=== PATIENT | male | born 1955 | race Two or more races ===

== ENCOUNTER 2023-01-22 12:53 | Outpatient (REF) | payer MEDICARE, MEDICAID, SELFPAY ==
[2023-01-22 14:24] LABS: MANUAL DIFF FLAG NO
[2023-01-22 14:37] LABS: Basophils Percent Auto 0.8 % (0-2); Eosinophils Absolute Auto 0.2 X10*3/uL (0.0-0.4); Eosinophils Percent Auto 4.8 % (0-4); Hematocrit 45.5 % (42.0-52.0); Imm Gran Abs Auto 0.02 X10*3/uL (0.00-0.03); Imm Gran Pct Auto 0.4 % (0.0-0.4); Lymphocytes Absolute Auto 1.6 X10*3/uL (1.2-4.9); Lymphocytes Percent Auto 33.1 % (20-40); Mean Corpuscular Hemoglobin 31.4 pg (27.0-33.0); Mean Corpuscular Volume 95.4 fL (80.0-98.0); Monocytes Absolute Auto 0.4 X10*3/uL (0.1-1.2); Monocytes Percent Auto 7.3 % (2-11); Neutrophils Absolute Auto 2.6 x10*3/uL (2.0-8.3); Neutrophils Percent Auto 53.6 % (45-73); Platelet Count 265 X10*3/uL (160-400); Red Blood Count 4.77 X10*6/uL (4.60-5.80); Red Cell Distribution Width 12.6 % (11.0-16.0); White Blood Count 4.8 X10*3/uL (4.8-10.8)
[2023-01-22 15:16] LABS: Alanine Aminotransferase 21 U/L (0-40); Albumin Level 4.5 g/dL (3.5-5.0); Alkaline Phosphatase 85 U/L (39-117); Anion Gap 12 (12-20); Aspartate Amino Transferase 16 U/L (5-37); Bilirubin Total 0.3 mg/dL (0.0-1.0); Blood Urea Nitrogen 22 mg/dL (9-16); Calcium 9.8 mg/dL (8.4-10.2); Carbon Dioxide 27 mmol/L (22-29); Chloride 108 mmol/L (96-108); Cholesterol 275 mg/dL (<200); Estimated Glomerular Filt Rate > 60; Glucose Fasting 110 mg/dL (60-99); HDL Cholesterol 36 mg/dL (>40); Potassium 5.1 mmol/L (3.3-5.1); Sodium 142 mmol/L (135-145); Total Protein 7.8 g/dL (6.5-8.0); Triglycerides 404 mg/dL (<150)
[2023-01-22 15:19] LABS: TSH reflex Free T4 3.15 uIU/mL (0.32-4.0)
[2023-01-22 15:27] LABS: Creatinine Urine 222.24 mg/dL
[2023-01-23 03:42] LABS: HIV AB/AG Nonreactive (Nonreactive); HIV Num 1 0.07 S/CO (0.00-0.99); ~HepC Num1 0.11 S/CO (0.00-0.79); ~Hepatitis C Antibody Nonreactive (Nonreactive)
== END 2023-01-22 12:54 | disposition home or self-care (01) ==
LOC: HO.CHCLDS 12:53
PROVIDERS: Visit Provider Family Medicine
DX: Z11.4 Encounter for screening for human immunodeficiency virus [HIV] (principal); I10 Essential (primary) hypertension; E78.5 Hyperlipidemia, unspecified; E03.9 Hypothyroidism, unspecified
CPT/HCPCS: 36415; 80053; 80061; 82043; 82570; 84443; 85025; 86803; 87389

== ENCOUNTER 2023-06-22 10:03 | Outpatient (REF) | payer MEDICARE, MEDICAID, SELFPAY ==
[2023-06-22 15:26] LABS: Cholesterol 254 mg/dL (<200); HDL Cholesterol 35 mg/dL (>40); LDL Cholesterol Calculated 165 mg/dL (<100); Triglycerides 273 mg/dL (<150)
== END 2023-06-22 10:04 | disposition home or self-care (01) ==
LOC: HO.CHCLDS 10:03
PROVIDERS: Visit Provider Family Medicine
DX: Z12.5 Encounter for screening for malignant neoplasm of prostate (principal); E78.5 Hyperlipidemia, unspecified
CPT/HCPCS: 36415; 80061; 84153

== ENCOUNTER → 2023-07-01 13:43 | Outpatient (BNVA) | payer OTHER, SELFPAY | PROVIDERS: Visit Provider Nurse Practitioner ==

== ENCOUNTER 2023-10-05 10:26 | Outpatient (REF) | payer OTHER, SELFPAY ==
[2023-10-05 16:48] LABS: Cholesterol 135 mg/dL (<200); HDL Cholesterol 44 mg/dL (>40); LDL Cholesterol Calculated 38 mg/dL (<100); Triglycerides 269 mg/dL (<150)
== END 2023-10-05 10:27 | disposition home or self-care (01) ==
LOC: HO.CHCLDS 10:26
PROVIDERS: Visit Provider Family Medicine
DX: E78.5 Hyperlipidemia, unspecified (principal)
CPT/HCPCS: 36415; 80061

== ENCOUNTER 2023-10-21 11:29 | Outpatient (REF) | payer OTHER, SELFPAY ==
--- NOTE | ~2023-10-21 | XR_ITS ---
EXAMINATION: XR CERVICAL SPINE CLINICAL INFORMATION: Chronic back pain COMPARISON: None available. TECHNIQUE: 5 views of the cervical spine were obtained. FINDINGS: No acute visible fracture or dislocation. Slight exaggeration of the cervical lordosis. Grade 1 retrolisthesis of C5 on C6. Mild left multilevel neuroforaminal narrowing. Multilevel degenerative changes with disc space narrowing, endplate sclerosis, osteophyte formation, and facet arthropathy. Visualized dens is intact. Lateral masses are symmetric. Vertebral body has a spaces are maintained. Prevertebral soft tissues are unremarkable. Posterior elements are intact. Paraspinal soft tissues are unremarkable. Visualized portions of the upper chest are unremarkable. XR/XR cervical spine 4V IMPRESSION: 1. No acute visible fracture or dislocation. 2. Slight exaggeration of the cervical lordosis. 3. Grade 1 retrolisthesis of C5 on C6. 4. Mild left multilevel neuroforaminal narrowing. 5. Multilevel degenerative changes.
== END 2023-10-21 11:30 | disposition home or self-care (01) ==
LOC: HO.HHCX 11:29
PROVIDERS: Visit Provider Family Medicine
DX: M54.2 Cervicalgia (principal); G89.28 Other chronic postprocedural pain; Z98.890 Other specified postprocedural states
CPT/HCPCS: 72050

== ENCOUNTER 2024-01-10 09:41 | Outpatient (REF) | payer OTHER, SELFPAY ==
[2024-01-10 16:25] LABS: Cholesterol 119 mg/dL (<200); HDL Cholesterol 41 mg/dL (>40); LDL Cholesterol Calculated 37 mg/dL (<100); Triglycerides 208 mg/dL (<150)
== END 2024-01-10 09:42 | disposition home or self-care (01) ==
LOC: HO.CHCLDS 09:41
PROVIDERS: Visit Provider Family Medicine
DX: E78.5 Hyperlipidemia, unspecified (principal)
CPT/HCPCS: 36415; 80061

== ENCOUNTER 2024-01-29 18:27 | Outpatient (REF) | payer OTHER, SELFPAY | END 2024-01-29 18:28 | disposition home or self-care (01) | LOC: HO.MRI 18:27 | PROVIDERS: PCP Family Medicine; Visit Provider Family Medicine | DX: M54.2 Cervicalgia (principal); G89.29 Other chronic pain; Z98.890 Other specified postprocedural states | CPT/HCPCS: 72141 ==

== ENCOUNTER → 2024-03-31 14:20 | Outpatient (BNVA) | payer OTHER, SELFPAY | PROVIDERS: PCP Family Medicine; Referring Provider Family Medicine; Visit Provider Nurse Practitioner Family | DX: M50.30 Other cervical disc degeneration, unspecified cervical region (principal); M47.812 Spondylosis without myelopathy or radiculopathy, cervical region; M62.838 Other muscle spasm; M48.02 Spinal stenosis, cervical region; G44.86 Cervicogenic headache | CPT/HCPCS: 99202 ==

== ENCOUNTER 2024-04-20 07:39 | Outpatient (REF) | payer OTHER, SELFPAY ==
--- NOTE | ~2024-04-20 | FL_ITS ---
EXAMINATION: FL GUIDANCE ONLY HISTORY: M47.812 - Spondylosis without myelopathy or radiculopathy, cervical region COMPARISON: None available. TECHNIQUE: Fluoroscopy time: 0.1 minutes. Cumulative Dose: 0.601 mGy. DAP: 0.34726 mGym2 Images: 2. FINDINGS: Fluoroscopic spot films of the cervical spine demonstrate multiple needles in the left neck at the C3, C4, and C5 levels. FL/FL guidance in treatment room IMPRESSION: Fluoroscopy during procedure. Please see procedure report for additional information. Electronically signed by: Acosta Norman MD 04/20/2024 12:42 PM MARY
--- OUTSIDE RECORDS SUMMARY | 2024-04-20 07:41 | XMS_ITS | Encounter Summary ---
Author Organization [employer] Address [address] [facility] 7t [place] [address] Care Team Providers Care Basketball Player Name Role Phone Sonya Donis MD Primary Care Provider Reason for Referral * Imaging (Routine) - Authorized Specialty Diagnoses / Procedures Referred By Kendra dale Referred To Contact Radiology Diagnoses Neck mass Procedures CT Soft Tissue Neck w/ Contrast Georges Dean MD [address] [place] [address] Phone: tel: fax: [address] Phone: tel: fax: Referral ID Status Reason Start Date Expiration Date V isits Requested Visits Authorized [id number] Authorized 04/05/2024 04/05/2025 1 1 Encounter Details Date Type Department Care Team ([facility] st Contact Info) Description 04/05/2024 Telephone [facility] [address] [place], [place] [phone] Georges Dean MD [address] [place], [place] [phone] Social History Tobacco Use Types Packs/Day Years Used Date Smoking Tobacco: Some Days Cigarettes Depression Answer Date Recorded Patient Health Questionnaire-9 Score 0 10/11/2023 Patient Health Questionnaire-9 Score 0 10/11/2023 Last PHQ-9: Questionnaire Data Not on file 0 10/11/2023 Housing Stability Answer Date Recorded What is your housing situation today? I have maru boyle 01/08/[address] you li ve. Do you have problems with any of the following? None of the above 01/08/2023 Food Insecurity Answer Date Recorded Within the past 12 months, y ou worried that your food would run out before you got money to buy more: Never True 01/08/2023 Within the past 12 months,th e food you bought just didn't last and you didn't have enough money to get more: Never True 05/2022 Transportation Answer Date Recorded In the past 12 months, has l ack of transportation kept you from medical appts, meetings, work or from getting things needed for daily living? No 01/08/2023 Utilities Answer Date Recorded In the past 12 months, has t he electric, gas, oil or water company threatened to shut off services in your home? No 01/08/2023 Depression Answer Date Recorded Patient Health Questionnaire-2 Score 0 10/11/2023 Internet Access Answer Date Recorded Internet Access Q1 Yes 11/05/2023 Internet Access Q2 Not on file 11/05/2023 Sex and Gender Information Value Date Recorded Sex Assigned at Male 03/11/2022 2:50 PM EST Legal Sex Male 2:46 PM EST Gender Identity Male 03/11/2022 2:50 PM EST Sexual Orientation Straight 03/11/2022 2: 50 PM EST documented as of this encounter Miscellaneous Notes * Telephone Encounter - Georges Dean MD - 04/05/2024 12:49 PM EST Covering for Dr. Donis. Received a notification to re-submit the CT Neck order to further evaluateneck lymph nodes seen on C-spine MRI. Recommended to order as Soft Tissue Neck CT with IV contrast.Will also need an updated BUN/Cr. Diagnoses and all orders for this visit: Neck mass (Primary) - CT Soft Tissue Neck w/ Contrast; Future - Basic Metabolic Panel; Future documented in this encounter Plan of Treatment Upcoming Encounters Date Type Department Care Team ([facility] st Contact Info) Description 05/11/2024 1:30 PM EST Clinical Support [facility] [address] [place] [address] McMAnupama benitez RN [address] [place] [address] 05/23/2024 1:00 PM EDT Clinical Support [facility] [address] [place] [address] 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 RN [address] [place] [address] 09/22/2024 3:00 PM EDT Office Visit [facility] [address] [place] [address] Ascencion Joya Scheduled Orders Name Type Priority Associated Diagnoses Orde r Schedule CT Soft Tissue Neck w/ Contrast Imaging Routine Neck mass Expected: 04/05/2024, Expires: 04/05/2025 Basic Metabolic Panel Lab Routine Neck mass Expected: 04/05/2024 (Approximate), Expires: 04/05/2025 documented as of this encounter Visit Diagnoses Diagnosis Neck mass- Primary Swelling, mass, or lump in head and neck documented in this encounter Additional Health Concerns Assessment Noted Time PHQ-9 Depression Total Score: 0 10/11/19 24 9:09 AM EDT documented as of this encounter Care Teams Basketball Player Relationship Specialty Start Date End Date Sonya Donis MD [address] [place] [address] PCP - General Family Medicine 01/18/23 [employer] SAFETY ASSOCIATE Services 10/11/23 documented as of this encounter
--- OUTSIDE RECORDS SUMMARY | 2024-04-20 07:41 | XMS_ITS | Encounter Summary ---
Author Organization [employer] Address [address] [facility] [address] 7t [place] [address] Care Team Providers Care Racking Technician Name Role Phone Sonya Donis MD Primary Care Provider Reason for Visit * Reason Comments Routine Cleaning Encounter Details Date Type Department Care Team ([facility] st Contact Info) Description 03/24/2024 3:00 PM EST Office Visit [facility] [address] [place] [address] Ascencion Joya Dental calculus (Primary Dx) Social History Tobacco Use Types Packs/Day Years [...] PM EST documented as of this encounter Last Filed Vital Signs Vital Sign Reading Time Taken Comments Blood Pressure 122/68 03/24/2024 3:10 PM EST Pulse 66 03/24/2024 3:10 PM EST Temperature - - Respiratory Rate - - Oxygen Saturation - - Inhaled Oxygen Concentration - - Weight - - Height - - Body Mass Index - - documented in this encounter Progress Notes * Ascencion Joya - 03/24/2024 3:00 PM EST Patient ID: Nemo De Los Santos is a 68 y.o. male. Time Out: Timeout Date: 03/24/24, Timeout Time: 1511 Location: [facility] Tooth: Maxilla and Mandible Procedure: Prophylaxis Verified the above with patient, warehouse administrative assistant, and provider. Confirmed via patient's chart, intraorally and by radiographs. Tanning Drum Operator: not applicable Medical Hx: Vitals: Blood pressure 122/68, pulse 66. Medications, Med Hx reviewed with patient and updated in chart. Treatment Provided Dental procedures in this visit D1110 - PROPHYLAXIS - ADULT (Completed) Service provider: Ascencion Torres provider: Makenzie Lam DDS [id number] - ORAL HYGIENE INSTRUCTIONS (Completed) Service provider: Ascencion Torres provider: Makenzie Lam DDS [id number] - ADJUNCTIVE GENERAL SERVICES - PROFESSIONAL VISITS - CASE PRESENTATION, SUBSEQUENT TO DETAILED AND EXTENSIVE TREATMENT PLANNING (Completed) Service provider: Ascencion Torres provider: Makenzie Lam DDS Instruments Used: Ultrasonic Scalers and Prophy angle Fluoride: N/A Oral Cancer Screening: No lesions Head/Neck Exam: No Lesions Calculus: Light and Localized Plaque: Light and Localized Stain: Light and Localized Bleeding: Light and Localized Gingiva: Healthy [place]: Good Perio Chart: Not Completed Oral hygiene instructions provided to patient including brushing technique and flossing. Recommendations: [place] two times daily, modified emery technique, Floss daily Recall Frequency: 6 mo NV: 6mr Hygienist: Ascencion Joya RDH documented in this encounter Plan of Treatment Upcoming Encounters Date Type Department Care Team (Late st Contact Info) Description 05/11/2024 1:30 PM EST Clinical Support [facility] [address] [place] [address] 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 RN [address] [place] [address] 05/23/2024 1:00 PM EDT Clinical Support [facility] [address] [place] [address] 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 RN [address] [place] [address] 09/22/2024 3:00 PM EDT Office Visit [facility] ADULT D[facility] [address] [place] [address] Ascencion Joya Scheduled Orders Name Type Priority Associated Diagnoses Orde r Schedule PROPHYLAXIS - ADULT Dental Routine 1 Occ urrences starting 03/24/2024 documented as of this encounter Procedures Procedure Name Priority Date/Time Associated Diagnosis Comments PROPHYLAXIS - ADULT Routine 03/24/2024 3 :00 PM EST ORAL HYGIENE INSTRUCTIONS Routine 2024 3:00 PM EST CASE PRESENTATION, DETAILED AND EXTENSIVE TREATMENT PLANNING Routine 03/24/2024 3:00 PM EST documented in this encounter Visit Diagnoses Diagnosis Dental calculus- Primary Accretions on teeth documented in this encounter Additional Health Concerns Assessment Noted Time PHQ-9 Depression Total Score: 0 10/11/19 9:09 AM EDT documented as of this encounter Care Teams Racking Technician Relationship Specialty Start Date End Date Sonya Donis MD [address] [place] [address] PCP - General Family Medicine 01/18/23 [employer] EDITORIAL DIRECTOR Services 10/11/23 documented as of this encounter
--- OUTSIDE RECORDS SUMMARY | 2024-04-20 07:41 | XMS_ITS | Encounter Summary ---
Author Organization [employer] Address [address] [facility] 7t [place] [address] Care Team Providers Care Geomatics Professor Name Role Phone Sonya Donis MD Primary Care Provider [phone] Reason for Visit * Reason Onset Date Comments Med Refill 04/07/2024 Encounter Details Date Type Department Care Team (Late st Contact Info) Description 04/07/2024 Refill [facility] [address] [place], [place] [phone] Sonya Donis MD [address] [place] [address] Chronic left hip pain Social History Tobacco Use Types Packs/Day Years Used Date Smoking Tobacco: Some Days Cigarettes Depression Answer Date Recorded Patient Health Questionnaire-9 Score 0 10/11/2023 Patient Health Questionnaire-9 Score 0 10/11/2023 Last PHQ-9: Questionnaire Data Not on file 0 10/11/2023 Housing Stability Answer Date Recorded What is your housing situation today? I have marumendel boyle 01/08/[address] you [...] encounter Miscellaneous Notes * Telephone Encounter - Kenya Martin - 04/07/2024 12:58 PM EST TC from pt requesting medication refill. Medications needing refill : oxyCODONE-acetaminophen (Percocet) 5-325 MG tablet To be sent to: [id number] AT [facility] documented in this encounter Plan of Treatment Upcoming Encounters Date Type Department Care Team ([facility] st Contact Info) Description 05/11/2024 1:30 PM EST Clinical Support [facility] [address] [place] [address] 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 RN [address] [place] [address] 05/23/2024 1:00 PM EDT Clinical Support [facility] [address] [place] [address] 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 RN [address] [place] [address] 09/22/2024 3:00 PM EDT Office Visit [facility] [address] [place] [address] Ascencion Joya documented as of this encounter Visit Diagnoses Diagnosis Chronic left hip pain documented in this encounter Additional Health Concerns Assessment Noted Time PHQ-9 Depression Total Score: 0 10/11/19 9:09 AM EDT documented as of this encounter Care Teams Geomatics Professor Relationship Specialty Start Date End Date Sonya Donis MD [address] [place] [address] PCP - General Family Medicine 01/18/23 [employer] METAL DRILL OPERATOR Services 10/11/23 documented as of this encounter
--- OUTSIDE RECORDS SUMMARY | 2024-04-20 07:41 | XMS_ITS | Encounter Summary ---
Author Organization [employer] Address [address] [facility] 7t [place] [address] Care Team Providers Care Long Term Care Pharmacist Name Role Phone Sonya Donis MD Primary Care Provider [phone] Reason for Visit * Reason Comments Med Refill Encounter Details Date Type Department Care Team ([facility] st Contact Info) Description 04/08/2024 Refill [facility] [address] [place], [place] [phone] Sonya Donis MD [address] [place] [address] Social History Tobacco Use Types Packs/Day Years [...] PM EST documented as of this encounter Plan of Treatment Upcoming Encounters Date Type Department Care Team (Late st Contact Info) Description 05/11/2024 1:30 PM EST Clinical Support [facility] [address] [place] [address] 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 RN [address] [place] [address] 05/23/2024 1:00 PM EDT Clinical Support [facility] [address] [place] [address] 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 RN [address] [place] [address] 09/22/2024 3:00 PM EDT Office Visit [facility] ADULT DENTAL [address] [place] [address] Ascencion Joya documented as of this encounter Visit Diagnoses Not on filedocumented in this encounter Additional Health Concerns Assessment Noted Time PHQ-9 Depression Total Score: 0 10/11/19 9:09 AM EDT documented as of this encounter Care Teams Long Term Care Pharmacist Relationship Specialty Start Date End Date Sonya Donis MD [address] [place] [address] PCP - General Family Medicine 01/18/23 [employer] CLIENT CARE CONSULTANT Services 10/11/23 documented as of this encounter
--- OUTSIDE RECORDS SUMMARY | 2024-04-20 07:41 | XMS_ITS | Encounter Summary ---
Author Organization [employer] Address [address] [facility] 7t [place] [address] Care Team Providers Care Dry Wall Applicator Name Role Phone Sonya Donis MD Primary Care Provider [phone] Reason for Visit * Reason Onset Date Comments Med Refill 09/08/2023 Encounter Details Date Type Department Care Team ([facility] st Contact Info) Description 09/08/2023 Telephone [facility] [address] [place] [address] Sonya Donis MD [address] [place] [address] Med Refill Social History Tobacco Use Types Packs/Day Years Used Date Smoking Tobacco: Some Days Cigarettes Depression Answer Date Recorded Patient Health Questionnaire-9 Score 9 03/11/2023 Patient Health Questionnaire-9 Score 9 03/11/2023 Last PHQ-9: Questionnaire Data Not on file 0 03/11/2023 Housing Stability Answer Date Recorded What is [...] Answer Date Recorded Patient Health Questionnaire-2 Score 2 03/11/2023 Sex and Gender Information Value Date Recorded Sex Assigned at Male 03/11/2022 2:50 PM EST Legal Sex Male 2:46 PM EST Gender Identity Male 03/11/2022 2:50 PM EST Sexual Orientation Straight 03/11/2022 2: 50 PM EST documented as of this encounter Miscellaneous Notes * Telephone Encounter - Kiki Cartagena LPN - 09/08/2023 2:59 PM EDT Medication was sent to [facility] #[id number] on 07/09/23 with 2 refills. * Telephone Encounter - Marcy Mohan - 09/08/2023 1:12 PM EDT TC from pt requesting medication refill. Medications needing refill : cyclobenzaprine (Flexeril) 10 MG tablet To be sent to: [facility] #[id number] - ANUEL WOLFF [address] AT [facility] documented in this encounter Plan of Treatment Upcoming Encounters Date Type Department Care Team ([facility] Contact Info) Description 05/11/2024 1:30 PM EST Clinical Support [facility] [address] [facility] [place] [address] 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 RN 505 [facility] [place] [address] 05/23/2024 1:00 PM EDT Clinical Support [facility] [address] [facility] [place] [place] [address] 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 RN 505 [facility] [place] [address] 09/22/2024 3:00 PM EDT Office Visit [facility] [address] [place] [address] Ascencion Joya documented as of this encounter Visit Diagnoses Not on filedocumented in this encounter Additional Health Concerns Assessment Noted Time PHQ-9 Depression Total Score: 9 03/11/19 24 11:12 AM EST documented as of this encounter Care Teams Dry Wall Applicator Relationship Specialty Start Date End Date Sonya Donis MD [address] [place] [address] PCP - General Family Medicine 01/18/23 [employer] NICKING MACHINE OPERATOR Services 10/11/23 documented as of this encounter
--- OUTSIDE RECORDS SUMMARY | 2024-04-20 07:41 | XMS_ITS | Encounter Summary ---
Author Organization [employer] Address [address] [facility] 7t [place] [address] Care Team Providers Care Mold Filling Operator Name Role Phone Sonya Donis MD Primary Care Provider [phone] Reason for Visit * Reason Onset Date Comments CRITICAL RESULT 03/28/2024 Encounter Details Date Type Department Care Team ([facility] st Contact Info) Description 03/28/2024 Telephone [facility] [address] [place] [address] Sonya Donis MD [address] [place] [address] CRITICAL RESULT Social History Tobacco Use Types Packs/Day Years [...] encounter Miscellaneous Notes * Telephone Encounter - Mahsa Apodaca RN - 03/28/2024 12:27 PM EST Incoming call to the Critical Result line 03/28/24 at 12:27 PM Name of Caller/Facility:[facility] Physician support, on behalf of Dr. Harding Callback number: [phone] Reason for Call: Calling to relay finding of MRI report form 03/20/24 MR/MR cervical spine wo con IMPRESSION: 1. Discogenic degenerative changes primarily at C5-C6 as discussed above, with disc osteophyte complex and DJD at this level with moderate spinal canal stenosis without cord impingement. There is moderate left-sided and severe right-sided neural foraminal stenosis at this level. 2. Multilevel disc protrusions and disc osteophyte complexes as described above without cord impingement or significant spinal canal stenosis. 3. Multilevel bilateral facet joint arthropathy as described above. 4. Mildly enlarged left level II IJ chain lymph node. This is nonspecific. Recommend correlation with clinical history and physical exam findings. Cannot exclude neoplastic disease. Recommend CT of the neck with contrast for further assessment. Message to be forwarded to Sonya Donis MD and team nurses for follow up. documented in this encounter Plan of Treatment Upcoming Encounters Date Type Department Care Team (Late st Contact Info) Description 05/11/2024 1:30 PM EST Clinical Support [facility] [address] [place] [address] 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 RN [address] [place] [address] 05/23/2024 1:00 PM EDT Clinical Support [facility] [address] [place] [address] 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 RN [address] [place] [address] 09/22/2024 3:00 PM EDT Office Visit [facility] [address] [place] [address] Ascencion Joya documented as of this encounter Visit Diagnoses Not on filedocumented in this encounter Additional Health Concerns Assessment Noted Time PHQ-9 Depression Total Score: 0 10/11/19 24 9:09 AM EDT documented as of this encounter Care Teams Mold Filling Operator Relationship Specialty Start Date End Date Sonya Donis MD [address] [place] [address] PCP - General Family Medicine 01/18/23 [employer] VOCATIONAL REHABILITATION ADMINISTRATOR Services 10/11/23 documented as of this encounter
--- OUTSIDE RECORDS SUMMARY | 2024-04-20 07:41 | XMS_ITS | Encounter Summary ---
Author Organization [employer] Address [address] [facility] [address] 7[address] [place] [address] Care Team Providers Care Practical Nurse Clinical Coordinator Name Role Phone Sonya Donis MD Primary Care Provider [phone] Encounter Details Date Type Department Care Team (Latest Contact Info) Description 03/23/2024 Travel Social History Tobacco Use Types Packs/Day Years [...] Description 05/11/2024 1:30 PM EST Clinical Support [facility] [address] [place] [address] 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 RN [address] [place] [address] 05/23/2024 1:00 PM EDT Clinical Support [facility] [address] [place] [address] 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 RN [address] [place] [address] 09/22/2024 3:00 PM EDT Office Visit [facility] ADULT DENTAL [address] [place] [address] Ascencion Joya documented as of this encounter Visit Diagnoses Not on filedocumented in this encounter Additional Health Concerns Assessment Noted Time PHQ-9 Depression Total Score: 0 10/11/19 24 9:09 AM EDT documented as of this encounter Care Teams Practical Nurse Clinical Coordinator Relationship Specialty Start Date End Date Sonya Donis MD [address] [place] [address] PCP - General Family Medicine 01/18/23 [employer] ANIMAL HUSBANDRY MANAGER Services 10/11/23 documented as of this encounter
--- OUTSIDE RECORDS SUMMARY | 2024-04-20 07:41 | XMS_ITS | Encounter Summary ---
Author Organization [employer] Address [address] [place] [address] Care Team Providers Care Physician Office Clin Asst Name Role Phone oSnya Donis MD Primary Care Provider [phone] Reason for Referral * Consultation (Routine) - Closed Specialty Diagnoses / Procedures Referred By Kendra t Referred To Contact Pain Medicine Diagnoses Chronic neck pain with history of cervical spinal surgery Sonya Donis MD [address] [place] [address] Phone: tel: fax: Tony Koenig MD [address] [place] [address] [place] [address] Phone: tel: fax: Referral ID Status Reason Start Date Expiration Date V isits Requested Visits Authorized [id number] Closed Specialty Services Required 03/20/2024 03/20/2025 1 1 * Imaging (Routine) - Pending Review Specialty Diagnoses / Procedures Referred By Contjeanine t Referred To Contact Radiology Diagnoses Left cervical lymphadenopathy Procedures CT Cervical Spine w/ and w/o Contrast Sonya Donis MD [address] [place] [address] Phone: tel: fax: [facility] [address] [place] [address] Phone: tel: fax: Referral ID Status Reason Start Date Expiration Date V isits Requested Visits Authorized [id number] Pending Review 03/20/2024 03/20/2025 1 1 Encounter Details Date Type Department Care Team (Late st Contact Info) Description 03/20/2024 Telephone [facility] [address] [place] [address] Sonya Donis MD [address] [place] [address] Social History Tobacco Use Types Packs/Day Years [...] encounter Miscellaneous Notes * Telephone Encounter - Yanet Farrell RN - 03/21/2024 1:51 PM EST T/C to pt via [facility] #[id number]. Advised of message from PCP re: interpretation of cervical MRI. Pt verbalized understanding. States he is not sure whether he will be able to complete CT with contrast due to having a screw implanted in his leg. Pt agrees to discuss with CT when they call to schedule. Pt asking for plan re: worsening terrible neck pain. Advised pt further recommendationswill be available after follow up imaging but that pcp placed referral to Pain medicine. Pt verbalized understanding. * Telephone Encounter - Sonya Donis MD - 03/20/2024 3:17 PM EST Jess Ferreira Team! Can you please call [facility] and inform about results? Cervical MRI 1. Discogenic degenerative changes primarily at C5-C6: This means there's wear and tear happening between the 5th and 6th bones in your neck (cervical spine). Discogenic refers to the discs, which are the cushions between your vertebrae. Degenerative changes means these discs are showing signs of aging, such as drying out or developing cracks. Disc osteophyte complex means there are small bone spurs (osteophytes) growing on the edges of the discs. DJD stands for Degenerative Joint Disease, which is another term for arthritis. Moderate spinal canal stenosis without cord impingement means the space within your spinal canal where your spinal cord travels is slightly narrowed, but your spinal cord itself isn't being squeezed or compressed. 2. Multilevel disc protrusions and disc osteophyte complexes as described above without cord impingement or significant spinal canal stenosis: This means there are similar disc bulges and bone spurs at multiple levels in your neck, but they're not causing significant narrowing of the spinal canal or compressing your spinal cord. 3. Multilevel bilateral facet joint arthropathy as described above: Facet joints are small joints located at the back of each vertebra. Arthropathy means arthritis, so this indicates that there's arthritis in these facet joints at multiple levels in your neck. 4. Mildly enlarged left level II IJ chain lymph node: Lymph nodes are small pisano-shaped structures that help fight infection. Level II IJ chain refers to a specific group of lymph nodes in your neck. Mildly enlarged means the lymph node is slightly bigger than normal. Non-specific means this finding could have many different causes and doesn't necessarily indicatea serious problem. Recommend CT of the neck with contrast : This means your doctor recommends a CT scan with contrastdye to get a better look at the lymph nodes in your neck and help determine the cause of the enlargement. Thanks! Sonya documented in this encounter Plan of Treatment Upcoming Encounters Date Type Department Care Team (Late st Contact Info) Description 05/11/2024 1:30 PM EST Clinical Support [facility] MED & PEDS [address] [place] [address] 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 RN [address] [place] [address] 05/23/2024 1:00 PM EDT Clinical Support [facility] MED & PEDS [address] [place] [address] 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 RN [address] [place] [address] 09/22/2024 3:00 PM EDT Office Visit [facility] ADULT DENTAL [address] [place] [address] Ascencion Joya Scheduled Orders Name Type Priority Associated Diagnoses Orde r Schedule CT Cervical Spine w/ and w/o Contrast Imaging Routine Left cervical lymphadenopathy Expected: 03/20/2024, Expires: 03/20/2025 Scheduled Referrals Name Type Priority Associated Diagnoses Orde r Schedule Referral to Pain Medicine Outpatient Referral Routine Chronic neck pain with history of cervical spinal surgery Expected: 03/20/2024 (Approximate), Expires: 03/20/2025 documented as of this encounter Visit Diagnoses Diagnosis Left cervical lymphadenopathy- Primary Chronic neck pain with history of cervical spinal surgery documented in this encounter Additional Health Concerns Assessment Noted Time PHQ-9 Depression Total Score: 0 10/11/19 24 9:09 AM EDT documented as of this encounter Care Teams Physician Office Clin Asst Relationship Specialty Start Date End Date Sonya Donis MD [address] [place] [address] PCP - General Family Medicine 01/18/23 [employer] Services 10/11/23 documented as of this encounter
--- OUTSIDE RECORDS SUMMARY | 2024-04-20 07:41 | XMS_ITS | Encounter Summary ---
Author Organization [employer] Address [address] [facility] 7t [place] [address] Care Team Providers Care Content Checker Name Role Phone Sonya Donis MD Primary Care Provider Reason for Visit * Reason Comments controlled substance treatment Encounter Details Date Type Department Care Team (Latest Contact Info) Description 03/23/2024 2:30 PM EST Clinical Support [facility] PEDS [address] [place] [address] 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, RN [address] [place], [place] Chronic neck pain with history of cervical spinal surgery Social History Tobacco Use Types Packs/Day Years [...] PM EST documented as of this encounter Progress Notes * 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 RN - 03/23/2024 2:30 PM EST S: FIRE CHIEF NV. Patient is taking Percocet 5-325 mg Q 6hrs PRN for chronic L hip pain. Denies any adverse events. States has been taking medication as prescribed. Denies illicit drugs use. Very rare ETOH use, pt educated of the risks associated with the combination of ETOH and opioids, verbalized underst anding. States has a cigarette once in a while, socially. Last PCP f/u was on 01/13/24. No questions/ concerns at this time. O: FIRE CHIEF tier 4. FRONT OFFICE CLERK checked on 03/23/24. Last refilled on 03/10/24. Pill count performed, patient has 59 pills left, 54 expected. utox performed, positive for OXY, TCA, negative for all other tested substances, as expected. .Fentanyl testing: negative Lot# [id number] Exp: 02-19-25 A: Chronic opioid use use r/t chronic pain. P: Patient to cont. with current medication regimen as needed and take medication only as directed.Next FIRE CHIEF NV scheduled for 05/23/24 @1pm. f/u sooner PRN. Reminder slip given. Patient verbalized understanding and agreed to plan. documented in this encounter Plan of Treatment Upcoming Encounters Date Type Department Care Team (Late st Contact Info) Description 05/11/2024 1:30 PM EST Clinical Support [facility] MED & PEDS [address] [place] [address] 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 RN [address] [place] [address] 05/23/2024 1:00 PM EDT Clinical Support [facility] MED & PEDS [address] [place] [address] 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 RN [address] [place] [address] 09/22/2024 3:00 PM EDT Office Visit [facility] ADULT DENTAL [address] [place] [address] Ascencion Joya documented as of this encounter Procedures Procedure Name Priority Date/Time Associated Diagnosis Comments POCT RHEA-14 URINE DRUG SCREEN Routine 03/23/2024 2:54 PM EST Chronic neck pain with history of cervical spinal surgery documented in this encounter Results * POCT RHEA-14 Urine Drug Screen (03/23/2024 2:54 PM EST) TCA, Urine Positive Oxycodone Screen, Urine Positive Urine Urine specimen obtained by clean catch procedure / Unknown 03/23/2024 2:54 PM EST Narrative 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 RN - 03/23/2024 2:54 PM EST Lot# [id number] Exp: 02-11-25 Sonya Donis MD POINT OF CARE TEST ENTER/EDIT ORDERABLES Final Result documented in this encounter Visit Diagnoses Diagnosis Chronic neck pain with history of cervical spinal surgery documented in this encounter Additional Health Concerns Assessment Noted Time PHQ-9 Depression Total Score: 0 10/11/19 24 9:09 AM EDT documented as of this encounter Care Teams Content Checker Relationship Specialty Start Date End Date Sonya Donis MD [address] [place] [address] PCP - General Family Medicine 01/18/23 [employer] Services 10/11/23 documented as of this encounter
--- OUTSIDE RECORDS SUMMARY | 2024-04-20 07:41 | XMS_ITS | Encounter Summary ---
Author Organization [employer] Address [address] [facility] 7t [place] [address] Care Team Providers Care Ship Joiner Name Role Phone Sonya Donis MD Primary Care Provider [phone] Reason for Visit * Reason Onset Date Comments CT CERVICAL ORDER 04/05/2024 Encounter Details Date Type Department Care Team (Late st Contact Info) Description 04/05/2024 Telephone [employer] [facility] [address] [place] [address] Sonya Donis MD [address] [place], [place] [id number] CT CERVICAL ORDER Social History Tobacco Use Types Packs/Day Years [...] Miscellaneous Notes * Telephone Encounter - Yanet Marie RN - 04/06/2024 11:15 AM EST Informed pt of lab work to complete. Patient stated understanding. * Telephone Encounter - Jazmín Donis - 04/05/2024 11:55 AM EST Incoming fax from [facility], per radiologist recommendation this should be ordered as a soft tissue neck w/ iv con. please review and advise. documented in this encounter Plan of Treatment Upcoming Encounters Date Type Department Care Team (Late st Contact Info) Description 05/11/2024 1:30 PM EST Clinical Support [facility] MED & PEDS [address] [place] [address] 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 RN [address] [place] [address] 05/23/2024 1:00 PM EDT Clinical Support [facility] MED & PEDS [address] [place] [address] 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 RN [address] [place] [address] 09/22/2024 3:00 PM EDT Office Visit [facility] ADULT DENTAL [address] [place] [address] Ascencion Joya documented as of this encounter Visit Diagnoses Not on filedocumented in this encounter Additional Health Concerns Assessment Noted Time PHQ-9 Depression Total Score: 0 10/11/19 24 9:09 AM EDT documented as of this encounter Care Teams Ship Joiner Relationship Specialty Start Date End Date Sonya Donis MD [address] [place] [address] PCP - General Family Medicine 01/18/23 [employer]TRY [employer] WORKER Services 10/11/23 documented as of this encounter
--- OUTSIDE RECORDS SUMMARY | 2024-04-20 07:41 | XMS_ITS | Encounter Summary ---
Author Organization [employer] Address [address] [facility] 7t [place] [address] Care Team Providers Care Vehicle Monitor Technician Name Role Phone Sonya Donis MD Primary Care Provider [phone] Reason for Visit * Reason Onset Date Comments Med Refill 11/11/2023 Encounter Details Date Type Department Care Team (Late st Contact Info) Description 11/11/2023 Telephone [facility] MEDICINE [address] [place] [address] Sonya Donis MD [address] [place], [place] [phone] Med Refill Social History Tobacco Use Types [...] encounter Miscellaneous Notes * Telephone Encounter - Kenny Suresh - 11/11/2023 12:51 PM EDT TC from pt requesting medication refill. Medications needing refill: oxyCODONE-acetaminophen (Percocet) 5-325 MG tablet To be sent to: [id number] AT [facility] documented in this encounter Plan of Treatment Upcoming Encounters Date Type Department Care Team ([facility] st Contact Info) Description 05/11/2024 1:30 PM EST Clinical Support [facility] MED & PEDS [address] [place] [address] 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 RN [address] [place] [address] 05/23/2024 1:00 PM EDT Clinical Support [facility] MED & PEDS [address] [place] [address] 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 RN [address] [place] [address] 09/22/2024 3:00 PM EDT Office Visit [facility] ADULT DENTAL [address] [place] [address] Ascencion Joya documented as of this encounter Visit Diagnoses Not on filedocumented in this encounter Additional Health Concerns Assessment Noted Time PHQ-9 Depression Total Score: 0 08/05/20 24 9:09 AM EDT documented as of this encounter Care Teams Vehicle Monitor Technician Relationship Specialty Start Date End Date Sonya Donis MD [address] [place] [address] PCP - General Family Medicine 01/18/23 [employer] WELLNESS TRAINER Services 10/11/23 documented as of this encounter
--- OUTSIDE RECORDS SUMMARY | 2024-04-20 07:41 | XMS_ITS | Encounter Summary ---
Author Organization [employer] Address [address] [facility] 7t [place] [address] Care Team Providers Care Collision Estimator Name Role Phone Sonya Donis MD Primary Care Provider [phone] Reason for Visit * Reason Onset Date Comments Med Refill 01/07/2024 Encounter Details Date Type Department Care Team (Late st Contact Info) Description 01/07/2024 Telephone [facility] MEDICINE [address] [place] [address] Sonya Donis MD [address] [place], [place] [phone] Med Refill Social History Tobacco Use Types [...] encounter Miscellaneous Notes * Telephone Encounter - Angie Ibrahim - 01/07/2024 10:04 AM EDT TC from pt requesting medication refill. Medications needing refill : oxyCODONE-acetaminophen (Percocet) 5-325 MG tablet To be sent to: [facility] #[id number] documented in this encounter Plan of Treatment Upcoming Encounters Date Type Department Care Team (Late st Contact Info) Description 05/11/2024 1:30 PM EST Clinical Support [facility] MED & PEDS [address] [place] [address] 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 RN [address] [place] [address] 05/23/2024 1:00 PM EDT Clinical Support [facility] MED & PEDS [address] [place] [address] 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 RN [address] [place] [address] 09/22/2024 3:00 PM EDT Office Visit [facility] ADULT DENTAL [address] [place] [address] Ascencion Joya documented as of this encounter Visit Diagnoses Not on filedocumented in this encounter Additional Health Concerns Assessment Noted Time PHQ-9 Depression Total Score: 0 10/11/19 24 9:09 AM EDT documented as of this encounter Care Teams Collision Estimator Relationship Specialty Start Date End Date Sonya Donis MD [address] [place] [address] PCP - General Family Medicine 01/18/23 [employer] WORKER Services 10/11/23 documented as of this encounter
--- OUTSIDE RECORDS SUMMARY | 2024-04-20 07:41 | XMS_ITS | Encounter Summary ---
Author Organization [employer] Address [address] [facility] 7t [place] [address] Care Team Providers Care Supervisor Ordnance Truck Installation Name Role Phone Sonya Donis MD Primary Care Provider [phone] Reason for Visit * Reason Onset Date Comments New Patient 10/28/2022 Encounter Details Date Type Department Care Team (Late st Contact Info) Description 10/28/2022 Telephone [facility] MEDICINE [address] [place], [place] [phone] Dony Bhagat MD [address] [place], [place] [phone] New Patient Social History Tobacco Use Types Packs/Day Years Used Date Smoking Tobacco: Never Assessed Sex and Gender Information Value Date Recorded Sex Assigned at Male 03/11/2022 2:50 PM EST Legal Sex Male 2:46 PM EST Gender Identity Male 03/11/2022 2:50 PM EST Sexual Orientation Straight 03/11/2022 2: 50 PM EST documented as of this encounter Miscellaneous Notes * Telephone Encounter - Gayatri Chaudhary - 12/10/2022 3:03 PM EDT BIJAN Brown called pt to Offer WEB ART DIRECTOR appt. Pt demographics and insurance information were verified. Pt states following medical conditions: thyroid, Cholesterol, Arthritis, Needs Hip replacement, and High blood pressure. Pt reports taking medications: No Pt given WEB ART DIRECTOR appt with Dr. Donis on 01/18/2023 @ 9:30 am. Pt will be sent appt reminder card and medical release form and agrees to complete and to return to medical records prior to WEB ART DIRECTOR appt. * Telephone Encounter - Gayatri Chaudhary - 10/28/2022 1:35 PM EDT Pt has been transfer over to wait list for WEB ART DIRECTOR. EFFECTIVE SINCE 10/28/2022 documented in this encounter Plan of Treatment Upcoming Encounters Date Type Department Care Team (Late st Contact Info) Description 05/11/2024 1:30 PM EST Clinical Support [facility] MED & PEDS [address] [place] [address] 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 RN [address] [place] [address] 05/23/2024 1:00 PM EDT Clinical Support [facility] MED & PEDS [address] [place] [address] 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 RN [address] [place] [address] 09/22/2024 3:00 PM EDT Office Visit [facility] ADULT DENTAL [address] [place] [address] Ascencion Joya documented as of this encounter Visit Diagnoses Not on filedocumented in this encounter Care Teams Supervisor Ordnance Truck Installation Relationship Specialty Start Date End Date Sonya Donis MD [address] [place] [address] PCP - General Family Medicine 01/18/23 [employer] PEDIATRIC PHYSICIAN ASSISTANT Services 10/11/23 documented as of this encounter
--- OUTSIDE RECORDS SUMMARY | 2024-04-20 07:41 | XMS_ITS | Data Portability ---
Author Organization [facility], [place] Address [address] [place] [phone] Care Team Providers Care Validation Leader Name Role Phone [facility] Primary Care Provider Assessment No assessment recorded. Plan of Treatment Reminders Order Date Submit Date Provider Last Modified By Organization Details Last Modified Time Details Appointments None recorded. Lab None recorded. Referral None recorded. Procedures None recorded. Surgeries None recorded. Imaging None recorded. Medication Orders fluticasone propionate 50 mcg/actuati on nasal spray,suspe nsion 2023 024 [facility] #[id number], [address] [place], [place], [phone], 4 14:25:30 guaifenesin 400 mg tablet 2023 024 [facility] #[id number], [address], [place], [phone], 4 14:25:29 Patient TargetsNo targets recorded. Patient InstructionsNo instructions recorded. Reason for Referral None Reported. Medical Equipment None Reported. Allergies Allergen ID Allergen Name Allergen Category Reaction Reaction Severity Criticality Documentation Date Start Date Code Code System Note Provider Name and Address Organization Details Recorded Time 2773 aspirin medicatio n Not available Not available Not available 01/04/2024 1191 [facility] Not Available [facility] - production 04:13:31 Medications Name Sig Start Date Stop Date Status Note LastModified by Organization Details LastModified Time cyclobenzaprin e 10 mg tablet active Not Available Not Availab le Not Available cetirizine 10 mg tablet TAKE 1 TABLET BY MOUTH IN THE MORNING active Not Available Not Available No t Available meloxicam 15 mg tablet TAKE 1 TABLET BY MOUTH EVERY DAY WITH FOOD OR MILK active Not Available Not Available No t Available famotidine 40 mg tablet active Not Available Not Available No t Available oxycodone-acet aminophen 5 mg-325 mg tablet TAKE 1 TABLET BY MOUTH EVERY 12 HOURS NEEDED FOR SEVERE PAIN active Not Available Not Available No t Available albuterol sulfate HFA 90 mcg/actuation aerosol inhaler INHALE 2 PUFFS EVERY 4 HOURS NEEDED FOR WHEEZING active Not Available Not Available No t Available fluticasone propionate 50 mcg/actuation nasal spray,suspensi on SHAKE LIQUID AND USE 1 SPRAY IN EACH NOSTRIL EVERY DAY active Not Available Not Available No t Available cyclobenzaprin e 5 mg tablet active Not Available Not Availabl e Not Available omega-3 acid ethyl esters 1 gram capsule TAKE 1 CAPSULE BY MOUTH TWICE DAILY active Not Available Not Available No t Available Chest Congestion Relief 400 mg tablet TAKE 1 TABLET BY MOUTH EVERY 4 HOURS active Not Available Not Available No t Available Vitals Date Recorded Body weight Respiratory rate Heart rate Body height Body temperature Oxygen saturation Oxygen saturation in Arterial blood by Pulse oximetry Systolic blood pressure Diastolic blood pressure Provider Name and Address Organization Details Last Updated DateTime 4 83301.0 48 g 16 /min 71 /min 170.18 cm 97.1 [degF] 97 % 97 % 153 mm[Hg] 89 mm[Hg] Not Available [facility] - production 4 14:22:57 Social History None recorded. Functional Status None recorded. Mental Status None recorded. Family History Nothing Reported. Medical History No medical history recorded. Past Encounters Encounter ID Performer Location Encounter Start Date Encounter Closed Date Diagnosis/Indication Diagnosis SNOMED-CT Code Diagnosis ICD10 Code Diagnosis Note [id number] Dary Castellanos MD [facility] [address] [place] [phone] 04/26/2023 14:22:55 04/27/2023 11:07:57 COVID-19 703329067 U07.1 I provided real -time medical direction via phone for this encounter, and was available for additional phone based assistance as needed. I have reviewed and agree with the Assessment and Plan as documented by the Fitting Room Associate. Patient given the opportunit y to ask questions. 67 yo M now covid +. lungs clear, vitals stable. refusing paxlovid. Revewied warning signs/sx. Offered trial of flonase and guaifenese n for symptomati c management . Health Concerns Section Related Observation LastModified by Organization Detai ls LastModified Time None Recorded Concern Status LastModified by Organization Details LastModified Time None Recorded Advance Directives Directive None Recorded Payers Encounter Date Sequence Insurance Name Policy Number Policy Manning Covered Member ID Manning Member ID Guarantor Name 04/26/2023 1 [facility] - DOS ON OR AFTER 2022 - DUAL ELIGIBLE - JAIL OPTIONS AND ONE CARE (MEDICARE REPLACEMENT/ADV ANTAGE - HMO) Nemo De Los Santos [id number] [facility] Notes Date Note Type Note Provider Name and Address Organization Details Recorded Time 04/26/2023 text/html [facility] Nurse Triage Notes (Paris Gorman): Chief Complaints: Fever/Chills, Cough Allergies: Aspirin Comments: Fijian speaking member called in - verified name/ with motor vehicle parts interpreter. Member reporting fever, cough, and throat pain for the past 3 days. Feeling unwell and fatigued. He has been taking Tylenol for body aches and fevers. SOB only r/t cough. Denies chest pain. No known sick contacts. Mikel Gorman RN Will need paper consent in Fijian ................... ................... ................... ................... ................... ................... ................... ........ Fitting Room Associate Note From Karan Hardin: Pt reports sore throat, body aches, chills, URIBE and cough producing yellow sputum since Wednesday. Pt denies CP, SOB, HAMMOND, n/v/d. Pt is alert, NAD. VSS. Afebrile. Non focal neuro exam. Normal gait. Unremarkable ENT exam. No sinus tenderness. Lung CTA. Benign ABD exam. No LE edema. Rapid covid positive, flu and strep negative. Pt educated on paxlovid and refuses. Pt educated on prescriptions and other supportive care measures. Pt instructed to f/u with PCP and to seek emergent medical care for new or worsening sx, which are reviewed with him. ................... ................... ................... ................... ................... ................... ................... ........ Disposition: Fulfilled Dary Castellanos MD [address] [facility],[address], [place], [phone], [employer] 04/26/2023 23:24:04
--- OUTSIDE RECORDS SUMMARY | 2024-04-20 07:41 | XMS_ITS | Clinical Summary ---
Author Organization [employer] Address [address] [facility] [address] [place] [address] Care Team Providers Care Finance Clerk Name Role Phone Sonya Donis MD Primary Care Provider [phone] Allergies Active Allergy Reactions Criticality Noted Date Comments Aspirin Swelling Low 01/18/2023 Shellfish-Derived Products Swelling Low 3 Medications omega-3 acid ethyl esters (Lovaza) 1 g capsule Take 1 capsule (1 g) by mouth 2 times daily. 60 capsule 11 02/19/20 23 Active albuterol 108 (90 Base) MCG/ACT inhalerIndicat ions:Chronic cough Inhale 2 puffs every 4 (four) hours if needed for wheezing. 18 g 1 02/19/20 23 Active cetirizine (ZyrTEC) 10 MG tabletIndicati ons:Chronic cough Take 1 tablet (10 mg) by mouth in the morning. 30 tablet 02/19/20 23 Active famotidine (Pepcid) 40 MG tabletIndicati ons:Chronic cough Take 1 tablet (40 mg) by mouth if needed at bedtime for heartburn. 30 tablet 02/19/20 23 Active meloxicam (Mobic) 15 MG tablet Take 1 tablet by mouth 1 (one) time each day. Active fluticasone (Flonase) 50 MCG/ACT nasal spray SHAKE LIQUID AND USE 1 SPRAY IN EACH NOSTRIL EVERY DAY Active cyclobenzaprin e (Flexeril) 10 MG tablet Take 1 tablet (10 mg) by mouth 3 times daily. 90 tablet 2 07/09/19 24 Active GaviLyte-G 236 g solution 07/05/19 24 Active Gentle Laxative 5 MG EC tablet Take 10 mg by mouth at bedtime. 07/01/19 24 Active oxyCODONE-acet aminophen (Percocet) 5-325 MG tabletIndicati ons:Chronic left hip pain Take 1 tablet by mouth every 6 (six) hours if needed for severe pain. 112 tablet 04/07/19 25 Active rosuvastatin (Crestor) 40 MG tablet TAKE 1 TABLET(40 MG) BY MOUTH DAILY 90 tablet 1 04/12/19 25 Active rosuvastatin (Crestor) 40 MG tablet TAKE 1 TABLET(40 MG) BY MOUTH DAILY 90 tablet 1 01/06/20 24 025 Discontinued oxyCODONE-acet aminophen (Percocet) 5-325 MG tabletIndicati ons:Chronic left hip pain Take 1 tablet by mouth every 6 (six) hours if needed for severe pain. 112 tablet 03/10/19 25 025 Discontinued(Re order (will not trigger notification to Pharmacy)) Active Problems Problem Noted Date Diagnosed Date Low pressure urethral dysfunction 02/18/2023 Assessment & Plan (02/18/2023 2:25 PM EST): Patient that presented visit with complaints of low pressure urethral dysfunction will be referred to Urology. Chronic left hip pain 02/18/2023 Assessment & Plan (10/11/2023 9:35 AM EDT): Prescribing Percocet for symptoms. Advised to follow up with PT. Assessment & Plan (06/12/2023 2:12 AM EDT): Discussed procedures for acquiring refills for no further interruption of treatment. Prescribed: Oxycodone- acetaminophen 5-325 MG tablet Assessment & Plan (04/06/2023 10:53 AM EST): Reports medication help with ROM and pain management. Will cont current regimen. F/up in 3 months. Aware of COT nursing visit. Assessment & Plan (02/18/2023 2:24 PM EST): Patient that presented visit with concerns of neck pain will be referred to Orthopaedics for further evaluation. In addition, patient will be prescribed pain medications, including opioids to treat pain. Chronic neck pain with history of cervical spina l surgery 02/18/2023 Assessment & Plan (01/17/2024 8:29 PM EST): Pt PT was discontinued due to health insurance no longer paying, but reports not helpful. At this moment will proceed with MRI and depending on results either refer to pain medicine vs neurosurgery Assessment & Plan (10/11/2023 9:38 AM EDT): Ordering XR of Cervical Spine for further evaluation and referral to PT for continued treatment of Symptoms. Assessment & Plan (08/09/2023 5:23 PM EDT): Patient reports persistent pain despite rx of oxycodone, reports prior hx of treatment/surgery. Assessment & Plan (02/18/2023 2:24 PM EST): Patient that presented visit with concerns of neck pain will be prescribed pain medications to treat pain. Chronic cough 02/18/2023 Assessment & Plan (02/18/2023 2:23 PM EST): Patient that presented visit with concerns of chronic cough will be given Albuterol to treat complaint. If cough doesn't improve, will be treating with other medications. Encounter for health-related screening Assessment & Plan (01/18/2023 10:14 AM EST): -Lab: Hep.C, HIV-1/2 -Immunizations: PCV-20, Influenza Vaccine (High-Dose). Hypertension 01/18/2023 Assessment & Plan (01/17/2024 3:02 AM EST): Pts BP was good. 130/80 during visit. Assessment & Plan (01/18/2023 10:22 AM EST): Patient that presents visit will be sent for labs: CBC, Albumin, C. Met. Panel. Hyperlipidemia 01/18/2023 Assessment & Plan (10/11/2023 9:37 AM EDT): BP reading was good. Lab work showed Lipids are improved from last visit but still elevated. Continue on medications. Discussed additional resources for nutritional changes, Pt agreed to see Construction Technician. Ordering lab work for Lipids recheck, to be completed before next visit. F/u in 3 months. Assessment & Plan (08/09/2023 5:23 PM EDT): The 10-year ASCVD risk score (Robert MAS, et al., 2019) is: 22.4% Values used to calculate the score: Age: 67 years Sex: Male Is Non- : No Diabetic: No Tobacco smoker: Yes Systolic Blood Pressure: 118 mmHg Is BP treated: No HDL Cholesterol: 35 mg/dL Total Cholesterol: 254 mg/dL Assessment & Plan (06/12/2023 2:13 AM EDT): Uncontrolled: Lab results showed elevated levels. Continue to moniter. Relevant Orders: Labwork - Lipid Panel, Standard Future Appointments Date Time Provider Department Center 07/09/2023 1:00 PM Sonya Donis MD [facility] Assessment & Plan (01/18/2023 10:23 AM EST): -Labs: Lipid Panel. Hypothyroidism 01/18/2023 Assessment & Plan (01/18/2023 10:23 AM EST): -Labs: TSH/FT4. Encounters Date Type Department Care Team Description 04/08/2024 Refill [facility] [address] [place], [place] [phone] Sonya Donis MD 04/07/2024 Refill [facility] [address] [place], [place] [phone] Sonya Donis MD Chronic left hip pain 04/05/2024 Telephone [facility] [address] [place], [place] [phone] Georges Dean MD 04/05/2024 Telephone [facility] [address] [place], [place] [phone] Sonya Donis MD CT CERVICAL ORDER 03/28/2024 Telephone [facility] [address], [place] [phone] Sonya Donis MD CRITICAL RESULT 03/24/2024 3:00 PM EST Office Visit [facility] [address] [place] [phone] [facility] Dental calculus (Primary Dx) 03/23/2024 2:30 PM EST Clinical Support [facility] [address] [place] [address] 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 RN Chronic neck pain with history of cervical spinal surgery 03/23/2024 Telephone [facility] [address] [place] [address] 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 RN 03/23/2024 Travel 03/20/2024 Telephone [facility] [employer] [facility] [address] [place] [phone] Sonya Donis MD 03/20/2024 Telephone [facility] [address] [place] [address] Sonya Donis MD 03/07/2024 Refill [facility] [address] [place] [address] Sonya Donis MD Chronic left hip pain 02/17/2024 1:30 PM EST Clinical Support [facility] [address] [place] [address] 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 RN Chronic neck pain with history of cervical spinal surgery 02/17/2024 Telephone [facility] [address] [place] [address] 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, ADONAY 02/17/2024 Telephone [facility] [address] [place] [address] 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 RN 02/17/2024 Travel 02/07/2024 Telephone [facility] [address] [place] [address] 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, ADONAY 02/02/2024 Refill [facility] [address] [place] [address] 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 RN Chronic left hip pain 02/02/2024 Telephone [facility] [address] [place] [address] Sonya Donis MD Med Refill 01/26/2024 Telephone [facility] [address] [place] [address] Sonya Donis MD Referral from Last 3 Months Immunizations Name Administration Dates Next Due Influenza High-dose Quadriva lent Preservative Free 01/18/2023 Influenza, seasonal, injecta ble, preservative free 01/13/2024 Moderna Covid-19 Vaccine 12+ 02/13/2021,06/15/19 21,05/17/2020 Moderna Covid-19 Vaccine 6+ Bivalent 03/11/2022 Pneumococcal Conjugate PCV 20 01/18/2023 Tdap 01/13/2024 Social History Tobacco Use Types Packs/Day Years Used Date Smoking Tobacco: Some Days Cigarettes Tobacco Cessation:Ready to Q uit: Not Asked; Counseling Given: Not Answered Depression Answer Date Recorded Patient Health Questionnaire-9 [...] Orientation Straight 03/11/2022 2: 50 PM EST Last Filed Vital Signs Vital Sign Reading Time Taken Comments Blood Pressure 122/68 03/24/2024 3:10 PM EST Pulse 66 03/24/2024 3:10 PM EST Temperature 37.1 ??C (98.8 ??F) 01/13/2024 3:16 PM ES T Respiratory Rate 18 01/13/2024 3:16 PM EST Oxygen Saturation 98% 01/13/2024 3:16 PM EST Inhaled Oxygen Concentration - - Weight 73.4 kg (161 lb 12.8 oz) 01/13/2024 3:16 PM EST Height 170.2 cm (5' 7 ) 01/13/2024 3:16 PM EST Body Mass Index 25.34 01/13/2024 3:16 PM EST Plan of Treatment Upcoming Encounters Date Type Department Care Team (Late st Contact Info) Description 05/11/2024 1:30 PM EST Clinical Support [facility] [address] [place] [address] 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 RN [address] [place] [address] 05/23/2024 1:00 PM EDT Clinical Support [facility] [address] [place] [address] 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 RN [address] [place] [address] 09/22/2024 3:00 PM EDT Office Visit [facility] [address] [place] [address] [facility] Health Maintenance Due Date Last Done Comments CT Colonography 1955 FIT DNA/Cologuard 1955 FIT 1955 FOBT 1955 Sigmoidoscopy 1955 Zoster Vaccines (1 of 2) 2006 Colonoscopy 01/13/2023 01/13/2018 Colorectal Cancer Screening 01/13/2023 COVID-19 Vaccine ( season) 2023 03/11/2022, 02/13/2021, 06/14/2020, Additional history exists Dental Oral Exam 03/24/2024 09/21/2023 Dental X-Ray: Bitewings 09/21/2024 09/21/2023 Dental Prophylaxis 09/22/2024 03/24/2024, 09/21/2023 Depression Screening 10/10/2024 10/11/2023, 10/11/19 24 SDOH Screening 10/10/2024 10/11/2023 Alcohol/Substance Use Screening 01/12/2025 01/13/2024 Tobacco Screening 03/24/2025 03/24/2024 Dental X-Ray: Full Mouth 09/21/2026 09/21/2023 Lipid Panel 01/09/2029 01/10/2024, 09/07, 06/22/2023, Additional history exists RSV Patients and Patients Aged 60 years or older (1 - 1-dose 75+ series) 08/17/2031 DTaP/Tdap/Td Vaccines (2 - Td or Tdap) 01/12/2034 01/13/2024 Pneumococcal Vaccine: 50+ Years Completed 01/18/2023 Hepatitis C Screening Completed 01/22/2023 Influenza Vaccine Completed 01/13/2024, 01/18/2023 HIB Vaccines Aged Out No longer eligi ble based on patient's age to complete this topic HPV Vaccines Aged Out No longer eligi ble based on patient's age to complete this topic Hepatitis A Vaccines Aged Out No long er eligible based on patient's age to complete this topic Hepatitis B Vaccines Aged Out No long er eligible based on patient's age to complete this topic IPV Vaccines Aged Out No longer eligi ble based on patient's age to complete this topic Meningococcal Vaccine Aged Out No pilar eric eligible based on patient's age to complete this topic RSV under 20 months Aged Out No longe r eligible based on patient's age to complete this topic Rotavirus Vaccines Aged Out No longer eligible based on patient's age to complete this topic Procedures Procedure Name Priority Date/Time Associated Diagnosis Comments CASE PRESENTATION, DETAILED AND EXTENSIVE TREATMENT PLANNING Routine 03/24/2024 3:00 PM EST ORAL HYGIENE INSTRUCTIONS Routine 03/24/2024 3:00 PM EST PROPHYLAXIS - ADULT Routine 03/24/2024 3 :00 PM EST POCT RHEA-14 URINE DRUG SCREEN Routine 03/23/2024 2:54 PM EST Chronic neck pain with history of cervical spinal surgery POCT RHEA-14 URINE DRUG SCREEN Routine 02/17/2024 1:48 PM EST Chronic neck pain with history of cervical spinal surgery MR CERVICAL SPINE WO CONTRAST Routine 01/29/2024 6:26 PM EST Chronic neck pain with history of cervical spinal surgery LIPID PANEL, STANDARD Routine 01/10/2024 9:42 AM EST Hyperlipidemia, unspecified hyperlipidemia type INTRAORAL - COMPLETE SERIES OF RADIOGRAPHIC IMAGES Routine 09/21/2023 2:00 PM EDT PERIODIC ORAL EVALUATION - ESTABLISHED PATIENT Routine 09/21/2023 2:00 PM EDT HEPATITIS C ANTIBODY Routine 01/22/2023 1:05 PM EST Encounter for health-related screening HM COLONOSCOPY Routine 01/13/2018 from Last 3 Months or Most Recently Relevant to Health Maintenance Results * POCT RHEA-14 Urine Drug Screen (03/23/2024 2:54 PM EST) Only the most recent of2 resultswithin the time period is included. TCA, Urine Positive Oxycodone Screen, Urine Positive Urine Urine specimen obtained by clean catch procedure / Unknown 03/23/2024 2:54 PM EST Narrative 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 RN - 03/23/2024 2:54 PM EST Lot# [id number] Exp: 02-11-25 us Sonya Donis MD POINT OF CARE TEST ENTER/EDIT ORDERABLES Final Result * MR Cervical Spine w/o Contrast (01/29/2024 6:26 PM EST) Anatomical Region Laterality Modality Spine, C-spine Magnetic Resonan ce 01/29/2024 6:26 PM EST Narrative 03/20/2024 2:45 PM EST ? [facility] ?[address] ?[place] [address] ? Magnetic Resonance Report ? Signed ? Patient: Barnes De Los Santos,Efigenio ?MR#: ?? [id number] ? : 1955 ?Acct:[id number] ? Age/Sex: 68 / M ?ADM Date: 01/29/24 ? Loc: HO.MRI ? Attending Dr: Sonya Donis MD ? Ordering Physician: Sonya Donis MD ?? Date of Service: 01/29/24 ?? Procedure(s): MR cervical spine wo con ?? Accession Number(s): [id number] ? cc: Sonya Donis MD ? EXAMINATION: ?? MR CERVICAL SPINE WITHOUT CONTRAST ? CLINICAL INFORMATION: ?? 68-year-old with chronic persistent neck pain. Self-reported left arm ?? weakness. ? COMPARISON: ?? None available. ? TECHNIQUE: ?? MRI of the cervical spine was obtained using routine sequences without ?? contrast. ? FINDINGS: ? ALIGNMENT: Mild cervicothoracic levocurvature noted slightly convex to ?? the left at C7-T1. There is moderate hyperlordosis centered at C5-C6. ? CRANIOCERVICAL JUNCTION/C1-C2 ARTICULATIONS: Intact and aligned. ? VISUALIZED INTRACRANIAL/EXTRACRANIAL STRUCTURES: Grossly unremarkable. ? VERTEBRAL BODIES: Vertebral body heights are well maintained. ? DISC SPACES AND ENDPLATES: There is moderate disc volume loss at C5-C6 ?? with intradiscal degenerative signal changes and minor spondylosis. ?? There is intradiscal degenerative signal change at C3-C4 and C4-C5 ?? without significant disc space height loss. ? BONE MARROW: No suspicious marrow-replacing process or bone marrow ?? edema. ? C2-C3: Tiny central disc protrusion with a tiny central annular fissure ?? noted. No cord impingement or canal stenosis. No significant DJD or ?? neural foraminal stenosis. ? C3-C4: Broad-based posterior disc osteophyte complex noted with mild ?? flattening of the ventral dural sac without cord impingement or canal ?? stenosis. Mild right and [id number]-eb-[id number] left-sided facet joint ?? arthropathy noted with uncinate process spurring bilaterally, with no ?? significant neural foraminal stenosis. ? C4-C5: Broad-based central to right paramedian disc osteophyte complex, ?? with moderate flattening of the ventral dural sac asymmetric to the ?? right without cord impingement. Slight chronic ventral cord deformity ?? suspected on the right. No significant canal stenosis. Uncinate process ?? spurring noted bilaterally with moderate left and mild right facet ?? joint arthropathy without significant neural foraminal stenosis. ? C5-C6: Broad-based disc osteophyte complex noted with effacement of the ?? ventral dural sac without cord impingement. Ligamentum flavum ?? thickening or buckling is noted. There is moderate central spinal canal ?? stenosis. There is uncovertebral spurring bilaterally and mild facet ?? joint arthropathy with moderate left-sided and severe right-sided ?? neural foraminal stenosis. ? C6-C7: Broad-based central disc protrusion with a central annular ?? fissure noted and flattening of the ventral dural sac without cord ?? impingement or canal stenosis. No significant DJD or neural foraminal ?? stenosis. ? C7-T1: Shallow central disc protrusion. No canal stenosis. Moderate ?? facet joint arthropathy on the left noted with mild craniocaudal neural ?? foraminal narrowing. ? SPINAL CORD: The cervical and visualized upper thoracic spinal cord is ?? normal in signal intensity throughout, without focal lesion, edema or ?? syrinx. ? EXTRACRANIAL SOFT TISSUES: Note is made of a somewhat plump left level ?? II IJ chain lymph node measuring 1.6 x 1.2 cm in greatest transverse ?? dimensions consistent with an enlarged lymph node. Signal voids are ?? noted within the visualized major neck vessels. ? MR/MR cervical spine wo con ?? IMPRESSION: ?? 1. Discogenic degenerative changes primarily at C5-C6 as discussed ?? above, with disc osteophyte complex and DJD at this level with moderate ?? spinal canal stenosis without cord impingement. There is moderate ?? left-sided and severe right-sided neural foraminal stenosis at this ?? level. ? 2. Multilevel disc protrusions and disc osteophyte complexes as ?? described above without cord impingement or significant spinal canal ?? stenosis. ? 3. Multilevel bilateral facet joint arthropathy as described above. ? 4. Mildly enlarged left level II IJ chain lymph node. This is ?? nonspecific. Recommend correlation with clinical history and physical ?? exam findings. Cannot exclude neoplastic disease. Recommend CT of the ?? neck with contrast for further assessment. ? The PSA staff will call to confirm receipt of this report with ?? acknowledgement of the findings and any recommendations. ? Study was performed on 01/29/2024 and submitted for interpretation on ?? 03/20/2024. ? Electronically signed by: ??Gregg Harding MD ??03/20/2024 02:42 PM EST RP ? Dictated By: ?GREGG HARDING MD ? Signed By: ?<Electronically signed by GREGG HARDING MD in OV> ? 03/20/24 1442 ? DD/ 1826 ? TD/TT: 01/29/24 1905 ? Producer Assistant: ? Procedure Note Donaraceliverónica, Image - 03/20/2024 [place] [id number] Magnetic Resonance Report Signed Patient: Malia Amezquita#: [id number] : 7Acct:[id number] Age/Sex: 68 / MADM Date: 01/29/24 Loc: HO.MRI Attending Dr: Sonya Donis MD Ordering Physician: Sonya Donis MD Date of Service: 01/29/24 Procedure(s): MR cervical spine wo con Accession Number(s): [id number] cc: Sonya Donis MD EXAMINATION: MR CERVICAL SPINE WITHOUT CONTRAST CLINICAL INFORMATION: 68-year-old with chronic persistent neck pain. Self-reported left arm weakness. COMPARISON: None available. TECHNIQUE: MRI of the cervical spine was obtained using routine sequences without contrast. FINDINGS: ALIGNMENT: Mild cervicothoracic levocurvature noted slightly convex to the left at C7-T1. There is moderate hyperlordosis centered at C5-C6. CRANIOCERVICAL JUNCTION/C1-C2 ARTICULATIONS: Intact and aligned. VISUALIZED INTRACRANIAL/EXTRACRANIAL STRUCTURES: Grossly unremarkable. VERTEBRAL BODIES: Vertebral body heights are well maintained. DISC SPACES AND ENDPLATES: There is moderate disc volume loss at C5-C6 with intradiscal degenerative signal changes and minor spondylosis. There is intradiscal degenerative signal change at C3-C4 and C4-C5 without significant disc space height loss. BONE MARROW: No suspicious marrow-replacing process or bone marrow edema. C2-C3: Tiny central disc protrusion with a tiny central annular fissure noted. No cord impingement or canal stenosis. No significant DJD or neural foraminal stenosis. C3-C4: Broad-based posterior disc osteophyte complex noted with mild flattening of the ventral dural sac without cord impingement or canal stenosis. Mild right and ncyd-wn-srlecewl left-sided facet joint arthropathy noted with uncinate process spurring bilaterally, with no significant neural foraminal stenosis. C4-C5: Broad-based central to right paramedian disc osteophyte complex, with moderate flattening of the ventral dural sac asymmetric to the right without cord impingement. Slight chronic ventral cord deformity suspected on the right. No significant canal stenosis. Uncinate process spurring noted bilaterally with moderate left and mild right facet joint arthropathy without significant neural foraminal stenosis. C5-C6: Broad-based disc osteophyte complex noted with effacement of the ventral dural sac without cord impingement. Ligamentum flavum thickening or buckling is noted. There is moderate central spinal canal stenosis. There is uncovertebral spurring bilaterally and mild facet joint arthropathy with moderate left-sided and severe right-sided neural foraminal stenosis. C6-C7: Broad-based central disc protrusion with a central annular fissure noted and flattening of the ventral dural sac without cord impingement or canal stenosis. No significant DJD or neural foraminal stenosis. C7-T1: Shallow central disc protrusion. No canal stenosis. Moderate facet joint arthropathy on the left noted with mild craniocaudal neural foraminal narrowing. SPINAL CORD: The cervical and visualized upper thoracic spinal cord is normal in signal intensity throughout, without focal lesion, edema or syrinx. EXTRACRANIAL SOFT TISSUES: Note is made of a somewhat plump left level II IJ chain lymph node measuring 1.6 x 1.2 cm in greatest transverse dimensions consistent with an enlarged lymph node. Signal voids are noted within the visualized major neck vessels. MR/MR cervical spine wo con IMPRESSION: 1. [...] the neck with contrast for further assessment. The PSA staff will call to confirm receipt of this report with acknowledgement of the findings and any recommendations. Study was performed on 01/29/2024 and submitted for interpretation on 03/20/2024. Electronically signed by: Gregg Harding MD 03/20/2024 02:42 PM EST Dictated By: GREGG HARDING MD Signed By: <Electronically signed by GREGG HARDING MD in OV> 03/20/24 1442 DD/ 1826 TD/TT: 01/29/24 1905 Producer Assistant: us Sonya Donis MD IMG MRI PROCEDURES Final Resu lt * (ABNORMAL) Lipid Panel, Standard (01/10/2024 9:42 AM EST) Triglycerides 208(H) <150 mg/dL [facility] Comment:Desirable Triglyceri de: less than 150 mg/dLBorderline High Triglyceride 150-199 mg/dLHigh Triglyceride: 200-499 mg/dLVery High Triglyceride: greater than or equal to 5OO mg/dL Cholesterol 119 <200 mg/dL [facility] Comment:Desirable Cholestero l: less than 200 mg/dLBorderline High Cholesterol: 200-239 mg/dLHigh Cholesterol: greater than 239 mg/dL LDL Cholesterol Calculated 37 <100 mg/dL [facility] Comment:Desirable LDL: less than 100 mg/dLNear Optimal/Above Optimal LDL: 110- 129 mg/dLBorderline High LDL: 130-159 mg/dLHigh LDL: 160-189 mg/dLVery High LDL: greater than or equal to 190 mg/dL HDL Cholesterol 41 >40 mg/dL [facility] Comment:Desirable HDL: great er than 40 mg/dL Note: This HDL assay may give artificially low results in patients with liver disease. Blood Venous blood specimen / Unknown 01/10/2024 9:42 AM EST 01/10/2024 2:39 PM EST Sonya Donis MD LAB BLOOD ORDERABLES Final Re sult Performing Organization Address [facility] de Phone Number [facility] [address] [place] [phone] * Hepatitis C Ab (01/22/2023 1:05 PM EST) Hepatitis C Antibody Nonreactive Nonreactive [facility] Comment:Antibodies to HCV no t detected; does not exclude early acuteHCV infection. Blood Venous blood specimen / Unknown 01/22/2023 1:05 PM EST 01/22/2023 2:22 PM EST Sonya Donis MD LAB BLOOD ORDERABLES Final Re sult Performing Organization Address [facility] de Phone Number [facility] [address] [place] [phone] * Hm Colonoscopy (01/13/2018) Colonoscopy Normal Normal Narrative Sonya Donis MD - 01/13/2018 Normal colonoscopy, unknown why recommended repeat 5 yrs Historical Provider HEALTH MAINTENANCE Final Result from Last 3 Months or Most Recently Relevant to Health Maintenance Insurance FOR[facility] - [facility] Care Teams Finance Clerk Relationship Specialty Start Date End Date Sonya Donis MD [address] [place] [id number] PCP - General Family Medicine 01/18/23 [employer] CRIME SCENE SPECIALIST Services 10/11/23
--- OUTSIDE RECORDS SUMMARY | 2024-04-20 07:41 | XMS_ITS | Encounter Summary ---
Author Organization [employer] Address [address] [facility] 7t [place] [address] Care Team Providers Care It Applications Manager Name Role Phone Sonya Donis MD Primary Care Provider [phone] Encounter Details Date Type Department Care Team ([facility] st Contact Info) Description 03/23/2024 Telephone [facility] [address] [place], [place] [phone] 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, RN [address] [place], [place] Social History Tobacco Use Types Packs/Day Years [...] encounter Miscellaneous Notes * Telephone Encounter - 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 RN - 03/23/2024 3:28 PM EST .What WOOL HANDLER Tier would you like this patient to be? I recommend Tier 2, please let me know if you agree or would rather patient be in another WOOL HANDLER Tier. Are you ok with WOOL HANDLER Televisit? Tier 1 = HIGH RISK, Monthly WOOL HANDLER visits Tier 2 = MODerate RISK, Q3 Month visits Tier 3 = LOW RISK = Q4-6 month visits documented in this encounter Plan of Treatment Upcoming Encounters Date Type Department Care Team (Late st Contact Info) Description 05/11/2024 1:30 PM EST Clinical Support [facility] MED & PEDS [address] [facility] [place] [address] 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 RN [address] [place] [address] 05/23/2024 1:00 PM EDT Clinical Support [facility] MED & PEDS 505 [place] [address] 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 RN [address] [place] [address] 09/22/2024 3:00 PM EDT Office Visit [facility] ADULT DENTAL 505 [place] [address] [facility]ion Joya documented as of this encounter Visit Diagnoses Not on filedocumented in this encounter Additional Health Concerns Assessment Noted Time PHQ-9 Depression Total Score: 0 10/11/19 24 9:09 AM EDT documented as of this encounter Care Teams It Applications Manager Relationship Specialty Start Date End Date Sonya Donis MD [address] [place] [address] PCP - General Family Medicine 01/18/23 [employer] LEAK INSPECTOR Services 10/11/23 documented as of this encounter
--- OUTSIDE RECORDS SUMMARY | 2024-04-20 07:41 | XMS_ITS | Encounter Summary ---
Author Organization [employer] Address [address] [facility] 7t [place] [address] Care Team Providers Care Copper Plate Printer Name Role Phone Sonya Donis MD Primary Care Provider [phone] Reason for Visit * Reason Onset Date Comments Med Refill 02/02/2024 Encounter Details Date Type Department Care Team (Late st Contact Info) Description 02/02/2024 Telephone [facility] MEDICINE [address] [place] [address] Sonya Donis MD [address] [place], [place] [id number] Med Refill Social History Tobacco Use Types [...] encounter Miscellaneous Notes * Telephone Encounter - Cruz Llamas - 02/07/2024 10:07 AM EST TC from pt checking status on Oxy script. States does not have any left . * Telephone Encounter - Angie Ibrahim - 02/02/2024 11:36 AM EST TC from pt requesting medication refill. Medications needing refill : oxyCODONE-acetaminophen (Percocet) 5-325 MG tablet To be sent to: [facility] #[id number] documented in this encounter Plan of Treatment Upcoming Encounters Date Type Department Care Team (Late st Contact Info) Description 05/11/2024 1:30 PM EST Clinical Support [facility] MED & PEDS [address] [place] [address] 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 RN [address] [place] [address] 05/23/2024 1:00 PM EDT Clinical Support [facility] MED & PEDS [address] [place] [address] 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 RN [address] [place] [address] 09/22/2024 3:00 PM EDT Office Visit [facility] ADULT DENTAL [address] [place] [address] Ascencion Joya documented as of this encounter Visit Diagnoses Not on filedocumented in this encounter Additional Health Concerns Assessment Noted Time PHQ-9 Depression Total Score: 0 10/11/19 24 9:09 AM EDT documented as of this encounter Care Teams Copper Plate Printer Relationship Specialty Start Date End Date Sonya Donis MD [address] [place] [address] PCP - General Family Medicine 01/18/23 [employer] HUMANITIES DIVISION CHAIR Services 10/11/23 documented as of this encounter
== END 2024-04-20 07:40 | disposition home or self-care (01) ==
LOC: CF 07:39
PROVIDERS: Visit Provider Internal Medicine
DX: M47.812 Spondylosis without myelopathy or radiculopathy, cervical region (principal)
CPT/HCPCS: 64490; 64491; J2795; Q9967

== ENCOUNTER 2024-04-20 11:55 | Outpatient (AMB) | payer OTHER, SELFPAY ==
[2024-04-20 12:01] VITALS: BP 120/80; PULSE 76; O2SAT 98; BMI 25.1
--- NOTE | 2024-04-20 12:01 | MHC.OFFVIS ---
Vital Signs 04/20/24 12:01 Height 5 ft 7 in Weight 160 lb BMI 25.1 BP 120/80 Blood Pressure Location Lt brachial Position Sitting Pulse 76 Pulse Source Pulse Oximeter Pulse Oximetry (%) 98 Oxygen Delivery Method Room Air Intake Visit Reasons: LEFT DIAGNOSTIC C3, C4, C5 MBB General Merchandise Salesperson Required: Yes General Merchandise Salesperson Services: General Merchandise Salesperson Present General Merchandise Salesperson Name: #[id number] Information Interpreted: non-clinical & clinical Allergies aspirin Allergy (Unknown, Verified 04/20/24 12:07) UNKNOWN shellfish derived Allergy (Unknown, Verified 04/20/24 12:07) Unknown Medication List - Last Reconciled 04/20/24 by Poonam Whitley, PHOTO PRODUCER bisacodyl (Dulcolax (bisacodyl)) 10 mg (2 x 5 mg) PO BEDTIME 2 days oxycodone-acetaminophen 5-325 mg 1 tab PO BID PRN peg 3350-electrolytes 236-22.74-6.74 -5.86 gram (Golytely) 240 mL PO Q10M 1 day rosuvastatin 40 mg PO DAILY HPI HPI LEFT DIAGNOSTIC C3, C4, C5 MBB: Details: Patient presents for scheduled procedure. Denies any recent cough, cold, infection, fever or other significant changes in medical history since last office visit. [facility] Medical History (Updated 04/02/24 @ 18:33 by MARYSE Liz) Pre-diabetes High cholesterol HTN (hypertension), benign Hypothyroid Surgical History H/O colonoscopy S/P urethral surgery History of orthopedic surgery Social History Alcohol intake: current Alcohol intake frequency: holidays/special occasions only Alcohol type: beer Tobacco use type: Cigarette Physical Exam Vital Signs: Last Vital Signs Pulse 76 04/20/24 12:01 BP 120/80 04/20/24 12:01 Pulse Ox 98 04/20/24 12:01 Oxygen Delivery Method Room Air 04/20/24 12:01 BMI result Body Mass Index 25.1 Office Procedures Cervical/Thoracic Facet Inj Details: Diagnostic Cervical Medial Branch Block, Right C3, C4, C5 medial branches After obtaining written consent, pre-procedure blood pressure and pulse were recorded and are in the nursing record for review. The patient was placed in a lateral position. The respective cervical area was prepped with chloraprep and draped in sterile fashion. The skin over the target medial branch nerves was anesthetized with 0.5% lidocaine. A 25 gauge 1.5 inch needle was inserted into the target medial branch nerve under fluoroscopic guidance. No paresthesias were elicited with needle placement and aspiration was negative for blood and CSF. Next, 0.2cc of omnipaque 180 was injected to verify positioning. Next 0.5 ml 0.5% ropivicaine was injected (0.5 cc total per level). The identical procedure was performed at the remaining levels. The skin was cleansed and a sterile bandage was applied. Following the procedure the patient's vital signs were stable. The patient tolerated the procedure well and no complications were encountered. Following the procedure the patient's vital signs were stable. The patient was discharged home in good condition with post-procedural instructions. Time Out: Immediately prior to the procedure, the following was verbally confirmed that there is a signed consent form and that the correct patient, planned procedure, site and side are consistent with documentation and that necessary equipment and/or blood products are available prior to the start of the case. Complications: none EBL: <5 cc 04718 - with Fluoroscopy 93182 - second level, with Fluoroscopy Procedure code (CPT) selection complete Assessment & Plan Assessment & Plan (1) Cervical spondylosis: Code(s): M47.812 - Spondylosis without myelopathy or radiculopathy, cervical region Category: Medical Plan Patient is status post right C3, C4, C5 diagnostic medial branch block. Patient tolerated procedure well and was discharged home in stable condition with discharge instructions. All questions were answered. We will follow-up via telephone or in clinic to assess response to therapy. A follow-up appointment was made during today's visit. Orders: Orders FL guidance in treatment room Today M47.812 - Spondylosis without myelopathy or radiculopathy, cervical region Coding Level of Care Code Procedure Only Diagnoses Cervical spondylosis M47.812 CPT Codes Facet Injection Cervical/Thoracic - CPT: 47009 - with Fluoroscopy ([id number]) Facet Injection Cervical/Thoracic - CPT: 61086 - second level, with Fluoroscopy ([id number])
--- OUTSIDE RECORDS SUMMARY | 2024-04-20 12:20 | XMS_ITS | Encounter Summary ---
Author Organization [employer] Address [address] [facility] 7t [place] [address] Care Team Providers Care Product Scientist Name Role Phone Sonya Donis MD Primary Care Provider [phone] Reason for Visit * Reason Onset Date Comments CRITICAL RESULT 03/28/2024 Encounter Details Date Type Department Care Team ([facility] st Contact Info) Description 03/28/2024 Telephone [facility] MED & PEDS [address] [place] [address] Sonya Donis MD [address] [place] [address] CRITICAL RESULT Social History Tobacco Use Types [...] line 03/28/24 at 12:27 PM Name of Caller/Facility:[facility] Physician support, on behalf of Dr. Harding Callback number: [phone] Reason for Call: Calling to relay finding [...] further assessment. Message to be forwarded to Soyna Donis MD and team nurses for follow up. documented in this encounter Plan of Treatment Upcoming Encounters Date Type Department Care Team (Late st Contact Info) Description 05/11/2024 1:30 PM EST Clinical Support [facility] MED & PEDS [address] [place] [address] 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 RN [address] [place] [address] 05/23/2024 1:00 PM EDT Clinical Support [facility] MED & PEDS [address] [place] [address] 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 RN [address] [place] [address] 09/22/2024 3:00 PM EDT Office Visit [facility] ADULT DENTAL [address] [place] [address] [facility]enc[facility] Joya documented as of this encounter Visit Diagnoses Not on filedocumented in this encounter Additional Health Concerns Assessment Noted Time PHQ-9 Depression Total Score: 0 10/11/19 24 9:09 AM EDT documented as of this encounter Care Teams Product Scientist Relationship Specialty Start Date End Date Sonya Donis MD [address] [place] [address] PCP - General Family Medicine 01/18/23 [employer] ADMINISTRATIVE PROCESSOR Services 10/11/23 documented as of this encounter
--- OUTSIDE RECORDS SUMMARY | 2024-04-20 12:20 | XMS_ITS | Encounter Summary ---
Author Organization [employer] Address [address] [facility] 7t [place] [address] Care Team Providers Care Customer Service Officer Name Role Phone Sonya Donis MD Primary Care Provider [phone] Reason for Visit * Reason Onset Date Comments Med Refill 09/08/2023 Encounter Details Date Type Department Care Team ([facility] st Contact Info) Description 09/08/2023 Telephone [facility] MED & PEDS [address] [place] [address] Sonya Donis MD [address] [place] [address] Med Refill Social History Tobacco Use Types [...] 2:59 PM EDT Medication was sent to [facility] #[id number] on 07/09/23 with 2 refills. * Telephone Encounter - Marcy Mohan - 09/08/2023 1:12 PM EDT TC from pt requesting medication refill. Medications needing refill : cyclobenzaprine (Flexeril) 10 MG tablet To be sent to: [facility] #[id number] - [place] [address] AT [facility] documented in this encounter Plan of Treatment Upcoming Encounters Date Type Department Care Team ([facility] Contact Info) Description 05/11/2024 1:30 PM EST Clinical Support [facility] MED & PEDS [address] [facility] [place] [address] 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 RN [address] [place] [address] 05/23/2024 1:00 PM EDT Clinical Support [facility] MED & PEDS [address] [facility] [place] [address] 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 RN [address] [facility] [place] [address] 09/22/2024 3:00 PM EDT Office Visit [facility] ADULT DENTAL [address] [place] [address] Ascencion Joya documented as of this encounter Visit Diagnoses Not on filedocumented in this encounter Additional Health Concerns Assessment Noted Time PHQ-9 Depression Total Score: 9 03/11/19 24 11:12 AM EST documented as of this encounter Care Teams Customer Service Officer Relationship Specialty Start Date End Date Sonya Donis MD [address] [place] [address] PCP - General Family Medicine 01/18/23 [employer] RESEARCH AIDE Services 10/11/23 documented as of this encounter
--- OUTSIDE RECORDS SUMMARY | 2024-04-20 12:20 | XMS_ITS | Encounter Summary ---
Author Organization [employer] Address [address] [facility] 7t [place] [address] Care Team Providers Care Hearing Care Professional Name Role Phone Sonya Donis MD Primary Care Provider Reason for Visit * Reason Onset Date Comments Med Refill 01/07/2024 Encounter Details Date Type Department Care Team (Late st Contact Info) Description 01/07/2024 Telephone [facility] MEDICINE [address] [place] [address] Sonya Donis MD [address] [place], [place] [id number] Med Refill Social History Tobacco Use Types [...] 5-325 MG tablet To be sent to: [facility] #[id number] documented in this encounter Plan of Treatment Upcoming Encounters Date Type Department Care Team (Late st Contact Info) Description 05/11/2024 1:30 PM EST Clinical Support [facility] MED & PEDS [address] [place] [address] 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 RN [address] [place] [address] 05/23/2024 1:00 PM EDT Clinical Support [facility] MED & PEDS [address] [place] [address] 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 RN [address] [place] [address] 09/22/2024 3:00 PM EDT Office Visit [facility] ADULT DENTAL [address] [place] [address] Ascencion Joya documented as of this encounter Visit Diagnoses Not on filedocumented in this encounter Additional Health Concerns Assessment Noted Time PHQ-9 Depression Total Score: 0 10/11/19 24 9:09 AM EDT documented as of this encounter Care Teams Hearing Care Professional Relationship Specialty Start Date End Date Sonya Donis MD [address] [place] [address] PCP - General Family Medicine 01/18/23 [employer] PRODUCTION ZONE LEADER Services 10/11/23 documented as of this encounter
--- OUTSIDE RECORDS SUMMARY | 2024-04-20 12:20 | XMS_ITS | Encounter Summary ---
Author Organization [employer] Address [address] [facility] 7t [place] [address] Care Team Providers Care Vice President Payer Name Role Phone Sonya Donis MD Primary Care Provider [phone] Reason for Visit * Reason Comments controlled substance treatment Encounter Details Date Type Department Care Team (Latest Contact Info) Description 03/23/2024 2:30 PM EST Clinical Support [facility] MED & PEDS [address] [place] [address] 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, RN [address] [place], [place] Chronic neck pain with history of [...] as of this encounter Progress Notes * nAupama Solomon RN - 03/23/2024 2:30 PM EST 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 Patient is taking Percocet 5-325 mg [...] No questions/ concerns at this time. 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 CHEMISTRY TECHNICAL OFFICER checked on 03/23/24. Last refilled on 03/10/24. Pill count performed, patient has 59 pills left, 54 expected. utox performed, positive for OXY, TCA, negative for all other tested substances, as expected. .Fentanyl testing: negative Lot# [id number] Exp: 02-19-25 A: Chronic opioid use use r/t chronic pain. P: Patient to cont. with current medication regimen as needed and take medication only as directed.Next SHELTERED WORKSHOP WORKER NV scheduled for 05/23/24 @1pm. f/u sooner PRN. Reminder slip given. Patient verbalized understanding and agreed to plan. documented in this encounter Plan of Treatment Upcoming Encounters Date Type Department Care Team (Late st Contact Info) Description 05/11/2024 1:30 PM EST Clinical Support [facility] MED & PEDS [address] [place] [address] 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 RN [address] [place] [address] 05/23/2024 1:00 PM EDT Clinical Support [facility] MED & PEDS [address] [place] [address] 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 RN [address] [place] [address] 09/22/2024 3:00 PM EDT Office Visit [facility] ADULT DENTAL [address] [place] [address] Ascencion Joya documented as of this encounter [...] RN - 03/23/2024 2:54 PM EST Lot# [id number] Exp: 02-11-25 Sonya Donis MD POINT OF CARE TEST ENTER/EDIT ORDERABLES Final Result documented in this encounter Visit Diagnoses Diagnosis Chronic neck pain with history of cervical spinal surgery documented in this encounter Additional Health Concerns Assessment Noted Time PHQ-9 Depression Total Score: 0 10/11/19 24 9:09 AM EDT documented as of this encounter Care Teams Vice President Payer Relationship Specialty Start Date End Date Sonya Donis MD [address] [place] [address] PCP - General Family Medicine 01/18/23 [employer] INVENTORY REPRESENTATIVE Services 10/11/23 documented as of this encounter
--- OUTSIDE RECORDS SUMMARY | 2024-04-20 12:20 | XMS_ITS | Clinical Summary ---
Author Organization [employer] Address [address] [facility] 7t [place] [address] Care Team Providers Care National Sales Name Role Phone Sonya Donis MD Primary Care Provider [phone] Allergies Active Allergy Reactions Criticality Noted Date [...] for nutritional changes, Pt agreed to see Diesel Service Technician. Ordering lab work for Lipids recheck, [...] Center 07/09/2023 1:00 PM Sonya Donis MD [facility] Assessment & Plan (01/18/2023 10:23 AM EST): -Labs: Lipid Panel. Hypothyroidism 01/18/2023 Assessment & Plan (01/18/2023 10:23 AM EST): -Labs: TSH/FT4. Encounters Date Type Department Care Team Description 04/08/2024 Refill [facility] MED & PEDS [address] [place], [place] [phone] Sonya Donis MD 04/07/2024 Refill [facility] [address] [place], [place] [phone] Sonya Donis MD Chronic left hip pain 04/05/2024 Telephone [facility] MEDICINE [address] [place], [place] [phone] Georges Dean MD 04/05/2024 Telephone [facility] [address] [place], [place] [phone] Sonya Donis MD CT CERVICAL ORDER 03/28/2024 Telephone [facility] [address] [place], [place] [phone] Sonya Donis MD CRITICAL RESULT 03/24/2024 3:00 PM EST Office Visit [facility] ADULT DENTAL [address] [place] [address] Ascencion Joya Dental calculus (Primary Dx) 03/23/2024 2:30 PM EST Clinical Support [facility] [address] [place] [address] 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 RN Chronic neck pain with history of cervical spinal surgery 03/23/2024 Telephone [facility] [address] [place] [address] 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 RN 03/23/2024 Travel 03/20/2024 Telephone [facility] [address] [place] [address] Sonya Donis MD 03/20/2024 Telephone [facility] [address] [place] [address] Sonya Donis MD 03/07/2024 Refill [facility] [address] [place] [address] Sonya Donis MD Chronic left hip pain 02/17/2024 1:30 PM EST Clinical Support [facility] [address] [place] [address] 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 RN Chronic neck pain with history of cervical spinal surgery 02/17/2024 Telephone [facility] [address] [place] [address] 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, ADONAY 02/17/2024 Telephone [facility] [address] [place] [address] 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 RN 02/17/2024 Travel 02/07/2024 Telephone [facility] [address] [place] [address] 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, ADONAY 02/02/2024 Refill [facility] [address] [place] [address] 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 RN Chronic left hip pain 02/02/2024 Telephone [facility] [address] [place] [address] Sonya Donis MD Med Refill 01/26/2024 Telephone [facility] MEDICINE [address] [place] [address] Sonya Donis MD Referral from Last 3 [...] 05/11/2024 1:30 PM EST Clinical Support [facility] [address] [place] [address] 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 RN 505 [place] [address] 05/23/2024 1:00 PM EDT Clinical Support [facility] [address] [place] [address] 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 RN 505 [place] [address] 09/22/2024 3:00 PM EDT Office Visit [facility] ADULT DENTAL [address] [place] [address] Ascencion Joya Health Maintenance Due Date Last [...] RN - 03/23/2024 2:54 PM EST Lot# [id number] Exp: 02-11-25 us Sonya Donis MD POINT OF CARE TEST ENTER/EDIT ORDERABLES Final Result * MR Cervical Spine w/o Contrast (01/29/2024 6:26 PM EST) Anatomical Region Laterality Modality Spine, C-spine Magnetic Resonan ce 01/29/2024 6:26 PM EST Narrative 03/20/2024 2:45 PM EST ? [facility] ?[address] ?[place] [address] ? Magnetic Resonance Report ? Signed ? Patient: Barnes De Los Santos,Efigenio ?MR#: ?? [id number] ? : 1955 ?Acct:[id number] ? Age/Sex: 68 / M ?ADM Date: 01/29/24 ? Loc: HO.MRI ? Attending Dr: Sonya Donis MD ? Ordering Physician: Sonya Donis MD ?? Date of Service: 01/29/24 ?? Procedure(s): MR cervical spine wo con ?? Accession Number(s): [id number] ? cc: Sonya Donis MD ? EXAMINATION: [...] or canal ?? stenosis. Mild right and mtsv-tv-wayimkez left-sided facet joint ?? arthropathy noted with [...] DD/ 1826 ? TD/TT: 01/29/24 1905 ? Research Manager: ? Procedure Note Donaraceliverónica, Image - 03/20/2024 [place] [address] Magnetic Resonance Report Signed Patient: Malia Amezquita#: [id number] : 7Acct:[id number] Age/Sex: 68 / MADM Date: 01/29/24 Loc: HO.MRI Attending Dr: Sonya Donis MD Ordering Physician: Sonya Donis MD Date of Service: 01/29/24 Procedure(s): MR cervical spine wo con Accession Number(s): [id number] cc: Sonya Donis MD EXAMINATION: MR CERVICAL [...] impingement or canal stenosis. Mild right and cqpe-uv-aqfqlhzr left-sided facet joint arthropathy noted with uncinate [...] 03/20/24 1442 DD/ 1826 TD/TT: 01/29/24 1905 Research Manager: us Sonya Donis MD IMG MRI PROCEDURES Final Resu lt * (ABNORMAL) Lipid Panel, Standard (01/10/2024 9:42 AM EST) Triglycerides 208(H) <150 mg/dL [facility] Comment:Desirable Triglyceri de: less than 150 mg/dLBorderline High Triglyceride 150-199 mg/dLHigh Triglyceride: 200-499 mg/dLVery High Triglyceride: greater than or equal to 5OO mg/dL Cholesterol 119 <200 mg/dL [facility] Comment:Desirable Cholestero l: less than 200 mg/dLBorderline High Cholesterol: 200-239 mg/dLHigh Cholesterol: greater than 239 mg/dL LDL Cholesterol Calculated 37 <100 mg/dL [facility] Comment:Desirable LDL: less than 100 mg/dLNear Optimal/Above Optimal LDL: 110- 129 mg/dLBorderline High LDL: 130-159 mg/dLHigh LDL: 160-189 mg/dLVery High LDL: greater than or equal to 190 mg/dL HDL Cholesterol 41 >40 mg/dL [facility] Comment:Desirable HDL: great er than 40 mg/dL Note: This HDL assay may give artificially low results in patients with liver disease. Blood Venous blood specimen / Unknown 01/10/2024 9:42 AM EST 01/10/2024 2:39 PM EST Sonya Donis MD LAB BLOOD ORDERABLES Final Re sult Performing Organization Address [facility] de Phone Number [facility] [address] [place] [phone] * Hepatitis C Ab (01/22/2023 1:05 PM EST) Hepatitis C Antibody Nonreactive Nonreactive [facility] Comment:Antibodies to HCV no t detected; does not exclude early acuteHCV infection. Blood Venous blood specimen / Unknown 01/22/2023 1:05 PM EST 01/22/2023 2:22 PM EST Sonya Donis MD LAB BLOOD ORDERABLES Final Re sult Performing Organization Address [facility] de Phone Number [facility] [address] [place] [phone] * Hm Colonoscopy (01/13/2018) Colonoscopy Normal Normal Narrative Sonya Donis MD - 01/13/2018 Normal colonoscopy, unknown why recommended repeat 5 yrs Historical Provider HEALTH MAINTENANCE Final Result from Last 3 Months or Most Recently Relevant to Health Maintenance Insurance [facility] Care Teams National Sales Relationship Specialty Start Date End Date Sonya Donis MD [address] [place] [address] PCP - General Family Medicine 01/18/23 [employer] ECONOMICS EXTENSION WORKER Services 10/11/23
--- OUTSIDE RECORDS SUMMARY | 2024-04-20 12:20 | XMS_ITS | Encounter Summary ---
Author Organization [employer] Address [address] [facility] [address] 7t [place] [address] Care Team Providers Care Correctional Case Records Supervisor Name Role Phone Sonya Donis MD Primary Care Provider [phone] Reason for Visit * Reason Comments Routine Cleaning Encounter Details Date Type Department Care Team ([facility] st Contact Info) Description 03/24/2024 3:00 PM EST Office Visit [facility] ADULT DENTAL [address] [place] [address] Ascencion Joya Dental calculus (Primary Dx) Social [...] Timeout Date: 03/24/24, Timeout Time: 1511 Location: [facility] Tooth: Maxilla and Mandible Procedure: Prophylaxis Verified the above with patient, family practice physician assistant, and provider. Confirmed via patient's chart, intraorally and by radiographs. Offshore Diver: not applicable Medical Hx: Vitals: Blood pressure [...] PLANNING (Completed) Service provider: Ascencion Torres provider: Mkaenzie Lam DDS Instruments Used: Ultrasonic Scalers and Prophy angle Fluoride: N/A Oral Cancer Screening: No lesions Head/Neck Exam: No Lesions Calculus: Light and Localized Plaque: Light and Localized Stain: Light and Localized Bleeding: Light and Localized Gingiva: Healthy [place]: Good Perio Chart: Not Completed Oral hygiene instructions provided to patient including brushing technique and flossing. Recommendations: [place] two times daily, modified emery technique, Floss daily Recall Frequency: 6 mo NV: 6mr Hygienist: Ascencion Joya RDH documented in this encounter Plan of Treatment Upcoming Encounters Date Type Department Care Team (Late st Contact Info) Description 05/11/2024 1:30 PM EST Clinical Support [facility] MED & PEDS [address] [place] [address] 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 RN 505 [place] [address] 05/23/2024 1:00 PM EDT Clinical Support [facility] MED & PEDS [address] [place] [address] 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 RN [address] [place] [address] 09/22/2024 3:00 PM EDT Office Visit [facility] ADULT DENTAL [address] [place] [address] Ascencion Joya Scheduled Orders Name Type Priority [...] documented as of this encounter Care Teams Correctional Case Records Supervisor Relationship Specialty Start Date End Date Sonya Donis MD [address] [place] [address] PCP - General Family Medicine 01/18/23 [employer] MUTTON PUNCHER Services 10/11/23 documented as of this encounter
--- OUTSIDE RECORDS SUMMARY | 2024-04-20 12:20 | XMS_ITS | Encounter Summary ---
Author Organization [employer] Address [address] [facility] 7t [place] [address] Care Team Providers Care Business Support Specialist Name Role Phone Sonya Donis MD Primary Care Provider [phone] Reason for Visit * Reason Onset Date Comments Med Refill 11/11/2023 Encounter Details Date Type Department Care Team (Late st Contact Info) Description 11/11/2023 Telephone [facility] MEDICINE [address] [place] [address] Sonya Donis MD [address] [place], [place] [phone] Med Refill Social History Tobacco Use Types [...] 5-325 MG tablet To be sent to: [id number] AT [facility] documented in this encounter Plan of Treatment Upcoming Encounters Date Type Department Care Team ([facility] st Contact Info) Description 05/11/2024 1:30 PM EST Clinical Support [facility] MED & PEDS [address] [place] [address] 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 RN 505 [place] [address] 05/23/2024 1:00 PM EDT Clinical Support [facility] MED & PEDS [address] [place] [address] 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 RN 505 [place] [address] 09/22/2024 3:00 PM EDT Office Visit [facility] ADULT DENTAL 505 [place] [address] Ascencion Joya documented as of this encounter Visit Diagnoses Not on filedocumented in this encounter Additional Health Concerns Assessment Noted Time PHQ-9 Depression Total Score: 0 08/05/20 24 9:09 AM EDT documented as of this encounter Care Teams Business Support Specialist Relationship Specialty Start Date End Date Sonya Donis MD 230 [place] [address] PCP - General Family Medicine 01/18/23 [employer] RESISTOR TESTER Services 10/11/23 documented as of this encounter
--- OUTSIDE RECORDS SUMMARY | 2024-04-20 12:20 | XMS_ITS | Encounter Summary ---
Author Organization [employer] Address [address] [facility] 7t [place] [address] Care Team Providers Care Galley Worker Name Role Phone Sonya Donis MD Primary Care Provider [phone] Reason for Visit * Reason Onset Date Comments CT CERVICAL ORDER 04/05/2024 Encounter Details Date Type Department Care Team (Late st Contact Info) Description 04/05/2024 Telephone [employer] [facility] 230 [place] [address] Sonya Donis MD [address] [place], [place] [phone] CT CERVICAL ORDER Social History Tobacco Use [...] 04/05/2024 11:55 AM EST Incoming fax from [facility], per radiologist recommendation this should be ordered as a soft tissue neck w/ iv con. please review and advise. documented in this encounter Plan of Treatment Upcoming Encounters Date Type Department Care Team (Late st Contact Info) Description 05/11/2024 1:30 PM EST Clinical Support [facility] MED & PEDS [address] [place] [address] 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 RN [address] [place] [address] 05/23/2024 1:00 PM EDT Clinical Support [facility] MED & PEDS [address] [place] [address] 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 RN 505 [place] [address] 09/22/2024 3:00 PM EDT Office Visit [facility] ADULT DENTAL [address] [place] [address] Ascencion Joya documented as of this encounter Visit Diagnoses Not on filedocumented in this encounter Additional Health Concerns Assessment Noted Time PHQ-9 Depression Total Score: 0 10/11/19 24 9:09 AM EDT documented as of this encounter Care Teams Galley Worker Relationship Specialty Start Date End Date Sonya Donis MD 230 [place] [address] PCP - General Family Medicine 01/18/23 [employer] SHIP SUPERINTENDENT Services 10/11/23 documented as of this encounter
--- OUTSIDE RECORDS SUMMARY | 2024-04-20 12:20 | XMS_ITS | Encounter Summary ---
Author Organization [employer] Address [address] [facility] 7t [place] [address] Care Team Providers Care Transplant Registered Nurse Name Role Phone Sonya Donis MD Primary Care Provider [phone] Reason for Referral * Imaging (Routine) - Authorized Specialty Diagnoses / Procedures Referred By Kendra dale Referred To Contact Radiology Diagnoses Neck mass Procedures CT Soft Tissue Neck w/ Contrast Georges Dean MD [address] [place] [address] Phone: tel: fax: [address] Phone: tel: fax: Referral ID Status Reason Start Date Expiration Date V isits Requested Visits Authorized [id number] Authorized 04/05/2024 04/05/2025 1 1 Encounter Details Date Type Department Care Team ([facility] st Contact Info) Description 04/05/2024 Telephone [facility] MEDICINE 230 [place], [place] [phone] Georges Dean MD [address] [place], [place] [phone] Social History Tobacco Use Types Packs/Day Years [...] Upcoming Encounters Date Type Department Care Team ([facility] st Contact Info) Description 05/11/2024 1:30 PM EST Clinical [facility] [address] [place] [address] McMAnupama benitez RN 505 [place] [address] 05/23/2024 1:00 PM EDT Clinical Support [facility] [address] [place] [address] 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 RN 505 [place] [address] 09/22/2024 3:00 PM EDT Office Visit [facility] AD[facility] [address] [place] [address] Ascencion Joya Scheduled Orders Name Type Priority [...] documented as of this encounter Care Teams Transplant Registered Nurse Relationship Specialty Start Date End Date Sonya Donis MD [address] [place] [address] PCP - General Family Medicine 01/18/23 [employer] FACE CLEANER Services 10/11/23 documented as of this encounter
--- OUTSIDE RECORDS SUMMARY | 2024-04-20 12:20 | XMS_ITS | Encounter Summary ---
Author Organization [employer] Address [address] [facility] 7t [place] [address] Care Team Providers Care Is Consultant Name Role Phone Sonya Donis MD Primary Care Provider [phone] Reason for Visit * Reason Comments Med Refill Encounter Details Date Type Department Care Team ([facility] st Contact Info) Description 04/08/2024 Refill [facility] MED & PEDS [address] [place], [place] [phone] Sonya Donis MD 505 [place] [address] Social History Tobacco Use Types Packs/Day Years [...] Description 05/11/2024 1:30 PM EST Clinical Support [facility] MED & PEDS [address] [place] [address] 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 RN 505 [place] [address] 05/23/2024 1:00 PM EDT Clinical Support [facility] MED & PEDS [address] [place] [address] 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 RN 505 [place] [address] 09/22/2024 3:00 PM EDT Office Visit [facility] ADULT DENTAL [address] [place] [address] Ascencion Joya documented as of this encounter Visit Diagnoses Not on filedocumented in this encounter Additional Health Concerns Assessment Noted Time PHQ-9 Depression Total Score: 0 10/11/19 9:09 AM EDT documented as of this encounter Care Teams Is Consultant Relationship Specialty Start Date End Date Sonya Donis MD [address] [place] [address] PCP - General Family Medicine 01/18/23 [employer] NIGHT SHIFT Services 10/11/23 documented as of this encounter
--- OUTSIDE RECORDS SUMMARY | 2024-04-20 12:20 | XMS_ITS | Encounter Summary ---
Author Organization [employer] Address [address] [facility] 7t [place] [address] Care Team Providers Care Book Packer Name Role Phone Sonya Donis MD Primary Care Provider [phone] Reason for Visit * Reason Onset Date Comments New Patient 10/28/2022 Encounter Details Date Type Department Care Team (Late st Contact Info) Description 10/28/2022 Telephone [facility] MEDICINE 230 [place], [place] [phone] Dony Bhagat MD 230 [place], [place] [phone] New Patient Social History Tobacco Use Types [...] EDT BIJAN Brown called pt to Offer MAINTENANCE CONSTRUCTION HELPER appt. Pt demographics and insurance information were verified. Pt states following medical conditions: thyroid, Cholesterol, Arthritis, Needs Hip replacement, and High blood pressure. Pt reports taking medications: No Pt given MAINTENANCE CONSTRUCTION HELPER appt with Dr. Donis on 01/18/2023 @ 9:30 am. Pt will be sent appt reminder card and medical release form and agrees to complete and to return to medical records prior to MAINTENANCE CONSTRUCTION HELPER appt. * Telephone Encounter - Gayatri Chaudhary - 10/28/2022 1:35 PM EDT Pt has been transfer over to wait list for MAINTENANCE CONSTRUCTION HELPER. EFFECTIVE SINCE 10/28/2022 documented in this encounter Plan of Treatment Upcoming Encounters Date Type Department Care Team (Late st Contact Info) Description 05/11/2024 1:30 PM EST Clinical Support [facility] MED & PEDS [address] [place] [address] 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 RN 505 [place] [address] 05/23/2024 1:00 PM EDT Clinical Support [facility] MED & PEDS [address] [place] [address] 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 RN 505 [place] [address] 09/22/2024 3:00 PM EDT Office Visit [facility] ADULT DENTAL [address] [place] [address] Ascencion Joya documented as of this encounter Visit Diagnoses Not on filedocumented in this encounter Care Teams Book Packer Relationship Specialty Start Date End Date Sonya Donis MD [address] [place] [address] PCP - General Family Medicine 01/18/23 [employer] CASH CLERK Services 10/11/23 documented as of this encounter
--- OUTSIDE RECORDS SUMMARY | 2024-04-20 12:20 | XMS_ITS | Encounter Summary ---
Author Organization [employer] Address [address] [facility] 7t [place] [address] Care Team Providers Care Temporary Staff Accountant Name Role Phone Sonya Donis MD Primary Care Provider [phone] Reason for Visit * Reason Onset Date Comments Med Refill 04/07/2024 Encounter Details Date Type Department Care Team (Late st Contact Info) Description 04/07/2024 Refill [facility] MED & PEDS [address] [place], [place] [phone] Sonya Donis MD 505 [place] [address] Chronic left hip pain Social History Tobacco [...] 5-325 MG tablet To be sent to: [facility][id number] AT [facility] documented in this encounter Plan of Treatment Upcoming Encounters Date Type Department Care Team ([facility] st Contact Info) Description 05/11/2024 1:30 PM EST Clinical Support [facility] MED & PEDS [address] [place] [address] 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 RN 505 [place] [address] 05/23/2024 1:00 PM EDT Clinical Support [facility] MED & PEDS [address] [place] [address] 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 RN 505 [place] [address] 09/22/2024 3:00 PM EDT Office Visit [facility] ADULT DENTAL [address] [place] [address] Ascencion Joya documented as of this encounter Visit Diagnoses Diagnosis Chronic left hip pain documented in this encounter Additional Health Concerns Assessment Noted Time PHQ-9 Depression Total Score: 0 10/11/19 9:09 AM EDT documented as of this encounter Care Teams Temporary Staff Accountant Relationship Specialty Start Date End Date Sonya Donis MD [address] [place] [address] PCP - General Family Medicine 01/18/23 [employer] SPRAY TECHNICIAN Services 10/11/23 documented as of this encounter
--- OUTSIDE RECORDS SUMMARY | 2024-04-20 12:20 | XMS_ITS | Encounter Summary ---
Author Organization [employer] Address [address] [facility] 7t [place] [address] Care Team Providers Care Wheat Buyer Name Role Phone Sonya Donis MD Primary Care Provider [phone] Reason for Visit * Reason Onset Date Comments Med Refill 02/02/2024 Encounter Details Date Type Department Care Team (Late st Contact Info) Description 02/02/2024 Telephone [facility] MEDICINE 230 [place] [address] Sonya Donis MD [address] [place], [place] [phone] Med Refill Social History Tobacco Use Types [...] 5-325 MG tablet To be sent to: [facility] #[id number] documented in this encounter Plan of Treatment Upcoming Encounters Date Type Department Care Team (Late st Contact Info) Description 05/11/2024 1:30 PM EST Clinical Support [facility] MED & PEDS 505 [place] [address] 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 RN 505 [place] [address] 05/23/2024 1:00 PM EDT Clinical Support [facility] MED & PEDS [address] [place] [address] 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 RN [address] [place] [address] 09/22/2024 3:00 PM EDT Office Visit [facility] ADULT DENTAL [address] [place] [address] Ascencion Joya documented as of this encounter Visit Diagnoses Not on filedocumented in this encounter Additional Health Concerns Assessment Noted Time PHQ-9 Depression Total Score: 0 10/11/19 24 9:09 AM EDT documented as of this encounter Care Teams Wheat Buyer Relationship Specialty Start Date End Date Sonya Donis MD [address] [place] [address] PCP - General Family Medicine 01/18/23 [employer] SAFETY EQUIPMENT TESTER Services 10/11/23 documented as of this encounter
--- OUTSIDE RECORDS SUMMARY | 2024-04-20 12:20 | XMS_ITS | Encounter Summary ---
Author Organization [employer] Address 75 [facility] 7t [place] [address] Care Team Providers Care Pan Devulcanizer Helper Name Role Phone Sonya Donis MD Primary Care Provider [phone] Reason for Referral * Consultation (Routine) - Closed Specialty Diagnoses / Procedures Referred By Kendra t Referred To Contact Pain Medicine Diagnoses Chronic neck pain with history of cervical spinal surgery Sonya Donis MD [address] [place] [address] Phone: tel: fax: Tony Koenig MD [address] [place] [address] [place] [address] Phone: tel: fax: Referral ID Status Reason Start Date Expiration Date V isits Requested Visits Authorized [id number] Closed Specialty Services Required 03/20/2024 03/20/2025 1 1 * Imaging (Routine) - Pending Review Specialty Diagnoses / Procedures Referred By Contjeanine t Referred To Contact Radiology Diagnoses Left cervical lymphadenopathy Procedures CT Cervical Spine w/ and w/o Contrast Sonya Donis MD [address] [place] [address] Phone: tel: fax: [facility] [address] [place] [address] Phone: tel: fax: Referral ID Status Reason Start Date Expiration Date V isits Requested Visits Authorized [id number] Pending Review 03/20/2024 03/20/2025 1 1 Encounter Details Date Type Department Care Team (Late st Contact Info) Description 03/20/2024 Telephone [facility] [address] [place] [address] Sonya Donis MD [address] [place] [address] Social History Tobacco Use Types Packs/Day Years [...] PM EST T/C to pt via BLS Hook Up Driver Elsa #[id number]. Advised of message from PCP re: interpretation [...] Description 05/11/2024 1:30 PM EST Clinical Support [facility] MED & PEDS 505 [place] [address] 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 RN [address] [place] [address] 05/23/2024 1:00 PM EDT Clinical Support [facility] MED & PEDS 505 [place] [address] 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 RN [address] [place] [address] 09/22/2024 3:00 PM EDT Office Visit [facility] ADULT DENTAL [address] [place] [address] Ascencion Joya Scheduled Orders Name Type Priority [...] documented as of this encounter Care Teams Pan Devulcanizer Helper Relationship Specialty Start Date End Date Sonya Donis MD [address] [place] [address] PCP - General Family Medicine 01/18/23 [employer] COMMUNICATIONS OFFICER Services 10/11/23 documented as of this encounter
--- OUTSIDE RECORDS SUMMARY | 2024-04-20 12:20 | XMS_ITS | Encounter Summary ---
Author Organization [employer] Address 75 [facility] 7t [place] [address] Care Team Providers Care Cupola Operator Name Role Phone Sonya Donis MD Primary Care Provider [phone] Encounter Details Date Type Department Care Team ([facility] st Contact Info) Description 03/23/2024 Telephone [facility] [address] [place], [place] [phone] 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, RN [address] [place], [place] Social History Tobacco Use Types Packs/Day [...] RN - 03/23/2024 3:28 PM EST .What TRADING SPECIALIST Tier would you like this patient to be? I recommend Tier 2, please let me know if you agree or would rather patient be in another TRADING SPECIALIST Tier. Are you ok with TRADING SPECIALIST Televisit? Tier 1 = HIGH RISK, Monthly TRADING SPECIALIST visits Tier 2 = MODerate RISK, Q3 Month visits Tier 3 = LOW RISK = Q4-6 month visits documented in this encounter Plan of Treatment Upcoming Encounters Date Type Department Care Team (Late st Contact Info) Description 05/11/2024 1:30 PM EST Clinical Support [facility] MED & PEDS 505 [place] [address] 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 RN 505 [place] [address] 05/23/2024 1:00 PM EDT Clinical Support [facility] MED & PEDS 505 [facility] [place] [address] 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 RN 505 [place] [address] 09/22/2024 3:00 PM EDT Office Visit [facility] ADULT DENTAL 505 [facility] [place] [address] Ascencion Joya documented as of this encounter Visit Diagnoses Not on filedocumented in this encounter Additional Health Concerns Assessment Noted Time PHQ-9 Depression Total Score: 0 10/11/19 24 9:09 AM EDT documented as of this encounter Care Teams Cupola Operator Relationship Specialty Start Date End Date Sonya Donis MD [address] [place] [address] PCP - General Family Medicine 01/18/23 [employer] MITERING MACHINE OPERATOR Services 10/11/23 documented as of this encounter
--- OUTSIDE RECORDS SUMMARY | 2024-04-20 12:20 | XMS_ITS | Encounter Summary ---
Author Organization [employer] Address [address] 7[address] [place] [address] Care Team Providers Care Principal Embedded Software Engineer Name Role Phone Sonya Donis MD Primary Care Provider Encounter Details Date Type Department Care Team [...] Description 05/11/2024 1:30 PM EST Clinical Support [facility] MED & PEDS 505 [place] [address] 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 RN 505 [place] [address] 05/23/2024 1:00 PM EDT Clinical Support [facility] MED & PEDS 505 [place] [address] 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 RN 505 [place] [address] 09/22/2024 3:00 PM EDT Office Visit [facility] ADULT DENTAL 505 [place] [address] Ascencion Joya documented as of this encounter Visit Diagnoses Not on filedocumented in this encounter Additional Health Concerns Assessment Noted Time PHQ-9 Depression Total Score: 0 10/11/19 24 9:09 AM EDT documented as of this encounter Care Teams Principal Embedded Software Engineer Relationship Specialty Start Date End Date Sonya Donis MD [address] [place] [address] PCP - General Family Medicine 01/18/23 [employer] AIRCRAFT PNEUDRAULICS REPAIRER Services 10/11/23 documented as of this encounter
== END 2024-04-20 12:29 | disposition home or self-care (01) ==
LOC: HO.PMCPRC 11:55
PROVIDERS: PCP Family Medicine; Visit Provider Internal Medicine
DX: M47.812 Spondylosis without myelopathy or radiculopathy, cervical region (principal)
CPT/HCPCS: 64490; 64491

== ENCOUNTER 2024-04-27 06:17 | Outpatient (REF) | payer OTHER, SELFPAY ==
--- OUTSIDE RECORDS SUMMARY | 2024-04-27 06:19 | XMS_ITS | Data Portability ---
Author Organization [employer] [facility], Ut in - [employer] Address [address] [place] [phone] Care Team Providers Care Corporate Travel Manager Name Role Phone [facility] Primary Care Provider Assessment No assessment recorded. Plan of Treatment Reminders Order Date Submit Date Provider Last Modified By Organization Details Last Modified Time Details Appointments None recorded. Lab None recorded. Referral None recorded. Procedures None recorded. Surgeries None recorded. Imaging None recorded. Medication Orders fluticasone propionate 50 mcg/actuati on nasal spray,suspe nsion 2023 024 [facility] #[id number], [address] [place], [place], [id number], 4 14:25:30 guaifenesin 400 mg tablet 2023 024 [facility] #[id number], [address] [place], [place], [id number], 4 14:25:29 Patient TargetsNo targets recorded. Patient InstructionsNo instructions recorded. Reason for Referral None Reported. Medical Equipment None Reported. Allergies Allergen ID Allergen Name Allergen Category Reaction Reaction Severity Criticality Documentation Date Start Date Code Code System Note Provider Name and Address Organization Details Recorded Time 2825 aspirin medicatio n Not available Not available [...] Address Organization Details Last Updated DateTime 4 83773.0 48 g 16 /min 71 /min 170.18 [...] SNOMED-CT Code Diagnosis ICD10 Code Diagnosis Note [id number] Dary Castellanos MD Main - [facility] [address] [place] [phone] 04/26/2023 14:22:55 04/27/2023 11:07:57 COVID-19 [id number] U07.1 I provided real -time medical direction via phone for this encounter, and was available for additional phone based assistance as needed. I have reviewed and agree with the Assessment and Plan as documented by the [employer]. Patient given the opportunit y to ask [...] Manning Member ID Guarantor Name 04/26/2023 1 [facility] - DOS ON OR AFTER 2022 - DUAL ELIGIBLE - USP OPTIONS AND ONE CARE (MEDICARE REPLACEMENT/ADV ANTAGE - HMO) Nemo De Los Santos [id number] Nemo De Los Santos Notes Date Note Type Note Provider Name and Address Organization Details Recorded Time 04/26/2023 text/html CRC Nurse Triage Notes (Paris Gorman): Chief Complaints: Fever/Chills, Cough Allergies: Aspirin Comments: [place] speaking member called in - verified name/ with television production clerk. Member reporting fever, cough, and throat pain for the past 3 days. Feeling unwell and fatigued. He has been taking Tylenol for body aches and fevers. SOB only r/t cough. Denies chest pain. No known sick contacts. Mikel Gorman RN Will need paper consent in [place] ................... ................... ................... ................... ................... ................... ................... ........ [employer] Note From Karan Hardin: Pt reports sore [...] ........ Disposition: Fulfilled Dary Castellanos MD [address] [facility],[address], [place], [address], [place] - [address] 04/26/2023 23:24:04
--- OUTSIDE RECORDS SUMMARY | 2024-04-27 06:19 | XMS_ITS | Encounter Summary ---
Author Organization [employer] Address 75 [facility] 7t [place] [address] Care Team Providers Care Federal District Law Clerk Name Role Phone Sonya Donis MD Primary Care Provider Reason for Visit * Reason Onset Date Comments CT CERVICAL ORDER 04/05/2024 Encounter Details Date Type Department Care Team (Late st Contact Info) Description 04/05/2024 Telephone Pow[employer] Information Management [address] [place] [address] Snoya Donis MD [address] [place], [place] [phone] CT CERVICAL ORDER Social History Tobacco Use [...] 04/05/2024 11:55 AM EST Incoming fax from [facility], per radiologist recommendation this should be ordered as a soft tissue neck w/ iv con. please review and advise. documented in this encounter Plan of Treatment Upcoming Encounters Date Type Department Care Team (Late st Contact Info) Description 05/11/2024 1:30 PM EST Clinical Support [facility] MED & PEDS [address] [place] [address] 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 RN [address] [place] [address] 05/23/2024 1:00 PM EDT Clinical Support [facility] MED & PEDS [address] [place] [address] 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 RN [address] [place] [address] 09/22/2024 3:00 PM EDT Office Visit [facility] ADULT DENTAL [address] [place] [address] Ascencion Joya documented as of this encounter Visit Diagnoses Not on filedocumented in this encounter Additional Health Concerns Assessment Noted Time PHQ-9 Depression Total Score: 0 10/11/19 24 9:09 AM EDT documented as of this encounter Care Teams Federal District Law Clerk Relationship Specialty Start Date End Date Sonya Donis MD [address] [place] [address] PCP - General Family Medicine 01/18/23 [employer] SALES RECORD CLERK Services 10/11/23 documented as of this encounter
--- OUTSIDE RECORDS SUMMARY | 2024-04-27 06:19 | XMS_ITS | Encounter Summary ---
Author Organization [employer] Address 75 [facility] 7t [place] [address] Care Team Providers Care Screw Machine Set Up Operator Tool Name Role Phone Sonya Donis MD Primary Care Provider [phone] Reason for Visit * Reason Onset Date Comments Med Refill 09/08/2023 Encounter Details Date Type Department Care Team ([facility] st Contact Info) Description 09/08/2023 Telephone [facility] MED [facility] PEDS 505 [place] [address] Sonya Donis MD 505 [place] [address] Med Refill Social History Tobacco Use Types [...] 2:59 PM EDT Medication was sent to [facility] #[id number] on 07/09/23 with 2 refills. * Telephone Encounter - Marcy Mohan - 09/08/2023 1:12 PM EDT TC from pt requesting medication refill. Medications needing refill : cyclobenzaprine (Flexeril) 10 MG tablet To be sent to: [id number] - [place] WOLFF [address] AT [facility] documented in this encounter Plan of Treatment Upcoming Encounters Date Type Department Care Team ([facility] Contact Info) Description 05/11/2024 1:30 PM EST Clinical Support [facility] MED & PEDS 505 [place] [address] 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 RN 505 [place] [address] 05/23/2024 1:00 PM EDT Clinical Support [facility] MED & PEDS [address] [place] [address] 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 RN 505 [facility] [address] 09/22/2024 3:00 PM EDT Office Visit [facility] ADULT DENTAL [address] [place] [address] Ascencion Joya documented as of this encounter Visit Diagnoses Not on filedocumented in this encounter Additional Health Concerns Assessment Noted Time PHQ-9 Depression Total Score: 9 03/11/19 24 11:12 AM EST documented as of this encounter Care Teams Screw Machine Set Up Operator Tool Relationship Specialty Start Date End Date Sonya Donis MD [address] [place] [address] PCP - General Family Medicine 01/18/23 [employer] EXPLOSIVE OPERATOR FUSE Services 10/11/23 documented as of this encounter
--- OUTSIDE RECORDS SUMMARY | 2024-04-27 06:19 | XMS_ITS | Encounter Summary ---
Author Organization [employer] Address [address] [facility] 7t [place] [address] Care Team Providers Care School Psychometrist Name Role Phone Sonya Donis MD Primary Care Provider [phone] Reason for Visit * Reason Comments Med Refill Encounter Details Date Type Department Care Team ([facility] st Contact Info) Description 04/08/2024 Refill [facility] MED & PEDS [address] [place], [place] [phone] Sonya Donis MD 505 [place] [address] Social History Tobacco Use Types Packs/Day Years [...] EST Clinical Support [facility] MED & PEDS [address] [place] [address] 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 RN [address] [place] [address] 05/23/2024 1:00 PM EDT Clinical Support [facility] MED & PEDS [address] [place] [address] 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 RN [address] [place] [address] 09/22/2024 3:00 PM EDT Office Visit [facility] ADULT DENTAL [address] [place] [address] Ascencion Joya documented as of this encounter Visit Diagnoses Not on filedocumented in this encounter Additional Health Concerns Assessment Noted Time PHQ-9 Depression Total Score: 0 10/11/19 9:09 AM EDT documented as of this encounter Care Teams School Psychometrist Relationship Specialty Start Date End Date Sonya Donis MD [address] [place] [address] PCP - General Family Medicine 01/18/23 [employer] MANUFACTURING TEAM MEMBER Services 10/11/23 documented as of this encounter
--- OUTSIDE RECORDS SUMMARY | 2024-04-27 06:19 | XMS_ITS | Encounter Summary ---
Author Organization [employer] Address [address] [facility] 7t [place] [address] Care Team Providers Care Road Marker Name Role Phone Sonya Donis MD Primary Care Provider [phone] Reason for Visit * Reason Onset Date Comments Med Refill 04/07/2024 Encounter Details Date Type Department Care Team (Late st Contact Info) Description 04/07/2024 Refill [facility] MED & PEDS [address] [place], [place] [phone] Sonya Donis MD [address] [place] [address] Chronic left hip pain Social History Tobacco [...] 5-325 MG tablet To be sent to: [id number] AT [facility] documented in this encounter Plan of Treatment Upcoming Encounters Date Type Department Care Team ([facility] st Contact Info) Description 05/11/2024 1:30 PM EST Clinical Support [facility] MED & PEDS [address] [place] [address] 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 RN [address] [place] [address] 05/23/2024 1:00 PM EDT Clinical Support [facility] MED & PEDS [address] [place] [address] 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 RN [address] [place] [address] 09/22/2024 3:00 PM EDT Office Visit [facility] ADULT DENTAL [address] [place] [address] Ascencion Joya documented as of this encounter Visit Diagnoses Diagnosis Chronic left hip pain documented in this encounter Additional Health Concerns Assessment Noted Time PHQ-9 Depression Total Score: 0 10/11/19 9:09 AM EDT documented as of this encounter Care Teams Road Marker Relationship Specialty Start Date End Date Sonya Donis MD [address] [place] [address] PCP - General Family Medicine 01/18/23 [employer] POWDER CARRIER Services 10/11/23 documented as of this encounter
--- OUTSIDE RECORDS SUMMARY | 2024-04-27 06:19 | XMS_ITS | Encounter Summary ---
Author Organization [employer] Address [address] [facility] 7t [place] [address] Care Team Providers Care Project Management Engineer Name Role Phone Sonya Donis MD Primary Care Provider [phone] Reason for Visit * Reason Onset Date Comments CRITICAL RESULT 03/28/2024 Encounter Details Date Type Department Care Team ([facility] st Contact Info) Description 03/28/2024 Telephone [facility] MED & PEDS [address] [place], [place] [phone] Sonya Donis MD [address] [place], [place] [phone] CRITICAL RESULT Social History Tobacco Use Types [...] line 03/28/24 at 12:27 PM Name of Caller/Facility:[facility] Physician support, on behalf of Dr. Harding Callback number: [phone] Reason for Call: Calling to relay finding [...] Description 05/11/2024 1:30 PM EST Clinical Support [facility] MED & PEDS [address] [place] [address] 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 RN 505 [place] [address] 05/23/2024 1:00 PM EDT Clinical Support [facility] MED & PEDS [address] [place] [address] 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 RN [address] [place] [address] 09/22/2024 3:00 PM EDT Office Visit [facility] ADULT DENTAL [address] [place] [address] Ascencion Joya documented as of this encounter Visit Diagnoses Not on filedocumented in this encounter Additional Health Concerns Assessment Noted Time PHQ-9 Depression Total Score: 0 10/11/19 24 9:09 AM EDT documented as of this encounter Care Teams Project Management Engineer Relationship Specialty Start Date End Date Sonya Donis MD [address] [place] [address] PCP - General Family Medicine 01/18/23 [employer] SYSTEMS SOFTWARE MANAGER Services 10/11/23 documented as of this encounter
--- OUTSIDE RECORDS SUMMARY | 2024-04-27 06:19 | XMS_ITS | Encounter Summary ---
Author Organization [employer] Address 75 [facility] 7t [place] [address] Care Team Providers Care Formula Checker Name Role Phone Sonya Donis MD Primary Care Provider [phone] Reason for Referral * Imaging (Routine) - Authorized Specialty Diagnoses / Procedures Referred By Kendra dale Referred To Contact Radiology Diagnoses Neck mass Procedures CT Soft Tissue Neck w/ Contrast Georges Dean MD [address] [place] [address] Phone: tel: fax: [address] Phone: tel: fax: Referral ID Status Reason Start Date Expiration Date V isits Requested Visits Authorized [id number] Authorized 04/05/2024 04/05/2025 1 1 Encounter Details Date Type Department Care Team ([facility] st Contact Info) Description 04/05/2024 Telephone [facility] MEDICINE [address] [place], [place] [phone] Georges Dean MD [address] [place], [place] [phone] Social History Tobacco Use Types Packs/Day Years [...] Upcoming Encounters Date Type Department Care Team ([facility] st Contact Info) Description 05/11/2024 1:30 PM EST Clinical Support [facility] MED & PEDS [facility] [place] [address] McMAnupama benitez RN [address] [place] [address] 05/23/2024 1:00 PM EDT Clinical Support [facility] MED & PEDS 505 [place] [address] 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 RN [address] [place] [address] 09/22/2024 3:00 PM EDT Office Visit [facility] ADULT DENTAL [address] [place] [address] Ascencion Joya Scheduled Orders Name Type Priority [...] documented as of this encounter Care Teams Formula Checker Relationship Specialty Start Date End Date Sonya Donis MD [address] [place] [address] PCP - General Family Medicine 01/18/23 [employer] WHIPPED TOPPING FINISHER Services 10/11/23 documented as of this encounter
--- OUTSIDE RECORDS SUMMARY | 2024-04-27 06:19 | XMS_ITS | Encounter Summary ---
Author Organization [employer] Address [address] [facility] 7t [place] [address] Care Team Providers Care Woodwork Salvage Inspector Name Role Phone Sonay Donis MD Primary Care Provider [phone] Reason for Visit * Reason Onset Date Comments New Patient 10/28/2022 Encounter Details Date Type Department Care Team (Late st Contact Info) Description 10/28/2022 Telephone [facility] MEDICINE [address] [place], [place] [phone] Dony Bhagat MD [address] [place], [place] [phone] New Patient Social History Tobacco Use Types [...] EDT BIJAN Brown called pt to Offer PSYCH THERAPIST appt. Pt demographics and insurance information were verified. Pt states following medical conditions: thyroid, Cholesterol, Arthritis, Needs Hip replacement, and High blood pressure. Pt reports taking medications: No Pt given PSYCH THERAPIST appt with Dr. Donis on 01/18/2023 @ 9:30 am. Pt will be sent appt reminder card and medical release form and agrees to complete and to return to medical records prior to PSYCH THERAPIST appt. * Telephone Encounter - Gayatri Chaudhary - 10/28/2022 1:35 PM EDT Pt has been transfer over to wait list for PSYCH THERAPIST. EFFECTIVE SINCE 10/28/2022 documented in this encounter Plan of Treatment Upcoming Encounters Date Type Department Care Team (Late st Contact Info) Description 05/11/2024 1:30 PM EST Clinical Support [facility] MED & PEDS [address] [place] [address] 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 RN [address] [place] [address] 05/23/2024 1:00 PM EDT Clinical Support [facility] MED & PEDS [address] [place] [address] 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 RN 505 [place] [address] 09/22/2024 3:00 PM EDT Office Visit [facility] ADULT DENTAL [address] [place] [address] Ascencion Joya documented as of this encounter Visit Diagnoses Not on filedocumented in this encounter Care Teams Woodwork Salvage Inspector Relationship Specialty Start Date End Date Sonya Donis MD [address] [place] [address] PCP - General Family Medicine 01/18/23 [employer] OBIEE REPORT DEVELOPER Services 10/11/23 documented as of this encounter
--- OUTSIDE RECORDS SUMMARY | 2024-04-27 06:19 | XMS_ITS | Encounter Summary ---
Author Organization [employer] Address 75 [facility] 7t [place] [address] Care Team Providers Care Newspaper Editor Managing Name Role Phone Sonya Donis MD Primary Care Provider [phone] Reason for Visit * Reason Onset Date Comments Med Refill 11/11/2023 Encounter Details Date Type Department Care Team (Late st Contact Info) Description 11/11/2023 Telephone [facility] MEDICINE [address] [place] [address] Sonya Donis MD [address] [place], [place] [phone] Med Refill Social History Tobacco Use Types [...] 5-325 MG tablet To be sent to: [id number] AT [facility] documented in this encounter Plan of Treatment Upcoming Encounters Date Type Department Care Team ([facility] st Contact Info) Description 05/11/2024 1:30 PM EST Clinical Support [facility] MED & PEDS [address] [place] [address] 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 RN 505 [place] [address] 05/23/2024 1:00 PM EDT Clinical Support [facility] [address] [place] [address] 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 RN [address] [place] [address] 09/22/2024 3:00 PM EDT Office Visit [facility] ADULT DENTAL [address] [place] [address] Ascencion Joya documented as of this encounter Visit Diagnoses Not on filedocumented in this encounter Additional Health Concerns Assessment Noted Time PHQ-9 Depression Total Score: 0 08/05/20 24 9:09 AM EDT documented as of this encounter Care Teams Newspaper Editor Managing Relationship Specialty Start Date End Date Sonya Donis MD 230 [place] [address] PCP - General Family Medicine 01/18/23 [employer] PACKAGING CLERK Services 10/11/23 documented as of this encounter
--- OUTSIDE RECORDS SUMMARY | 2024-04-27 06:19 | XMS_ITS | Clinical Summary ---
Author Organization [employer] Address 75 [facility] 7t [place] [address] Care Team Providers Care Senior Asset Manager Name Role Phone Sonya Donis MD Primary Care Provider [phone] Allergies Active Allergy Reactions Criticality Noted Date [...] for nutritional changes, Pt agreed to see [employer]. Ordering lab work for Lipids recheck, to [...] Center 07/09/2023 1:00 PM Sonya Donis MD [facility] Assessment & Plan (01/18/2023 10:23 AM EST): -Labs: Lipid Panel. Hypothyroidism 01/18/2023 Assessment & Plan (01/18/2023 10:23 AM EST): -Labs: TSH/FT4. Encounters Date Type Department Care Team Description 04/08/2024 Refill [facility] MED & PEDS [address] [place], [place] [phone] Sonya Donis MD 04/07/2024 Refill [facility] [address] [place], [place] [phone] Sonya Donis MD Chronic left hip pain 04/05/2024 Telephone [facility] MEDICINE [address] [place], [place] [phone] Georges Dean MD 04/05/2024 Telephone [facility] 230 [place], [place] [phone] Sonya Donis MD CT CERVICAL ORDER 03/28/2024 Telephone [facility] [address] [place], [place] [phone] Sonya Donis MD CRITICAL RESULT 03/24/2024 3:00 PM EST Office Visit [facility] ADULT DENTAL [address] [place] [address] Ascencion Joya Dental calculus (Primary Dx) 03/23/2024 2:30 PM EST Clinical Support [facility] MED & PEDS [address] [place] [address] 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 RN Chronic neck pain with history of cervical spinal surgery 03/23/2024 Telephone [facility] [address] [place] [address] 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 RN 03/23/2024 Travel 03/20/2024 Telephone [facility] [address] [place] [address] Sonya Donis MD 03/20/2024 Telephone [facility] [address] [place] [address] Sonya Donis MD 03/07/2024 Refill [facility] [address] [place] [address] Sonya Donis MD Chronic left hip pain 02/17/2024 1:30 PM EST Clinical Support [facility] [address] [place] [address] 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 RN Chronic neck pain with history of cervical spinal surgery 02/17/2024 Telephone [facility] [address] [place] [address] 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, ADONAY 02/17/2024 Telephone [facility] 505 [place] [address] 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 RN 02/17/2024 Travel 02/07/2024 Telephone [facility] [address] [place] [address] 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, ADONAY 02/02/2024 Refill [facility] [address] [place] [address] 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 RN Chronic left hip pain 02/02/2024 Telephone [facility] [address] [place] [address] Sonya Donis MD Med Refill 01/26/2024 Telephone [facility] MEDICINE [address] [place] [address] Sonya Donis MD Referral from Last 3 [...] [facility] [address] [place] [address] 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 RN 505 [place] [address] 05/23/2024 1:00 PM EDT Clinical Support [facility] [address] [place] [address] 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 RN 505 [place] [address] 09/22/2024 3:00 PM EDT Office Visit [facility] ADULT DENTAL [address] [place] [address] Ascencion Joya Health Maintenance Due Date Last [...] Routine 03/24/2024 3 :00 PM EST POCT RHAE-14 URINE DRUG SCREEN Routine 03/23/2024 2:54 PM [...] RN - 03/23/2024 2:54 PM EST Lot# [id number] Exp: 02-11-25 us Sonya Donis MD POINT OF CARE TEST ENTER/EDIT ORDERABLES Final Result * MR Cervical Spine w/o Contrast (01/29/2024 6:26 PM EST) Anatomical Region Laterality Modality Spine, C-spine Magnetic Resonan ce 01/29/2024 6:26 PM EST Narrative 03/20/2024 2:45 PM EST ? [facility] ?[address] ?[place] [address] ? Magnetic Resonance Report ? Signed ? Patient: Barnes De Los Santos,Efigenio ?MR#: ?? [id number] ? : 1955 ?Acct:[id number] ? Age/Sex: 68 / M ?ADM Date: 01/29/24 ? Loc: HO.MRI ? Attending Dr: Sonya Donis MD ? Ordering Physician: Sonya Donis MD ?? Date of Service: 01/29/24 ?? Procedure(s): MR cervical spine wo con ?? Accession Number(s): [id number] ? cc: Sonya Donis MD ? EXAMINATION: [...] or canal ?? stenosis. Mild right and fury-xh-kvjvxmkb left-sided facet joint ?? arthropathy noted with [...] DD/ 1826 ? TD/TT: 01/29/24 1905 ? [employer]: ? Procedure Note Donaraceliverónica, Image - 03/20/2024 [place] [address] Magnetic Resonance Report Signed Patient: Malia Amezquita#: [id number] : 7Acct:[id number] Age/Sex: 68 / MADM Date: 01/29/24 Loc: HO.MRI Attending Dr: Sonya Donis MD Ordering Physician: Sonya Donis MD Date of Service: 01/29/24 Procedure(s): MR cervical spine wo con Accession Number(s): [id number] cc: Sonya Donis MD EXAMINATION: MR CERVICAL [...] impingement or canal stenosis. Mild right and toyw-nh-mfzqkggc left-sided facet joint arthropathy noted with uncinate [...] 03/20/24 1442 DD/ 1826 TD/TT: 01/29/24 1905 [employer]: us Sonya Donis MD IMG MRI PROCEDURES Final Resu lt * (ABNORMAL) Lipid Panel, Standard (01/10/2024 9:42 AM EST) Triglycerides 208(H) <150 mg/dL [facility] Comment:Desirable Triglyceri de: less than 150 mg/dLBorderline High Triglyceride 150-199 mg/dLHigh Triglyceride: 200-499 mg/dLVery High Triglyceride: greater than or equal to 5OO mg/dL Cholesterol 119 <200 mg/dL [facility] Comment:Desirable Cholestero l: less than 200 mg/dLBorderline High Cholesterol: 200-239 mg/dLHigh Cholesterol: greater than 239 mg/dL LDL Cholesterol Calculated 37 <100 mg/dL [facility] Comment:Desirable LDL: less than 100 mg/dLNear Optimal/Above Optimal LDL: 110- 129 mg/dLBorderline High LDL: 130-159 mg/dLHigh LDL: 160-189 mg/dLVery High LDL: greater than or equal to 190 mg/dL HDL Cholesterol 41 >40 mg/dL [facility] Comment:Desirable HDL: great er than 40 mg/dL Note: This HDL assay may give artificially low results in patients with liver disease. Blood Venous blood specimen / Unknown 01/10/2024 9:42 AM EST 01/10/2024 2:39 PM EST Sonya Donis MD LAB BLOOD ORDERABLES Final Re sult Performing Organization Address [facility] de Phone Number [facility] [address] [place] [phone] * Hepatitis C Ab (01/22/2023 1:05 PM EST) Hepatitis C Antibody Nonreactive Nonreactive [facility] Comment:Antibodies to HCV no t detected; does not exclude early acuteHCV infection. Blood Venous blood specimen / Unknown 01/22/2023 1:05 PM EST 01/22/2023 2:22 PM EST Sonya Donis MD LAB BLOOD ORDERABLES Final Re sult Performing Organization Address [facility] de Phone Number [facility] [address] [place] [phone] * Hm Colonoscopy (01/13/2018) Colonoscopy Normal Normal Narrative Sonya Donis MD - 01/13/2018 Normal colonoscopy, unknown why recommended repeat 5 yrs Historical Provider HEALTH MAINTENANCE Final Result from Last 3 Months or Most Recently Relevant to Health Maintenance Insurance [facility] - [facility] Care Teams Senior Asset Manager Relationship Specialty Start Date End Date Sonya Donis MD [address] [place] [address] PCP - General Family Medicine 01/18/23 [employer] SMOKEHOUSE WORKER Services 10/11/23
--- OUTSIDE RECORDS SUMMARY | 2024-04-27 06:19 | XMS_ITS | Encounter Summary ---
Author Organization [employer] Address 75 [facility] 7t [place] [address] Care Team Providers Care Automation Specialist Name Role Phone Sonya Donis MD Primary Care Provider [phone] Reason for Visit * Reason Onset Date Comments Med Refill 02/02/2024 Encounter Details Date Type Department Care Team (Late st Contact Info) Description 02/02/2024 Telephone [facility] MEDICINE 230 [place] [address] Sonya Donis MD [address] [place], [place] [phone] Med Refill Social History Tobacco Use Types [...] 5-325 MG tablet To be sent to: [facility] #[id number] documented in this encounter Plan of Treatment Upcoming Encounters Date Type Department Care Team (Late st Contact Info) Description 05/11/2024 1:30 PM EST Clinical Support [facility] MED & PEDS [address] [place] [address] 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 RN 505 [place] [address] 05/23/2024 1:00 PM EDT Clinical Support [facility] MED & PEDS [address] [place] [address] 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 RN 505 [place] [address] 09/22/2024 3:00 PM EDT Office Visit [facility] ADULT DENTAL 505 [place] [address] Ascencion Joya documented as of this encounter Visit Diagnoses Not on filedocumented in this encounter Additional Health Concerns Assessment Noted Time PHQ-9 Depression Total Score: 0 10/11/19 24 9:09 AM EDT documented as of this encounter Care Teams Automation Specialist Relationship Specialty Start Date End Date Sonya Donis MD 230 [place] [address] PCP - General Family Medicine 01/18/23 [employer] SYSTEMS TRAINER Services 10/11/23 documented as of this encounter
--- OUTSIDE RECORDS SUMMARY | 2024-04-27 06:19 | XMS_ITS | Encounter Summary ---
Author Organization [employer] Address 75 [facility] 7t [place] [address] Care Team Providers Care Template Storage Clerk Name Role Phone Sonya Donis MD Primary Care Provider [phone] Reason for Visit * Reason Onset Date Comments Med Refill 01/07/2024 Encounter Details Date Type Department Care Team (Late st Contact Info) Description 01/07/2024 Telephone [facility] MEDICINE 230 [place] [address] Sonya Donis MD [address] [place], [place] [phone] Med Refill Social History Tobacco Use Types [...] 5-325 MG tablet To be sent to: [facility] #[id number] documented in this encounter Plan of Treatment Upcoming Encounters Date Type Department Care Team (Late st Contact Info) Description 05/11/2024 1:30 PM EST Clinical Support [facility] MED & PEDS [address] [place] [address] 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 RN 505 [place] [address] 05/23/2024 1:00 PM EDT Clinical Support [facility] [address] [place] [address] 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 RN [address] [place] [address] 09/22/2024 3:00 PM EDT Office Visit [facility] ADULT DENTAL [address] [place] [address] Ascencion Joya documented as of this encounter Visit Diagnoses Not on filedocumented in this encounter Additional Health Concerns Assessment Noted Time PHQ-9 Depression Total Score: 0 10/11/19 24 9:09 AM EDT documented as of this encounter Care Teams Template Storage Clerk Relationship Specialty Start Date End Date Sonya Donis MD 230 [place] [address] PCP - General Family Medicine 01/18/23 [employer] OBGYN HOSPITALIST PHYSICIAN Services 10/11/23 documented as of this encounter
== END 2024-04-27 06:18 | disposition home or self-care (01) ==
LOC: CF 06:17
PROVIDERS: Visit Provider Internal Medicine
DX: Z13.89 Encounter for screening for other disorder (principal)

== ENCOUNTER 2024-05-01 10:45 | Outpatient (REF) | payer OTHER, SELFPAY ==
--- OUTSIDE RECORDS SUMMARY | 2024-05-01 12:10 | XMS_ITS | Encounter Summary ---
Author Organization [employer] Address 75 [facility] 7t [place] [address] Care Team Providers Care Senior Benefits Analyst Name Role Phone Sonya Donis MD Primary Care Provider Reason for Visit * Reason Onset Date Comments CT CERVICAL ORDER 04/05/2024 Encounter Details Date Type Department Care Team (Late st Contact Info) Description 04/05/2024 Telephone [facility] 230 [place] [address] Sonya Donis MD [address] [place], [place] [phone] CT CERVICAL ORDER Social History Tobacco Use [...] 04/05/2024 11:55 AM EST Incoming fax from [facility], per radiologist recommendation this should be ordered as a soft tissue neck w/ iv con. please review and advise. documented in this encounter Plan of Treatment Upcoming Encounters Date Type Department Care Team (Late st Contact Info) Description 05/11/2024 1:30 PM EST Clinical Support [facility] MED & PEDS 505 [place] [address] 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 RN 505 [place] [address] 05/23/2024 1:00 PM EDT Clinical Support [facility] MED & PEDS [address] [place] [address] 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 RN 505 [place] [address] 09/22/2024 3:00 PM EDT Office Visit [facility] ADULT DENTAL [address] [place] [address] Ascencion Joya documented as of this encounter Visit Diagnoses Not on filedocumented in this encounter Additional Health Concerns Assessment Noted Time PHQ-9 Depression Total Score: 0 10/11/19 24 9:09 AM EDT documented as of this encounter Care Teams Senior Benefits Analyst Relationship Specialty Start Date End Date Sonya Donis MD 230 [place] [address] PCP - General Family Medicine 01/18/23 [employer] PILOT SUPERVISOR Services 10/11/23 documented as of this encounter
--- OUTSIDE RECORDS SUMMARY | 2024-05-01 12:10 | XMS_ITS | Encounter Summary ---
Author Organization [employer] Address 75 [facility] 7t [place] [address] Care Team Providers Care Sugar Chipper Machine Operator Name Role Phone Sonya Donis MD Primary Care Provider [phone] Reason for Visit * Reason Onset Date Comments Med Refill 09/08/2023 Encounter Details Date Type Department Care Team ([facility] st Contact Info) Description 09/08/2023 Telephone [facility] PEDS 505 [place] [address] Sonya Donis MD 505 [place] [address] Med Refill Social History Tobacco Use Types [...] 2:59 PM EDT Medication was sent to [facility] #[id number] on 07/09/23 with 2 refills. * Telephone Encounter - Marcy Mohan - 09/08/2023 1:12 PM EDT TC from pt requesting medication refill. Medications needing refill : cyclobenzaprine (Flexeril) 10 MG tablet To be sent to: [facility] #[id number] - [place] WOLFF [address] AT [facility] documented in this encounter Plan of Treatment Upcoming Encounters Date Type Department Care Team ([facility] Contact Info) Description 05/11/2024 1:30 PM EST Clinical Support [facility] MED & PEDS 505 [facility] [place] [address] 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 RN 505 [place] [address] 05/23/2024 1:00 PM EDT Clinical Support [facility] MED & PEDS 505 [facility] [place] [address] Anupama Soloomn RN 505 [facility] [place] [address] 09/22/2024 3:00 PM EDT Office Visit [facility] ADULT DENTAL [address] [place] [address] Ascencion Joya documented as of this encounter Visit Diagnoses Not on filedocumented in this encounter Additional Health Concerns Assessment Noted Time PHQ-9 Depression Total Score: 9 03/11/19 24 11:12 AM EST documented as of this encounter Care Teams Sugar Chipper Machine Operator Relationship Specialty Start Date End Date Sonya Donis MD 230 [place] [address] PCP - General Family Medicine 01/18/23 [employer] LOOM CONTROL CHAIN BUILDER Services 10/11/23 documented as of this encounter
--- OUTSIDE RECORDS SUMMARY | 2024-05-01 12:10 | XMS_ITS | Encounter Summary ---
Author Organization [employer] Address 75 [facility] 7t [place] [address] Care Team Providers Care Asp Net C Developer Name Role Phone Sonya Donis MD Primary Care Provider [phone] Reason for Visit * Reason Onset Date Comments Med Refill 01/07/2024 Encounter Details Date Type Department Care Team (Late st Contact Info) Description 01/07/2024 Telephone [facility] MEDICINE 230 [place] [address] Sonya Donis MD [address] [place], [place] [phone] Med Refill Social History Tobacco Use Types [...] 5-325 MG tablet To be sent to: [facility] #[id number] documented in this encounter Plan of Treatment Upcoming Encounters Date Type Department Care Team (Late st Contact Info) Description 05/11/2024 1:30 PM EST Clinical Support [facility] MED & PEDS [address] [place] [address] 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 RN 505 [place] [address] 05/23/2024 1:00 PM EDT Clinical Support [facility] MED & PEDS [address] [place] [address] 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 RN 505 [place] [address] 09/22/2024 3:00 PM EDT Office Visit [facility] ADULT DENTAL [address] [place] [address] Ascencion Joya documented as of this encounter Visit Diagnoses Not on filedocumented in this encounter Additional Health Concerns Assessment Noted Time PHQ-9 Depression Total Score: 0 10/11/19 24 9:09 AM EDT documented as of this encounter Care Teams Asp Net C Developer Relationship Specialty Start Date End Date Sonya Donis MD 230 [place] [address] PCP - General Family Medicine 01/18/23 [employer] LAP GRINDER Services 10/11/23 documented as of this encounter
--- OUTSIDE RECORDS SUMMARY | 2024-05-01 12:10 | XMS_ITS | Encounter Summary ---
Author Organization [employer] Address 75 [facility] 7t [place] [address] Care Team Providers Care Media Relations Coordinator Name Role Phone Sonya Donis MD Primary Care Provider [phone] Reason for Visit * Reason Comments Med Refill Encounter Details Date Type Department Care Team ([facility] st Contact Info) Description 04/08/[address] [facility] PEDS 505 [place], [place] [phone] Sonya Donis MD 505 [place] [address] Social History Tobacco Use Types Packs/Day Years [...] [facility] 505 [place] [address] 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 RN [address] [place] [address] 05/23/2024 1:00 PM EDT Clinical Support [facility] & [facility]EDS [address] [place] [address] 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 RN 505 [place] [address] 09/22/2024 3:00 PM EDT Office Visit [facility] ADULT DENTAL 505 [place] [address] Ascencion Joya documented as of this encounter Visit Diagnoses Not on filedocumented in this encounter Additional Health Concerns Assessment Noted Time PHQ-9 Depression Total Score: 0 10/11/19 9:09 AM EDT documented as of this encounter Care Teams Media Relations Coordinator Relationship Specialty Start Date End Date Sonya Donis MD [address] [place] [address] PCP - General Family Medicine 01/18/23 [employer] DRAWING FRAME TENDER Services 10/11/23 documented as of this encounter
--- OUTSIDE RECORDS SUMMARY | 2024-05-01 12:10 | XMS_ITS | Encounter Summary ---
Author Organization [employer] Address 75 [facility] 7t [place] [address] Care Team Providers Care Vice President Business & Corporate Development Name Role Phone Sonya Donis MD Primary Care Provider [phone] Reason for Visit * Reason Onset Date Comments Med Refill 02/02/2024 Encounter Details Date Type Department Care Team (Late st Contact Info) Description 02/02/2024 Telephone [facility] MEDICINE 230 [place] [address] Sonya Donis MD [address] [place], [place] [phone] Med Refill Social History Tobacco Use Types [...] 5-325 MG tablet To be sent to: [facility] #[id number] documented in this encounter Plan of Treatment Upcoming Encounters Date Type Department Care Team (Late st Contact Info) Description 05/11/2024 1:30 PM EST Clinical Support [facility] MED & PEDS [address] [place] [address] 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 RN 505 [place] [address] 05/23/2024 1:00 PM EDT Clinical Support [facility] MED & PEDS [address] [place] [address] 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 RN 505 [place] [address] 09/22/2024 3:00 PM EDT Office Visit [facility] ADULT DENTAL [address] [place] [address] Ascencion Joya documented as of this encounter Visit Diagnoses Not on filedocumented in this encounter Additional Health Concerns Assessment Noted Time PHQ-9 Depression Total Score: 0 10/11/19 24 9:09 AM EDT documented as of this encounter Care Teams Vice President Business & Corporate Development Relationship Specialty Start Date End Date Sonya Donis MD [address] [place] [address] PCP - General Family Medicine 01/18/23 [employer] LUSTERER Services 10/11/23 documented as of this encounter
--- OUTSIDE RECORDS SUMMARY | 2024-05-01 12:10 | XMS_ITS | Encounter Summary ---
Author Organization [employer] Address 75 [facility] 7t [place] [address] Care Team Providers Care Busser Name Role Phone Sonya Donis MD Primary Care Provider [phone] Reason for Referral * Imaging (Routine) - Authorized Specialty Diagnoses / Procedures Referred By Kendra dale Referred To Contact Radiology Diagnoses Neck mass Procedures CT Soft Tissue Neck w/ Contrast Georges Dean MD [address] [place] [address] Phone: tel: fax: [address] Phone: tel: fax: Referral ID Status Reason Start Date Expiration Date V isits Requested Visits Authorized [id number] Authorized 04/05/2024 04/05/2025 1 1 Encounter Details Date Type Department Care Team ([facility] st Contact Info) Description 04/05/2024 Telephone [facility] MEDICINE 230 [place], [place] [phone] Georges Dean MD [address] [place], [place] [phone] Social History Tobacco Use Types Packs/Day Years [...] Upcoming Encounters Date Type Department Care Team ([facility] st Contact Info) Description 05/11/2024 1:30 PM EST Clinical Support [facility] MED & PEDS 505 [place] [address] McMAnupama benitez RN 505 [place] [address] 05/23/2024 1:00 PM EDT Clinical Support [facility] MED & PEDS 505 [place] [address] 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 RN [address] [place] [address] 09/22/2024 3:00 PM EDT Office Visit [facility] ADULT DENTAL 505 [place] [address] Ascencion Joya Scheduled Orders Name Type Priority [...] documented as of this encounter Care Teams Busser Relationship Specialty Start Date End Date Sonya Donis MD [address] [place] [address] PCP - General Family Medicine 01/18/23 [employer] SUPERVISOR PAINTING DEPARTMENT Services 10/11/23 documented as of this encounter
--- OUTSIDE RECORDS SUMMARY | 2024-05-01 12:10 | XMS_ITS | Encounter Summary ---
Author Organization [employer] Address 75 [facility] 7t [place] [address] Care Team Providers Care Asphalt Paving Supervisor Name Role Phone Sonya Donis MD Primary Care Provider [phone] Reason for Visit * Reason Onset Date Comments New Patient 10/28/2022 Encounter Details Date Type Department Care Team (Late st Contact Info) Description 10/28/[address] [facility] [address] [place], [place] [phone] Dony Bhagat MD [address] [place], [place] [phone] New Patient Social History Tobacco Use Types [...] EDT BIJAN Brown called pt to Offer SURVEY STATISTICIAN appt. Pt demographics and insurance information were verified. Pt states following medical conditions: thyroid, Cholesterol, Arthritis, Needs Hip replacement, and High blood pressure. Pt reports taking medications: No Pt given SURVEY STATISTICIAN appt with Dr. Donis on 01/18/2023 @ 9:30 am. Pt will be sent appt reminder card and medical release form and agrees to complete and to return to medical records prior to SURVEY STATISTICIAN appt. * Telephone Encounter - Gayatri Chaudhary - 10/28/2022 1:35 PM EDT Pt has been transfer over to wait list for SURVEY STATISTICIAN. EFFECTIVE SINCE 10/28/2022 documented in this encounter Plan of Treatment Upcoming Encounters Date Type Department Care Team (Late st Contact Info) Description 05/11/2024 1:30 PM EST Clinical Support [facility] MED & PEDS [address] [place] [address] 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 RN 505 [place] [address] 05/23/2024 1:00 PM EDT Clinical Support [facility] [address] [place] [address] 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 RN 505 [place] [address] 09/22/2024 3:00 PM EDT Office Visit [facility] ADULT DENTAL [address] [place] [address] Ascencion Joya documented as of this encounter Visit Diagnoses Not on filedocumented in this encounter Care Teams Asphalt Paving Supervisor Relationship Specialty Start Date End Date Sonya Donis MD [address] [place] [address] PCP - General Family Medicine 01/18/23 [employer] DIGITAL CAMPAIGN MANAGER Services 10/11/23 documented as of this encounter
--- OUTSIDE RECORDS SUMMARY | 2024-05-01 12:10 | XMS_ITS | Encounter Summary ---
Author Organization [employer] Address 75 [facility] 7t [place] [address] Care Team Providers Care Components Engineer Name Role Phone Sonya Donis MD Primary Care Provider [phone] Reason for Visit * Reason Onset Date Comments Med Refill 04/07/2024 Encounter Details Date Type Department Care Team (Late st Contact Info) Description 04/07/2024 Refill [facility] PED[facility] [address] [place], [place] [phone] Sonya Donis MD [address] [place] [address] Chronic left hip pain Social History Tobacco [...] 5-325 MG tablet To be sent to: [id number] [facility] documented in this encounter Plan of Treatment Upcoming Encounters Date Type Department Care Team ([facility] st Contact Info) Description 05/11/2024 1:30 PM EST Clinical Support [facility] MED & PEDS [address] [place] [address] 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 RN [address] [place] [address] 05/23/2024 1:00 PM EDT Clinical Support [facility]ED[facility] [address] [place] [address] 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 RN [address] [place] [address] 09/22/2024 3:00 PM EDT Office Visit [facility] ADULT DENTAL [address] [place] [address] Ascencion Joya documented as of this encounter Visit Diagnoses Diagnosis Chronic left hip pain documented in this encounter Additional Health Concerns Assessment Noted Time PHQ-9 Depression Total Score: 0 10/11/19 9:09 AM EDT documented as of this encounter Care Teams Components Engineer Relationship Specialty Start Date End Date Sonya Donis MD [address] [place] [address] PCP - General Family Medicine 01/18/23 [employer] GLOBAL CREATIVE CHAIRMAN Services 10/11/23 documented as of this encounter
--- OUTSIDE RECORDS SUMMARY | 2024-05-01 12:10 | XMS_ITS | Encounter Summary ---
Author Organization [employer] Address 75 [facility] 7t [place] [address] Care Team Providers Care Cigarette Lighter Repairer Name Role Phone Sonya Donis MD Primary Care Provider [phone] Reason for Visit * Reason Onset Date Comments Med Refill 11/11/2023 Encounter Details Date Type Department Care Team (Late st Contact Info) Description 11/11/2023 Telephone [facility] MEDICINE [address] [place] [address] Sonya Donis MD [address] [place], [place] [phone] Med Refill Social History Tobacco Use Types [...] 5-325 MG tablet To be sent to: [facility] #[id number] AT [facility] documented in this encounter Plan of Treatment Upcoming Encounters Date Type Department Care Team ([facility] st Contact Info) Description 05/11/2024 1:30 PM EST Clinical Support [facility] MED & PEDS [address] [place] [address] 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 RN [address] [place] [address] 05/23/2024 1:00 PM EDT Clinical Support [facility] MED & PEDS [address] [place] [address] 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 RN [address] [place] [address] 09/22/2024 3:00 PM EDT Office Visit [facility] ADULT DENTAL [address] [place] [address] Ascencion Joya documented as of this encounter Visit Diagnoses Not on filedocumented in this encounter Additional Health Concerns Assessment Noted Time PHQ-9 Depression Total Score: 0 08/05/20 24 9:09 AM EDT documented as of this encounter Care Teams Cigarette Lighter Repairer Relationship Specialty Start Date End Date Sonya Donis MD [address] [place] [address] PCP - General Family Medicine 01/18/23 [employer] SUGAR HOUSE SUPERVISOR Services 10/11/23 documented as of this encounter
--- OUTSIDE RECORDS SUMMARY | 2024-05-01 12:11 | XMS_ITS | Clinical Summary ---
Author Organization [employer] Address 75 [facility] 7t [place] [address] Care Team Providers Care Communications Assistant Name Role Phone Sonya Donis MD Primary Care Provider [phone] Allergies Active Allergy Reactions Criticality Noted Date [...] for nutritional changes, Pt agreed to see Hand Glass Cutter. Ordering lab work for Lipids recheck, to [...] Center 07/09/2023 1:00 PM Sonya Donis MD [facility] Assessment & Plan (01/18/2023 10:23 AM EST): -Labs: Lipid Panel. Hypothyroidism 01/18/2023 Assessment & Plan (01/18/2023 10:23 AM EST): -Labs: TSH/FT4. Encounters Date Type Department Care Team Description 04/08/2024 Refill [facility] MED & PEDS [address] [place], [place] [phone] Sonya Donis MD 04/07/2024 Refill [facility] MED & PEDS [address] [place], [place] [phone] Sonya Donis MD Chronic left hip pain 04/05/2024 Telephone [facility] [address] [place], [place] [phone] Georges Dean MD 04/05/2024 Telephone [facility] [address] [place], [place] [phone] Sonya Donis MD CT CERVICAL ORDER 03/28/2024 Telephone [facility] MED [facility] PEDS [address] [place], [place] [phone] Sonya Donis MD CRITICAL RESULT 03/24/2024 3:00 PM EST Office Visit [facility] ADULT DENTAL [address] [place] [address] Ascencion Joya Dental calculus (Primary Dx) 03/23/2024 2:30 PM EST Clinical Support [facility] MED & PEDS [address] [place] [address] 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 RN Chronic neck pain with history of cervical spinal surgery 03/23/2024 Telephone [facility] PED[facility] [address] [place] [address] 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 RN 03/23/2024 Travel 03/20/2024 Telephone [facility] [employer] [facility] [address] [place] [phone] Sonya Donis MD 03/20/2024 Telephone [facility] PEDS [address] [place] [address] Sonya Donis MD 03/07/2024 Refill [facility] PEDS [address] [place] [address] Sonya Donis MD Chronic left hip pain 02/17/2024 1:30 PM EST Clinical Support [facility] PED[facility] [address] [place] [address] 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 RN Chronic neck pain with history of cervical spinal surgery 02/17/2024 Telephone [facility] [address] [place] [address] 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, ADONAY 02/17/2024 Telephone [facility] [address] [place] [address] 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 RN 02/17/2024 Travel 02/07/2024 Telephone [facility] [address] [place] [address] 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, ADONAY 02/02/2024 Refill [facility] [address] [place] [address] 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 RN Chronic left hip pain 02/02/2024 Telephone [facility] [address] [place] [address] Sonya Donis MD Med Refill from Last 3 Months Immunizations Name Administration [...] 05/11/2024 1:30 PM EST Clinical Support [facility] PED[facility] [address] [place] [address] 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 RN [address] [place] [address] 05/23/2024 1:00 PM EDT Clinical Support [facility] MED & PEDS [address] [place] [address] 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 RN [address] [place] [address] 09/22/2024 3:00 PM EDT Office Visit [facility] ADULT DENTAL [address] [place] [address] Ascencion Joya Health Maintenance Due Date Last [...] RN - 03/23/2024 2:54 PM EST Lot# [id number] Exp: 02-11-25 us Sonya Donis MD POINT OF CARE TEST ENTER/EDIT ORDERABLES Final Result * (ABNORMAL) Lipid Panel, Standard (01/10/2024 9:42 AM EST) Triglycerides 208(H) <150 mg/dL [facility] Comment:Desirable Triglyceri de: less than 150 mg/dLBorderline High Triglyceride 150-199 mg/dLHigh Triglyceride: 200-499 mg/dLVery High Triglyceride: greater than or equal to 5OO mg/dL Cholesterol 119 <200 mg/dL [facility] Comment:Desirable Cholestero l: less than 200 mg/dLBorderline High Cholesterol: 200-239 mg/dLHigh Cholesterol: greater than 239 mg/dL LDL Cholesterol Calculated 37 <100 mg/dL [facility] Comment:Desirable LDL: less than 100 mg/dLNear Optimal/Above Optimal LDL: 110- 129 mg/dLBorderline High LDL: 130-159 mg/dLHigh LDL: 160-189 mg/dLVery High LDL: greater than or equal to 190 mg/dL HDL Cholesterol 41 >40 mg/dL [facility] Comment:Desirable HDL: great er than 40 mg/dL Note: This HDL assay may give artificially low results in patients with liver disease. Blood Venous blood specimen / Unknown 01/10/2024 9:42 AM EST 01/10/2024 2:39 PM EST Sonya Donis MD LAB BLOOD ORDERABLES Final Re sult Performing Organization Address [facility] Co de Phone Number [facility] [address] [place] [phone] * Hepatitis C Ab (01/22/2023 1:05 PM EST) Hepatitis C Antibody Nonreactive Nonreactive [facility] Comment:Antibodies to HCV no t detected; does not exclude early acuteHCV infection. Blood Venous blood specimen / Unknown 01/22/2023 1:05 PM EST 01/22/2023 2:22 PM EST Sonya Donis MD LAB BLOOD ORDERABLES Final Re sult Performing Organization Address [facility] Co de Phone Number [facility] [address] [place] [phone] * Hm Colonoscopy (01/13/2018) Colonoscopy Normal Normal Narrative Sonya Donis MD - 01/13/2018 Normal colonoscopy, unknown why recommended repeat 5 yrs Historical Provider HEALTH MAINTENANCE Final Result from Last 3 Months or Most Recently Relevant to Health Maintenance Insurance [facility] - [facility] Care Teams Communications Assistant Relationship Specialty Start Date End Date Sonya Donis MD [address] [place] [phone] PCP - General Family Medicine 01/18/23 [employer] CUSTOMS MANAGER Services 10/11/23
--- OUTSIDE RECORDS SUMMARY | 2024-05-01 12:11 | XMS_ITS | Data Portability ---
Author Organization [employer] [facility] [place] [employer] Address [address] [place] [phone] Care Team Providers Care Front Desk Team Member Name Role Phone [facility] Primary Care Provider Assessment No assessment recorded. Plan of Treatment Reminders Order Date Submit Date Provider Last Modified By Organization Details Last Modified Time Details Appointments None recorded. Lab None recorded. Referral None recorded. Procedures None recorded. Surgeries None recorded. Imaging None recorded. Medication Orders fluticasone propionate 50 mcg/actuati on nasal spray,suspe nsion 2023 024 [facility] #[id number], [address], [place], [phone], 4 14:25:30 guaifenesin 400 mg tablet 2023 024 [facility] #[id number], [address], [place], [id number], 4 14:25:29 Patient TargetsNo targets recorded. Patient InstructionsNo instructions recorded. Reason for Referral None Reported. Medical Equipment None Reported. Allergies Allergen ID Allergen Name Allergen Category Reaction Reaction Severity Criticality Documentation Date Start Date Code Code System Note Provider Name and Address Organization Details Recorded Time 3780 aspirin medicatio n Not available Not available [...] Address Organization Details Last Updated DateTime 4 52856.0 48 g 16 /min 71 /min 170.18 [...] SNOMED-CT Code Diagnosis ICD10 Code Diagnosis Note [id number] Dary Castellanos MD Main - [facility] [address] [place] [phone] 04/26/2023 14:22:55 04/27/2023 11:07:57 COVID-19 [id number] U07.1 I provided real -time medical direction via phone for this encounter, and was available for additional phone based assistance as needed. I have reviewed and agree with the Assessment and Plan as documented by the Circuit Breaker Mechanic. Patient given the opportunit y to ask [...] Manning Member ID Guarantor Name 04/26/2023 1 [facility] - DOS ON OR AFTER 2022 - DUAL ELIGIBLE - ASSISTED OPTIONS AND ONE CARE (MEDICARE REPLACEMENT/ADV ANTAGE - HMO) Nemo De Los Santos [id number] Nemo De Los Santos Notes Date Note Type Note Provider Name and Address Organization Details Recorded Time 04/26/2023 text/html [facility] Nurse Triage Notes (Paris Gorman): Chief Complaints: Fever/Chills, Cough Allergies: Aspirin Comments: Palestinian speaking member called in - verified name/ with strength and conditioning coach. Member reporting fever, cough, and throat pain for the past 3 days. Feeling unwell and fatigued. He has been taking Tylenol for body aches and fevers. SOB only r/t cough. Denies chest pain. No known sick contacts. Mikel Gorman RN Will need paper consent in Palestinian ................... ................... ................... ................... ................... ................... ................... ........ Circuit Breaker Mechanic Note From Karan Hardin: Pt reports sore [...] ........ Disposition: Fulfilled Dary Castellanos MD [address] [facility],[address], [place], [phone], [employer] 04/26/2023 23:24:04
[2024-05-01 14:57] LABS: Anion Gap 11 (12-20); Blood Urea Nitrogen 18 mg/dL (9-16); Calcium 9.1 mg/dL (8.4-10.2); Carbon Dioxide 26 mmol/L (22-29); Chloride 110 mmol/L (96-108); Estimated Glomerular Filt Rate > 60; Glucose Random 102 mg/dL (60-115); Potassium 4.2 mmol/L (3.3-5.1); Sodium 143 mmol/L (135-145)
== END 2024-05-01 10:46 | disposition home or self-care (01) ==
LOC: HO.CHCLDS 10:45
PROVIDERS: Visit Provider Family Medicine
DX: R22.1 Localized swelling, mass and lump, neck (principal)
CPT/HCPCS: 36415; 80048

== ENCOUNTER 2024-05-18 06:19 | Outpatient (REF) | payer OTHER, SELFPAY ==
--- NOTE | ~2024-05-18 | FL_ITS ---
EXAMINATION: FL GUIDANCE ONLY HISTORY: M47.812 - Spondylosis without myelopathy or radiculopathy, cervical region COMPARISON: None available. TECHNIQUE: Fluoroscopy time: 0.1 minutes. Cumulative Dose: 1.0 mGy. DAP: 0.0236 mGym2 Images: 1. FINDINGS: A single fluoroscopic spot film of the cervical spine in the AP projection demonstrates multiple needles on the left. FL/FL guidance in treatment room IMPRESSION: Fluoroscopy during procedure. Please see procedure report for additional information. Electronically signed by: Acosta Norman MD 05/18/2024 12:55 PM EDT
== END 2024-05-18 06:20 | disposition home or self-care (01) ==
LOC: CF 06:19
PROVIDERS: Visit Provider Internal Medicine
DX: M47.812 Spondylosis without myelopathy or radiculopathy, cervical region (principal)
CPT/HCPCS: 64490; 64491; J2003; J2795; Q9967

== ENCOUNTER 2024-05-18 11:30 | Outpatient (AMB) | payer OTHER, SELFPAY ==
[2024-05-18 11:37] VITALS: BP 140/80; PULSE 74; RESP 16; O2SAT 98
--- NOTE | 2024-05-18 11:37 | MHC.OFFVIS ---
Vital Signs 05/18/24 11:37 05/18/24 12:31 BP 140/80 H 158/86 H Blood Pressure Location Lt brachial Lt brachial Position Sitting Sitting Respiration 16 16 Pulse 74 67 Pulse Source Pulse Oximeter Pulse Oximeter Pulse Oximetry (%) 98 98 Oxygen Delivery Method Room Air Room Air Intake Visit Reasons: RIGHT DIAGNOSTIC C3, C4, C5 MBB Divisional Merchandising Manager Required: Yes Divisional Merchandising Manager Services: Divisional Merchandising Manager Present Divisional Merchandising Manager Name: #[id number] Allergies aspirin Allergy (Unknown, Verified 05/25/24 11:03) UNKNOWN shellfish derived Allergy (Unknown, Verified 05/25/24 11:03) Unknown Medication List - Last Reconciled 05/18/24 by Kimberly Arguelles LPN bisacodyl (Dulcolax (bisacodyl)) 10 mg (2 x 5 mg) PO BEDTIME 2 days oxycodone-acetaminophen 5-325 mg 1 tab PO BID PRN peg 3350-electrolytes 236-22.74-6.74 -5.86 gram (Golytely) 240 mL PO Q10M 1 day rosuvastatin 40 mg PO DAILY HPI HPI RIGHT DIAGNOSTIC C3, C4, C5 MBB: Details: Patient presents for scheduled procedure. Denies any recent cough, cold, infection, fever or other significant changes in medical history since last office visit. [facility] Medical History Pre-diabetes High cholesterol HTN (hypertension), benign Hypothyroid Surgical History H/O colonoscopy S/P urethral surgery History of orthopedic surgery Social History Alcohol intake: current Alcohol intake frequency: holidays/special occasions only Alcohol type: beer Tobacco use type: Cigarette Physical Exam Vital Signs: Last Vital Signs Pulse 67 05/18/24 12:31 Resp 16 05/18/24 12:31 BP 158/86 H 05/18/24 12:31 Pulse Ox 98 05/18/24 12:31 Oxygen Delivery Method Room Air 05/18/24 12:31 Office Procedures Cervical/Thoracic Facet Inj Details: Diagnostic Cervical Medial Branch Block, Right C3, C4, C5 medial branches After obtaining written consent, pre-procedure blood pressure and pulse were recorded and are in the nursing record for review. The patient was placed in a lateral position. The respective cervical area was prepped with chloraprep and draped in sterile fashion. The skin over the target medial branch nerves was anesthetized with 0.5% lidocaine. A 25 gauge 1.5 inch needle was inserted into the target medial branch nerve under fluoroscopic guidance. No paresthesias were elicited with needle placement and aspiration was negative for blood and CSF. Next, 0.2cc of omnipaque 180 was injected to verify positioning. Next 0.5 ml 0.5% ropivicaine was injected (0.5 cc total per level). The identical procedure was performed at the remaining levels. The skin was cleansed and a sterile bandage was applied. Following the procedure the patient's vital signs were stable. The patient tolerated the procedure well and no complications were encountered. Following the procedure the patient's vital signs were stable. The patient was discharged home in good condition with post-procedural instructions. Time Out: Immediately prior to the procedure, the following was verbally confirmed that there is a signed consent form and that the correct patient, planned procedure, site and side are consistent with documentation and that necessary equipment and/or blood products are available prior to the start of the case. Complications: none EBL: <5 cc 68902 - with Fluoroscopy 08032 - second level, with Fluoroscopy Procedure code (CPT) selection complete Assessment & Plan Assessment & Plan (1) Cervical spondylosis: Code(s): M47.812 - Spondylosis without myelopathy or radiculopathy, cervical region Category: Medical Plan Patient is status post diagnostic right cervical MBBs. Patient tolerated procedure well and was discharged home in stable condition with discharge instructions. All questions were answered. We will follow-up via telephone or in clinic to assess response to therapy. A follow-up appointment was made during today's visit. Orders: Orders FL guidance in treatment room 05/18/24 M47.812 - Spondylosis without myelopathy or radiculopathy, cervical region Coding Level of Care Code Procedure Only Diagnoses Cervical spondylosis M47.812 CPT Codes Facet Injection Cervical/Thoracic - CPT: 87136 - with Fluoroscopy ([id number]) Facet Injection Cervical/Thoracic - CPT: 83830 - second level, with Fluoroscopy ([id number])
[2024-05-18 12:31] VITALS: BP 158/86; PULSE 67; RESP 16; O2SAT 98
--- OUTSIDE RECORDS SUMMARY | 2024-05-18 14:50 | XMS_ITS | Encounter Summary ---
Author Organization [employer] Address 75 [facility] 7t [place] [address] Care Team Providers Care Product Safety Administrator Name Role Phone Sonya Donis MD Primary Care Provider [phone] Reason for Visit * Reason Comments controlled substance treatment Encounter Details Date Type Department Care Team (Latest Contact Info) Description 05/11/2024 1:30 PM EST Clinical Support [facility]ED[facility] [address] [place] [address] 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, ADONAY [address] [place], [place] Long-term current use of opiate analgesic Social History Tobacco Use Types Packs/Day Years [...] Progress Notes * 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 RN - 05/11/2024 1:30 PM EST S: IRON MINER BLASTING NV. Patient is taking Percocet 5-325 mg [...] socially. Last PCP f/u was on 01/13/24. ..Chronic pain group pamphlet given, patient not interested at this time. No questions/ concerns at this time. O: IRON MINER BLASTING tier 2. PLUNKET NURSE checked on 05/11/24. Last refilled on 05/05/24. Pill count performed, patient has 90 pills left, 86 expected. utox performed, positive for OXY, TCA, negative for all other tested substances, as expected. A: Chronic opioid use use r/t chronic pain. P: Patient to cont. with current medication regimen as needed and take medication only as directed.Next IRON MINER BLASTING NV scheduled for 08/10/24 @1:30pm. IRON MINER BLASTING Agr.renewal/ bpi due at the visit. f/u sooner PRN. Reminder slip given. Patient verbalized understanding and agreed to plan. documented in this encounter Plan of Treatment Upcoming Encounters Date Type Department Care Team (Late st Contact Info) Description 05/23/2024 1:00 PM EDT Clinical Support [facility] [address] [place] [address] 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 RN [address] [place] [address] 08/10/2024 1:30 PM EDT Clinical Support [facility] [address] [place] [address] 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 RN [address] [place] [address] 09/22/2024 3:00 PM EDT Office Visit [facility] [address] [place] [address] Ascencion Joya documented as of this encounter Procedures Procedure Name Priority Date/Time Associated Diagnosis Comments POCT RHEA-14 URINE DRUG SCREEN Routine 05/11/2024 1:40 PM EST Long-term current use of opiate analgesic documented in this encounter Results * POCT RHEA-14 Urine Drug Screen (05/11/2024 1:40 PM EST) TCA, Urine Positive Oxycodone Screen, Urine Positive Urine Urine specimen obtained by clean catch procedure / Unknown 05/11/2024 1:40 PM EST Sonya Donis MD POINT OF CARE TEST ENTER/EDIT ORDERABLES Final Result documented in this encounter Visit Diagnoses Diagnosis Long-term current use of opiate analgesic Encounter for long-term (current) use of other medications documented in this encounter Additional Health Concerns Assessment Noted Time PHQ-9 Depression Total Score: 0 10/11/19 24 9:09 AM EDT documented as of this encounter Care Teams Product Safety Administrator Relationship Specialty Start Date End Date Sonya Donis MD [address] [place] [address] PCP - General Family Medicine 01/18/23 [employer] RESOLUTION REP Services 10/11/23 documented as of this encounter
--- OUTSIDE RECORDS SUMMARY | 2024-05-18 14:50 | XMS_ITS | Encounter Summary ---
Author Organization [email or web address] Address [address] [facility] 7t [place] [address] Care Team Providers Care Psychology Fellow Name Role Phone Sonya Donis MD Primary Care Provider [phone] Reason for Visit * Reason Onset Date Comments New Patient 10/28/2022 Encounter Details Date Type Department Care Team (Late st Contact Info) Description 10/28/2022 Telephone [facility] MEDICINE [address] [place], [place] [phone] Dony Bhagat MD [address] [place], [place] [phone] New Patient Social History Tobacco Use Types [...] Gayatri Chaudhary - 12/10/2022 3:03 PM EDT BIAJN Brown called pt to Offer WATER POLLUTION SCIENTIST appt. Pt demographics and insurance information were verified. Pt states following medical conditions: thyroid, Cholesterol, Arthritis, Needs Hip replacement, and High blood pressure. Pt reports taking medications: No Pt given WATER POLLUTION SCIENTIST appt with Dr. Donis on 01/18/2023 @ 9:30 am. Pt will be sent appt reminder card and medical release form and agrees to complete and to return to medical records prior to WATER POLLUTION SCIENTIST appt. * Telephone Encounter - Gayatri Chaudhary - 10/28/2022 1:35 PM EDT Pt has been transfer over to wait list for WATER POLLUTION SCIENTIST. EFFECTIVE SINCE 10/28/2022 documented in this encounter Plan of Treatment Upcoming Encounters Date Type Department Care Team (Late st Contact Info) Description 05/23/2024 1:00 PM EDT Clinical Support [facility] MED & PEDS [address] [place] [address] 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 RN 505 [place] [address] 08/10/2024 1:30 PM EDT Clinical Support [facility] [address] [place] [address] 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 RN 505 [place] [address] 09/22/2024 3:00 PM EDT Office Visit [facility] ADULT DENTAL [address] [place] [address] Ascencion Joya documented as of this encounter Visit Diagnoses Not on filedocumented in this encounter Care Teams Psychology Fellow Relationship Specialty Start Date End Date Sonya Donis MD [address] [place] [address] PCP - General Family Medicine 01/18/23 [employer] MOLASSES AND CARAMEL OPERATOR Services 10/11/23 documented as of this encounter
--- OUTSIDE RECORDS SUMMARY | 2024-05-18 14:50 | XMS_ITS | Encounter Summary ---
Author Organization [employer] Address [address] [facility] 7t [place] [address] Care Team Providers Care Drug And Alcohol Treatment Specialist Name Role Phone Sonya Donis MD Primary Care Provider [phone] Reason for Visit * Reason Onset Date Comments Med Refill 09/08/2023 Encounter Details Date Type Department Care Team ([facility] st Contact Info) Description 09/08/2023 Telephone [facility] MED & PEDS 505 [place] [address] Sonya Donis MD 505 [place] [address] Med Refill Social History Tobacco Use Types [...] 2:59 PM EDT Medication was sent to [id number] on 07/09/23 with 2 refills. * Telephone Encounter - Marcy Mohan - 09/08/2023 1:12 PM EDT TC from pt requesting medication refill. Medications needing refill : cyclobenzaprine (Flexeril) 10 MG tablet To be sent to: [id number] - [place] [address] AT [facility] documented in this encounter Plan of Treatment Upcoming Encounters Date Type Department Care Team ([facility] Contact Info) Description 05/23/2024 1:00 PM EDT Clinical Support [facility] MED & PEDS [address] [place] [address] 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 RN 505 [place] [address] 08/10/2024 1:30 PM EDT Clinical Support [facility] MED & PEDS 505 [place] [address] 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 RN 505 [place] [address] 09/22/2024 3:00 PM EDT Office Visit [facility] ADULT DENTAL [address] [place] [address] Ascencion Joya documented as of this encounter Visit Diagnoses Not on filedocumented in this encounter Additional Health Concerns Assessment Noted Time PHQ-9 Depression Total Score: 9 03/11/19 24 11:12 AM EST documented as of this encounter Care Teams Drug And Alcohol Treatment Specialist Relationship Specialty Start Date End Date Sonya Donis MD [address] [place] [address] PCP - General Family Medicine 01/18/23 [employer] CARETAKER GROUNDS Services 10/11/23 documented as of this encounter
--- OUTSIDE RECORDS SUMMARY | 2024-05-18 14:50 | XMS_ITS | Clinical Summary ---
Author Organization [employer] Address [address] [facility] 7t [place] [address] Care Team Providers Care Team Guide Name Role Phone Sonya Donis MD Primary Care Provider [phone] Allergies Active Allergy Reactions Criticality Noted Date [...] by mouth at bedtime. 07/01/19 24 Active rosuvastatin (Crestor) 40 MG tablet TAKE 1 TABLET(40 MG) BY MOUTH DAILY 90 tablet 1 04/12/19 25 Active oxyCODONE-acet aminophen (Percocet) 5-325 MG tabletIndicati ons:Chronic left hip pain Take 1 tablet by mouth every 6 (six) hours if needed for severe pain. 112 tablet 05/05/19 25 Active oxyCODONE-acet aminophen (Percocet) 5-325 MG tabletIndicati ons:Chronic left hip pain Take 1 tablet by mouth every 6 (six) hours if needed for severe pain. 112 tablet 04/07/19 25 025 Discontinued(Re order (will not trigger notification to Pharmacy)) Active Problems Problem Noted Date Diagnosed Date Long-term current use of opiate analgesic 2024 Low pressure urethral dysfunction 02/18/2023 Assessment & [...] for nutritional changes, Pt agreed to see Grades 1 6 Tutor. Ordering lab work for Lipids recheck, to [...] Center 07/09/2023 1:00 PM Sonya Donis MD [facility] Assessment & Plan (01/18/2023 10:23 AM EST): -Labs: Lipid Panel. Hypothyroidism 01/18/2023 Assessment & Plan (01/18/2023 10:23 AM EST): -Labs: TSH/FT4. Encounters Date Type Department Care Team Description 05/11/2024 1:30 PM EST Clinical Support [facility] MED & PEDS [address] [place] [address] 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, RN Long-term current use of opiate analgesic 05/11/2024 Travel 05/05/2024 Refill [facility] MED & PEDS [address] [place] [address] 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, security monitor left hip pain 05/05/2024 Telephone [facility] MEDICINE [address] [place] [address] Sonya Donis MD Nurse Triage 05/05/2024 Telephone [facility] [address] [place] [address] Sonya Donis MD Med Refill 05/01/[address] [phone] Georges Dean MD 04/08/2024 Refill [facility] MED & PEDS [address] [place] [address] Sonya Donis MD 04/07/2024 Refill [facility] MED & PEDS [address] [place] [address] Sonya Donis MD Chronic left hip pain 04/05/2024 Telephone [facility] MEDICINE [address] [place] [address] Georges Dean MD 04/05/2024 Telephone [facility] [address] [place] [address] CERVICAL ORDER 03/28/2024 Telephone [facility] MED & PEDS [address] [place], [place] [phone] Sonya Donis MD CRITICAL RESULT 03/24/2024 3:00 PM EST Office Visit [facility] ADULT DENTAL [address] [place] [address] Ascencion Joya Dental calculus (Primary Dx) 03/23/2024 2:30 PM EST Clinical Support [facility] MED & PEDS [address] [place] [address] 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, security monitor neck pain with history of cervical spinal surgery 03/23/2024 Telephone [facility] MED & PEDS [address] [place] [address] 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, ADONAY 03/23/2024 Travel 03/20/2024 Telephone [facility] Information Management [address] [place] [address] Sonya Donis MD 03/20/2024 Telephone [facility] MED & PEDS [address] [place] [address] Sonya Donis MD 03/07/2024 Refill [facility] MED & PEDS [address] [place] [address] Sonya Donis MD Chronic left hip pain from Last 3 Months Immunizations Name Administration [...] Description 05/23/2024 1:00 PM EDT Clinical Support [facility] MED & PEDS [address] [place] [address] 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 RN [address] [place] [address] 08/10/2024 1:30 PM EDT Clinical Support [facility] MED & PEDS [address] [place] [address] 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 RN [address] [place] [address] 09/22/2024 3:00 PM EDT Office Visit [facility] ADULT DENTAL [address] [place] [address] Ascencion Joya Health Maintenance Due Date Last [...] 03/24/2024, 09/21/2023 Depression Screening 10/10/2024 10/11/2023, 10/11/19 SDOH Screening 10/10/2024 10/11/2023 Alcohol/Substance Use Screening [...] EST Long-term current use of opiate analgesic BASIC METABOLIC PANEL Routine 05/01/2024 10:46 AM EST Neck mass CASE PRESENTATION, DETAILED AND EXTENSIVE TREATMENT PLANNING [...] Urine Drug Screen (05/11/2024 1:40 PM EST) Only the most recent of2 resultswithin the time period is included. TCA, Urine Positive Oxycodone Screen, Urine Positive Urine Urine specimen obtained by clean catch procedure / Unknown 05/11/2024 1:40 PM EST Sonya Donis MD POINT OF CARE TEST ENTER/EDIT ORDERABLES Final Result * (ABNORMAL) Basic Metabolic Panel (05/01/2024 10:46 AM EST) Sodium 143 135 - 145 mmol/L [facility] Potassium 4.2 3.3 - 5.1 mmol/L [facility] Chloride 110(H) 96 - 108 mmol/L [facility] Carbon Dioxide 26 22 - 29 mmol/L [facility] Anion Gap 11(L) 12 - 20 [facility] Urea Nitrogen (BUN) 18(H) 9 - 16 mg/dL [facility] Creatinine, Serum 1.15 0.5 - 1.4 mg/dL [facility] Estimated Glomerular Filt Rate >60 [facility] Comment:Chronic Kidney Disea se: Estimated GFR < 60 mL/min/1.28b9Ozrsrs Kidney Disease: Estimated GFR < 15 mL/min/1.73m2 Glucose 102 60 - 115 mg/dL [facility] Calcium 9.1 8.4 - 10.2 mg/dL [facility] Blood Venous blood specimen / Unknown 05/01/2024 10:46 AM EST 05/01/2024 2:41 PM EST us Georges Dean MD LAB BLOOD ORDERABLES Final Resul t Performing Organization Address [facility] de Phone Number [facility] [address] [place] [phone] * (ABNORMAL) Lipid Panel, Standard (01/10/2024 9:42 AM EST) Triglycerides 208(H) <150 mg/dL [facility] Comment:Desirable Triglyceri de: less than 150 mg/dLBorderline High Triglyceride 150-199 mg/dLHigh Triglyceride: 200-499 mg/dLVery High Triglyceride: greater than or equal to 5OO mg/dL Cholesterol 119 <200 mg/dL [facility] Comment:Desirable Cholestero l: less than 200 mg/dLBorderline High Cholesterol: 200-239 mg/dLHigh Cholesterol: greater than 239 mg/dL LDL Cholesterol Calculated 37 <100 mg/dL [facility] Comment:Desirable LDL: less than 100 mg/dLNear Optimal/Above Optimal LDL: 110- 129 mg/dLBorderline High LDL: 130-159 mg/dLHigh LDL: 160-189 mg/dLVery High LDL: greater than or equal to 190 mg/dL HDL Cholesterol 41 >40 mg/dL [facility] Comment:Desirable HDL: great er than 40 mg/dL Note: This HDL assay may give artificially low results in patients with liver disease. Blood Venous blood specimen / Unknown 01/10/2024 9:42 AM EST 01/10/2024 2:39 PM EST us Sonya Donis MD LAB BLOOD ORDERABLES Final Re sult Performing Organization Address City/[facility]/ZIP Co de Phone Number [facility] [address] [place] [address] [phone] * Hepatitis C Ab (01/22/2023 1:05 PM EST) Hepatitis C Antibody Nonreactive Nonreactive [facility] Comment:Antibodies to HCV no t detected; does not exclude early acuteHCV infection. Blood Venous blood specimen / Unknown 01/22/2023 1:05 PM EST 01/22/2023 2:22 PM EST Sonya Donis MD LAB BLOOD ORDERABLES Final Re sult [facility] [address] [place] [address] [phone] * Hm Colonoscopy (01/13/2018) Colonoscopy Normal Normal Narrative Sonya Donis MD - 01/13/2018 Normal colonoscopy, unknown why recommended repeat 5 yrs us Historical Provider HEALTH MAINTENANCE Final Result from Last 3 Months or Most Recently Relevant to Health Maintenance Insurance [facility] Care Teams Team Guide Relationship Specialty Start Date End Date Sonya Donis MD [address] [place] [phone] PCP - General Family Medicine 01/18/23 [employer] FUNERAL ATTENDANT Services 10/11/23
--- OUTSIDE RECORDS SUMMARY | 2024-05-18 14:50 | XMS_ITS | Encounter Summary ---
Author Organization [employer] Address [address] [facility] 7t [place] [address] Care Team Providers Care Trade Analyst Name Role Phone Sonya Donis MD Primary Care Provider [phone] Reason for Visit * Reason Onset Date Comments Med Refill 05/05/2024 Encounter Details Date Type Department Care Team (Late st Contact Info) Description 05/05/2024 Telephone [facility] MEDICINE [address] [place] [address] Sonya Donis MD [address] [place], [place] [phone] Med Refill Social History Tobacco Use Types [...] encounter Miscellaneous Notes * Telephone Encounter - Kaushal Alberto - 05/05/2024 11:42 AM EST Tc from pt requesting medication refill for oxyCODONE-acetaminophen (Percocet) 5-325 MG tablet documented in this encounter Plan of Treatment Upcoming Encounters Date Type Department Care Team (Late st Contact Info) Description 05/23/2024 1:00 PM EDT Clinical Support [facility] MED & PEDS [address] [place] [address] 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 RN [address] [place] [address] 08/10/2024 1:30 PM EDT Clinical Support [facility] MED & PEDS [address] [place] [address] 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 RN [address] [place] [address] 09/22/2024 3:00 PM EDT Office Visit [facility] ADULT DENTAL [address] [place] [address] Ascencion Joya documented as of this encounter Visit Diagnoses Not on filedocumented in this encounter Additional Health Concerns Assessment Noted Time PHQ-9 Depression Total Score: 0 10/11/19 24 9:09 AM EDT documented as of this encounter Care Teams Trade Analyst Relationship Specialty Start Date End Date Sonya Donis MD [address] [place] [address] PCP - General Family Medicine 01/18/23 [employer] DEFLASH AND WASH OPERATOR Services 10/11/23 documented as of this encounter
--- OUTSIDE RECORDS SUMMARY | 2024-05-18 14:50 | XMS_ITS | Encounter Summary ---
Author Organization [employer] Address [address] [facility] 7t [place] [address] Care Team Providers Care Utility Arborist Name Role Phone Sonya Donis MD Primary Care Provider [phone] Encounter Details Date Type Department Care Team (Late st Contact Info) Description 05/01/2024 Telephone [facility] MEDICINE [address] [place], [place] [phone] Georges Dean MD [address] [place], [place] [phone] Social History Tobacco Use Types Packs/Day Years [...] encounter Miscellaneous Notes * Telephone Encounter - Lisbeth Harp RN - 05/01/2024 3:20 PM EST TC x 2 placed to pt via [employer] forestry consultant (Chris ID#[id number]) to inform of below provider message. RN informed pt of below provider message. Pt verbalized understanding and denies questions or concerns at this time. ----- Message from Georges Dean MD sent at 05/01/2024 3:07 PM EST ----- Covering for Dr. Donis. This lab was ordered in order for him to do a CT scan. Please inform patient that his kidney function is within normal range, thus OK to pursue his CT scan. documented in this encounter Plan of Treatment Upcoming Encounters Date Type Department Care Team (Late st Contact Info) Description 05/23/2024 1:00 PM EDT Clinical Support [facility] MED & PEDS [address] [place] [address] 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 RN [address] [place] [address] 08/10/2024 1:30 PM EDT Clinical Support [facility] PED[facility] [address] [place] [address] 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, ADONAY [address] [place] [address] 09/22/2024 3:00 PM EDT Office Visit [facility] ADULT DENTAL [address] [place] [address] Ascencion oJya documented as of this encounter Visit Diagnoses Not on filedocumented in this encounter Additional Health Concerns Assessment Noted Time PHQ-9 Depression Total Score: 0 10/11/19 24 9:09 AM EDT documented as of this encounter Care Teams Utility Arborist Relationship Specialty Start Date End Date Sonya Donis MD [address] [place] [address] PCP - General Family Medicine 01/18/23 [employer] PREFORMS LAMINATOR Services 10/11/23 documented as of this encounter
--- OUTSIDE RECORDS SUMMARY | 2024-05-18 14:50 | XMS_ITS | Encounter Summary ---
Author Organization [employer] Address [address] [facility] 7t [place] [address] Care Team Providers Care Loader Operator Name Role Phone Sonya Donis MD Primary Care Provider [phone] Reason for Visit * Reason Onset Date Comments Med Refill 11/11/2023 Encounter Details Date Type Department Care Team (Late st Contact Info) Description 11/11/2023 Telephone [facility] MEDICINE [address] [place] [address] Sonya Donis MD [address] [place], [place] [phone] Med Refill Social History Tobacco Use Types [...] 5-325 MG tablet To be sent to: [id number] [facility] documented in this encounter Plan of Treatment Upcoming Encounters Date Type Department Care Team ([facility] st Contact Info) Description 05/23/2024 1:00 PM EDT Clinical Support [facility] MED & PEDS [address] [place] [address] 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 RN [address] [place] [address] 08/10/2024 1:30 PM EDT Clinical Support [facility] MED & PEDS [address] [place] [address] 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 RN [address] [place] [address] 09/22/2024 3:00 PM EDT Office Visit [facility] ADULT DENTAL [address] [place] [address] Ascencion Joya documented as of this encounter Visit Diagnoses Not on filedocumented in this encounter Additional Health Concerns Assessment Noted Time PHQ-9 Depression Total Score: 0 10/11/19 9:09 AM EDT documented as of this encounter Care Teams Loader Operator Relationship Specialty Start Date End Date Sonya Donis MD [address] [place] [address] PCP - General Family Medicine 01/18/23 [employer] DINING CAR STEWARD Services 10/11/23 documented as of this encounter
--- OUTSIDE RECORDS SUMMARY | 2024-05-18 14:50 | XMS_ITS | Data Portability ---
Author Organization [employer] [facility] [place] [facility] [place] Address [address] [place] [phone] Care Team Providers Care Rehabilitation Case Coordinator Name Role Phone [facility] Primary Care Provider Assessment No assessment recorded. Plan of Treatment Reminders Order Date Submit Date Provider Last Modified By Organization Details Last Modified Time Details Appointments None recorded. Lab None recorded. Referral None recorded. Procedures None recorded. Surgeries None recorded. Imaging None recorded. Medication Orders fluticasone propionate 50 mcg/actuati on nasal spray,suspe nsion 2023 024 [facility][id number], [address] [place], [place], [id number], 4 14:25:30 guaifenesin 400 mg tablet 2023 024 [facility] #[id number], [address] [place], [place], [id number], 4 14:25:29 Patient TargetsNo targets recorded. Patient InstructionsNo instructions recorded. Reason for Referral None Reported. Medical Equipment None Reported. Allergies Allergen ID Allergen Name Allergen Category Reaction Reaction Severity Criticality Documentation Date Start Date Code Code System Note Provider Name and Address Organization Details Recorded Time 5631 aspirin medicatio n Not available Not available [...] Address Organization Details Last Updated DateTime 4 65918.0 48 g 16 /min 71 /min 170.18 [...] SNOMED-CT Code Diagnosis ICD10 Code Diagnosis Note [id number] aDry Castellanos MD Main - [facility] [address] [place] [phone] 04/26/2023 14:22:55 04/27/2023 11:07:57 COVID-19 [id number] U07.1 I provided real -time medical direction via phone for this encounter, and was available for additional phone based assistance as needed. I have reviewed and agree with the Assessment and Plan as documented by the Electrical Prospector. 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 Member reporting fever, cough, and throat pain for the past 3 days. Feeling unwell and fatigued. He has been taking Tylenol for body aches and fevers. SOB only r/t cough. Denies chest pain. No known sick contacts. Mikel Gorman RN Will need paper consent in Monegasque ................... ................... ................... ................... ................... ................... ................... ........ Electrical Prospector Note From Karan Hardin: Pt reports sore [...] ........ Disposition: Fulfilled Dary Castellanos MD [address] [facility],[address], [place], [phone], [employer] 04/26/2023 23:24:04
--- OUTSIDE RECORDS SUMMARY | 2024-05-18 14:50 | XMS_ITS | Encounter Summary ---
Author Organization [employer] Address [address] [facility] [address] 7[address] [place] [address] Care Team Providers Care Rn Womens Health Name Role Phone Sonya Donis MD Primary Care Provider [phone] Encounter Details Date Type Department Care Team (Latest Contact Info) Description 05/11/2024 Travel Social History Tobacco Use Types Packs/Day [...] 1:00 PM EDT Clinical Support [facility] MED & PEDS [address] [place] [address] 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 RN [address] [place] [address] 08/10/2024 1:30 PM EDT Clinical Support [facility] MED & PEDS [address] [place] [address] 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 RN [address] [place] [address] 09/22/2024 3:00 PM EDT Office Visit [facility] ADULT DENTAL [address] [place] [address] Ascencion Joya documented as of this encounter Visit Diagnoses Not on filedocumented in this encounter Additional Health Concerns Assessment Noted Time PHQ-9 Depression Total Score: 0 10/11/19 24 9:09 AM EDT documented as of this encounter Care Teams Rn Womens Health Relationship Specialty Start Date End Date Sonya Donis MD [address] [place] [address] PCP - General Family Medicine 01/18/23 [employer] CONSULTING MARINE ENGINEER Services 10/11/23 documented as of this encounter
--- OUTSIDE RECORDS SUMMARY | 2024-05-18 14:50 | XMS_ITS | Encounter Summary ---
Author Organization [employer] Address [address] [facility] 7t [place] [address] Care Team Providers Care Tele Marketing Executive Name Role Phone Sonya Donis MD Primary Care Provider [phone] Reason for Visit * Reason Onset Date Comments Nurse Triage 05/05/2024 Encounter Details Date Type Department Care Team (Late st Contact Info) Description 05/05/2024 Telephone [facility] MEDICINE [address] [place] [address] Sonya Donis MD [address] [place], [place] [phone] Nurse Triage Social History Tobacco Use Types Packs/Day Years [...] encounter Miscellaneous Notes * Telephone Encounter - Darby Todd RN - 05/05/2024 12:15 PM EST called pt to triage, spoke to pt through [employer]. 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 pt states has had outbreaks before and requesting somemedication. pt states rash/blisters are already drying up and healing but wants to talk to a provider about what to do and prevention. given appt today with [facility] provider at 1:45 for exam and medication as needed. advised home care: avoid scratching an possible spread. cool compresses or ice, and call back as needed. pt understands and agrees with plan. insurance verified. Protocol Used: Cold Sores (Fever Blisters) (Adult) Protocol-Based Disposition: See in Office or Video Visit Today or Tomorrow Video visit offer not recorded Positive Triage Question: * Patient wants to be seen * All higher-acuity triage questions were negative Care Advice Discussed: * Reassurance and Education - Cold Sore (Fever Blister) * Cold Sore - Symptoms * Cold Sore - Treatment With Wndf-Gei-Lebtfpj Medicine (Docosanol Cream) * Cold Sore - Treatment With Prescription Medicines * How to Protect Other People if you Have a Cold Sore * Prevention * Reasons To Call Back - Sores look infected (pus, spreading redness) - Sores occur near or in the eye - Sores last longer than 2 weeks - You become worse * Telephone Encounter - Kaushal Alberto - 05/05/2024 11:43 AM EST Symptom: Wound Infection ( herpes) - Caller Reports Outcome: Schedule a same-day appointment or talk to a nurse or provider today Reason: Caller denied all higher acuity questions The caller accepted this outcome. ( Polish speaker) documented in this encounter Plan of Treatment Upcoming Encounters Date Type Department Care Team (Late st Contact Info) Description 05/23/2024 1:00 PM EDT Clinical Support [facility] MED & PEDS [address] [place] [address] 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 RN [address] [place] [address] 08/10/2024 1:30 PM EDT Clinical Support [facility] MED & PEDS [address] [place] [address] 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 RN [address] [place] [address] 09/22/2024 3:00 PM EDT Office Visit [facility] ADULT DENTAL [address] [place] [address] Ascencion Joya documented as of this encounter Visit Diagnoses Not on filedocumented in this encounter Additional Health Concerns Assessment Noted Time PHQ-9 Depression Total Score: 0 10/11/19 24 9:09 AM EDT documented as of this encounter Care Teams Tele Marketing Executive Relationship Specialty Start Date End Date Sonya Donis MD [address] [place] [id number] PCP - General Family Medicine 01/18/23 [employer] [facility] 10/11/23 documented as of this encounter
--- OUTSIDE RECORDS SUMMARY | 2024-05-18 14:50 | XMS_ITS | Encounter Summary ---
Author Organization [employer] Address [address] [facility] 7t [place] [address] Care Team Providers Care Landscape Nurseryman Name Role Phone Sonya Donis MD Primary Care Provider [phone] Reason for Visit * Reason Onset Date Comments Med Refill 05/05/2024 Encounter Details Date Type Department Care Team (Late st Contact Info) Description 05/05/2024 Refill [facility] MED & PEDS [address] [place], [place] [phone] 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, ADONAY [address] [place], [place] Chronic left hip pain Social History Tobacco [...] Description 05/23/2024 1:00 PM EDT Clinical Support [facility] MED & PEDS [address] [place] [address] 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 RN [address] [place] [address] 08/10/2024 1:30 PM EDT Clinical Support [facility] MED & PEDS [address] [place] [address] 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 RN [address] [place] [address] 09/22/2024 3:00 PM EDT Office Visit [facility] ADULT DENTAL [address] [place] [address] Ascencion Joya documented as of this encounter Visit Diagnoses Diagnosis Chronic left hip pain documented in this encounter Additional Health Concerns Assessment Noted Time PHQ-9 Depression Total Score: 0 10/11/19 24 9:09 AM EDT documented as of this encounter Care Teams Landscape Nurseryman Relationship Specialty Start Date End Date Sonya Donis MD [address] [place] [id number] PCP - General Family Medicine 01/18/23 [employer] [facility] 10/11/23 documented as of this encounter
--- OUTSIDE RECORDS SUMMARY | 2024-05-18 14:50 | XMS_ITS | Encounter Summary ---
Author Organization [employer] Address [address] [facility] 7[address] [place] [address] Care Team Providers Care Shook Splicer Name Role Phone Sonya Donis MD Primary Care Provider [phone] Reason for Visit * Reason Onset Date Comments Med Refill 01/07/2024 Encounter Details Date Type Department Care Team (Late st Contact Info) Description 01/07/2024 Telephone [facility] [address] [place] [address] Sonya Donis MD [address] [place], [place] [phone] Med Refill Social History Tobacco Use Types [...] 5-325 MG tablet To be sent to: [facility] #[id number] documented in this encounter Plan of Treatment Upcoming Encounters Date Type Department Care Team (Late st Contact Info) Description 05/23/2024 1:00 PM EDT Clinical Support [facility] MED & PEDS [address] [place] [address] 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 RN [address] [place] [address] 08/10/2024 1:30 PM EDT Clinical Support [facility] MED & PEDS [address] [place] [address] 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 RN [address] [place] [address] 09/22/2024 3:00 PM EDT Office Visit [facility] ADULT DENTAL [address] [place] [address] Ascencion Joya documented as of this encounter Visit Diagnoses Not on filedocumented in this encounter Additional Health Concerns Assessment Noted Time PHQ-9 Depression Total Score: 0 10/11/19 24 9:09 AM EDT documented as of this encounter Care Teams Shook Splicer Relationship Specialty Start Date End Date Sonya Donis MD [address] [place] [address] PCP - General Family Medicine 01/18/23 [employer] [facility] 10/11/23 documented as of this encounter
--- OUTSIDE RECORDS SUMMARY | 2024-05-18 14:50 | XMS_ITS | Encounter Summary ---
Author Organization [employer] Address [address] [facility] [address] [place] [address] Care Team Providers Care Sales Training Manager Name Role Phone Sonya Donis MD Primary Care Provider [phone] Reason for Visit * Reason Onset Date Comments Med Refill 02/02/2024 Encounter Details Date Type Department Care Team (Late st Contact Info) Description 02/02/2024 Telephone [facility] MEDICINE [address] [place] [address] Sonya Donis MD [address] [place], [place] [phone] Med Refill Social History Tobacco Use Types [...] 5-325 MG tablet To be sent to: [facility] #[id number] documented in this encounter Plan of Treatment Upcoming Encounters Date Type Department Care Team (Late st Contact Info) Description 05/23/2024 1:00 PM EDT Clinical Support [facility] MED & PEDS [address] [place] [address] 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 RN [address] [place] [address] 08/10/2024 1:30 PM EDT Clinical Support [facility] MED & PEDS [address] [place] [address] 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 RN [address] [place] [address] 09/22/2024 3:00 PM EDT Office Visit [facility] ADULT DENTAL [address] [place] [address] Ascencion Joya documented as of this encounter Visit Diagnoses Not on filedocumented in this encounter Additional Health Concerns Assessment Noted Time PHQ-9 Depression Total Score: 0 10/11/19 24 9:09 AM EDT documented as of this encounter Care Teams Sales Training Manager Relationship Specialty Start Date End Date Sonya Donis MD [address] [place] [address] PCP - General Family Medicine 01/18/23 [employer] [facility] 10/11/23 documented as of this encounter
== END 2024-05-18 12:31 | disposition home or self-care (01) ==
LOC: HO.PMCPRC 11:30
PROVIDERS: PCP Family Medicine; Visit Provider Internal Medicine
DX: M47.812 Spondylosis without myelopathy or radiculopathy, cervical region (principal)
CPT/HCPCS: 64490; 64491

== ENCOUNTER 2024-05-25 10:55 | Outpatient (AMB) | payer OTHER, SELFPAY ==
--- NOTE | 2024-05-25 11:02 | MHC.OFFVIS ---
Vital Signs 05/25/24 11:03 Height 5 ft 7 in Weight 157 lb 6 oz BMI 24.6 BP 117/73 Blood Pressure Location Lt brachial Position Sitting Respiration 18 Pulse 80 Pulse Source Pulse Oximeter Pulse Oximetry (%) 98 Oxygen Delivery Method Room Air Intake Visit Reasons: BILATERAL C3, C4, C5 MBB'S Intake Note: Pain today 8/10 Carburetor Mechanic Required: Yes Carburetor Mechanic Language: Controlled Atmospheric Furnace Brazer Services: Carburetor Mechanic Present Carburetor Mechanic Name: Ela Accompanied by: Self / Same As Patient Allergies aspirin Allergy (Unknown, Verified 05/25/24 11:03) UNKNOWN shellfish derived Allergy (Unknown, Verified 05/25/24 11:03) Unknown HPI Comments Details: The patient is a 68-year-old male presenting with chronic cervical spine pain and radiculopathy. He has previously been diagnosed with cervical disc degeneration and moderate spinal stenosis at C5-C6, as highlighted by his most recent cervical spine MRI. He reports ongoing neck-related symptoms, including pain radiating to both arms, and notable numbness and tingling in the right arm, particularly noticeable during certain activities like watching television, reading, lifting or holding objects or using his phone. He has undergone diagnostic medial branch blocks on the right at C3-C4-C5 on 04/20/24 and on the left at C4-C5 on 0 to localize pain associated with cervical arthritis. While these blocks provided short-term complete relief, the diagnostic nature of these injections implies a need for longer-term intervention, possibly RFA or Sprint PNS trial and an epidural steroid injection to address his radicular symptoms. Patient reports his cervical spine radicular symptoms are more prominent at this time and he is interested to undergo C5-C6 interlaminar TEZ to address this. Current intake of Percocet does not provide him adequate analgesia. He rates his pain at 8/10. Denies any recent cough, cold, infection, fever or any significant changes in medical history since last office visit. Past Procedures: 05/18/24: Left Diagnostic C4-C5 MBB-100% pain relief for 24 hours 04/20/24: Right Diagnostic C3-C4-C5 MBB-100% pain relief for 18 hours PRIOR: Patient is a pleasant 68-year-old Hungarian-speaking male with history of chronic neck pain, fatigue, cervical and lumbar degenerative joint disease with moderate cervical canal stenosis, presents today for initial evaluation for neck pain. Denies any recent trauma, injury, or falls. Neck pain has been present for over 15 years and has been worsening. Patient reports history of head fracture in 1970's due to 50ft fall which impacted his left hip, head and elbow and required surgical correction of his left elbow, wrist, mandible, jaw and left hip with hip hardware in place. Neck pain is predominantly axial, easily reproduced with cervical extension in lateral rotations. Reports intermittent radiation of neck pain into his left upper extremity with weakness. He attempted formal physical therapy in January 2024 but had to stop due to increased pain and loss of insurance coverage for PT visits. He reports multiple spine injections 8 years ago in [place] with good results. Denies previous cervical spine surgery. Pain affects his daily activities and functioning, movements, range of motion, sleep, mood, and social interactions. Pain is most severe during the morning rated at 10/10 and least severe at afternoons, rated at 7/10 and are accompanied with cervicogenic headaches. Recent cervical spine MRI is noted below. Patient is interested to undergo diagnostic cervical medial branch blocks for potential therapeutic injections, RFA or Sprint PNS trial. Denies any fever or chills, dizziness, visual disturbances, chest pain, shortness of breaths, weakness, bladder or bowel dysfunction or saddle anesthesia. Oswestry Neck Disability Index Score=33 (severe disability) Location: Neck pain, intermittent radiation in left arm with weakness Duration: Chronic pain for >15 years Characteristics of symptom or complaint: Aching, stabbing, spasming, stiffness, tightness, sharp, sore, tiring Aggravating or associated factors: Movements, ROM, cold weather changes Relieving factors: Oxycodone-acetaminophen, heat, activity modifications, stretching exercises Treatment: PT x1 session in January,; spine injections in [place] [facility] Medical History Pre-diabetes High cholesterol HTN (hypertension), benign Hypothyroid Surgical History H/O colonoscopy S/P urethral surgery History of orthopedic surgery Social History Alcohol intake: current Alcohol intake frequency: holidays/special occasions only Alcohol type: beer Tobacco use type: Cigarette Review of Systems Const Details: - Neurological: Reports numbness and tingling in right hand and arm. - Musculoskeletal: Reports neck pain radiating to left and right arms. All systems reviewed & are unremarkable except as noted in HPI and below Physical Exam Vital Signs: Last Vital Signs Pulse 80 05/25/24 11:03 BP 117/73 05/25/24 11:03 Pulse Ox 98 05/25/24 11:03 Oxygen Delivery Method Room Air 05/25/24 11:03 BMI result Body Mass Index 24.6 General: Appears afebrile. Alert and oriented. Mood and affect appropriate. Follows and participates in conversation appropriately. Respiratory effort is unlabored. No cough. Able to transition from sit to stand unassisted. Ambulates with bilaterally normal heel strike and toe off. Neck Other: Patient with decreased cervical ROM in all planes/especially with lateral rotations, right worse than left. Reports increased pain with cervical extension. Mild pain with flexion or bending. Spurling compression test is equivocal. Pain is unchanged by Spurling maneuver with retraction. Elvey's tension test positive bilaterally, with radiation of pain from neck to wrist. Lhermitte's test was negative. DTR intact, +2 right and +1 left. Patient demonstrated 5/5 right and 4/5 left motor strength of bilateral upper extremities. 2 + radial pulses. Mild to moderate TTP throughout bilateral upper trapezius muscles. No paravertebral tenderness over facet joints bilaterally. Multiple taut bands palpated throughout bilateral upper trapezius muscles. Neck: Yes normal visual inspection, Yes no lymphadenopathy, Yes supple, No anterior neck swelling, Yes no JVD and No prominent dorsocervical fat pad Back/Spine/Pelvis Cervical Spine: cervical ROM normal, loss of normal cervical lordosis, cervical muscular tenderness, pain with cervical ROM, No Cervical spine tenderness and No step off deformity Thoracic/Lumbar Spine: thoracic and lumbar spine normal to inspection, No Thoracic/lumbar spine scar(s), No thoracic spinal tenderness and No lumbar spinal tenderness Results Reviewed Results Reviewed: MR CERVICAL SPINE WITHOUT CONTRAST 01/29/24 CLINICAL INFORMATION: 68-year-old with chronic persistent neck pain. Self-reported left arm weakness. FINDINGS: ALIGNMENT: Mild cervicothoracic levocurvature noted slightly convex to the left at C7-T1. There is moderate hyperlordosis centered at C5-C6. CRANIOCERVICAL JUNCTION/C1-C2 ARTICULATIONS: Intact and aligned. VISUALIZED INTRACRANIAL/EXTRACRANIAL STRUCTURES: Grossly unremarkable. VERTEBRAL BODIES: Vertebral body heights are well maintained. DISC SPACES AND ENDPLATES: There is moderate disc volume loss at C5-C6 with intradiscal degenerative signal changes and minor spondylosis. There is intradiscal degenerative signal change at C3-C4 and C4-C5 without significant disc space height loss. BONE MARROW: No suspicious marrow-replacing process or bone marrow edema. C2-C3: Tiny central disc protrusion with a tiny central annular fissure noted. No cord impingement or canal stenosis. No significant DJD or neural foraminal stenosis. C3-C4: Broad-based posterior disc osteophyte complex noted with mild flattening of the ventral dural sac without cord impingement or canal stenosis. Mild right and [id number] left-sided facet joint arthropathy noted with uncinate process spurring bilaterally, with no significant neural foraminal stenosis. C4-C5: Broad-based central to right paramedian disc osteophyte complex, with moderate flattening of the ventral dural sac asymmetric to the right without cord impingement. Slight chronic ventral cord deformity suspected on the right. No significant canal stenosis. Uncinate process spurring noted bilaterally with moderate left and mild right facet joint arthropathy without significant neural foraminal stenosis. C5-C6: Broad-based disc osteophyte complex noted with effacement of the ventral dural sac without cord impingement. Ligamentum flavum thickening or buckling is noted. There is moderate central spinal canal stenosis. There is uncovertebral spurring bilaterally and mild facet joint arthropathy with moderate left-sided and severe right-sided neural foraminal stenosis. C6-C7: Broad-based central disc protrusion with a central annular fissure noted and flattening of the ventral dural sac without cord impingement or canal stenosis. No significant DJD or neural foraminal stenosis. C7-T1: Shallow central disc protrusion. No canal stenosis. Moderate facet joint arthropathy on the left noted with mild craniocaudal neural foraminal narrowing. SPINAL CORD: The cervical and visualized upper thoracic spinal cord is normal in signal intensity throughout, without focal lesion, edema or syrinx. EXTRACRANIAL SOFT TISSUES: Note is made of a somewhat plump left level II IJ chain lymph node measuring 1.6 x 1.2 cm in greatest transverse dimensions consistent with an enlarged lymph node. Signal voids are noted within the visualized major neck vessels. IMPRESSION: 1. Discogenic degenerative changes primarily at C5-C6 as discussed above, with disc osteophyte complex and DJD at this level with moderate spinal canal stenosis without cord impingement. There is moderate left-sided and severe right-sided neural foraminal stenosis at this level. 2. Multilevel disc protrusions and disc osteophyte complexes as described above without cord impingement or significant spinal canal stenosis. 3. Multilevel bilateral facet joint arthropathy as described above. 4. Mildly enlarged left level II IJ chain lymph node. This is nonspecific. Recommend correlation with clinical history and physical exam findings. Cannot exclude neoplastic disease. Recommend CT of the neck with contrast for further assessment. XR CERVICAL SPINE 10/21/23 FINDINGS: No acute visible fracture or dislocation. Slight exaggeration of the cervical lordosis. Grade 1 retrolisthesis of C5 on C6. Mild left multilevel neuroforaminal narrowing. Multilevel degenerative changes with disc space narrowing, endplate sclerosis, osteophyte formation, and facet arthropathy. Visualized dens is intact. Lateral masses are symmetric. Vertebral body has a spaces are maintained. Prevertebral soft tissues are unremarkable. Posterior elements are intact. Paraspinal soft tissues are unremarkable. Visualized portions of the upper chest are unremarkable. IMPRESSION: 1. No acute visible fracture or dislocation. 2. Slight exaggeration of the cervical lordosis. 3. Grade 1 retrolisthesis of C5 on C6. 4. Mild left multilevel neuroforaminal narrowing. 5. Multilevel degenerative changes. Assessment & Plan Assessment & Plan (1) Degenerative disc disease, cervical: Code(s): M50.30 - Other cervical disc degeneration, unspecified cervical region Category: Medical (2) Cervical spondylosis: Code(s): M47.812 - Spondylosis without myelopathy or radiculopathy, cervical region Category: Medical (3) Cervicogenic headache: Code(s): G44.86 - Cervicogenic headache Category: Medical (4) Muscle spasms of neck: Code(s): M62.838 - Other muscle spasm Category: Medical (5) Degenerative cervical spinal stenosis: Code(s): M48.02 - Spinal stenosis, cervical region Category: Medical Plan Patient reports positive results with recent bilateral cervical medial branch blocks, providing him complete axial neck pain relief for 18-24 hours following injections. He is interested to undergo cervical medical branch RFA for a longer term pain relief. However, given his radicular symptoms are more bothersome at this time, we will proceed with C5-C6 Interlaminar TEZ with local and fluoroscopy. Expectations, risks and benefits were reviewed. Patient is aware he will be contacted to schedule this procedure. Script provided for gabapentin 300 mg TID, patient will begin 300 mg at bedtime and increase as tolerated to BID and TID. Side effects and precautions were discussed with patient. Continue regular physical activity and gentle stretching exercises, adequate hydration, good posture. Consider cervical pillow to help restore normal cervical lordosis and decrease chronic fatigue and neck discomfort. Patient also has pending CT scan of neck and soft tissues to investigate any pathology related to enlarged cervical lymph nodes noted on recent cervical spine MRI. All questions were answered and the patient is in agreement of plan. Follow-up after injections and sooner as needed. Patient was informed and verbally consented to the use of an ambient scribe for clinic note documentation during this visit. Medications: New gabapentin 300 mg PO TID 90 caps 0RF pain 30 days G44.86 - Cervicogenic headache, M48.02 - Spinal stenosis, cervical region, M50.30 - Other cervical disc degeneration, unspecified cervical region Coding Level of Care Code Est Pt Level 4 (10562) Complex EM visit Add On G2211 Diagnoses Degenerative disc disease, cervical M50.30 Cervical spondylosis M47.812 Cervicogenic headache G44.86 Muscle spasms of neck M62.838 Degenerative cervical spinal stenosis M48.02
[2024-05-25 11:03] VITALS: BP 117/73; PULSE 80; RESP 18; O2SAT 98; BMI 24.6
--- OUTSIDE RECORDS SUMMARY | 2024-05-25 12:50 | XMS_ITS | Encounter Summary ---
Author Organization [employer] Address [address] [facility] 7t [place] [address] Care Team Providers Care Fingerprint Expert Name Role Phone Sonya Donis MD Primary Care Provider [phone] Reason for Visit * Reason Onset Date Comments New Patient 10/28/2022 Encounter Details Date Type Department Care Team (Late st Contact Info) Description 10/28/2022 Telephone [facility] MEDICINE [address] [place], [place] [phone] Dony Bhagat MD [address] [place], [place] [phone] New Patient Social History Tobacco Use Types [...] EDT BIJAN Brown called pt to Offer GENERAL LEDGER BOOKKEEPER appt. Pt demographics and insurance information were verified. Pt states following medical conditions: thyroid, Cholesterol, Arthritis, Needs Hip replacement, and High blood pressure. Pt reports taking medications: No Pt given GENERAL LEDGER BOOKKEEPER appt with Dr. Donis on 01/18/2023 @ 9:30 am. Pt will be sent appt reminder card and medical release form and agrees to complete and to return to medical records prior to GENERAL LEDGER BOOKKEEPER appt. * Telephone Encounter - Gayatri Chaudhary - 10/28/2022 1:35 PM EDT Pt has been transfer over to wait list for GENERAL LEDGER BOOKKEEPER. EFFECTIVE SINCE 10/28/2022 documented in this encounter Plan of Treatment Upcoming Encounters Date Type Department Care Team (Late st Contact Info) Description 08/10/2024 1:30 PM EDT Clinical Support [facility] MED & PEDS [address] [place] [address] 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 RN 505 [place] [address] 09/22/2024 3:00 PM EDT Office Visit [facility] ADULT DENTAL [address] [place] [address] Ascencion Joya documented as of this encounter Visit Diagnoses Not on filedocumented in this encounter Care Teams Fingerprint Expert Relationship Specialty Start Date End Date Sonya Donis MD [address] [place] [address] PCP - General Family Medicine 01/18/23 [employer] PRINCIPAL TECHNOLOGIST Services 10/11/23 documented as of this encounter
--- OUTSIDE RECORDS SUMMARY | 2024-05-25 12:50 | XMS_ITS | Encounter Summary ---
Author Organization [employer] Address [address] [facility] 7t [place] [address] Care Team Providers Care Provider Relations Manager Name Role Phone Sonya Donis MD Primary Care Provider [phone] Reason for Visit * Reason Comments controlled substance treatment Encounter Details Date Type Department Care Team (Latest Contact Info) Description 05/23/2024 1:00 PM EDT Clinical Support [facility] MED & PEDS [address] [place] [address] 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, RN [address] [place], [place] Chronic left hip pain (Primary Dx); detention (current) use of opiate analgesic Social History Tobacco [...] Progress Notes * 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 RN - 05/23/2024 1:00 PM EDT S: SLIP SHEETER NV. Patient is taking Percocet 5-325 mg Q 6hrs PRN for chronic L hip pain. Denies any adverse events. States has been taking medication as prescribed. Current pain level is 10/10 located in the neck. Patient states med provides about 50% pain relief. Denies illicit drugs use. Very rare ETOH use, pt educated of the risks associated with the combination of ETOH and opioids, verbalized understanding. States has a cigarette once in a while, socially. Last PCP f/u was on 01/13/24. ..Chronic pain group pamphlet given, patient not interested at this time. No questions/ concerns at this time. O: SLIP SHEETER tier 2. LEATHER SPLITTER checked on 05/23/24. Last refilled on 05/05/24. Pill count performed, patient has 44 pills left, 38 expected. utox performed, positive for OXY, negative for all other tested substances, as expected. .BPI updated today. Pain severity score of (8), activity interference score of (6).Previous BPI completed (08/13/23) with pain severity score of (6), activity interference score of (9). A: Chronic opioid use use r/t chronic pain. P: Patient to cont. with current medication regimen as needed and take medication only as directed.Next SLIP SHEETER NV scheduled for 08/10/24 @1:30pm. SLIP SHEETER Agr.renewal due at the visit. f/u sooner PRN. Reminder slip given. Patient verbalized understanding and agreed to plan. documented in this encounter Plan of Treatment Upcoming Encounters Date Type Department Care Team (Late st Contact Info) Description 08/10/2024 1:30 PM EDT Clinical Support [facility] MED & PEDS [address] [place] [address] 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, RN [address] [place] [address] 09/22/2024 3:00 PM EDT Office Visit [facility] ADULT DENTAL [address] [place] [address] Ascencion Joya documented as of this encounter Procedures Procedure Name Priority Date/Time Associated Diagnosis Comments POCT RHEA-14 URINE DRUG SCREEN Routine 05/23/2024 1:14 PM EDT emt intermediate (current) use of opiate analgesic Chronic left hip pain documented in this encounter Results * POCT RHEA-14 Urine Drug Screen (05/23/2024 1:14 PM EDT) Oxycodone Screen, Urine Positive Urine Urine specimen obtained by clean catch procedure / Unknown 05/23/2024 1:14 PM EDT Narrative 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 RN - 05/23/2024 1:14 PM EDT Lot# [id number] Exp: 10-25-25 us Sonya Donis MD POINT OF CARE TEST ENTER/EDIT ORDERABLES Final Result documented in this encounter Visit Diagnoses Diagnosis Chronic left hip pain- Primary emt intermediate (current) use of opiate analgesic documented in this encounter Additional Health Concerns Assessment Noted Time PHQ-9 Depression Total Score: 0 10/11/19 24 9:09 AM EDT documented as of this encounter Care Teams Provider Relations Manager Relationship Specialty Start Date End Date Sonya Donis MD [address] [place] [address] PCP - General Family Medicine 01/18/23 [employer] PICKLING OPERATOR Services 10/11/23 documented as of this encounter
--- OUTSIDE RECORDS SUMMARY | 2024-05-25 12:50 | XMS_ITS | Encounter Summary ---
Author Organization [employer] Address [address] [facility] 7t [place] [address] Care Team Providers Care Warehouse Processor Name Role Phone Sonya Donis MD Primary Care Provider [phone] Reason for Visit * Reason Onset Date Comments Med Refill 11/11/2023 Encounter Details Date Type Department Care Team (Late st Contact Info) Description 11/11/2023 Telephone [facility] MEDICINE [address] [place] [address] Sonya Donis MD [address] [place], [place] [phone] Med Refill Social History Tobacco Use Types [...] 5-325 MG tablet To be sent to: [facility] #[id number] AT [facility] documented in this encounter Plan of Treatment Upcoming Encounters Date Type Department Care Team ([facility] st Contact Info) Description 08/10/2024 1:30 PM EDT Clinical Support [facility] MED & PEDS [address] [place] [address] 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 RN [address] [place] [address] 09/22/2024 3:00 PM EDT Office Visit [facility] ADULT DENTAL [address] [place] [address] Ascencion Joya documented as of this encounter Visit Diagnoses Not on filedocumented in this encounter Additional Health Concerns Assessment Noted Time PHQ-9 Depression Total Score: 0 10/11/19 24 9:09 AM EDT documented as of this encounter Care Teams Warehouse Processor Relationship Specialty Start Date End Date Sonya Donis MD [address] [place] [address] PCP - General Family Medicine 01/18/23 [employer] PIPE WRAPPING MACHINE OPERATOR Services 10/11/23 documented as of this encounter
--- OUTSIDE RECORDS SUMMARY | 2024-05-25 12:50 | XMS_ITS | Encounter Summary ---
Author Organization [employer] Address [address] [facility] 7t [place] [address] Care Team Providers Care Industrial Engineering Manager Name Role Phone Sonya Donis MD Primary Care Provider [phone] Reason for Visit * Reason Onset Date Comments Med Refill 02/02/2024 Encounter Details Date Type Department Care Team (Late st Contact Info) Description 02/02/2024 Telephone [facility] MEDICINE [address] [place] [address] Sonya Donis MD [address] [place], [place] [phone] Med Refill Social History Tobacco Use Types [...] 5-325 MG tablet To be sent to: [facility] #[id number] documented in this encounter Plan of Treatment Upcoming Encounters Date Type Department Care Team (Late st Contact Info) Description 08/10/2024 1:30 PM EDT Clinical Support [facility] MED & PEDS [address] [place] [address] 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 RN [address] [place] [address] 09/22/2024 3:00 PM EDT Office Visit [facility] ADULT DENTAL 505 [place] [address] Ascencion Joya documented as of this encounter Visit Diagnoses Not on filedocumented in this encounter Additional Health Concerns Assessment Noted Time PHQ-9 Depression Total Score: 0 10/11/19 24 9:09 AM EDT documented as of this encounter Care Teams Industrial Engineering Manager Relationship Specialty Start Date End Date Sonya Donis MD [address] [place] [address] PCP - General Family Medicine 01/18/23 [employer] HUMAN RESOURCES BENEFITS MANAGER Services 10/11/23 documented as of this encounter
--- OUTSIDE RECORDS SUMMARY | 2024-05-25 12:50 | XMS_ITS | Encounter Summary ---
Author Organization [employer] Address [address] [facility] [address] 7t [place] [address] Care Team Providers Care Co Pilot Name Role Phone Sonya Donis MD Primary Care Provider Encounter Details Date Type Department Care Team (Latest Contact Info) Description 05/23/2024 Travel Social History Tobacco Use Types Packs/Day [...] Upcoming Encounters Date Type Department Care Team ([facility] st Contact Info) Description 08/10/2024 1:30 PM EDT Clinical Support [facility] MED & PEDS 505 [place] [address] 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, RN [address] [place] [address] 09/22/2024 3:00 PM EDT Office Visit [facility] ADULT DENTAL 505 [place] [address] Ascencion Joya documented as of this encounter Visit Diagnoses Not on filedocumented in this encounter Additional Health Concerns Assessment Noted Time PHQ-9 Depression Total Score: 0 10/11/19 24 9:09 AM EDT documented as of this encounter Care Teams Co Pilot Relationship Specialty Start Date End Date Sonya Donis MD [address] [place] [address] PCP - General Family Medicine 01/18/23 [employer] HUMAN RESOURCES DISTRICT MANAGER Services 10/11/23 documented as of this encounter
--- OUTSIDE RECORDS SUMMARY | 2024-05-25 12:51 | XMS_ITS | Encounter Summary ---
Author Organization [employer] Address [address] [facility] 7t [place] [address] Care Team Providers Care Manager Operating Name Role Phone Sonya Donis MD Primary Care Provider [phone] Encounter Details Date Type Department Care Team (Late st Contact Info) Description 05/01/[address] [facility] MEDICINE [address] [place], [place] [phone] Georges Dean MD [address] [place], [place] [phone] Social History Tobacco Use Types Packs/Day Years [...] Miscellaneous Notes * Telephone Encounter - Lisbeth Hapr RN - 05/01/2024 3:20 PM EST TC x 2 placed to pt via [employer]ITS diplomatic interpreter/translator (Chris ID#[id number]) to inform of below provider message. RN [...] 1:30 PM EDT Clinical Support [facility] MED & PEDS [address] [place] [address] 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 RN [address] [place] [address] 09/22/2024 3:00 PM EDT Office Visit [facility] ADULT DENTAL [address] [place] [address] Ascencion Joya documented as of this encounter Visit Diagnoses Not on filedocumented in this encounter Additional Health Concerns Assessment Noted Time PHQ-9 Depression Total Score: 0 10/11/19 9:09 AM EDT documented as of this encounter Care Teams Manager Operating Relationship Specialty Start Date End Date Sonya Donis MD [address] [place] [address] PCP - General Family Medicine 01/18/23 [employer] FIGURINE MAKER Services 10/11/23 documented as of this encounter
--- OUTSIDE RECORDS SUMMARY | 2024-05-25 12:51 | XMS_ITS | Encounter Summary ---
Author Organization [employer] Address [address] [facility] [address] 7[address] [place] [address] Care Team Providers Care Polisher Dial Name Role Phone Sonya Donis MD Primary Care Provider [phone] Encounter Details Date Type Department Care Team [...] Upcoming Encounters Date Type Department Care Team ([facility] st Contact Info) Description 08/10/2024 1:30 PM EDT Clinical Support [facility] MED & PEDS [address] [place] [address] 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, RN [address] [place] [address] 09/22/2024 3:00 PM EDT Office Visit [facility] ADULT DENTAL [address] [place] [address] Ascencion Joya documented as of this encounter Visit Diagnoses Not on filedocumented in this encounter Additional Health Concerns Assessment Noted Time PHQ-9 Depression Total Score: 0 10/11/19 24 9:09 AM EDT documented as of this encounter Care Teams Polisher Dial Relationship Specialty Start Date End Date Sonya Donis MD [address] [place] [address] PCP - General Family Medicine 01/18/23 [employer] DRY ROOM ATTENDANT Services 10/11/23 documented as of this encounter
--- OUTSIDE RECORDS SUMMARY | 2024-05-25 12:51 | XMS_ITS | Encounter Summary ---
Author Organization [employer] Address [address] [facility] 7t [place] [address] Care Team Providers Care Purchasing Manager Name Role Phone Sonya Donis MD Primary Care Provider [phone] Reason for Visit * Reason Onset Date Comments Med Refill 01/07/2024 Encounter Details Date Type Department Care Team (Late st Contact Info) Description 01/07/2024 Telephone [facility] MEDICINE [address] [place] [address] Sonya Donis MD [address] [place], [place] [phone] Med Refill Social History Tobacco Use Types [...] 5-325 MG tablet To be sent to: [facility] #[id number] documented in this encounter Plan of Treatment Upcoming Encounters Date Type Department Care Team (Late st Contact Info) Description 08/10/2024 1:30 PM EDT Clinical Support [facility] MED & PEDS [address] [place] [address] 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 RN 505 [place] [address] 09/22/2024 3:00 PM EDT Office Visit [facility] ADULT DENTAL [address] [place] [address] Ascencion Joya documented as of this encounter Visit Diagnoses Not on filedocumented in this encounter Additional Health Concerns Assessment Noted Time PHQ-9 Depression Total Score: 0 10/11/19 24 9:09 AM EDT documented as of this encounter Care Teams Purchasing Manager Relationship Specialty Start Date End Date Sonya Donis MD [address] [place] [address] PCP - General Family Medicine 01/18/23 [employer] GOLF BALL TRIMMER Services 10/11/23 documented as of this encounter
--- OUTSIDE RECORDS SUMMARY | 2024-05-25 12:51 | XMS_ITS | Data Portability ---
Author Organization [employer] [facility] [place] [facility] [employer] Address [address] [place] [id number] Care Team Providers Care Communications Assistant Name Role Phone [facility] Primary Care Provider [phone] Assessment No assessment recorded. Plan of Treatment Reminders Order Date Submit Date Provider Last Modified By Organization Details Last Modified Time Details Appointments None recorded. Lab None recorded. Referral None recorded. Procedures None recorded. Surgeries None recorded. Imaging None recorded. Medication Orders fluticasone propionate 50 mcg/actuati on nasal spray,suspe nsion 2023 024 [facility] #[id number], [address] [place], [place], [id number], 4 14:25:30 guaifenesin 400 mg tablet 2023 024 [facility] #[id number], [address] [place], [place], [id number], 4 14:25:29 Patient TargetsNo targets recorded. Patient InstructionsNo instructions recorded. Reason for Referral None Reported. Medical Equipment None Reported. Allergies Allergen ID Allergen Name Allergen Category Reaction Reaction Severity Criticality Documentation Date Start Date Code Code System Note Provider Name and Address Organization Details Recorded Time 3589 aspirin medicatio n Not available Not available [...] Address Organization Details Last Updated DateTime 4 [address]160.0 48 g 16 /min 71 /min 170.18 [...] SNOMED-CT Code Diagnosis ICD10 Code Diagnosis Note [id number] Dary Castellanos MD Main - [facility] [address] [place] [phone] 04/26/2023 14:22:55 04/27/2023 11:07:57 COVID-19 [id number] U07.1 I provided real -time medical direction via phone for this encounter, and was available for additional phone based assistance as needed. I have reviewed and agree with the Assessment and Plan as documented by the Privacy Compliance Manager. Patient given the opportunit y to ask [...] Manning Member ID Guarantor Name 04/26/2023 1 [facility] - DOS ON OR AFTER 2022 - DUAL ELIGIBLE - [employer]CI OPTIONS AND ONE CARE (MEDICARE REPLACEMENT/ADV ANTAGE - HMO) Nemo De Los Santos [id number] Nem[facility] De Los [facility] Notes Date Note Type Note Provider Name and Address Organization Details Recorded Time 04/26/2023 text/html [facility] Nurse Triage Notes (Paris Gorman): Chief Complaints: Fever/Chills, Cough Allergies: Aspirin Comments: Sw[place] speaking member called in - verified name/ with public events facilities rental manager. Member reporting fever, cough, and throat pain for the past 3 days. Feeling unwell and fatigued. He has been taking Tylenol for body aches and fevers. SOB only r/t cough. Denies chest pain. No known sick contacts. Mikel Gorman RN Will need paper consent in [place] ................... ................... ................... ................... ................... ................... ................... ........ Privacy Compliance Manager Note From Karan Hardin: Pt reports sore [...] ........ Disposition: Fulfilled Dary Castellanos MD [address] [facility],[address], [place], [address], [employer] 04/26/2023 23:24:04
--- OUTSIDE RECORDS SUMMARY | 2024-05-25 12:51 | XMS_ITS | Encounter Summary ---
Author Organization [employer] Address [address] [facility] 7t [place] [address] Care Team Providers Care Heel Painter Name Role Phone Sonya Donis MD Primary Care Provider [phone] Reason for Visit * Reason Onset Date Comments Med Refill 05/05/2024 Encounter Details Date Type Department Care Team (Late st Contact Info) Description 05/05/2024 Refill [facility] MED & PEDS [address] [place], [place] [phone] 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, ADONAY [address] [place], [place] Chronic left hip pain Social History [...] [facility] MED & PED[facility] [address] [place] [address] 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, RN [address] [place] [address] 09/22/2024 3:00 PM EDT Office Visit [facility] ADULT DENTAL [address] [place] [address] Ascencion Joya documented as of this encounter Visit Diagnoses Diagnosis Chronic left hip pain documented in this encounter Additional Health Concerns Assessment Noted Time PHQ-9 Depression Total Score: 0 10/11/19 24 9:09 AM EDT documented as of this encounter Care Teams Heel Painter Relationship Specialty Start Date End Date Sonya Donis MD [address] [place] [address] PCP - General Family Medicine 01/18/23 [employer] R[employer] L[employer] BOATMAN Services 10/11/23 documented as of this encounter
--- OUTSIDE RECORDS SUMMARY | 2024-05-25 12:51 | XMS_ITS | Clinical Summary ---
Author Organization [employer] Address 75 [facility] 7t [place] [address] Care Team Providers Care Reactor Kettle Operator Name Role Phone Sonya Donis MD Primary Care Provider [phone] Allergies Active Allergy Reactions Criticality Noted Date [...] for nutritional changes, Pt agreed to see Motion Picture Set Up Worker. Ordering lab work for Lipids recheck, to [...] Center 07/09/2023 1:00 PM Sonya Donis MD [facility] Assessment & Plan (01/18/2023 10:23 AM EST): -Labs: Lipid Panel. Hypothyroidism 01/18/2023 Assessment & Plan (01/18/2023 10:23 AM EST): -Labs: TSH/FT4. 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 05/05/2024 Telephone [facility] MEDICINE [address] [place] [address] [phone] Sonya Donis MD Nurse Triage 05/05/2024 Telephone [facility] [address] [place] [address] Sonya Donis MD Med Refill 05/01/[address] [address] Georges Dean MD 04/08/2024 Refill [facility] PEDS [address] [place], [place] [phone] Sonya Donis MD 04/07/2024 Refill [facility] [address] [place], [place] [phone] Sonya Donis MD Chronic left hip pain 04/05/[address] [address] Georges Dean MD 04/05/2024 Telephone [facility] [address] [place] [address] CERVICAL ORDER 03/28/2024 Telephone [facility] MED [facility] PED[facility] [address] [place] [address] Sonya Donis MD CRITICAL RESULT 03/24/2024 3:00 PM EST Office Visit [facility] ADULT DENTAL [address] [place], [place] [phone] Ascencion Joya Dental calculus (Primary Dx) 03/23/2024 2:30 PM EST Clinical Support [facility] MED & PEDS [address] [place], [place] [phone] 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, 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 03/23/2024 Telephone [facility] P[facility] [address] [place], [place] [phone] 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, ADONAY 03/23/2024 Travel 03/20/2024 Telephone [facility] [address] [place] [address] Sonya Donis MD 03/20/2024 Telephone [facility] [address] [place], [place] [phone] Sonya Donis MD 03/07/2024 Refill [facility] [address] [place] [address] Sonya Donis MD Chronic left hip pain [...] Description 08/10/2024 1:30 PM EDT Clinical Support [facility] PED[facility] [address] [place] [address] 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 RN [address] [place] [address] 09/22/2024 3:00 PM EDT Office Visit [facility] ADULT DENTAL [address] [place] [address] Ascencion Joya Health Maintenance Due Date Last [...] DRUG SCREEN Routine 05/23/2024 1:14 PM EDT nursing home (current) use of opiate analgesic Chronic left hip pain POCT RHEA-14 URINE DRUG SCREEN Routine 05/11/2024 [...] Urine Drug Screen (05/23/2024 1:14 PM EDT) Only the most recent of3 resultswithin the time period is included. Oxycodone Screen, Urine Positive Urine Urine specimen obtained by clean catch procedure / Unknown 05/23/2024 1:14 PM EDT Narrative 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 RN - 05/23/2024 1:14 PM EDT Lot# [id number] Exp: 10-25-25 us Sonya Donis MD POINT OF CARE TEST ENTER/EDIT ORDERABLES Final Result * (ABNORMAL) Basic Metabolic Panel (05/01/2024 10:46 AM EST) Sodium 143 135 - 145 mmol/L [facility] Potassium 4.2 3.3 - 5.1 mmol/L [facility] Chloride 110(H) 96 - 108 mmol/L [facility] Carbon Dioxide 26 22 - 29 mmol/L [facility] Anion Gap 11(L) 12 - 20 [facility] Urea Nitrogen (BUN) 18(H) 9 - 16 mg/dL [facility] Creatinine, Serum 1.15 0.5 - 1.4 mg/dL [facility] Estimated Glomerular Filt Rate >60 [facility] Comment:Chronic Kidney Disea se: Estimated GFR < 60 mL/min/1.39f2Ihepwl Kidney Disease: Estimated GFR < 15 mL/min/1.73m2 Glucose 102 60 - 115 mg/dL [facility] Calcium 9.1 8.4 - 10.2 mg/dL [facility] Blood Venous blood specimen / Unknown 05/01/2024 10:46 AM EST 05/01/2024 2:41 PM EST us Georges Dean MD LAB BLOOD ORDERABLES Final Resul t [facility] [address] [place] [phone] [phone] * (ABNORMAL) Lipid Panel, Standard (01/10/2024 9:42 AM EST) Triglycerides 208(H) <150 mg/dL [facility] Comment:Desirable Triglyceri de: less than 150 [...] 190 mg/dL HDL Cholesterol 41 >40 mg/dL [facility] Comment:Desirable HDL: great er than 40 mg/dL Note: This HDL assay may give artificially low results in patients with liver disease. Blood Venous blood specimen / Unknown 01/10/2024 9:42 AM EST 01/10/2024 2:39 PM EST Sonya Donis MD LAB BLOOD ORDERABLES Final Re sult Performing Organization Address [facility] de Phone Number [facility] [address] [place] [phone] * Hepatitis C Ab (01/22/2023 1:05 PM EST) Hepatitis C Antibody Nonreactive Nonreactive [facility] Comment:Antibodies to HCV no t detected; does not exclude early acuteHCV infection. Blood Venous blood specimen / Unknown 01/22/2023 1:05 PM EST 01/22/2023 2:22 PM EST Sonya Donis MD LAB BLOOD ORDERABLES Final Re sult Performing Organization Address [facility] de Phone Number [facility] [address] [place] [phone] * Hm Colonoscopy (01/13/2018) Colonoscopy Normal Normal Narrative Sonya Donis MD - 01/13/2018 Normal colonoscopy, unknown why recommended repeat 5 yrs Historical Provider HEALTH MAINTENANCE Final Result from Last 3 Months or Most Recently Relevant to Health Maintenance Insurance [facility] D[facility] - [facility] Care Teams Reactor Kettle Operator Relationship Specialty Start Date End Date Sonya Donis MD [address] [place] [phone] PCP - General Family Medicine 01/18/23 [employer] ANIMAL LABORATORY TECHNICIAN Services 10/11/23
--- OUTSIDE RECORDS SUMMARY | 2024-05-25 12:51 | XMS_ITS | Encounter Summary ---
Author Organization [employer] Address [address] [facility] 7t [place] [address] Care Team Providers Care Filling Station Equipment Mechanic Name Role Phone Sonya Donis MD Primary Care Provider [phone] Reason for Visit * Reason Onset Date Comments Nurse Triage 05/05/2024 Encounter Details Date Type Department Care Team (Late st Contact Info) Description 05/05/2024 Telephone [facility] MED[facility]INE [address] [place] [address] Sonya Donis MD [address] [place], [place] [phone] Nurse Triage Social History Tobacco Use Types [...] pt to triage, spoke to pt through [facility]. 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 pt states has had outbreaks before and requesting somemedication. pt states rash/blisters are already drying up and healing but wants to talk to a provider about what to do and prevention. given appt today with [facility] provider at 1:45 for exam and medication [...] Symptoms * Cold Sore - Treatment With Ofkx-Flm-Oeulygf Medicine (Docosanol Cream) * Cold Sore - [...] questions The caller accepted this outcome. ( Yakut speaker) documented in this encounter Plan of Treatment Upcoming Encounters Date Type Department Care Team (Late st Contact Info) Description 08/10/2024 1:30 PM EDT Clinical Support [facility] MED & PEDS [address] [place] [address] 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, ADONAY [address] [place] [address] 09/22/2024 3:00 PM EDT Office Visit [facility] ADULT DENTAL [address] [place] [address] Ascencion Joya documented as of this encounter Visit Diagnoses Not on filedocumented in this encounter Additional Health Concerns Assessment Noted Time PHQ-9 Depression Total Score: 0 10/11/19 24 9:09 AM EDT documented as of this encounter Care Teams Filling Station Equipment Mechanic Relationship Specialty Start Date End Date Sonya Donis MD [address] [place] [address] PCP - General Family Medicine 01/18/23 [employer] STITCH WELDER Services 10/11/23 documented as of this encounter
--- OUTSIDE RECORDS SUMMARY | 2024-05-25 12:51 | XMS_ITS | Encounter Summary ---
Author Organization [employer] Address 75 [facility] 7t [place] [address] Care Team Providers Care Liner Man Name Role Phone Sonya Donis MD Primary Care Provider [phone] Reason for Visit * Reason Comments controlled substance treatment Encounter Details Date Type Department Care Team (Latest Contact Info) Description 05/11/2024 1:30 PM EST Clinical Support [facility] MED & PEDS [address] [place] [address] 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, ADONAY [address] [place], [place] Long-term current use of opiate analgesic [...] RN - 05/11/2024 1:30 PM EST S: TALENT SPECIALIST NV. Patient is taking Percocet 5-325 mg [...] No questions/ concerns at this time. O: TALENT SPECIALIST tier 2. MONITOR AND STORAGE BIN TENDER checked on 05/11/24. Last refilled on 05/05/24. Pill count performed, patient has 90 pills left, 86 expected. utox performed, positive for OXY, TCA, negative for all other tested substances, as expected. A: Chronic opioid use use r/t chronic pain. P: Patient to cont. with current medication regimen as needed and take medication only as directed.Next TALENT SPECIALIST NV scheduled for 08/10/24 @1:30pm. TALENT SPECIALIST Agr.renewal/ bpi due at the visit. f/u sooner PRN. Reminder slip given. Patient verbalized understanding and agreed to plan. documented in this encounter Plan of Treatment Upcoming Encounters Date Type Department Care Team (Late st Contact Info) Description 08/10/2024 1:30 PM EDT Clinical Support [facility] MED & PEDS [address] [place] [address] 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, RN [address] [place] [address] 09/22/2024 3:00 PM EDT Office Visit [facility] ADULT DENTAL [address] [place] [address] Ascencion Joya documented as of this encounter [...] documented as of this encounter Care Teams Liner Man Relationship Specialty Start Date End Date Sonya Donis MD [address] [place] [address] PCP - General Family Medicine 01/18/23 [employer] SHIRT SEWER Services 10/11/23 documented as of this encounter
--- OUTSIDE RECORDS SUMMARY | 2024-05-25 12:51 | XMS_ITS | Encounter Summary ---
Author Organization [employer] Address 75 [facility] 7t [place] [address] Care Team Providers Care Combat Systems Operator Mine Warfare Name Role Phone Sonya Donis MD Primary Care Provider [phone] Reason for Visit * Reason Onset Date Comments Med Refill 05/05/2024 Encounter Details Date Type Department Care Team (Late st Contact Info) Description 05/05/2024 Telephone [facility] MEDICINE [address] [place] [address] Sonya Donis MD [address] [place], [place] [phone] Med Refill Social History Tobacco Use Types [...] Description 08/10/2024 1:30 PM EDT Clinical Support [facility] MED & PEDS [address] [place] [address] 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 RN [address] [place] [address] 09/22/2024 3:00 PM EDT Office Visit [facility] ADULT DENTAL [address] [place] [address] Ascencion Joya documented as of this encounter Visit Diagnoses Not on filedocumented in this encounter Additional Health Concerns Assessment Noted Time PHQ-9 Depression Total Score: 0 10/11/19 24 9:09 AM EDT documented as of this encounter Care Teams Combat Systems Operator Mine Warfare Relationship Specialty Start Date End Date Sonya Donis MD [address] [place] [address] PCP - General Family Medicine 01/18/23 [employer] CERTIFIED RETINAL ANGIOGRAPHER Services 10/11/23 documented as of this encounter
--- OUTSIDE RECORDS SUMMARY | 2024-05-25 12:51 | XMS_ITS | Encounter Summary ---
Author Organization [employer] Address [address] [facility] 7t [place] [address] Care Team Providers Care Shuttle Truck Driver Name Role Phone Sonya Donis MD Primary Care Provider [phone] Reason for Visit * Reason Onset Date Comments Med Refill 09/08/2023 Encounter Details Date Type Department Care Team ([facility] st Contact Info) Description 09/08/2023 Telephone [facility]S [address] [place] [address] Sonya Donis MD [address] [place] [address] Med Refill Social History Tobacco Use Types [...] 2:59 PM EDT Medication was sent to [facility] #[id number] on 07/09/23 with 2 refills. * Telephone Encounter - Marcy Mohan - 09/08/2023 1:12 PM EDT TC from pt requesting medication refill. Medications needing refill : cyclobenzaprine (Flexeril) 10 MG tablet To be sent to: [id number] - [place] WOL[facility] [address] AT [facility] documented in this encounter Plan of Treatment Upcoming Encounters Date Type Department Care Team ([facility] Contact Info) Description 08/10/2024 1:30 PM EDT Clinical Support [facility] MED & PEDS 505 [facility] [place] [address] 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 RN 505 [facility] [place] [address] 09/22/2024 3:00 PM EDT Office Visit [facility] ADULT DENTAL 505 [facility] [place] [address] Ascencion Joya documented as of this encounter Visit Diagnoses Not on filedocumented in this encounter Additional Health Concerns Assessment Noted Time PHQ-9 Depression Total Score: 9 03/11/19 11:12 AM EST documented as of this encounter Care Teams Shuttle Truck Driver Relationship Specialty Start Date End Date Sonya Donis MD [address] [place] [address] PCP - General Family Medicine 01/18/23 [employer] WIRE WEAVING LOOM SETTER Services 10/11/23 documented as of this encounter
== END 2024-05-25 11:19 | disposition home or self-care (01) ==
LOC: HO.PMC 10:55
PROVIDERS: PCP Family Medicine; Visit Provider Nurse Practitioner Family
DX: M50.30 Other cervical disc degeneration, unspecified cervical region (principal); M47.812 Spondylosis without myelopathy or radiculopathy, cervical region; G44.86 Cervicogenic headache; M62.838 Other muscle spasm; M48.02 Spinal stenosis, cervical region
CPT/HCPCS: 99214; G2211

== ENCOUNTER → 2024-05-25 10:55 | Outpatient (BNVA) | payer OTHER, SELFPAY | PROVIDERS: PCP Family Medicine; Visit Provider Nurse Practitioner Family | DX: M50.30 Other cervical disc degeneration, unspecified cervical region (principal); M47.812 Spondylosis without myelopathy or radiculopathy, cervical region; M62.838 Other muscle spasm; M48.02 Spinal stenosis, cervical region; G44.86 Cervicogenic headache | CPT/HCPCS: 99212 ==

== ENCOUNTER 2024-05-29 15:36 | Outpatient (REF) | payer OTHER, SELFPAY ==
--- NOTE | ~2024-05-29 | CT_ITS ---
CLINICAL HISTORY: Localized enlarged lymph nodes CT soft tissue neck with contrast Comparison: None Findings: The visualized intracranial contents are unremarkable. Pharyngeal mucosal space, parapharyngeal fat, prevertebral tissues, and epiglottis are within normal limits. Salivary glands are unremarkable. No sialoliths. Thyroid gland is unremarkable. 1.2 x 1.5 x 2.2 cm left level 2A lymph node. Visualized lung apices are clear. No acute fracture or dislocation. IMPRESSION: Enlarged left level 2A lymph node. This document has been electronically signed by: Karla Singh MD on 05/30/2024 14:04:09
[2024-05-29] MEDS: iohexoL 350 MG/ML 100 ML INFUS..BTL IV (16:30)
--- OUTSIDE RECORDS SUMMARY | 2024-05-29 18:24 | XMS_ITS | Encounter Summary ---
Author Organization [employer] Address [address] [facility] 7t [place] [address] Care Team Providers Care Timber Bucker Name Role Phone Sonya Donis MD Primary Care Provider [phone] Reason for Visit * Reason Onset Date Comments Med Refill 01/07/2024 Encounter Details Date Type Department Care Team (Late st Contact Info) Description 01/07/2024 Telephone [facility] MEDICINE [address] [place] [address] Sonya Donis MD [address] [place], [place] [phone] Med Refill Social History Tobacco Use Types [...] 5-325 MG tablet To be sent to: [email or web address][id number] documented in this encounter Plan of Treatment Upcoming Encounters Date Type Department Care Team (Late st Contact Info) Description 08/10/2024 1:30 PM EDT Clinical Support [facility] MED & PEDS [address] [place] [address] 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 RN [address] [place] [address] 09/22/2024 3:00 PM EDT Office Visit [facility] ADULT DENTAL [address] [place] [address] Ascencion Joya documented as of this encounter Visit Diagnoses Not on filedocumented in this encounter Additional Health Concerns Assessment Noted Time PHQ-9 Depression Total Score: 0 10/11/19 24 9:09 AM EDT documented as of this encounter Care Teams Timber Bucker Relationship Specialty Start Date End Date Sonya Donis MD [address] [place] [phone] PCP - General Family Medicine 01/18/23 [employer] PARTY PLAN SALES UNIT SALES LEADER Services 10/11/23 documented as of this encounter
--- OUTSIDE RECORDS SUMMARY | 2024-05-29 18:24 | XMS_ITS | Encounter Summary ---
Author Organization [employer] Address 75 [facility] 7t [place] [address] Care Team Providers Care Grain Sampler Name Role Phone Sonya Donis MD Primary Care Provider [phone] Reason for Visit * Reason Comments controlled substance treatment Encounter Details Date Type Department Care Team (Latest Contact Info) Description 05/23/2024 1:00 PM EDT Clinical Support [facility] MED & PEDS [address] [place] [address] 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, RN [address] [place], [place] Chronic left hip pain (Primary Dx); correction (current) use of opiate analgesic Social History [...] RN - 05/23/2024 1:00 PM EDT S: TAPPER SUPERVISOR NV. Patient is taking Percocet 5-325 mg [...] No questions/ concerns at this time. O: TAPPER SUPERVISOR tier 2. PHYSIOTHERAPY PRACTICE MANAGER checked on 05/23/24. Last refilled on 05/05/24. [...] needed and take medication only as directed.Next TAPPER SUPERVISOR NV scheduled for 08/10/24 @1:30pm. TAPPER SUPERVISOR Agr.renewal due at the visit. f/u sooner PRN. Reminder slip given. Patient verbalized understanding and agreed to plan. documented in this encounter Plan of Treatment Upcoming Encounters Date Type Department Care Team (Late st Contact Info) Description 08/10/2024 1:30 PM EDT Clinical Support [facility] MED & PEDS [address] [place] [address] 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, RN [address] [place] [address] 09/22/2024 3:00 PM EDT Office Visit [facility] ADULT DENTAL [address] [place] [address] Ascencion Joya documented as of this encounter Procedures Procedure Name Priority Date/Time Associated Diagnosis Comments POCT RHEA-14 URINE DRUG SCREEN Routine 05/23/2024 1:14 PM EDT director long term care (current) use of opiate analgesic Chronic left hip pain documented in this encounter Results * POCT RHEA-14 Urine Drug Screen (05/23/2024 1:14 PM EDT) Oxycodone Screen, Urine Positive Urine Urine specimen obtained by clean catch procedure / Unknown 05/23/2024 1:14 PM EDT Narrative 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 RN - 05/23/2024 1:14 PM EDT Lot# [id number] Exp: 10-25-25 us Sonya Donis MD POINT OF CARE TEST ENTER/EDIT ORDERABLES Final Result documented in this encounter Visit Diagnoses Diagnosis Chronic left hip pain- Primary director long term care (current) use of opiate analgesic documented in this encounter Additional Health Concerns Assessment Noted Time PHQ-9 Depression Total Score: 0 10/11/19 24 9:09 AM EDT documented as of this encounter Care Teams Grain Sampler Relationship Specialty Start Date End Date Sonya Donis MD [address] [place] [address] PCP - General Family Medicine 01/18/23 [employer] STUDENT FINANCIAL AID MANAGER Services 10/11/23 documented as of this encounter
--- OUTSIDE RECORDS SUMMARY | 2024-05-29 18:24 | XMS_ITS | Encounter Summary ---
Author Organization [email or web address] Address [address] [facility] 7t [place] [address] Care Team Providers Care Gerentological Physiotherapist Name Role Phone Sonya Donis MD Primary Care Provider [phone] Reason for Visit * Reason Onset Date Comments Med Refill 11/11/2023 Encounter Details Date Type Department Care Team (Late st Contact Info) Description 11/11/2023 Telephone [facility] MEDICINE [address] [place] [address] Sonya Donis MD [address] [place], [place] [phone] Med Refill Social History Tobacco Use Types [...] 5-325 MG tablet To be sent to: [facility] #[id number] AT [facility] documented in this encounter Plan of Treatment Upcoming Encounters Date Type Department Care Team ([facility] st Contact Info) Description 08/10/2024 1:30 PM EDT Clinical Support [facility] MED & PEDS [address] [place] [address] 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 RN [address] [place] [address] 09/22/2024 3:00 PM EDT Office Visit [facility] ADULT DENTAL [address] [place] [address] Ascencion Joya documented as of this encounter Visit Diagnoses Not on filedocumented in this encounter Additional Health Concerns Assessment Noted Time PHQ-9 Depression Total Score: 0 10/11/19 24 9:09 AM EDT documented as of this encounter Care Teams Gerentological Physiotherapist Relationship Specialty Start Date End Date Sonya Donis MD [address] [place] [address] PCP - General Family Medicine 01/18/23 [employer] BATCH UNIT TREATER Services 10/11/23 documented as of this encounter
--- OUTSIDE RECORDS SUMMARY | 2024-05-29 18:24 | XMS_ITS | Encounter Summary ---
Author Organization [employer] Address 75 [facility] 7t [place] [address] Care Team Providers Care Botany Professor Name Role Phone Sonya Donis MD Primary Care Provider [phone] Reason for Visit * Reason Onset Date Comments Med Refill 09/08/2023 Encounter Details Date Type Department Care Team ([facility] st Contact Info) Description 09/08/2023 Telephone [facility] MED & PEDS [address] [place] [address] Sonya Donis MD [address] [place] [address] Med Refill Social History Tobacco Use Types [...] 2:59 PM EDT Medication was sent to [facility] #[id number] on 07/09/23 with 2 refills. * Telephone Encounter - Marcy Mohan - 09/08/2023 1:12 PM EDT TC from pt requesting medication refill. Medications needing refill : cyclobenzaprine (Flexeril) 10 MG tablet To be sent to: [facility] #[id number] - [place] WOLFF [address] [facility] documented in this encounter Plan of Treatment Upcoming Encounters Date Type Department Care Team ([facility] Contact Info) Description 08/10/2024 1:30 PM EDT Clinical Support [facility] MED & PEDS 505 [facility] [place] [address] 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 RN 505 [place] [address] 09/22/2024 3:00 PM EDT Office Visit [facility] ADULT DENTAL 505 [facility] [place] [address] Ascencion Joya documented as of this encounter Visit Diagnoses Not on filedocumented in this encounter Additional Health Concerns Assessment Noted Time PHQ-9 Depression Total Score: 9 03/11/19 11:12 AM EST documented as of this encounter Care Teams Botany Professor Relationship Specialty Start Date End Date Sonya Donis MD [address] [place] [address] PCP - General Family Medicine 01/18/23 [employer] HOIST MECHANIC Services 10/11/23 documented as of this encounter
--- OUTSIDE RECORDS SUMMARY | 2024-05-29 18:24 | XMS_ITS | Encounter Summary ---
Author Organization [employer] Address 75 [facility] 7t [place] [address] Care Team Providers Care Space Physicist Name Role Phone Sonya Donis MD Primary Care Provider [phone] Reason for Visit * Reason Onset Date Comments New Patient 10/28/2022 Encounter Details Date Type Department Care Team (Late st Contact Info) Description 10/28/2022 Telephone [facility] [address] [place], [place] [phone] Dony Bhagat MD [address] [place], [place] [phone] New Patient Social History Tobacco Use Types [...] EDT BIJAN Brown called pt to Offer WASTE WATER WORKER appt. Pt demographics and insurance information were verified. Pt states following medical conditions: thyroid, Cholesterol, Arthritis, Needs Hip replacement, and High blood pressure. Pt reports taking medications: No Pt given WASTE WATER WORKER appt with Dr. Donis on 01/18/2023 @ 9:30 am. Pt will be sent appt reminder card and medical release form and agrees to complete and to return to medical records prior to WASTE WATER WORKER appt. * Telephone Encounter - Gayatri Chaudhary - 10/28/2022 1:35 PM EDT Pt has been transfer over to wait list for WASTE WATER WORKER. EFFECTIVE SINCE 10/28/2022 documented in this encounter Plan of Treatment Upcoming Encounters Date Type Department Care Team (Late st Contact Info) Description 08/10/2024 1:30 PM EDT Clinical Support [facility] [address] [place] [address] 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 RN 505 [place] [address] 09/22/2024 3:00 PM EDT Office Visit [facility] ADULT DENT[facility] 505 [place] [address] Ascencion Joya documented as of this encounter Visit Diagnoses Not on filedocumented in this encounter Care Teams Space Physicist Relationship Specialty Start Date End Date Sonya Donis MD [address] [place] [address] PCP - General Family Medicine 01/18/23 [employer] THERMOSTAT MAKER Services 10/11/23 documented as of this encounter
--- OUTSIDE RECORDS SUMMARY | 2024-05-29 18:24 | XMS_ITS | Encounter Summary ---
Author Organization [employer] Address 75 [facility] 7t [place] [address] Care Team Providers Care Seasonal Customer Service Associate Name Role Phone Sonya Donis MD Primary Care Provider [phone] Reason for Visit * Reason Onset Date Comments Med Refill 02/02/2024 Encounter Details Date Type Department Care Team (Late st Contact Info) Description 02/02/[address] [facility] MEDICINE 230 [place] [address] Sonya Donis MD [address] [place], [place] [phone] Med Refill Social History Tobacco Use Types Packs/Day Years Used Date Smoking Tobacco: Some Days Cigarettes Depression Answer Date Recorded Patient Health Questionnaire-9 Score 0 10/11/2023 Patient Health Questionnaire-9 Score 0 10/11/2023 Last PHQ-9: Questionnaire Data Not on file 0 10/11/2023 Housing Stability Answer Date Recorded What is your housing situation today? I have marumendel byole 01/08/[address] you li [...] 5-325 MG tablet To be sent to: [id number] documented in this encounter Plan of Treatment Upcoming Encounters Date Type Department Care Team (Late st Contact Info) Description 08/10/2024 1:30 PM EDT Clinical Support [facility] MED & PEDS [address] [place] [address] Anupama Solomon RN 505 [place] [address] 09/22/2024 3:00 PM EDT Office Visit [facility] ADULT DENTAL [address] [place] [address] Ascencion Joya documented as of this encounter Visit Diagnoses Not on filedocumented in this encounter Additional Health Concerns Assessment Noted Time PHQ-9 Depression Total Score: 0 10/11/19 24 9:09 AM EDT documented as of this encounter Care Teams Seasonal Customer Service Associate Relationship Specialty Start Date End Date Sonya Donis MD 230 [place] [address] PCP - General Family Medicine 01/18/23 [employer] TEST EQUIPMENT MECHANIC Services 10/11/23 documented as of this encounter
--- OUTSIDE RECORDS SUMMARY | 2024-05-29 18:24 | XMS_ITS | Encounter Summary ---
Author Organization [employer] Address [address] [facility] [address] 7t [place] [address] Care Team Providers Care Communications Technologist Name Role Phone Sonya Donis MD Primary Care Provider [phone] Encounter Details Date Type Department Care Team [...] Upcoming Encounters Date Type Department Care Team ([facility] st Contact Info) Description 08/10/2024 1:30 PM EDT Clinical Support [facility] MED & PEDS [address] [place] [address] Anupama Solomon, RN 505 [place] [address] 09/22/2024 3:00 PM EDT Office Visit [facility] ADULT DENTAL [address] [place] [address] Ascencion Joya documented as of this encounter Visit Diagnoses Not on filedocumented in this encounter Additional Health Concerns Assessment Noted Time PHQ-9 Depression Total Score: 0 10/11/19 24 9:09 AM EDT documented as of this encounter Care Teams Communications Technologist Relationship Specialty Start Date End Date Sonya Donis MD 230 [place] [address] PCP - General Family Medicine 01/18/23 [employer] CLINCHING MACHINE OPERATOR Services 10/11/23 documented as of this encounter
--- OUTSIDE RECORDS SUMMARY | 2024-05-29 18:24 | XMS_ITS | Clinical Summary ---
Author Organization [employer] Address 75 [facility] 7t [place] [address] Care Team Providers Care Meter Shop Superintendent Name Role Phone Sonya Donis MD Primary Care Provider [phone] Allergies Active Allergy Reactions Criticality Noted Date [...] for nutritional changes, Pt agreed to see Classified Advertising Supervisor. Ordering lab work for Lipids recheck, to [...] Center 07/09/2023 1:00 PM Sonya Donis MD [facility] MED [facility] Assessment & Plan (01/18/2023 10:23 AM EST): -Labs: Lipid Panel. Hypothyroidism 01/18/2023 Assessment & Plan (01/18/2023 10:23 AM EST): -Labs: TSH/FT4. Encounters Date Type Department Care Team Description 05/23/2024 1:00 PM EDT Clinical Support [facility] MED & PEDS [address] [place] [address] Anupama Solomon RN Chronic left hip pain (Primary Dx); residential (current) use of opiate analgesic 05/23/2024 Travel 05/11/2024 1:30 PM EST Clinical Support [facility] MED & PEDS [address] [place] [address] Anupama Solomon RN Long-term current use of opiate analgesic 05/11/2024 Travel 05/05/2024 Refill [facility] MED & PEDS [address] [place] [address] Anupama Solomon, firer portable boiler left hip pain 05/05/2024 Telephone [facility] MEDICINE [address] [place] [phone] Sonya Donis MD Nurse Triage 05/05/2024 Telephone [facility] MEDICINE [address] [place] [address] Sonya Donis MD Med Refill 05/01/[address] [address] Georges Dean MD 04/08/2024 Refill [facility] MED & PEDS [address] [place], [place] [phone] Sonya Donis MD 04/07/2024 Refill [facility] MED & PEDS [address] [place], [place] [phone] Sonya Donis MD Chronic left hip pain 04/05/[address] [address] Georges Dean MD 04/05/2024 Telephone [facility] [address] [place] [address] CERVICAL ORDER 03/28/2024 Telephone [facility] MED & PEDS [address] [place] [address] Sonya Donis MD CRITICAL RESULT 03/24/2024 3:00 PM EST Office Visit [facility] ADULT DENTAL [address] [place], [place] [phone] Ascencion Joya Dental calculus (Primary Dx) 03/23/2024 2:30 PM EST Clinical Support [facility] MED & PEDS [address] [place], [place] [phone] Anupama Solomon, firer portable boiler neck pain with history of cervical spinal surgery 03/23/2024 Telephone [facility] MED & PEDS [address] [place], [place] [phone] Anupama Solomon, ADONAY 03/23/2024 Travel 03/20/2024 Telephone [facility] [address] [place] [phone] Sonya Donis MD 03/20/2024 Telephone [facility] MED & PEDS [address] [place], [place] [phone] Sonya Donis MD 03/07/2024 Refill [facility] MED [facility] PEDS [address] [place] [address] Sonya Donis MD Chronic left hip pain [...] Description 08/10/2024 1:30 PM EDT Clinical Support [facility] MED & PEDS 505 [place] [address] Anupama Solomon RN 505 [place] [address] 09/22/2024 3:00 PM EDT Office Visit [facility] ADULT DENTAL [address] [place] [address] Ascencion Joya Health Maintenance Due Date Last [...] DRUG SCREEN Routine 05/23/2024 1:14 PM EDT residential (current) use of opiate analgesic Chronic left [...] RN - 05/23/2024 1:14 PM EDT Lot# [id number] Exp: 10-25-25 us Sonya Donis MD POINT OF CARE TEST ENTER/EDIT ORDERABLES Final Result * (ABNORMAL) Basic Metabolic Panel (05/01/2024 10:46 AM EST) Sodium 143 135 - 145 mmol/L [facility] Potassium 4.2 3.3 - 5.1 mmol/L [facility] Chloride 110(H) 96 - 108 mmol/L [facility] Carbon Dioxide 26 22 - 29 mmol/L [facility] Anion Gap 11(L) 12 - 20 [facility] Urea Nitrogen (BUN) 18(H) 9 - 16 mg/dL [facility] Creatinine, Serum 1.15 0.5 - 1.4 mg/dL [facility] Estimated Glomerular Filt Rate >60 [facility] Comment:Chronic Kidney Disea se: Estimated GFR < 60 mL/min/1.60k4Nwfttp Kidney Disease: Estimated GFR < 15 mL/min/1.73m2 Glucose 102 60 - 115 mg/dL [facility] Calcium 9.1 8.4 - 10.2 mg/dL [facility] Blood Venous blood specimen / Unknown 05/01/2024 10:46 AM EST 05/01/2024 2:41 PM EST us Georges Dean MD LAB BLOOD ORDERABLES Final Resul t [facility] [address] [place] [address] [phone] * (ABNORMAL) Lipid Panel, Standard (01/10/2024 9:42 AM EST) Triglycerides 208(H) <150 mg/dL [facility] Comment:Desirable Triglyceri de: less than 150 mg/dLBorderline High Triglyceride 150-199 mg/dLHigh Triglyceride: 200-499 mg/dLVery High Triglyceride: greater than or equal to 5OO mg/dL Cholesterol 119 <200 mg/dL [facility] Comment:Desirable Cholestero l: less than 200 mg/dLBorderline High Cholesterol: 200-239 mg/dLHigh Cholesterol: greater than 239 mg/dL LDL Cholesterol Calculated 37 <100 mg/dL [facility] Comment:Desirable LDL: less than 100 mg/dLNear Optimal/Above Optimal LDL: 110- 129 mg/dLBorderline High LDL: 130-159 mg/dLHigh LDL: 160-189 mg/dLVery High LDL: greater than or equal to 190 mg/dL HDL Cholesterol 41 >40 mg/dL [facility] Comment:Desirable HDL: great er than 40 mg/dL Note: This HDL assay may give artificially low results in patients with liver disease. Blood Venous blood specimen / Unknown 01/10/2024 9:42 AM EST 01/10/2024 2:39 PM EST Sonya Donis MD LAB BLOOD ORDERABLES Final Re sult Performing Organization Address [facility] de Phone Number [facility] [address] [place] [phone] * Hepatitis C Ab (01/22/2023 1:05 PM EST) Hepatitis C Antibody Nonreactive Nonreactive [facility] Comment:Antibodies to HCV no t detected; does not exclude early acuteHCV infection. Blood Venous blood specimen / Unknown 01/22/2023 1:05 PM EST 01/22/2023 2:22 PM EST Sonya Donis MD LAB BLOOD ORDERABLES Final Re sult Performing Organization Address [facility] de Phone Number [facility] [address] [place] [phone] * Hm Colonoscopy (01/13/2018) Colonoscopy Normal Normal Narrative Sonya Donis MD - 01/13/2018 Normal colonoscopy, unknown why recommended repeat 5 yrs Historical Provider HEALTH MAINTENANCE Final Result from Last 3 Months or Most Recently Relevant to Health Maintenance Insurance [facility] - [facility] Care Teams Meter Shop Superintendent Relationship Specialty Start Date End Date Sonya Donis MD [address] [place] [phone] PCP - General Family Medicine 01/18/23 [employer] BARBER OR BEAUTY SHOP MANAGER Services 10/11/23
--- OUTSIDE RECORDS SUMMARY | 2024-05-29 18:25 | XMS_ITS | Encounter Summary ---
Author Organization [employer] Address 75 [facility] 7t [place] [address] Care Team Providers Care Clinical Administrator Name Role Phone Sonya Donis MD Primary Care Provider [phone] Reason for Visit * Reason Comments controlled substance treatment Encounter Details Date Type Department Care Team (Latest Contact Info) Description 05/11/2024 1:30 PM EST Clinical Support [facility] MED & PEDS [address] [place] [address] Anupama Solomon, ADONAY [address] [place], [place] Long-term current use of opiate analgesic [...] RN - 05/11/2024 1:30 PM EST S: DIRECTOR COUNCIL ON AGING NV. Patient is taking Percocet 5-325 mg [...] No questions/ concerns at this time. O: DIRECTOR COUNCIL ON AGING tier 2. GROCERY STORE CLERK checked on 05/11/24. Last refilled on 05/05/24. Pill count performed, patient has 90 pills left, 86 expected. utox performed, positive for OXY, TCA, negative for all other tested substances, as expected. A: Chronic opioid use use r/t chronic pain. P: Patient to cont. with current medication regimen as needed and take medication only as directed.Next DIRECTOR COUNCIL ON AGING NV scheduled for 08/10/24 @1:30pm. DIRECTOR COUNCIL ON AGING Agr.renewal/ bpi due at the visit. f/u sooner PRN. Reminder slip given. Patient verbalized understanding and agreed to plan. documented in this encounter Plan of Treatment Upcoming Encounters Date Type Department Care Team (Late st Contact Info) Description 08/10/2024 1:30 PM EDT Clinical Support [facility] MED & PEDS [address] [place] [address] Anupama Solomon, RN 505 [place] [address] 09/22/2024 3:00 PM EDT Office Visit [facility] ADULT DENTAL [address] [place] [address] Ascencion Joya documented as of this encounter [...] documented as of this encounter Care Teams Clinical Administrator Relationship Specialty Start Date End Date Sonya Donis MD [address] [place] [address] PCP - General Family Medicine 01/18/23 [employer] ACCOUNT CLERK Services 10/11/23 documented as of this encounter
--- OUTSIDE RECORDS SUMMARY | 2024-05-29 18:25 | XMS_ITS | Encounter Summary ---
Author Organization [employer] Address 75 [facility] 7t [place] [address] Care Team Providers Care Lab Assistant Name Role Phone Sonya Donis MD Primary Care Provider [phone] Reason for Visit * Reason Onset Date Comments Med Refill 05/05/2024 Encounter Details Date Type Department Care Team (Late st Contact Info) Description 05/05/2024 Refill [facility] & PEDS [address] [place], [place] [phone] Anupama Solomon, ADONAY [address] [place], [place] Chronic left hip pain Social History [...] Description 08/10/2024 1:30 PM EDT Clinical Support [facility] MED & PEDS [address] [place] [address] Anupama Solomon, RN [address] [place] [address] 09/22/2024 3:00 PM EDT Office Visit [facility] ADULT DENTAL [address] [place] [address] Ascencion Joya documented as of this encounter Visit Diagnoses Diagnosis Chronic left hip pain documented in this encounter Additional Health Concerns Assessment Noted Time PHQ-9 Depression Total Score: 0 10/11/19 24 9:09 AM EDT documented as of this encounter Care Teams Lab Assistant Relationship Specialty Start Date End Date Sonya Donis MD [address] [place] [address] PCP - General Family Medicine 01/18/23 [employer] WEB MARKETING ANALYST Services 10/11/23 documented as of this encounter
--- OUTSIDE RECORDS SUMMARY | 2024-05-29 18:25 | XMS_ITS | Data Portability ---
Author Organization [employer] [facility] [place] [facility] - Mobile Captain Address [address] [place] [phone] Care Team Providers Care Childcare Teacher Name Role Phone [facility] Primary Care Provider Assessment No assessment recorded. Plan of Treatment Reminders Order Date Submit Date Provider Last Modified By Organization Details Last Modified Time Details Appointments None recorded. Lab None recorded. Referral None recorded. Procedures None recorded. Surgeries None recorded. Imaging None recorded. Medication Orders fluticasone propionate 50 mcg/actuati on nasal spray,suspe nsion 2023 024 [id number], [address] [place], [place], [id number], 4 14:25:30 guaifenesin 400 mg tablet 2023 024 [facility] #[id number], [address] [place], [place], [id number], 4 14:25:29 Patient TargetsNo targets recorded. Patient InstructionsNo instructions recorded. Reason for Referral None Reported. Medical Equipment None Reported. Allergies Allergen ID Allergen Name Allergen Category Reaction Reaction Severity Criticality Documentation Date Start Date Code Code System Note Provider Name and Address Organization Details Recorded Time 7872 aspirin medicatio n Not available Not available [...] Address Organization Details Last Updated DateTime 4 54700.0 48 g 16 /min 71 /min 170.18 [...] SNOMED-CT Code Diagnosis ICD10 Code Diagnosis Note [id number] Dary Castellanos MD Main - [facility] [address] [place] [phone] 04/26/2023 14:22:55 04/27/2023 11:07:57 COVID-19 [id number] U07.1 I provided real -time medical direction via phone for this encounter, and was available for additional phone based assistance as needed. I have reviewed and agree with the Assessment and Plan as documented by the All Source Analyst. Patient given the opportunit y to ask [...] Manning Member ID Guarantor Name 04/26/2023 1 [facility] - DOS ON OR AFTER 2022 - DUAL ELIGIBLE - CORRECTION OPTIONS AND ONE CARE (MEDICARE REPLACEMENT/ADV ANTAGE - HMO) Nemo De Los Santos [id number] Nemo De Los Santos Notes Date Note Type Note Provider Name and Address Organization Details Recorded Time 04/26/2023 text/html [facility] Nurse Triage Notes (Paris Gorman): Chief Complaints: Fever/Chills, Cough Allergies: Aspirin Comments: Senegalese speaking member called in - verified name/ with fiscal services manager. Member reporting fever, cough, and throat pain for the past 3 days. Feeling unwell and fatigued. He has been taking Tylenol for body aches and fevers. SOB only r/t cough. Denies chest pain. No known sick contacts. Mikel Gorman RN Will need paper consent in Senegalese ................... ................... ................... ................... ................... ................... ................... ........ All Source Analyst Note From Karan [place]: Pt reports sore [...] ........ Disposition: Fulfilled Dary Castellanos MD [address] [facility],[address], [place], [phone], [employer] 04/26/2023 23:24:04
--- OUTSIDE RECORDS SUMMARY | 2024-05-29 18:25 | XMS_ITS | Encounter Summary ---
Author Organization [employer] Address 75 [facility] 7t [place] [address] Care Team Providers Care Continuous Wave Operator Name Role Phone Sonya Donis MD Primary Care Provider [phone] Reason for Visit * Reason Onset Date Comments Nurse Triage 05/05/2024 Encounter Details Date Type Department Care Team (Late st Contact Info) Description 05/05/2024 Telephone [facility] MEDICINE [address] [place] [address] Sonya Donis MD [address] [place], [place] [phone] Nurse Triage Social History Tobacco Use Types [...] pt to triage, spoke to pt through [employer] Implant Polisher. 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 pt states has had outbreaks before and requesting somemedication. pt states rash/blisters are already drying up and healing but wants to talk to a provider about what to do and prevention. given appt today with [facility] provider at 1:45 for exam and [...] Symptoms * Cold Sore - Treatment With [facility] (Docosanol Cream) * Cold Sore - [...] questions The caller accepted this outcome. ( Bengali speaker) documented in this encounter Plan of Treatment Upcoming Encounters Date Type Department Care Team (Late st Contact Info) Description 08/10/2024 1:30 PM EDT Clinical Support [facility] MED & PEDS [address] [place] [address] Anupama Solomon, ADONAY [address] [place] [address] 09/22/2024 3:00 PM EDT Office Visit [facility] ADULT DENTAL [address] [place] [address] Ascencion Joya documented as of this encounter Visit Diagnoses Not on filedocumented in this encounter Additional Health Concerns Assessment Noted Time PHQ-9 Depression Total Score: 0 10/11/19 24 9:09 AM EDT documented as of this encounter Care Teams Continuous Wave Operator Relationship Specialty Start Date End Date Sonya Donis MD [address] [place] [address] PCP - General Family Medicine 01/18/23 [employer] CIRCUIT BOARD REPAIR TECHNICIAN Services 10/11/23 documented as of this encounter
--- OUTSIDE RECORDS SUMMARY | 2024-05-29 18:25 | XMS_ITS | Encounter Summary ---
Author Organization [employer] Address 75 [facility] 7t [place] [address] Care Team Providers Care Configurator Name Role Phone Sonya Donis MD Primary Care Provider [phone] Encounter Details Date Type Department Care Team (Late st Contact Info) Description 05/01/2024 Telephone [facility] MEDICINE 230 [place], [place] [phone] Georges Dean MD [address] [place], [place] [phone] Social History Tobacco Use Types Packs/Day Years [...] TC x 2 placed to pt via [employer] counseling center director (Chris ID#[id number]) to inform of below provider message. RN [...] [facility] PED[facility] [address] [place] [address] Anupama Solomon RN [address] [place] [address] 09/22/2024 3:00 PM EDT Office Visit [facility] ADULT DENTAL [address] [place] [address] Ascencion Joya documented as of this encounter Visit Diagnoses Not on filedocumented in this encounter Additional Health Concerns Assessment Noted Time PHQ-9 Depression Total Score: 0 10/11/19 9:09 AM EDT documented as of this encounter Care Teams Configurator Relationship Specialty Start Date End Date Sonya Donis MD [address] [place] [address] PCP - General Family Medicine 01/18/23 [employer] PUNCHER Services 10/11/23 documented as of this encounter
--- OUTSIDE RECORDS SUMMARY | 2024-05-29 18:25 | XMS_ITS | Encounter Summary ---
Author Organization [employer] Address [address] [facility] 7t [place] [address] Care Team Providers Care Loan Reviewer Name Role Phone Sonya Donis MD Primary Care Provider [phone] Reason for Visit * Reason Onset Date Comments Med Refill 05/05/2024 Encounter Details Date Type Department Care Team (Late st Contact Info) Description 05/05/2024 Telephone [facility] MEDICINE [address] [place] [address] Sonya Donis MD [address] [place], [place] [phone] Med Refill Social History Tobacco Use Types [...] [facility] [address] [place] [address] Anupama Solomon RN 505 [place] [address] 09/22/2024 3:00 PM EDT Office Visit [facility] ADULT DENTAL [address] [place] [address] Ascencion Joya documented as of this encounter Visit Diagnoses Not on filedocumented in this encounter Additional Health Concerns Assessment Noted Time PHQ-9 Depression Total Score: 0 10/11/19 24 9:09 AM EDT documented as of this encounter Care Teams Loan Reviewer Relationship Specialty Start Date End Date Sonya Donis MD [address] [place] [address] PCP - General Family Medicine 01/18/23 [employer] VENEER JOINTER RETURNER Services 10/11/23 documented as of this encounter
--- OUTSIDE RECORDS SUMMARY | 2024-05-29 18:25 | XMS_ITS | Encounter Summary ---
Author Organization [employer] Address [address] [facility] [address] 7t [place] [address] Care Team Providers Care Application Development Specialist Name Role Phone Sonya Donis MD Primary Care Provider [phone] Encounter Details Date Type Department Care Team [...] Upcoming Encounters Date Type Department Care Team ([facility] st Contact Info) Description 08/10/2024 1:30 PM EDT Clinical Support [facility] MED & PEDS 505 [place] [address] Anupama Solomon, RN [address] [place] [address] 09/22/2024 3:00 PM EDT Office Visit [facility] ADULT DENTAL [address] [place] [address] Ascencion Joya documented as of this encounter Visit Diagnoses Not on filedocumented in this encounter Additional Health Concerns Assessment Noted Time PHQ-9 Depression Total Score: 0 10/11/19 24 9:09 AM EDT documented as of this encounter Care Teams Application Development Specialist Relationship Specialty Start Date End Date Sonya Donis MD [address] [place] [address] PCP - General Family Medicine 01/18/23 [employer] HUMAN RESOURCES RECEPTIONIST Services 10/11/23 documented as of this encounter
== END 2024-05-29 15:37 | disposition home or self-care (01) ==
LOC: HO.CT 15:36
PROVIDERS: PCP Family Medicine; Visit Provider Family Medicine
DX: R22.1 Localized swelling, mass and lump, neck (principal)
CPT/HCPCS: 70491; Q9967

== ENCOUNTER → 2024-05-29 15:39 | Outpatient (BNV) | payer OTHER, SELFPAY | PROVIDERS: PCP Family Medicine; Visit Provider Nuclear Medicine | DX: R59.0 Localized enlarged lymph nodes (principal) | CPT/HCPCS: 70491 ==

== ENCOUNTER 2024-06-22 06:15 | Outpatient (REF) | payer OTHER, SELFPAY ==
--- NOTE | ~2024-06-22 | FL_ITS ---
EXAMINATION: FL GUIDANCE ONLY HISTORY: M48.02 - Spinal stenosis, cervical region COMPARISON: None available. TECHNIQUE: Fluoroscopy time: 0.6 minutes. Cumulative Dose: 4.69 mGy. DAP: 0.0250 mGym2 Images: 3. FINDINGS: Images demonstrate a needle in the right neck. FL/FL guidance in treatment room IMPRESSION: Fluoroscopy during procedure. Please see procedure report for additional information. Electronically signed by: Acosta Norman MD 06/22/2024 02:48 PM EDT
--- OUTSIDE RECORDS SUMMARY | 2024-06-22 06:18 | XMS_ITS | Encounter Summary ---
Author Organization [employer] Address [address] [facility] 7t [place] [address] Care Team Providers Care Risk Management Consultant Name Role Phone Sonya Donis MD Primary Care Provider [phone] Reason for Visit * Reason Onset Date Comments New Patient 10/28/2022 Encounter Details Date Type Department Care Team (Late st Contact Info) Description 10/28/2022 Telephone [facility] MEDICINE [address] [place], [place] [phone] Dony Bhagat MD [address] [place], [place] [phone] New Patient Social History Tobacco Use Types [...] EDT BIJAN Brown called pt to Offer SEAM FINISHER appt. Pt demographics and insurance information were verified. Pt states following medical conditions: thyroid, Cholesterol, Arthritis, Needs Hip replacement, and High blood pressure. Pt reports taking medications: No Pt given SEAM FINISHER appt with Dr. Donis on 01/18/2023 @ 9:30 am. Pt will be sent appt reminder card and medical release form and agrees to complete and to return to medical records prior to SEAM FINISHER appt. * Telephone Encounter - Gayatri Chaudhary - 10/28/2022 1:35 PM EDT Pt has been transfer over to wait list for SEAM FINISHER. EFFECTIVE SINCE 10/28/2022 documented in this encounter Plan of Treatment Upcoming Encounters Date Type Department Care Team (Late st Contact Info) Description 08/10/2024 1:30 PM EDT Clinical Support [facility] MED & PEDS [address] [place] [address] Anupama Solomon RN 505 [place] [address] 09/22/2024 3:00 PM EDT Office Visit [facility] ADULT DENTAL 505 [place] [address] Ascencion Joya documented as of this encounter Visit Diagnoses Not on filedocumented in this encounter Care Teams Risk Management Consultant Relationship Specialty Start Date End Date Sonya Donis MD [address] [place] [address] PCP - General Family Medicine 01/18/23 [employer] INTERNSHIP Services 10/11/23 documented as of this encounter
--- OUTSIDE RECORDS SUMMARY | 2024-06-22 06:18 | XMS_ITS | Encounter Summary ---
Author Organization [employer] Address [address] [facility] 7t [place] [address] Care Team Providers Care Traffic Enumerator Name Role Phone Sonya Donis MD Primary Care Provider [phone] Reason for Visit * Reason Onset Date Comments Med Refill 11/11/2023 Encounter Details Date Type Department Care Team (Late st Contact Info) Description 11/11/2023 Telephone [facility] MEDICINE [address] [place] [address] Sonya Donis MD [address] [place], [place] [phone] Med Refill Social History Tobacco Use Types [...] 5-325 MG tablet To be sent to: [facility] #[id number] AT [facility] documented in this encounter Plan of Treatment Upcoming Encounters Date Type Department Care Team ([facility] st Contact Info) Description 08/10/2024 1:30 PM EDT Clinical Support [facility] MED & PEDS 505 [place] [address] Anupama Solomon RN 505 [place] [address] 09/22/2024 3:00 PM EDT Office Visit [facility] ADULT DENTAL [address] [place] [address] Ascencion Joya documented as of this encounter Visit Diagnoses Not on filedocumented in this encounter Additional Health Concerns Assessment Noted Time PHQ-9 Depression Total Score: 0 10/11/19 24 9:09 AM EDT documented as of this encounter Care Teams Traffic Enumerator Relationship Specialty Start Date End Date Sonya Donis MD [address] [place] [address] PCP - General Family Medicine 01/18/23 [employer] SCIENTIST Services 10/11/23 documented as of this encounter
--- OUTSIDE RECORDS SUMMARY | 2024-06-22 06:18 | XMS_ITS | Encounter Summary ---
Author Organization [employer] Address [address] [facility] 7t [place] [address] Care Team Providers Care Biomedical Engineering Professor Name Role Phone Sonya Donis MD Primary Care Provider [phone] Reason for Visit * Reason Onset Date Comments Med Refill 01/07/2024 Encounter Details Date Type Department Care Team (Late st Contact Info) Description 01/07/2024 Telephone [facility] MEDICINE 230 [place] [address] Sonya Donis MD [address] [place], [place] [phone] Med Refill Social History Tobacco Use Types [...] 5-325 MG tablet To be sent to: [facility] [place] [facility][id number] documented in this encounter Plan of Treatment Upcoming Encounters Date Type Department Care Team (Late st Contact Info) Description 08/10/2024 1:30 PM EDT Clinical Support [facility] MED & PEDS [address] [place] [address] Anupama Solomon RN 505 [place] [address] 09/22/2024 3:00 PM EDT Office Visit [facility] ADULT DENTAL 505 [place] [address] Ascencion Joya documented as of this encounter Visit Diagnoses Not on filedocumented in this encounter Additional Health Concerns Assessment Noted Time PHQ-9 Depression Total Score: 0 10/11/19 24 9:09 AM EDT documented as of this encounter Care Teams Biomedical Engineering Professor Relationship Specialty Start Date End Date Sonya Donis MD [address] [place] [address] PCP - General Family Medicine 01/18/23 [employer] VENDING MACHINE TECHNICIAN Services 10/11/23 documented as of this encounter
--- OUTSIDE RECORDS SUMMARY | 2024-06-22 06:18 | XMS_ITS | Encounter Summary ---
Author Organization [employer] Address [address] [facility] 7t [place] [address] Care Team Providers Care Fixing Carpenter Name Role Phone Sonya Donis MD Primary Care Provider [phone] Reason for Visit * Reason Onset Date Comments Med Refill 02/02/2024 Encounter Details Date Type Department Care Team (Late st Contact Info) Description 02/02/2024 Telephone [facility] MEDICINE 230 [place] [address] Sonya Donis MD [address] [place], [place] [phone] Med Refill Social History Tobacco Use Types [...] 5-325 MG tablet To be sent to: [facility] #[id number] documented in this encounter Plan of Treatment Upcoming Encounters Date Type Department Care Team (Late st Contact Info) Description 08/10/2024 1:30 PM EDT Clinical Support [facility] MED & PEDS 505 [place] [address] Anupama Solomon RN [address] [place] [address] 09/22/2024 3:00 PM EDT Office Visit [facility] ADULT DENTAL 505 [place] [address] Ascencion Joya documented as of this encounter Visit Diagnoses Not on filedocumented in this encounter Additional Health Concerns Assessment Noted Time PHQ-9 Depression Total Score: 0 10/11/19 24 9:09 AM EDT documented as of this encounter Care Teams Fixing Carpenter Relationship Specialty Start Date End Date Sonya Donis MD [address] [place] [address] PCP - General Family Medicine 01/18/23 [employer] SILK TRIMMER Services 10/11/23 documented as of this encounter
--- OUTSIDE RECORDS SUMMARY | 2024-06-22 06:18 | XMS_ITS | Encounter Summary ---
Author Organization [employer] Address [address] [facility] 7t [place] [address] Care Team Providers Care Battery Tester And Repairer Name Role Phone Sonya Donis MD Primary Care Provider [phone] Reason for Visit * Reason Onset Date Comments Med Refill 09/08/2023 Encounter Details Date Type Department Care Team ([facility] st Contact Info) Description 09/08/2023 Telephone [facility] MED & PEDS [address] [place] [address] Sonya Donis MD 505 [place] [address] Med Refill Social History Tobacco Use Types [...] 2:59 PM EDT Medication was sent to [facility] #[id number] on 07/09/23 with 2 refills. * Telephone Encounter - Marcy Mohan - 09/08/2023 1:12 PM EDT TC from pt requesting medication refill. Medications needing refill : cyclobenzaprine (Flexeril) 10 MG tablet To be sent to: [facility] #[id number] - [place] [address] AT [facility] documented in this encounter Plan of Treatment Upcoming Encounters Date Type Department Care Team ([facility] Contact Info) Description 08/10/2024 1:30 PM EDT Clinical Support [facility] MED & PEDS 505 [facility] [place] [address] Anupama Solomon RN 505 [facility] [address] 09/22/2024 3:00 PM EDT Office Visit [facility] ADULT DENTAL 505 [facility] [place] [address] Ascencion Joya documented as of this encounter Visit Diagnoses Not on filedocumented in this encounter Additional Health Concerns Assessment Noted Time PHQ-9 Depression Total Score: 9 03/11/19 11:12 AM EST documented as of this encounter Care Teams Battery Tester And Repairer Relationship Specialty Start Date End Date Sonya Donis MD [address] [place] [address] PCP - General Family Medicine 01/18/23 [employer] DOUBLE END TENONER SETTER Services 10/11/23 documented as of this encounter
--- OUTSIDE RECORDS SUMMARY | 2024-06-22 06:18 | XMS_ITS | Clinical Summary ---
Author Organization [employer] Address 75 [facility] 7t [place] [address] Care Team Providers Care Microstrategy Architect Developer Name Role Phone Sonya Donis MD Primary Care Provider [phone] Allergies Active Allergy Reactions Criticality Noted Date [...] if needed for severe pain. 112 tablet 06/06/19 25 Active oxyCODONE-acet aminophen (Percocet) 5-325 MG tabletIndicati ons:Chronic left hip pain Take 1 tablet by mouth every 6 (six) hours if needed for severe pain. 112 tablet 05/05/19 25 025 Discontinued(Re order (will not trigger [...] for nutritional changes, Pt agreed to see Substance Abuse Counselor. Ordering lab work for Lipids recheck, to [...] 1:00 PM Sonya Donis MD [facility] Assessment & Plan (01/18/2023 10:23 AM EST): -Labs: Lipid Panel. Hypothyroidism 01/18/2023 Assessment & Plan (01/18/2023 10:23 AM EST): -Labs: TSH/FT4. Encounters Date Type Department Care Team Description 06/05/2024 Refill [facility] MED & PEDS [address] [place] [address] Sonya oDnis MD Chronic left hip pain 06/01/2024 Telephone [facility] MED & PEDS [address] [place] [address] Georges Dean MD Results; Referral 06/01/2024 Telephone [facility] MEDICINE [address] [place] [address] Georges Dean MD 05/23/2024 1:00 PM EDT Clinical Support [facility] MED & PEDS [address] [place] [address] Anupama Solomon RN Chronic left hip pain (Primary Dx); [facility] (current) use of opiate analgesic 05/23/2024 Travel 05/11/2024 1:30 PM EST Clinical Support [facility] MED & PEDS [address] [place] [address] Anupama Solomon, RN Long-term current use of opiate analgesic 05/11/2024 Travel 05/05/2024 Refill [facility] MED & PEDS [address] [place] [address] Anupama Solomon RN Chronic left hip pain 05/05/[address] [address] Sonya Donis MD Nurse Triage 05/05/[address] [address] Sonya Donis MD Med Refill 05/01/[address] [address] Georges Dean MD 04/08/2024 Refill [facility] MED & PEDS [address] [place] [address] Sonya Donis MD 04/07/2024 Refill [facility] MED & PEDS [address] [place] [address] Sonya Donis MD Chronic left hip pain 04/05/[address] [address] Georges Dean MD 04/05/2024 [facility] Health Information Management [address] [place] [address] [address] CERVICAL ORDER 03/28/2024 Telephone [facility] MED & PEDS [address] [place] [address] Sonya Donis MD CRITICAL RESULT 03/24/2024 3:00 PM EST Office Visit [facility] ADULT DENTAL [address] [place] [address] Ascencion Joya Dental calculus (Primary Dx) from Last 3 Months Immunizations Name Administration [...] 1:30 PM EDT Clinical Support [facility] MED & PEDS [address] [place] [address] Anupama Solomon RN 505 [place] [address] 09/22/2024 3:00 PM EDT Office Visit [facility] ADULT DENTAL [address] [place] [address] Ascencion Joya Health Maintenance Due Date Last [...] Mouth 09/21/2026 09/21/2023 Lipid Panel 01/09/2029 01/10/2024, 07/3 , 06/22/2023, Additional history exists RSV Patients and [...] Procedure Name Priority Date/Time Associated Diagnosis Comments CT SOFT TISSUE NECK W CONTRAST Routine 05/30/2024 2:04 PM EDT Neck mass POCT RHEA-14 URINE DRUG SCREEN Routine 05/23/2024 1:14 PM EDT [facility] (current) use of opiate analgesic Chronic left [...] ADULT Routine 03/24/2024 3 :00 PM EST LIPID PANEL, STANDARD Routine 01/10/2024 9:42 AM [...] Recently Relevant to Health Maintenance Results * CT Soft Tissue Neck w/ Contrast (05/30/2024 2:04 PM EDT) Anatomical Region Laterality Modality Head, Neck Computed Tomogra phy 05/30/2024 2:04 PM EDT Narrative 05/30/2024 2:05 PM EDT ? [facility] ?[address] ?[place] [address] ? CT Scan Report ? Signed ? Patient: Cameron De Los Santos,Amandaio ?MR#: ?? [id number] ? : 1955 ?Acct:[id number] ? Age/Sex: 68 / M ?ADM Date: 05/29/24 ? Loc: HO.CT ? Attending Dr: Sonya Donis MD ? Ordering Physician: Georges Dean MD ?? Date of Service: 05/29/24 ?? Procedure(s): CT soft tissue neck w IV con ?? Accession Number(s): [id number] ? cc: Georges Dean MD; Sonya Donis MD ? Report Number: ?? [id number]: Total DLP = ??352.00 mGy-cm ? CLINICAL HISTORY: Localized enlarged lymph nodes ? CT soft tissue neck with contrast ? Comparison: None ? Findings: ?? The visualized intracranial contents are unremarkable. ?? Pharyngeal mucosal space, parapharyngeal fat, prevertebral tissues, and ?? epiglottis are within normal limits. ?? Salivary glands are unremarkable. No sialoliths. ?? Thyroid gland is unremarkable. ?? 1.2 x 1.5 x 2.2 cm left level 2A lymph node. ? Visualized lung apices are clear. ?? No acute fracture or dislocation. ? IMPRESSION: ?? Enlarged left level 2A lymph node. ? This document has been electronically signed by: Karla Singh MD on ?? 05/30/2024 14:04:09 ? Dictated By: ?Karla Singh MD ? Signed By: ?<Electronically signed by Karla Singh MD in OV> ? 05/30/241403 ? DD/ 03 ? TD/TT: 05/30/24 1404 ? Radioisotope Technician: ? Procedure Note Donotgwendolyninterpreter, Image - 05/30/[address] [address] [address] Scan Report Signed Patient: Nemo AmezquitaMR#: [id number] : 1955cct:[id number] Age/Sex: 68 / MADM Date: 05/29/24 Loc: HO.CT Attending Dr: Sonya Donis MD Ordering Physician: Georges Dean MD Date of Service: 05/29/24 Procedure(s): CT soft tissue neck w IV con Accession Number(s): [id number] cc: Georges Dean MD; Sonya Donis MD Report Number: [id number]: Total DLP = 352.00 mGy-cm CLINICAL HISTORY: Localized enlarged lymph nodes CT soft tissue neck with contrast Comparison: None Findings: The visualized intracranial contents are unremarkable. Pharyngeal mucosal space, parapharyngeal fat, prevertebral tissues, and epiglottis are within normal limits. Salivary glands are unremarkable. No sialoliths. Thyroid gland is unremarkable. 1.2 x 1.5 x 2.2 cm left level 2A lymph node. Visualized lung apices are clear. No acute fracture or dislocation. IMPRESSION: Enlarged left level 2A lymph node. This document has been electronically signed by: Karla Singh MD on 05/30/2024 14:04:09 Dictated By: Karla Singh MD Signed By: <Electronically signed by Karla Singh MD in OV> 05/30/241403 DD/ 03 TD/TT: 05/30/241403 Radioisotope Technician: Georges Dean MD IMG CT PROCEDURES Edited Result - Final * POCT RHEA-14 Urine Drug Screen (05/23/2024 1:14 PM EDT) Only the most recent of2 resultswithin the time period is included. Oxycodone Screen, Urine Positive Urine Urine specimen obtained by clean catch procedure / Unknown 05/23/2024 1:14 PM EDT Narrative Anupama Solomon RN - 05/23/2024 1:14 PM EDT Lot# [id number] Exp: 10-25-25 us Sonya Donis MD POINT OF CARE TEST ENTER/EDIT ORDERABLES Final Result * (ABNORMAL) Basic Metabolic Panel (05/01/2024 10:46 AM EST) Sodium 143 135 - 145 mmol/L [facility] Potassium 4.2 3.3 - 5.1 mmol/L [facility] Chloride 110(H) 96 - 108 mmol/L [facility] Carbon Dioxide 26 22 - 29 mmol/L [facility] Anion Gap 11(L) 12 - 20 [facility] Urea Nitrogen (BUN) 18(H) 9 - 16 mg/dL [facility] Creatinine, Serum 1.15 0.5 - 1.4 mg/dL [facility] Estimated Glomerular Filt Rate >60 [facility] Comment:Chronic Kidney Disea se: Estimated GFR < 60 mL/min/1.44n3Wffzye Kidney Disease: Estimated GFR < 15 mL/min/1.73m2 Glucose 102 60 - 115 mg/dL [facility] Calcium 9.1 8.4 - 10.2 mg/dL [facility] Blood Venous blood specimen / Unknown 05/01/2024 10:46 AM EST 05/01/2024 2:41 PM EST Georges Dean MD LAB BLOOD ORDERABLES Final Resul t [facility] [address] [place] [phone] * (ABNORMAL) Lipid Panel, Standard (01/10/2024 9:42 AM EST) Triglycerides 208(H) <150 mg/dL [facility] Comment:Desirable Triglyceri de: less than 150 mg/dLBorderline High Triglyceride 150-199 mg/dLHigh Triglyceride: 200-499 mg/dLVery High Triglyceride: greater than or equal to 5OO mg/dL Cholesterol 119 <200 mg/dL [facility] Comment:Desirable Cholestero l: less than 200 mg/dLBorderline High Cholesterol: 200-239 mg/dLHigh Cholesterol: greater than 239 mg/dL LDL Cholesterol Calculated 37 <100 mg/dL [facility] Comment:Desirable LDL: less than 100 mg/dLNear Optimal/Above Optimal LDL: 110- 129 mg/dLBorderline High LDL: 130-159 mg/dLHigh LDL: 160-189 mg/dLVery High LDL: greater than or equal to 190 mg/dL HDL Cholesterol 41 >40 mg/dL [facility] Comment:Desirable HDL: great er than 40 mg/dL Note: This HDL assay may give artificially low results in patients with liver disease. Blood Venous blood specimen / Unknown 01/10/2024 9:42 AM EST 01/10/2024 2:39 PM EST us Sonya Donis MD LAB BLOOD ORDERABLES Final Re sult Performing Organization Address [facility]/ZIP Co de Phone Number [facility] [address] [place] [phone] * Hepatitis C Ab (01/22/2023 1:05 PM EST) Hepatitis C Antibody Nonreactive Nonreactive [facility] Comment:Antibodies to HCV no t detected; does not exclude early acuteHCV infection. Blood Venous blood specimen / Unknown 01/22/2023 1:05 PM EST 01/22/2023 2:22 PM EST us Sonya Donis MD LAB BLOOD ORDERABLES Final Re sult [facility] [address] [place] [address] [phone] * Colonoscopy (01/13/2018) Colonoscopy Normal Normal Narrative Sonya Donis MD - 01/13/2018 Normal colonoscopy, unknown why recommended repeat 5 yrs us Historical Provider MD HEALTH MAINTENANCE Final Result from Last 3 Months or Most Recently Relevant to Health Maintenance Insurance [facility] DENTAL - [facility] Care Teams Microstrategy Architect Developer Relationship Specialty Start Date End Date Sonya Donis MD [address] [place] [address] PCP - General Family Medicine 01/18/23 [employer] RESEARCH TECHNOLOGIST Services 10/11/23
--- OUTSIDE RECORDS SUMMARY | 2024-06-22 06:18 | XMS_ITS | Data Portability ---
Author Organization [facility], [place] [facility] [employer] Address [address] [place] [phone] Care Team Providers Care Welding Machine Operator Plasma Arc Name Role Phone [facility] Primary Care Provider Assessment No assessment recorded. Plan of Treatment Reminders Order Date Submit Date Provider Last Modified By Organization Details Last Modified Time Details Appointments None recorded. Lab None recorded. Referral None recorded. Procedures None recorded. Surgeries None recorded. Imaging None recorded. Medication Orders fluticasone propionate 50 mcg/actuati on nasal spray,suspe nsion 2023 024 [facility] #[id number], [address], [place], [id number], 4 14:25:30 guaifenesin 400 mg tablet 2023 024 [facility] #[id number], [address], [place], [id number], 4 14:25:29 Patient TargetsNo targets recorded. Patient InstructionsNo instructions recorded. Reason for Referral None Reported. Medical Equipment None Reported. Allergies Allergen ID Allergen Name Allergen Category Reaction Reaction Severity Criticality Documentation Date Start Date Code Code System Note Provider Name and Address Organization Details Recorded Time 4338 aspirin medicatio n Not available Not available [...] Address Organization Details Last Updated DateTime 4 86215.0 48 g 16 /min 71 /min 170.18 [...] SNOMED-CT Code Diagnosis ICD10 Code Diagnosis Note [id number] Dary Castellanos MD Main - [facility] [address] [place] [phone] 04/26/2023 14:22:55 04/27/2023 11:07:57 COVID-19 [id number] U07.1 I provided real -time medical direction via phone for this encounter, and was available for additional phone based assistance as needed. I have reviewed and agree with the Assessment and Plan as documented by the Pacs Specialist. Patient given the opportunit y to ask [...] Manning Member ID Guarantor Name 04/26/[address] [facility] - DOS ON OR AFTER 2022 - DUAL ELIGIBLE - ASSISTED OPTIONS AND ONE CARE (MEDICARE REPLACEMENT/ADV ANTAGE - HMO) [facility] [id number] [facility] Notes Date Note Type Note Provider Name and Address Organization Details Recorded Time 04/26/2023 text/html CRC Nurse Triage Notes (Paris Gorman): Chief Complaints: Fever/Chills, Cough Allergies: Aspirin Comments: Bangladeshi speaking member called in - verified name/ with surgeon assistant. Member reporting fever, cough, and throat pain for the past 3 days. Feeling unwell and fatigued. He has been taking Tylenol for body aches and fevers. SOB only r/t cough. Denies chest pain. No known sick contacts. Mikel Gorman RN Will need paper consent in Bangladeshi ................... ................... ................... ................... ................... ................... ................... ........ Pacs Specialist Note From Karan Hardin: Pt reports sore [...] Fulfilled Dary Castellanos MD [address] [facility],[address], [place], [phone], [employer] 04/26/2023 23:24:04
== END 2024-06-22 06:16 | disposition home or self-care (01) ==
LOC: CF 06:15
PROVIDERS: Visit Provider Internal Medicine
DX: M48.02 Spinal stenosis, cervical region (principal); M54.12 Radiculopathy, cervical region
CPT/HCPCS: 62321; J1100; J2003; Q9967

== ENCOUNTER 2024-06-22 10:54 | Outpatient (AMB) | payer OTHER, SELFPAY ==
[2024-06-22 11:03] VITALS: BP 115/71; PULSE 67; RESP 16; O2SAT 97
--- NOTE | 2024-06-22 11:03 | A.OFFVIS_ITS ---
Vital Signs 06/22/24 11:03 06/22/24 11:59 BP 115/71 136/76 Blood Pressure Location Lt brachial Lt brachial Position Sitting Sitting Respiration 16 16 Pulse 67 86 Pulse Source Pulse Oximeter Pulse Oximeter Pulse Oximetry (%) 97 96 Oxygen Delivery Method Room Air Room Air Intake Visit Reasons: C5, C6 INTERLAMINAR TEZ Tax Professional Required: Yes Tax Professional Services: Tax Professional Present Tax Professional Name: Haydee [id number] Allergies aspirin Allergy (Unknown, Verified 06/22/24 11:04) UNKNOWN shellfish derived Allergy (Unknown, Verified 06/22/24 11:04) Unknown Medication List - Last Reconciled 06/22/24 by Kimberly Arguelles LPN bisacodyl (Dulcolax (bisacodyl)) 10 mg (2 x 5 mg) PO BEDTIME 2 days gabapentin 300 mg PO TID 30 days oxycodone-acetaminophen 5-325 mg 1 tab PO BID PRN rosuvastatin 40 mg PO DAILY HPI HPI C5, C6 INTERLAMINAR TEZ: Details: Patient presents for scheduled procedure. Denies any recent cough, cold, infection, fever or other significant changes in medical history since last office visit. ON LICENSE OF [facility] Medical History Pre-diabetes High cholesterol HTN (hypertension), benign Hypothyroid Surgical History H/O colonoscopy S/P urethral surgery History of orthopedic surgery Social History Alcohol intake: current Alcohol intake frequency: holidays/special occasions only Alcohol type: beer Tobacco use type: Cigarette Physical Exam Vital Signs: Last Vital Signs Pulse 86 06/22/24 11:59 Resp 16 06/22/24 11:59 BP 136/76 06/22/24 11:59 Pulse Ox 96 06/22/24 11:59 Oxygen Delivery Method Room Air 06/22/24 11:59 Office Procedures AMB Joint Injection/Aspiration Joint Injection/Aspiration Details: Interlaminar epidural steroid injection, C5-6, right parasaggital After obtaining written consent, pre-procedure blood pressure and heart rate were stable and recorded in the nursing record. The patient was placed in the prone position. The cervicothoracic area was widely prepped with chloraprep and draped in sterile fashion. Fluoroscopic guidance was used to identify the desired interlaminar space and for needle placement. Subcutaneous 0.5% lidocaine was used to anesthetize the skin overlying the target. A 20-gauge Ambrose needle was advanced to the epidural space using loss of resistance to saline technique under fluoroscopic AP and contralateral oblique views. There was no evidence of heme or CSF and no paresthesias were elicited with needle placement. Confirmation of epidural needle placement was performed with 1cc of omnipaque 180. Next 3 ml 0.5% lidocaine mixed with dexamethasone 10 mg was administered epidurally with no pain elicited on injection. The needle was restyleted and removed, skin cleansed and a sterile bandage was applied. The patient tolerated the procedure well and no complications were encountered. Following the procedure the patient's vital signs were stable. The patient was discharged home in good condition with post-procedural instructions. Time Out: Immediately prior to the procedure, the following was verbally confirmed that there is a signed consent form and that the correct patient, planned procedure, site and side are consistent with documentation and that necessary equipment and/or blood products are available prior to the start of the case. Complications: none EBL: <2 cc Coding 78241 - Cervical Epidural/Interlaminar with fluoroscopy Procedure code (CPT) selection complete Assessment & Plan Assessment & Plan (1) Cervical radicular pain: Code(s): M54.12 - Radiculopathy, cervical region Category: Medical Plan Patient is status post right parasagittal interlaminar C5-C6 TEZ. Patient tolerated procedure well and was discharged home in stable condition with discharge instructions. All questions were answered. We will follow-up via telephone or in clinic to assess response to therapy. A follow-up appointment was made during today's visit. Orders: Orders FL guidance in treatment room Today M48.02 - Spinal stenosis, cervical region Coding Level of Care Code Procedure Only Diagnoses Cervical radicular pain M54.12 CPT Codes Coding - Joint 10: 25954 - Cervical Epidural/Interlaminar with fluoroscopy ([id number])
[2024-06-22 11:59] VITALS: BP 136/76; PULSE 86; RESP 16; O2SAT 96
--- OUTSIDE RECORDS SUMMARY | 2024-06-22 13:17 | XMS_ITS | Encounter Summary ---
Author Organization [employer] Address [address] [facility] 7t [place] [address] Care Team Providers Care Billing Manager Name Role Phone Sonya Donis MD Primary Care Provider [phone] Reason for Visit * Reason Onset Date Comments Med Refill 11/11/2023 Encounter Details Date Type Department Care Team (Late st Contact Info) Description 11/11/2023 Telephone [facility] MEDICINE [address] [place] [address] Sonya Donis MD [address] [place], [place] [phone] Med Refill Social History Tobacco Use Types [...] 5-325 MG tablet To be sent to: [facility] #[id number] AT [facility] documented in this encounter Plan of Treatment Upcoming Encounters Date Type Department Care Team ([facility] st Contact Info) Description 08/10/2024 1:30 PM EDT Clinical Support [facility] MED & PEDS [address] [place] [address] Anupama Solomon RN [address] [place] [address] 09/22/2024 3:00 PM EDT Office Visit [facility] ADULT DENTAL [address] [place] [address] Ascencion Joya documented as of this encounter Visit Diagnoses Not on filedocumented in this encounter Additional Health Concerns Assessment Noted Time PHQ-9 Depression Total Score: 0 10/11/19 24 9:09 AM EDT documented as of this encounter Care Teams Billing Manager Relationship Specialty Start Date End Date Sonya Donis MD [address] [place] [id number] PCP - General Family Medicine 01/18/23 [employer] [facility] SCR[employer] COACH Services 10/11/23 documented as of this encounter
--- OUTSIDE RECORDS SUMMARY | 2024-06-22 13:17 | XMS_ITS | Encounter Summary ---
Author Organization [employer] Address [address] [facility] 7[address] [place] [address] Care Team Providers Care Pet Feeder Name Role Phone Sonya Donis MD Primary Care Provider [phone] Reason for Visit * Reason Onset Date Comments Med Refill 02/02/2024 Encounter Details Date Type Department Care Team (Late st Contact Info) Description 02/02/2024 Telephone [facility] MEDICINE [address] [place] [address] Sonya Donis MD [address] [place], [place] [phone] Med Refill Social History Tobacco Use Types [...] 5-325 MG tablet To be sent to: [facility] #[id number] documented in this encounter Plan of Treatment Upcoming Encounters Date Type Department Care Team (Late st Contact Info) Description 08/10/2024 1:30 PM EDT Clinical Support [facility] MED & PEDS [address] [place] [address] Anupama Solomon RN [address] [place] [address] 09/22/2024 3:00 PM EDT Office Visit [facility] ADULT DENTAL [address] [place] [address] Ascencion Joya documented as of this encounter Visit Diagnoses Not on filedocumented in this encounter Additional Health Concerns Assessment Noted Time PHQ-9 Depression Total Score: 0 10/11/19 24 9:09 AM EDT documented as of this encounter Care Teams Pet Feeder Relationship Specialty Start Date End Date Sonya Donis MD [address] [place] [address] PCP - General Family Medicine 01/18/23 [employer] KNIFE BLADE POLISHER Services 10/11/23 documented as of this encounter
--- OUTSIDE RECORDS SUMMARY | 2024-06-22 13:17 | XMS_ITS | Encounter Summary ---
Author Organization [employer] Address [address] [facility] 7t [place] [address] Care Team Providers Care Gold Reclaimer Name Role Phone Sonya Donis MD Primary Care Provider [phone] Reason for Visit * Reason Onset Date Comments New Patient 10/28/2022 Encounter Details Date Type Department Care Team (Late st Contact Info) Description 10/28/2022 Telephone [facility] MEDICINE [address] [place], [place] [phone] Dony Bhagat MD [address] [place], [place] [phone] New Patient Social History Tobacco Use Types [...] EDT BIJAN Brown called pt to Offer PIPE ORGAN MECHANIC appt. Pt demographics and insurance information were verified. Pt states following medical conditions: thyroid, Cholesterol, Arthritis, Needs Hip replacement, and High blood pressure. Pt reports taking medications: No Pt given PIPE ORGAN MECHANIC appt with Dr. Donis on 01/18/2023 @ 9:30 am. Pt will be sent appt reminder card and medical release form and agrees to complete and to return to medical records prior to PIPE ORGAN MECHANIC appt. * Telephone Encounter - Gayatri Chaudhary - 10/28/2022 1:35 PM EDT Pt has been transfer over to wait list for PIPE ORGAN MECHANIC. EFFECTIVE SINCE 10/28/2022 documented in this encounter Plan of Treatment Upcoming Encounters Date Type Department Care Team (Late st Contact Info) Description 08/10/2024 1:30 PM EDT Clinical Support [facility] MED & PEDS [address] [place] [address] Anupama Solomon RN [address] [place] [address] 09/22/2024 3:00 PM EDT Office Visit [facility] ADULT DENTAL [address] [place] [address] Ascencion Joya documented as of this encounter Visit Diagnoses Not on filedocumented in this encounter Care Teams Gold Reclaimer Relationship Specialty Start Date End Date Sonya Donis MD [address] [place] [address] PCP - General Family Medicine 01/18/23 [employer] WA[facility]WAITR[facility] [employer] Services 10/11/23 documented as of this encounter
--- OUTSIDE RECORDS SUMMARY | 2024-06-22 13:17 | XMS_ITS | Encounter Summary ---
Author Organization [employer] Address [address] [facility] 7t [place] [address] Care Team Providers Care Automobile Mechanic Motor Name Role Phone Sonya Donis MD Primary Care Provider [phone] Reason for Visit * Reason Onset Date Comments Med Refill 09/08/2023 Encounter Details Date Type Department Care Team ([facility] st Contact Info) Description 09/08/2023 Telephone [facility] MED & PEDS [address] [place] [address] Sonya Donis MD [address] [place] [address] Med Refill Social History Tobacco Use Types [...] 2:59 PM EDT Medication was sent to [facility] #[id number] on 07/09/23 with 2 refills. * Telephone Encounter - Marcy Mohan - 09/08/2023 1:12 PM EDT TC from pt requesting medication refill. Medications needing refill : cyclobenzaprine (Flexeril) 10 MG tablet To be sent to: [facility] #[id number] - [place] [address] AT [facility] documented in this encounter Plan of Treatment Upcoming Encounters Date Type Department Care Team ([facility] Contact Info) Description 08/10/2024 1:30 PM EDT Clinical Support [facility] MED & PEDS [address] [place] [address] Anupama Solomon RN [address] [facility] [place] [address] 09/22/2024 3:00 PM EDT Office Visit [facility] ADULT DENTAL [address] [place] [address] Ascencion Joya documented as of this encounter Visit Diagnoses Not on filedocumented in this encounter Additional Health Concerns Assessment Noted Time PHQ-9 Depression Total Score: 9 03/11/19 11:12 AM EST documented as of this encounter Care Teams Automobile Mechanic Motor Relationship Specialty Start Date End Date Sonya Donis MD [address] [place] [address] PCP - General Family Medicine 01/18/23 [employer] MEDICAL COLLECTIONS SPECIALIST Services 10/11/23 documented as of this encounter
--- OUTSIDE RECORDS SUMMARY | 2024-06-22 13:17 | XMS_ITS | Encounter Summary ---
Author Organization [employer] Address [address] [facility] 7[address] [place] [address] Care Team Providers Care Life Educator Name Role Phone Sonya Donis MD Primary Care Provider [phone] Reason for Visit * Reason Onset Date Comments Med Refill 01/07/2024 Encounter Details Date Type Department Care Team (Late st Contact Info) Description 01/07/2024 Telephone [facility] MEDICINE [address] [place] [address] Sonya Donis MD [address] [place], [place] [phone] Med Refill Social History Tobacco Use Types [...] 5-325 MG tablet To be sent to: [facility] #[id number] documented in this encounter Plan of Treatment Upcoming Encounters Date Type Department Care Team (Late st Contact Info) Description 08/10/2024 1:30 PM EDT Clinical Support [facility] MED & PEDS [address] [place] [address] Anupama Solomon RN [address] [place] [address] 09/22/2024 3:00 PM EDT Office Visit [facility] ADULT DENTAL [address] [place] [address] Ascencion Joya documented as of this encounter Visit Diagnoses Not on filedocumented in this encounter Additional Health Concerns Assessment Noted Time PHQ-9 Depression Total Score: 0 10/11/19 24 9:09 AM EDT documented as of this encounter Care Teams Life Educator Relationship Specialty Start Date End Date Sonya Donis MD [address] [place] [address] PCP - General Family Medicine 01/18/23 [employer] PER DIEM NURSE Services 10/11/23 documented as of this encounter
--- OUTSIDE RECORDS SUMMARY | 2024-06-22 13:18 | XMS_ITS | Clinical Summary ---
Author Organization [employer] Address [address] [facility] [address] [place] [address] Care Team Providers Care Dining Service Inspector Name Role Phone Sonya Donis MD Primary Care Provider [phone] Allergies Active Allergy Reactions Criticality Noted Date [...] for nutritional changes, Pt agreed to see Electro Mechanic. Ordering lab work for Lipids recheck, to [...] Center 07/09/2023 1:00 PM Sonya Donis MD [facility] Assessment & Plan (01/18/2023 10:23 AM EST): -Labs: Lipid Panel. Hypothyroidism 01/18/2023 Assessment & Plan (01/18/2023 10:23 AM EST): -Labs: TSH/FT4. Encounters Date Type Department Care Team Description 06/05/[address] [facility] [address] [place] [address] Sonya Donis MD Chronic left hip pain 06/01/[address] [facility] [address] [place] [address] Georges Dean MD Results; Referral 06/01/2024 Telephone [facility] [address] [place] [address] Georges Dean MD 05/23/2024 1:00 PM EDT Clinical Support [facility] [address] [place] [address] Anupama Solomon RN Chronic left hip pain (Primary Dx); group home (current) use of opiate analgesic 05/23/2024 Travel 05/11/2024 1:30 PM EST Clinical Support [facility] [address] [place] [address] Anupama Solomon, RN Long-term current use of opiate analgesic 05/11/2024 Travel 05/05/[address] [facility] [address] [place] [address] Anupama Solomon RN Chronic left hip pain 05/05/[address] [address] Sonya Donis MD Nurse Triage 05/05/[address] [address] Sonya Donis MD Med Refill 05/01/[address] [address] Georges Dean MD 04/08/[address] [facility] [address] [place] [address] Sonya Donis MD 04/07/[address] [facility] [address] [place] [address] Sonya Donis MD Chronic left hip pain 04/05/[address] [address] Georges Dean MD 04/05/2024 [facility] Health Information Management [address] [place] [address] [phone] CERVICAL ORDER 03/28/[address] [facility] [address] [place] [phone] Sonya Donis MD CRITICAL RESULT 03/24/2024 3:00 PM EST Office Visit [facility] [address] [place] [address] [facility] Dental calculus (Primary Dx) from [...] [facility] [address] [place] [address] Anupama Solomon RN [address] [place] [address] 09/22/2024 3:00 PM EDT Office Visit [facility] [address] [place] [address] [facility] Health Maintenance Due Date Last [...] DRUG SCREEN Routine 05/23/2024 1:14 PM EDT group home (current) use of opiate analgesic Chronic [...] EDT Narrative 05/30/2024 2:05 PM EDT ? [facility] ?[address] ?[place] [address] ? CT Scan Report ? Signed ? Patient: Cameron De Los Santos,Amandaio ?MR#: ?? [id number] ? : 1955 ?Acct:[id number] ? Age/Sex: 68 / M ?ADM Date: 05/29/24 ? Loc: HO.CT ? Attending Dr: Sonya Donis MD ? Ordering Physician: Georges eDan MD ?? Date of Service: 05/29/24 ?? Procedure(s): CT soft tissue neck w IV con ?? Accession Number(s): [id number] ? cc: Georges Dean MD; Sonya Donis MD ? Report Number: ?? [id number]: Total DLP = ??352.00 mGy-cm ? CLINICAL [...] DD/ 03 ? TD/TT: 05/30/24 1404 ? Manufacturing Director: ? Procedure Note Donotgwendolyninterpreter, Image - 05/30/[address] [address] [address] Scan Report Signed Patient: Nemo AmezquitaMR#: [id number] : 1955cct:[id number] Age/Sex: 68 / MADM Date: 05/29/24 Loc: HO.CT Attending Dr: Sonya Donis MD Ordering Physician: Georges Dean MD Date of Service: 05/29/24 Procedure(s): CT soft tissue neck w IV con Accession Number(s): [id number] cc: Georges Dean MD; Sonya Donis MD Report Number: [id number]: Total DLP = 352.00 mGy-cm CLINICAL HISTORY: [...] in OV> 05/30/241403 DD/ 03 TD/TT: 05/30/241403 Manufacturing Director: Georges Dean MD IMG CT PROCEDURES Edited Result - Final * POCT RHEA-14 Urine Drug Screen (05/23/2024 1:14 PM EDT) Only the most recent of2 resultswithin the time period is included. Oxycodone Screen, Urine Positive Urine Urine specimen obtained by clean catch procedure / Unknown 05/23/2024 1:14 PM EDT Narrative Anupama Solomon RN - 05/23/2024 1:14 PM EDT Lot# [id number] Exp: 10-25-25 us Sonya Donis MD POINT OF CARE TEST ENTER/EDIT ORDERABLES Final Result * (ABNORMAL) Basic Metabolic Panel (05/01/2024 10:46 AM EST) Sodium 143 135 - 145 mmol/L [facility] Potassium 4.2 3.3 - 5.1 mmol/L [facility] Chloride 110(H) 96 - 108 mmol/L [facility] Carbon Dioxide 26 22 - 29 mmol/L [facility] Anion Gap 11(L) 12 - 20 [facility] Urea Nitrogen (BUN) 18(H) 9 - 16 mg/dL [facility] Creatinine, Serum 1.15 0.5 - 1.4 mg/dL [facility] Estimated Glomerular Filt Rate >60 [facility] Comment:Chronic Kidney Disea se: Estimated GFR < 60 mL/min/[id number] Kidney Disease: Estimated GFR < 15 mL/min/1.73m2 Glucose 102 60 - 115 mg/dL [facility] Calcium 9.1 8.4 - 10.2 mg/dL [facility] Blood Venous blood specimen / Unknown 05/01/2024 10:46 AM EST 05/01/2024 2:41 PM EST Georges Dean MD LAB BLOOD ORDERABLES Final Resul t [facility] [address] [place] [phone] * (ABNORMAL) Lipid Panel, Standard (01/10/2024 9:42 AM EST) Triglycerides 208(H) <150 mg/dL [facility] Comment:Desirable Triglyceri de: less than 150 mg/dLBorderline High Triglyceride 150-199 mg/dLHigh Triglyceride: 200-499 mg/dLVery High Triglyceride: greater than or equal to 5OO mg/dL Cholesterol 119 <200 mg/dL [facility] Comment:Desirable Cholestero l: less than 200 mg/dLBorderline High Cholesterol: 200-239 mg/dLHigh Cholesterol: greater than 239 mg/dL LDL Cholesterol Calculated 37 <100 mg/dL [facility] Comment:Desirable LDL: less than 100 mg/dLNear Optimal/Above Optimal LDL: 110- 129 mg/dLBorderline High LDL: 130-159 mg/dLHigh LDL: 160-189 mg/dLVery High LDL: greater than or equal to 190 mg/dL HDL Cholesterol 41 >40 mg/dL [facility] Comment:Desirable HDL: great er than 40 mg/dL Note: This HDL assay may give artificially low results in patients with liver disease. Blood Venous blood specimen / Unknown 01/10/2024 9:42 AM EST 01/10/2024 2:39 PM EST us Sonya Donis MD LAB BLOOD ORDERABLES Final Re sult Performing Organization Address [facility]/ZIP Co de Phone Number [facility] [address] [place] [phone] * Hepatitis C Ab (01/22/2023 1:05 PM EST) Hepatitis C Antibody Nonreactive Nonreactive [facility] Comment:Antibodies to HCV no t detected; does not exclude early acuteHCV infection. Blood Venous blood specimen / Unknown 01/22/2023 1:05 PM EST 01/22/2023 2:22 PM EST us Sonya Donis MD LAB BLOOD ORDERABLES Final Re sult [facility] [address] [place] [phone] * Colonoscopy (01/13/2018) Colonoscopy Normal Normal Narrative Sonya Donis MD - 01/13/2018 Normal colonoscopy, unknown why recommended repeat 5 yrs us Historical Provider MD HEALTH MAINTENANCE Final Result from Last 3 Months or Most Recently Relevant to Health Maintenance Insurance [facility] - [facility] Care Teams Dining Service Inspector Relationship Specialty Start Date End Date Sonya Donis MD [address] [place] [address] PCP - General Family Medicine 01/18/23 [employer] 10/11/23
== END 2024-06-22 12:00 | disposition home or self-care (01) ==
LOC: HO.PMCPRC 10:54
PROVIDERS: PCP Family Medicine; Visit Provider Internal Medicine
DX: M54.12 Radiculopathy, cervical region (principal)
CPT/HCPCS: 62321

== ENCOUNTER 2024-07-20 09:45 | Outpatient (AMB) | payer OTHER, SELFPAY ==
--- NOTE | 2024-07-20 09:49 | A.OFFVIS_ITS ---
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 Services: [employer] Present [employer] Name: Teena #[id number] Information Interpreted: non-clinical & clinical Accompanied by: Spouse Allergies aspirin Allergy (Unknown, Verified 07/20/24 09:53) UNKNOWN shellfish derived Allergy (Unknown, Verified 07/20/24 09:53) Unknown Medication List - Last Reconciled 07/20/24 by MARYSE Liz bisacodyl (Dulcolax (bisacodyl)) 10 mg (2 x 5 mg) PO BEDTIME 2 days gabapentin 300 mg PO TID 30 days oxycodone-acetaminophen 5-325 mg 1 tab PO BID PRN rosuvastatin 40 mg PO DAILY HPI Comments Details: The patient is a 68-year-old male presenting with chronic neck pain and management of cervical spondylosis with multilevel DDD and stenosis, most notably severe right-sided neural foraminal stenosis at C5-C6. He has undergone various treatments, including a recent injection by Dr. Linares on 06/22/24 for right-sided radicular neck pain, resulting in reduced pain levels from 8 to 5 out of 10. However, the pain persists, primarily due to neck pain being pre dominantly axial in nature. In the past, diagnostic medial branch blocks provided complete relief, and radiating pain has been noted. He continues with gabapentin and Percocet for pain management as well as activity modifications, heat and stretching exercises. Current discussions include considering further interventions like SPRINT peripheral nerve stimulation or, alternatively, radiofrequency ablation for improved pain control. Patient is interested to proceed with SPRINT therapy as next steps. Denies any recent cough, cold, infection, fever or any significant changes in medical history since last office visit. Past Procedures: 06/22/24: Right parasagittal interlaminar C5-C6 TEZ-0% pain relief 05/18/24: Left Diagnostic C4-C5 MBB-100% pain relief for 24 hours 04/20/24: Right Diagnostic C3-C4-C5 MBB-100% pain relief for 18 hours PRIOR: Patient is a pleasant 68-year-old Wolof-speaking male with history of chronic neck pain, fatigue, cervical and lumbar degenerative joint disease with moderate cervical canal stenosis, presents today for initial evaluation for neck pain. Denies any recent trauma, injury, or falls. Neck pain has been present for over 15 years and has been worsening. Patient reports history of head fracture in 1970s due to 50ft fall which impacted his left hip, head and elbow and required surgical correction of his left elbow, wrist, mandible, jaw and left hip with hip hardware in place. Neck pain is predominantly axial, easily reproduced with cervical extension in lateral rotations. Reports intermittent radiation of neck pain into his left upper extremity with weakness. He attempted formal physical therapy in January 2024 but had to stop due to increased pain and loss of insurance coverage for PT visits. He reports multiple spine injections 8 years ago in [place] with good results. Denies previous cervical spine surgery. Pain affects his daily activities and functioning, movements, range of motion, sleep, mood, and social interactions. Pain is most severe during the morning rated at 10/10 and least severe at afternoons, rated at 7/10 and are accompanied with cervicogenic headaches. Recent cervical spine MRI is noted below. Patient is interested to undergo diagnostic cervical medial branch blocks for potential therapeutic injections, RFA or Sprint PNS trial. Denies any fever or chills, dizziness, visual disturbances, chest pain, shortness of breaths, weakness, bladder or bowel dysfunction or saddle anesthesia. Oswestry Neck Disability Index Score=33 (severe disability) Location: Neck pain, intermittent radiation in left arm with weakness Duration: Chronic pain for >15 years Characteristics of symptom or complaint: Aching, stabbing, spasming, stiffness, tightness, sharp, sore, tiring Aggravating or associated factors: Movements, ROM, cold weather changes Relieving factors: Oxycodone-acetaminophen, heat, activity modifications, stretching exercises Treatment: PT x1 session in January,; spine injections in [place] PFSH Medical History Pre-diabetes High cholesterol HTN (hypertension), benign Hypothyroid Surgical History H/O colonoscopy S/P urethral surgery History of orthopedic surgery Social History Alcohol intake: current Alcohol intake frequency: holidays/special occasions only Alcohol type: beer Tobacco use type: Cigarette Review of Systems Const All systems reviewed & are unremarkable except as noted in HPI and below Physical Exam Vital Signs: Last Vital Signs Pulse 74 07/20/24 09:52 BP 107/73 07/20/24 09:52 Pulse Ox 100 07/20/24 09:52 Oxygen Delivery Method Room Air 07/20/24 09:52 BMI result Body Mass Index 25.1 General: Appears afebrile. Alert and oriented. Mood and affect appropriate. Follows and participates in conversation appropriately. Respiratory effort is unlabored. No cough. Able to transition from sit to stand unassisted. Ambulates with bilaterally normal heel strike and toe off. Neck Other: Patient with decreased cervical ROM in all planes/especially with lateral rot ations, right >left. Reports increased pain with cervical extension and no pain with flexion. DTR intact, +2 right and +1 left. Patient demonstrated 5/5 motor strength of bilateral upper extremities. 2 + radial pulses. Mild to moderate TTP throughout bilateral upper trapezius muscles. No paravertebral tenderness over facet joints bilaterally. Multiple taut bands palpated throughout bilateral uppe r trapezius muscles. Neck: Yes normal visual inspection, Yes no lymphadenopathy, Yes supple, No anterior neck swelling, Yes no JVD and No prominent dorsocervical fat pad Back/Spine/Pelvis Cervical Spine: cervical ROM normal, No Lhermitte's sign positive, loss of normal cervical lordosis, cervical muscular tenderness, pain with cervical ROM, No Cervical spine scars present, No Cervical spine tenderness and No step off deformity Thoracic/Lumbar Spine: thoracic and lumbar spine normal to inspection, No Thoracic/lumbar spine scar(s), No thoracic spinal tenderness and No lumbar spinal tenderness Results Reviewed Results Reviewed: MR CERVICAL SPINE WITHOUT CONTRAST 01/29/24 CLINICAL INFORMATION: 68-year-old with chronic persistent neck pain. Self-reported left arm weakness. FINDINGS: ALIGNMENT: Mild cervicothoracic levocurvature noted slightly convex to the left at C7-T1. There is moderate hyperlordosis centered at C5-C6. CRANIOCERVICAL JUNCTION/C1-C2 ARTICULATIONS: Intact and aligned. VISUALIZED INTRACRANIAL/EXTRACRANIAL STRUCTURES: Grossly unremarkable. VERTEBRAL BODIES: Vertebral body heights are well maintained. DISC SPACES AND ENDPLATES: There is moderate disc volume loss at C5-C6 with intradiscal degenerative signal changes and minor spondylosis. There is intradiscal degenerative signal change at C3-C4 and C4-C5 without significant disc space height loss. BONE MARROW: No suspicious marrow-replacing process or bone marrow edema. C2-C3: Tiny central disc protrusion with a tiny central annular fissure noted. No cord impingement or canal stenosis. No significant DJD or neural foraminal stenosis. C3-C4: Broad-based posterior disc osteophyte complex noted with mild flattening of the ventral dural sac without cord impingement or canal stenosis. Mild right and [id number] left-sided facet joint arthropathy noted with uncinate process spurring bilaterally, with no significant neural foraminal stenosis. C4-C5: Broad-based central to right paramedian disc osteophyte complex, with moderate flattening of the ventral dural sac asymmetric to the right without cord impingement. Slight chronic ventral cord deformity suspected on the right. No significant canal stenosis. Uncinate process spurring noted bilaterally with moderate left and mild right facet joint arthropathy without significant neural foraminal stenosis. C5-C6: Broad-based disc osteophyte complex noted with effacement of the ventral dural sac without cord impingement. Ligamentum flavum thickening or buckling is noted. There is moderate central spinal canal stenosis. There is uncovertebral spurring bilaterally and mild facet joint arthropathy with moderate left-sided and severe right-sided neural foraminal stenosis. C6-C7: Broad-based central disc protrusion with a central annular fissure noted and flattening of the ventral dural sac without cord impingement or canal stenosis. No significant DJD or neural foraminal stenosis. C7-T1: Shallow central disc protrusion. No canal stenosis. Moderate facet joint arthropathy on the left noted with mild craniocaudal neural foraminal narrowing. SPINAL CORD: The cervical and visualized upper thoracic spinal cord is normal in signal intensity throughout, without focal lesion, edema or syrinx. EXTRACRANIAL SOFT TISSUES: Note is made of a somewhat plump left level II IJ chain lymph node measuring 1.6 x 1.2 cm in greatest transverse dimensions consistent with an enlarged lymph node. Signal voids are noted within the visualized major neck vessels. IMPRESSION: 1. Discogenic degenerative changes primarily at C5-C6 as discussed above, with disc osteophyte complex and DJD at this level with moderate spinal canal stenosis without cord impingement. There is moderate left-sided and severe right-sided neural foraminal stenosis at this level. 2. Multilevel disc protrusions and disc osteophyte complexes as described above without cord impingement or significant spinal canal stenosis. 3. Multilevel bilateral facet joint arthropathy as described above. 4. Mildly enlarged left level II IJ chain lymph node. This is nonspecific. Recommend correlation with clinical history and physical exam findings. Cannot exclude neoplastic disease. Recommend CT of the neck with contrast for further assessment. XR CERVICAL SPINE 10/21/23 FINDINGS: No acute visible fracture or dislocation. Slight exaggeration of the cervical lordosis. Grade 1 retrolisthesis of C5 on C6. Mild left multilevel neuroforaminal narrowing. Multilevel degenerative changes with disc space narrowing, endplate sclerosis, osteophyte formation, and facet arthropathy. Visualized dens is intact. Lateral masses are symmetric. Vertebral body has a spaces are maintained. Prevertebral soft tissues are unremarkable. Posterior elements are intact. Paraspinal soft tissues are unremarkable. Visualized portions of the upper chest are unremarkable. IMPRESSION: 1. No acute visible fracture or dislocation. 2. Slight exaggeration of the cervical lordosis. 3. Grade 1 retrolisthesis of C5 on C6. 4. Mild left multilevel neuroforaminal narrowing. 5. Multilevel degenerative changes. Assessment & Plan Assessment & Plan (1) Degenerative disc disease, cervical: Code(s): M50.30 - Other cervical disc degeneration, unspecified cervical region Category: Medical (2) Cervical spondylosis: Code(s): M47.812 - Spondylosis without myelopathy or radiculopathy, cervical region Category: Medical (3) Cervicogenic headache: Code(s): G44.86 - Cervicogenic headache Category: Medical (4) Muscle spasms of neck: Code(s): M62.838 - Other muscle spasm Category: Medical (5) Degenerative cervical spinal stenosis: Code(s): M48.02 - Spinal stenosis, cervical region Category: Medical Plan Patient is one month status post Right parasagittal interlaminar C5-C6 TEZ with no pain relief, but continues to experience chronic intractable neck pain with movements, worse with extension and axial rotations. Previous diagnostic medial branch blocks led to 100% pain relief. He is interested to proceed with peripheral nerve stimulation with Sprint. Cervical medial branch RFA was also discussed with patient and his . Visual aides such as Sprint PNS model and information pamphlets were utilized for procedure review. Schedule Bilateral C4 medial branch Sprint PNS trial, starting with right side, with local and fluoroscopy. Expectations, risks and benefits were reviewed. Patient is aware he will be contacted to schedule this procedure. Continue regular physical activity and gentle stretching exercises, adequate hydration, good posture. All questions were answered and the patient is in agreement of plan. Follow-up after injections and sooner as needed. Patient was informed and verbally consented to the use of an ambient scribe for clinic note documentation during this visit. Patient Instructions: During the visit, I discussed the ongoing management of the patient's chronic neck pain. We considered both SPRINT peripheral nerve stimulation and radiofrequency ablation as possible next steps, ultimately opting to try SPRINT first due to its non-invasive nature and potential for significant pain alleviation. The plan is to initiate on the right side. We discussed the risks and benefits of each option, and the patient agreed with the proposed course. Coding Level of Care Code Est Pt Level 4 (24125) Complex EM visit Add On G2211 Diagnoses Degenerative disc disease, cervical M50.30 Cervical spondylosis M47.812 Cervicogenic headache G44.86 Muscle spasms of neck M62.838 Degenerative cervical spinal stenosis M48.02
[2024-07-20 09:52] VITALS: BP 107/73; PULSE 74; RESP 18; O2SAT 100; BMI 25.1
--- OUTSIDE RECORDS SUMMARY | 2024-07-20 10:37 | XMS_ITS | Clinical Summary ---
Author Organization [employer] Address [address] [facility] 7t [place] [address] Care Team Providers Care Chart Picker Name Role Phone Sonya Donis MD Primary Care Provider [phone] Allergies Active Allergy Reactions Criticality Noted Date [...] if needed for severe pain. 112 tablet 07/06/19 25 Active oxyCODONE-acet aminophen (Percocet) 5-325 MG tabletIndicati ons:Chronic left hip pain Take 1 tablet by mouth every 6 (six) hours if needed for severe pain. 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 Ordering lab work for Lipids recheck, to [...] Center 07/09/2023 1:00 PM Sonya Donis MD [facility] Assessment & Plan (01/18/2023 10:23 AM EST): -Labs: Lipid Panel. Hypothyroidism 01/18/2023 Assessment & Plan (01/18/2023 10:23 AM EST): -Labs: TSH/FT4. Encounters Date Type Department Care Team Description 07/05/2024 Refill [facility] MED & PEDS [address] [place] [address] Anupama Solomon RN Chronic left hip pain 07/05/2024 Telephone [facility] MEDICINE [address] [place] [address] Sonya Donis MD Med Refill 07/05/2024 Telephone [facility] MEDICINE [address] [place] [address] Sonya Donis MD Durable Medical Equipment 06/05/2024 Refill [facility] MED & PEDS [address] [place] [address] Sonya Donis MD Chronic left hip pain 06/01/2024 Telephone [facility] MED & PEDS [address] [place] [address] Georges Dean MD Results; Referral 06/01/[address] [address] Georges Dean MD 05/23/2024 1:00 PM EDT Clinical Support [facility] MED [facility] [address] [place] [address] Anupama Solomon RN Chronic left hip pain (Primary Dx); 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 05/23/2024 Travel 05/11/2024 1:30 PM EST Clinical Support [facility] MED [facility] [address] [place] [address] Anupama Solomon RN Long-term current use of opiate analgesic 05/11/2024 Travel 05/05/2024 Refill [facility] MED [facility] PEDS [address] [place] [address] Anupama Solomon RN Chronic left hip pain 05/05/[address] [address] Sonya Donis MD Nurse Triage 05/05/[address] [address] Sonya Donis MD Med Refill 05/01/[address] [address] Georges Dean MD from Last 3 Months Immunizations Immunization Administration Dates Next Due Influenza High-dose Quadriva [...] Care Team (Late st Contact Info) Description 08/04/2024 1:00 PM EDT Office Visit [facility] MED [facility] PEDS [address] [place] [address] Sonya Donis MD [address] [place] [address] 08/10/2024 1:30 PM EDT Clinical Support [facility] MED [facility] PED[facility] [address] [place] [address] Anupama Solomon RN [address] [place] [address] 09/22/2024 3:00 PM EDT Office Visit [facility] ADULT DENTAL [address] [place] [address] Ascencion Joya Health Maintenance Due Date Last [...] patient's age to complete this topic Meningococcal B Vaccine Aged Out No l onger eligible based on patient's age to complete [...] DRUG SCREEN Routine 05/23/2024 1:14 PM EDT 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 [facility] ?[address] ?[place] [address] ? CT Scan Report ? Signed ? Patient: Cameron De Los Santos,Nemo ?MR#: ?? [id number] ? : 1955 ?Acct:[id number] ? Age/Sex: 68 / M ?ADM Date: 05/29/24 ? Loc: HO.CT ? Attending Dr: Sonya Donis MD ? Ordering Physician: Georges Dean MD ?? Date of Service: 05/29/24 ?? Procedure(s): CT soft tissue neck w IV con ?? Accession Number(s): [id number] ? cc: Georges Dean MD; Sonya Donis MD ? Report Number: ?? [id number]: Total DLP = ??352.00 mGy-cm ? CLINICAL [...] by Karla Singh MD in OV> ? 05/30/244 ? DD/ 03 ? TD/TT: 05/30/244 ? [place]el [place] Brushing Machine Operator: ? Procedure Note Donotuseinterpreter, Image - 05/30/[address] [address] [address] Scan Report Signed Patient: Nemo AmezquitaMR#: [id number] : 7Acct:[id number] Age/Sex: 68 / MADM Date: 05/29/24 Loc: HO.CT Attending Dr: Sonya Donis MD Ordering Physician: Georges Dean MD Date of Service: 05/29/24 Procedure(s): CT soft tissue neck w IV con Accession Number(s): [id number] cc: Georges Dean MD; Sonya Donis MD Report Number: [id number]: Total DLP = 352.00 mGy-cm CLINICAL HISTORY: [...] signed by Karla Singh MD in OV> 05/30/24 1404 DD/ 1404 TD/TT: 05/30/24 1404 [place] Brushing Machine Operator: Georges Dean MD IM CT PROCEDURES Edited Result - Final * POCT RHEA-14 Urine Drug Screen (05/23/2024 1:14 PM EDT) Only the most recent of2 resultswithin the time period is included. Oxycodone Screen, Urine Positive Urine Urine specimen obtained by clean catch procedure / Unknown 05/23/2024 1:14 PM EDT Narrative Anupama Solomon RN - 05/23/2024 1:14 PM EDT Lot# [id number] Exp: 10-25-25 us Sonya Donis MD POINT OF CARE TEST ENTER/EDIT ORDERABLES Final Result * (ABNORMAL) Basic Metabolic Panel (05/01/2024 10:46 AM EST) Sodium 143 135 - 145 mmol/L [facility] Potassium 4.2 3.3 - 5.1 mmol/L [facility] Chloride 110(H) 96 - 108 mmol/L [facility] Carbon Dioxide 26 22 - 29 mmol/L [facility] Anion Gap 11(L) 12 - 20 [facility] Urea Nitrogen (BUN) 18(H) 9 - 16 mg/dL [facility] Creatinine, Serum 1.15 0.5 - 1.4 mg/dL [facility] Estimated Glomerular Filt Rate >60 [facility] Comment:Chronic Kidney Disea se: Estimated GFR < 60 mL/min/1.88r2Steply Kidney Disease: Estimated GFR < 15 mL/min/1.73m2 Glucose 102 60 - 115 mg/dL [facility] Calcium 9.1 8.4 - 10.2 mg/dL [facility] Blood Venous blood specimen / Unknown 05/01/2024 10:46 AM EST 05/01/2024 2:41 PM EST us Georges Dean MD LAB BLOOD ORDERABLES Final Resul t [facility] [address] [place] [address] [phone] * (ABNORMAL) Lipid Panel, Standard (01/10/2024 9:42 AM EST) Triglycerides 208(H) <150 mg/dL [facility] Comment:Desirable Triglyceri de: less than 150 mg/dLBorderline High Triglyceride 150-199 mg/dLHigh Triglyceride: 200-499 mg/dLVery High Triglyceride: greater than or equal to 5OO mg/dL Cholesterol 119 <200 mg/dL [facility] Comment:Desirable Cholestero l: less than 200 mg/dLBorderline High Cholesterol: 200-239 mg/dLHigh Cholesterol: greater than 239 mg/dL LDL Cholesterol Calculated 37 <100 mg/dL [facility] Comment:Desirable LDL: less than 100 mg/dLNear Optimal/Above Optimal LDL: 110- 129 mg/dLBorderline High LDL: 130-159 mg/dLHigh LDL: 160-189 mg/dLVery High LDL: greater than or equal to 190 mg/dL HDL Cholesterol 41 >40 mg/dL [facility] Comment:Desirable HDL: great er than 40 mg/dL Note: This HDL assay may give artificially low results in patients with liver disease. Blood Venous blood specimen / Unknown 01/10/2024 9:42 AM EST 01/10/2024 2:39 PM EST us Sonya Donis MD LAB BLOOD ORDERABLES Final Re sult Performing Organization Address [facility] [employer] de Phone Number [facility] [address] [place] [phone] * Hepatitis C Ab (01/22/2023 1:05 PM EST) Hepatitis C Antibody Nonreactive Nonreactive [facility] Comment:Antibodies to HCV no t detected; does not exclude early acuteHCV infection. Blood Venous blood specimen / Unknown 01/22/2023 1:05 PM EST 01/22/2023 2:22 PM EST us Sonya Donis MD LAB BLOOD ORDERABLES Final Re sult Performing Organization Address [facility] de Phone Number [facility] [address] [place] [phone] * Hm Colonoscopy (01/13/2018) Colonoscopy Normal Normal Narrative Sonya Donis MD - 01/13/2018 Normal colonoscopy, unknown why recommended repeat 5 yrs us Historical Provider HEALTH MAINTENANCE Final Result from Last 3 Months or Most Recently Relevant to Health Maintenance Insurance [facility] F[employer] OPTIONS (HMO D-SNP) [facility] Care Teams Chart Picker Relationship Specialty Start Date End Date Sonya Donis MD [address] [place] [address] [phone] PCP - General Family Medicine 01/18/23 [facility] 10/11/23
--- OUTSIDE RECORDS SUMMARY | 2024-07-20 10:37 | XMS_ITS | Encounter Summary ---
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 Medications needing refill : oxyCODONE-acetaminophen (Percocet) 5-325 MG tablet To be sent to: [id number] [facility] documented in this encounter Plan of Treatment Upcoming Encounters Date Type Department Care Team ([facility] Contact Info) Description 08/04/2024 1:00 PM EDT Office Visit [facility] MED & PEDS [address] [place] [address] Sonya Donis MD [address] [place] [address] 08/10/2024 1:30 PM EDT Clinical Support [facility] MED & PEDS [address] [place] [address] Anupama Solomon RN [address] [place] [address] 09/22/2024 3:00 PM EDT Office Visit [facility] ADULT DENTAL [address] [place] [address] Ascencion Joya documented as of this encounter Visit Diagnoses Not on filedocumented in this encounter Additional Health Concerns Assessment Noted Time PHQ-9 Depression Total Score: 0 10/11/19 24 9:09 AM EDT documented as of this encounter Care Teams Wood Drilling Machine Operator Relationship Specialty Start Date End Date Sonya Donis MD [address] [place] [address] PCP - General Family Medicine 01/18/23 [employer] BASIC ACOUSTIC ANALYST Services 10/11/23 documented as of this encounter
--- OUTSIDE RECORDS SUMMARY | 2024-07-20 10:37 | XMS_ITS | Encounter Summary ---
Author Organization [employer] Address [address] [facility] 7t [place] [address] Care Team Providers Care Physical Education Aide Name Role Phone Sonya Donis MD Primary Care Provider [phone] Reason for Visit * Reason Onset Date Comments Med Refill 02/02/2024 Encounter Details Date Type Department Care Team (Late st Contact Info) Description 02/02/2024 Telephone [facility] MED[facility] [address] [place] [address] Sonya Donis MD [address] [place], [place] [phone] Med Refill Social History Tobacco Use Types [...] 5-325 MG tablet To be sent to: [facility][id number] documented in this encounter Plan of Treatment Upcoming Encounters Date Type Department Care Team (Late st Contact Info) Description 08/04/2024 1:00 PM EDT Office Visit [facility] MED & PEDS [address] [place] [address] Sonya Donis MD [address] [place] [address] 08/10/2024 1:30 PM EDT Clinical Support [facility] MED & PEDS [address] [place] [address] Anupama Solomon RN [address] [place] [address] 09/22/2024 3:00 PM EDT Office Visit [facility] ADULT DENTAL [address] [place] [address] Ascencion Joya documented as of this encounter Visit Diagnoses Not on filedocumented in this encounter Additional Health Concerns Assessment Noted Time PHQ-9 Depression Total Score: 0 10/11/19 9:09 AM EDT documented as of this encounter Care Teams Physical Education Aide Relationship Specialty Start Date End Date Sonya Donis MD [address] [place] [address] PCP - General Family Medicine 01/18/23 [employer] PROBATION OFFICER Services 10/11/23 documented as of this encounter
--- OUTSIDE RECORDS SUMMARY | 2024-07-20 10:37 | XMS_ITS | Encounter Summary ---
Author Organization [employer] Address [address] [facility] 7t [place] [address] Care Team Providers Care Photolithographic Stripper Name Role Phone Sonya Donis MD Primary Care Provider [phone] Reason for Visit * Reason Onset Date Comments Med Refill 01/07/2024 Encounter Details Date Type Department Care Team (Late st Contact Info) Description 01/07/2024 Telephone [facility] MEDICINE [address] [place] [address] Sonya Donis MD [address] [place], [place] [phone] Med Refill Social History Tobacco Use Types [...] 5-325 MG tablet To be sent to: [facility] #[id number] documented in this encounter Plan of Treatment Upcoming Encounters Date Type Department Care Team (Late st Contact Info) Description 08/04/2024 1:00 PM EDT Office Visit [facility] MED [facility] PEDS [address] [place] [address] Sonya Donis MD [address] [place] [address] 08/10/2024 1:30 PM EDT Clinical Support [facility] MED [facility] PEDS [address] [place] [address] Anupama Solomon RN [address] [place] [address] 09/22/2024 3:00 PM EDT Office Visit [facility] ADULT DENTAL [address] [place] [address] Ascencion Joya documented as of this encounter Visit Diagnoses Not on filedocumented in this encounter Additional Health Concerns Assessment Noted Time PHQ-9 Depression Total Score: 0 10/11/19 24 9:09 AM EDT documented as of this encounter Care Teams Photolithographic Stripper Relationship Specialty Start Date End Date Sonya Donis MD [address] [place] [address] PCP - General Family Medicine 01/18/23 [employer] INTERACTIVE MEDIA DESIGNER Services 10/11/23 documented as of this encounter
--- OUTSIDE RECORDS SUMMARY | 2024-07-20 10:37 | XMS_ITS | Data Portability ---
Author Organization [place] - [facility], Allergy Address [address] [place] [phone] Care Team Providers Care Garbage Person Name Role Phone NEHEMIAS VILLALOBOS Primary Care Provider Assessment Encounter Date Assessment Date Assessment LastModified by Organization Details LastModified Time 07/11/2024 07/11/2024 Patient has a left neck mass that I recommend we obtain tissue sampling. Given its location I would like to have ultrasound-guid ed needle aspiration biopsy performed at a nearby radiology center. My office will assist in arranging for this procedure. We reviewed the potential risks not limited to bleeding, numbness, swelling and facial weakness. We discussed the potential diagnoses including malignancy, benign process, insufficient specimen or non-diagnostic. Typically pathology results will become available within the next two weeks. We may review results and develop a treatment plan with a telehealth or an in person visit if they request. [email or web address] Not available 07/11/2024 15:19:10 Plan of Treatment Reminders Order Date Submit Date Provider Last Modified By Organization Details Last Modified Time Details Appointments None recorded. Lab None recorded. Referral None recorded. Procedures fine needle aspiratio n; with imaging guidance (PROC) - US Guided FNA, r/o malignanc y, [facility] [address] [facility], [place], [address], 11:44:43 Surgeries None recorded. Imaging None recorded. Medication Orders None recorded. Patient TargetsNo targets recorded. Patient InstructionsNo instructions recorded. Reason for Referral None Reported. Results Created Date Observation Date Name Description Value Unit Range Abnormal Flag Note LastModifiedBy Organization Detail LastModifiedTime 07/12/1901/29/2024 CT, neck, soft tissu e, w/ contr ast No observ ation record ed. [facility] [address] [place], [address], 07/11/2024 16:13:31 07/12/19 25 05/29/2024 CT, neck, soft tissu e, w/ contr ast No observ ation record ed. [email or web address] Not Available 08/2024 15:51:57 07/12/19 25 01/29/2024 MRI, cervi avinash spine , w/o contr ast No observ ation record ed. [email or web address] Not Available 08/2024 15:59:57 Result Notes None recorded. Problems Name Problem SNOMED Code Status Onset Date Resolution Date Notes Provider Name and Address Organization Details Recorded Time Cervical lymphadenopath y 281466627 Active 2024 MONAE FUENTES MD [address] [place] [address], [phone], [place] - [facility] 15:19:27 Problem Notes None recorded. Procedures Surgical History Date Name Laterality Status Provider Name and Address Organization Details Recorded Time 07/11/2024 FOL_DP completed MONAE FUENTES MD [address] [place] [address], [phone], [facility] - [facility] 07/11/2024 15:29:35 Imaging Results Imaging Date Name Status LastModified by Organiz ation Details LastModified Time 01/29/2024 CT, neck, soft tissue, w/ contrast completed [facility] [address] [place], [address], 07/11/2024 16:13:31 05/29/2024 CT, neck, soft tissue, w/ contrast completed [email or web address] Information not available 07/11/2024 15:51:57 01/29/2024 MRI, cervical spine, w/o contrast completed [email or web address] Information not available 07/11/2024 15:59:57 Procedure Notes None recorded. Medical Equipment None Reported. Allergies Allergen ID Allergen Name Allergen Category Reaction Reaction Severity Criticality Documentation Date Start Date Code Code System Note Provider Name and Address Organization Details Recorded Time 705245 aspirin medicatio n Not available Not available Not available 07/11/2024 1191 RxNorm MARGARETH muñoz [place] [facility] 15:14:50 981407 shellfish derived food,medi cation Not available Not available Not available 07/11/2024 [address]95[address] UNK MARGARETH muñoz [facility] 15:15:12 Medications Name Sig Start Date Stop Date Status Note LastModified by Organization Details LastModified Time cyclobenzapr ine 10 mg tablet 07/11 completed Not Available Not Available Not Available oxycodone-ac etaminophen 5 mg-325 mg tablet TAKE 1 TABLET BY MOUTH EVERY 6 HOURS NEEDED FOR SEVERE PAIN active Not Available Not Available No t Available gabapentin 300 mg capsule TAKE 1 CAPSULE BY MOUTH THREE TIMES DAILY FOR PAIN active Not Available Not Available No t Available Laxative (bisacodyl) 5 mg tablet TAKE 2 TABLETS BY MOUTH AT BEDTIME 07/11 completed Not Available Not Available Not Available rosuvastatin 40 mg tablet active Not Available Not Available Not Available Vitals Date Recorded Body height Body mass index (BMI) Body weight Provider Name and Address Organization Details Last Updated DateTime 07/11/2024 170.18 cm 25.1 kg/m2 61804.78 g MARGARETH MAC [facility] 07/11/2024 15:14:39 Social History None recorded. Functional Status None recorded. Mental Status None recorded. Family History Nothing Reported. Medical History No medical history recorded. Past Encounters Encounter ID Performer Location Encounter Start Date Encounter Closed Date Diagnosis/Indication Diagnosis SNOMED-CT Code Diagnosis ICD10 Code Diagnosis Note [id number] MONAE FUENTES MD [facility] [address] [phone] 07/11/2024 15:05:35 07/11/2024 15:34:42 Cervical lymphadenopathy 310747403 R59.0 left level 2 lymph node measuring 22mm, has been present since January. It is not easy to palpate on examinatio n today. Fiberoptic laryngosco py was benign with no lesions of the mucosa of the pharynx or larynx Health Concerns Section Related Observation LastModified by Organization Detai ls LastModified Time None Recorded Concern Status LastModified by Organization Details LastModified Time None Recorded Advance Directives Directive None Recorded Payers Insurance Date Sequence Insurance Name Policy Number Policy Manning Covered Member ID Manning Member ID Guarantor Name 07/11/2024 1 [facility] - DOS ON OR AFTER 2022 - ONE CARE (MEDICARE REPLACEMENT/ADV ANTAGE - HMO) Nemo De Los Santos [id number] Nemo Machadoes De Los Santos Notes Date Note Type Note Provider Name and Address Organization Details Recorded Time 07/11/2024 text/html IPad - spanishLe ft Lymphadenopathyfor past few months notes some mucus from nosept is not able to feel the lump on his neckno dental issuestobacco - occasionalsome dysphagia for pills, water helps to swallow itno hemoptysis 01/29/2024 [facility], MRI cervical spine noncontrastLeft level 2 lymph node measuring 16 x 12 mm.05/29/2024 [facility], CT neck with contrastLeft level 2A lymph node measuring 12 x 15 x 22 mm MONAE FUENTES MD [address] [place] [address],[place] [address], [place], [address], [place] - [facility] 07/11/2024 15:33:19
--- OUTSIDE RECORDS SUMMARY | 2024-07-20 10:37 | XMS_ITS | Encounter Summary ---
Author Organization [employer] Address [address] [facility] 7t [place] [address] Care Team Providers Care Subscription Crew Leader Name Role Phone Sonya Donis MD Primary Care Provider [phone] Reason for Visit * Reason Onset Date Comments Durable Medical Equipment 07/05/2024 Encounter Details Date Type Department Care Team (Late st Contact Info) Description 07/05/2024 Telephone [facility] MEDICINE [address] [place] [address] Sonya Donis MD [address] [place], [place] [phone] Durable Medical Equipment Social History Tobacco Use Types Packs/Day Years [...] Telephone Encounter - Jeanne Pizarro - 07/05/2024 2:28 PM EDT Tc from pt saying that he needs a referral for a bathroom chair and toilet seat to make him taller Contact pt for clarification at [phone] ( Kinyarwanda) documented in this encounter Plan of Treatment Upcoming Encounters Date Type Department Care Team (Late st Contact Info) Description 08/04/2024 1:00 PM EDT Office Visit [facility] MED & PEDS [address] [place] [address] Sonya Donis MD [address] [place] [address] 08/10/2024 1:30 PM EDT Clinical Support [facility] MED & PEDS [address] [place] [address] Anupama Solomon RN [address] [place] [address] 09/22/2024 3:00 PM EDT Office Visit [facility] ADULT DENTAL [address] [place] [address] Ascencion Joya documented as of this encounter Visit Diagnoses Not on filedocumented in this encounter Additional Health Concerns Assessment Noted Time PHQ-9 Depression Total Score: 0 10/11/19 24 9:09 AM EDT documented as of this encounter Care Teams Subscription Crew Leader Relationship Specialty Start Date End Date Sonya Donis MD [address] [place] [address] PCP - General Family Medicine 01/18/23 [employer] SERVICE OFFICER Services 10/11/23 documented as of this encounter
--- OUTSIDE RECORDS SUMMARY | 2024-07-20 10:37 | XMS_ITS | Data Portability ---
Author Organization [employer] [employer] Address [address] [place] [phone] Care Team Providers Care Atomizer Assembler Name Role Phone [facility] PRIMARY [facility] Primary Care Provider Assessment No assessment recorded. Plan of Treatment Reminders Order Date Submit Date Provider Last Modified By Organization Details Last Modified Time Details Appointments None recorded. Lab None recorded. Referral None recorded. Procedures None recorded. Surgeries None recorded. Imaging None recorded. Medication Orders fluticasone propionate 50 mcg/actuati on nasal spray,suspe nsion 2023 024 [facility] #[id number], [address], [place], [id number], 4 14:25:30 guaifenesin 400 mg tablet 2023 024 [facility] #[id number], [address], [place], [id number], 4 14:25:29 Patient TargetsNo targets recorded. Patient InstructionsNo instructions recorded. Reason for Referral None Reported. Medical Equipment None Reported. Allergies Allergen ID Allergen Name Allergen Category Reaction Reaction Severity Criticality Documentation Date Start Date Code Code System Note Provider Name and Address Organization Details Recorded Time 0905 aspirin medicatio n Not available Not available [...] Address Organization Details Last Updated DateTime 4 95278.0 48 g 16 /min 71 /min 170.18 [...] SNOMED-CT Code Diagnosis ICD10 Code Diagnosis Note [id number] Dary Castellanos MD Main - [facility] [address] [place] [phone] 04/26/2023 14:22:55 04/27/2023 11:07:57 COVID-19 [id number] U07.1 I provided real -time medical direction via phone for this encounter, and was available for additional phone based assistance as needed. I have reviewed and agree with the Assessment and Plan as documented by the Vegetable Harvest Machine Operator. Patient given the opportunit y to ask [...] Manning Member ID Guarantor Name 04/26/2023 1 [facility] - DOS ON OR AFTER 2022 - DUAL ELIGIBLE - RESIDENTIAL OPTIONS AND ONE CARE (MEDICARE REPLACEMENT/ADV ANTAGE - HMO) Nemo De Los Santos [id number] [facility] Notes Date Note Type Note Provider Name and Address Organization Details Recorded Time 04/26/2023 text/html CRC Nurse Triage Notes (Paris Gorman): Chief Complaints: Fever/Chills, Cough Allergies: Aspirin Comments: Dominican speaking member called in - verified name/ with director of professional services. Member reporting fever, cough, and throat pain for the past 3 days. Feeling unwell and fatigued. He has been taking Tylenol for body aches and fevers. SOB only r/t cough. Denies chest pain. No known sick contacts. Mikel Gorman RN Will need paper consent in Dominican ................... ................... ................... ................... ................... ................... ................... ........ Vegetable Harvest Machine Operator Note From Karan Hardin: Pt reports sore [...] ........ Disposition: Fulfilled Dary Castellanos MD [address] [facility],[address], [place], [address], [employer] 04/26/2023 23:24:04
--- OUTSIDE RECORDS SUMMARY | 2024-07-20 10:37 | XMS_ITS | Encounter Summary ---
Author Organization [employer] Address [address] [facility] 7t [place] [address] Care Team Providers Care Food And Beverage Attendant Name Role Phone Sonya Donis MD Primary Care Provider [phone] Reason for Visit * Reason Onset Date Comments Med Refill 09/08/2023 Encounter Details Date Type Department Care Team ([facility] st Contact Info) Description 09/08/2023 Telephone [facility] MED & PEDS [address] [place] [address] Sonya Donis MD [address] [place], [place] [phone] Med Refill Social History Tobacco Use Types [...] 2:59 PM EDT Medication was sent to [facility] #[id number] on 07/09/23 with 2 refills. * Telephone Encounter - Marcy Mohan - 09/08/2023 1:12 PM EDT TC from pt requesting medication refill. Medications needing refill : cyclobenzaprine (Flexeril) 10 MG tablet To be sent to: [facility] #[id number] - [place] [address] [facility] documented in this encounter Plan of Treatment Upcoming Encounters Date Type Department Care Team ([facility] Contact Info) Description 08/04/2024 1:00 PM EDT Office Visit [facility] MED & PEDS [address] [place] [address] Sonya Donis MD [address] [place] [address] 08/10/2024 1:30 PM EDT Clinical Support [facility] MED & PEDS [address] [place] [address] Anupama Solomon RN [address] [place] [address] 09/22/2024 3:00 PM EDT Office Visit [facility] ADULT DENTAL [address] [place] [address] Ascencion Joya documented as of this encounter Visit Diagnoses Not on filedocumented in this encounter Additional Health Concerns Assessment Noted Time PHQ-9 Depression Total Score: 9 03/11/19 24 11:12 AM EST documented as of this encounter Care Teams Food And Beverage Attendant Relationship Specialty Start Date End Date Sonya Donis MD [address] [place] [address] PCP - General Family Medicine 01/18/23 [employer] ESTIMATOR LUMBER Services 10/11/23 documented as of this encounter
--- OUTSIDE RECORDS SUMMARY | 2024-07-20 10:37 | XMS_ITS | Encounter Summary ---
Author Organization [employer] Address [address] [facility] 7t [place] [address] Care Team Providers Care An/Sqq 89(V)15 Sonar System Journeyman Name Role Phone Sonya Donis MD Primary Care Provider [phone] Reason for Visit * Reason Onset Date Comments New Patient 10/28/2022 Encounter Details Date Type Department Care Team (Late st Contact Info) Description 10/28/2022 Telephone [facility] MEDICINE [address] [place], [place] [phone] Dony Bhagat MD [address] [place], [place] [phone] New Patient Social History Tobacco Use Types [...] EDT BIJAN Brown called pt to Offer STEELWORKER appt. Pt demographics and insurance information were verified. Pt states following medical conditions: thyroid, Cholesterol, Arthritis, Needs Hip replacement, and High blood pressure. Pt reports taking medications: No Pt given STEELWORKER appt with Dr. Donis on 01/18/2023 @ 9:30 am. Pt will be sent appt reminder card and medical release form and agrees to complete and to return to medical records prior to STEELWORKER appt. * Telephone Encounter - Gayatri Chaudhary - 10/28/2022 1:35 PM EDT Pt has been transfer over to wait list for STEELWORKER. EFFECTIVE SINCE 10/28/2022 documented in this encounter Plan of Treatment Upcoming Encounters Date Type Department Care Team (Late st Contact Info) Description 08/04/2024 1:00 PM EDT Office Visit [facility] MED & PEDS [address] [place] [address] Sonya Donis MD [address] [place] [address] 08/10/2024 1:30 PM EDT Clinical Support [facility] MED & PEDS [address] [place] [address] Anupama Solomon, RN [address] [place] [address] 09/22/2024 3:00 PM EDT Office Visit [facility] ADULT DENTAL [address] [place] [address] Ascencion Joya documented as of this encounter Visit Diagnoses Not on filedocumented in this encounter Care Teams An/Sqq 89(V)15 Sonar System Journeyman Relationship Specialty Start Date End Date Sonya Donis MD [address] [place] [address] PCP - General Family Medicine 01/18/23 [employer] HORSE SHOW JUDGE Services 10/11/23 documented as of this encounter
--- OUTSIDE RECORDS SUMMARY | 2024-07-20 10:37 | XMS_ITS | Encounter Summary ---
Author Organization [employer] Address [address] [facility] 7t [place] [address] Care Team Providers Care Soybean Specialties Cook Name Role Phone Sonya Donis MD Primary Care Provider [phone] Reason for Visit * Reason Onset Date Comments Med Refill 11/11/2023 Encounter Details Date Type Department Care Team (Late st Contact Info) Description 11/11/2023 Telephone [facility] MEDICINE [address] [place] [address] Sonya Donis MD [address] [place], [place] [phone] Med Refill Social History Tobacco Use Types [...] 5-325 MG tablet To be sent to: [facility] #[id number] AT [facility] documented in this encounter Plan of Treatment Upcoming Encounters Date Type Department Care Team ([facility] st Contact Info) Description 08/04/2024 1:00 PM EDT Office Visit [facility] MED & PEDS [address] [place] [address] Sonya Donis MD [address] [place] [address] 08/10/2024 1:30 PM EDT Clinical Support [facility] MED & PEDS [address] [place] [address] Anupama Solomon RN [address] [place] [address] 09/22/2024 3:00 PM EDT Office Visit [facility] ADULT DENTAL [address] [place] [address] Ascencion Joya documented as of this encounter Visit Diagnoses Not on filedocumented in this encounter Additional Health Concerns Assessment Noted Time PHQ-9 Depression Total Score: 0 10/11/19 9:09 AM EDT documented as of this encounter Care Teams Soybean Specialties Cook Relationship Specialty Start Date End Date Sonya Donis MD [address] [place] [address] PCP - General Family Medicine 01/18/23 [employer] SECOND VP HR ASSESSMENT Services 10/11/23 documented as of this encounter
== END 2024-07-20 10:11 | disposition home or self-care (01) ==
LOC: HO.PMC 09:46
PROVIDERS: PCP Family Medicine; Visit Provider Nurse Practitioner Family
DX: M50.30 Other cervical disc degeneration, unspecified cervical region (principal); M47.812 Spondylosis without myelopathy or radiculopathy, cervical region; G44.86 Cervicogenic headache; M62.838 Other muscle spasm; M48.02 Spinal stenosis, cervical region
CPT/HCPCS: 99214; G2211

== ENCOUNTER → 2024-07-20 09:45 | Outpatient (BNVA) | payer OTHER, SELFPAY | PROVIDERS: PCP Family Medicine; Visit Provider Nurse Practitioner Family | DX: M50.30 Other cervical disc degeneration, unspecified cervical region (principal); M47.812 Spondylosis without myelopathy or radiculopathy, cervical region; M62.838 Other muscle spasm; M48.02 Spinal stenosis, cervical region; G44.86 Cervicogenic headache | CPT/HCPCS: 99212 ==

== ENCOUNTER 2024-08-11 11:03 | Outpatient (REF) | payer OTHER, SELFPAY ==
--- NOTE | ~2024-08-11 | XR_ITS ---
Exam: 3 views left ankle and left foot TECHNIQUE: AP, lateral, oblique views lower extremity joint and lower extremity, left foot and ankle INDICATION: Left anterior foot pain after a fall one month ago Prior: None FINDINGS: LEFT ANKLE: Ankle mortise is congruent. There is no widening of the syndesmosis. The talar dome appears intact. No degenerative changes are evident. On lateral view, the subtalar joint is somewhat indistinct. LEFT FOOT: Joint spaces are preserved. There is mild hallux valgus deformity and small marginal osteophyte involving the first metacarpal head. There is no joint diastases or malalignment otherwise. There is a thin enthesophyte at the Achilles attachment onto calcaneus. XR/XR ankle LT min 3V Impression: On the lateral view, the subtalar joint is somewhat indistinct raising question of talocalcaneal coalition. Correlate for signs symptoms. If clinically suspicious, consider CT bilateral ankle joints. No acute fracture. Mild hallux valgus deformity of the left foot. Electronically signed by: Ethan Gloria MD 08/11/2024 02:37 PM EDT
--- NOTE | ~2024-08-11 | XR_ITS ---
Exam: 3 views left ankle and left foot TECHNIQUE: AP, lateral, oblique views lower extremity joint and lower extremity, left foot and ankle INDICATION: Left anterior foot pain after a fall one month ago Prior: None FINDINGS: LEFT ANKLE: Ankle mortise is congruent. There is no widening of the syndesmosis. The talar dome appears intact. No degenerative changes are evident. On lateral view, the subtalar joint is somewhat indistinct. LEFT FOOT: Joint spaces are preserved. There is mild hallux valgus deformity and small marginal osteophyte involving the first metacarpal head. There is no joint diastases or malalignment otherwise. There is a thin enthesophyte at the Achilles attachment onto calcaneus. XR/XR foot LT min 3V Impression: On the lateral view, the subtalar joint is somewhat indistinct raising question of talocalcaneal coalition. Correlate for signs symptoms. If clinically suspicious, consider CT bilateral ankle joints. No acute fracture. Mild hallux valgus deformity of the left foot. Electronically signed by: Ethan Gloria MD 08/11/2024 02:37 PM EDT
--- OUTSIDE RECORDS SUMMARY | 2024-08-11 11:56 | XMS_ITS | Encounter Summary ---
Author Organization [employer] Address [address] [facility] 7t [place] [address] Care Team Providers Care Professor In Family Studies Name Role Phone Sonya Donis MD Primary Care Provider [phone] Reason for Visit * Reason Onset Date Comments Med Refill 07/05/2024 Encounter Details Date Type Department Care Team ([facility] st Contact Info) Description 07/05/2024 Telephone [facility] MEDICINE [address] [place] [address] Sonya Donis MD [address] [facility] [place] [phone] Med Refill Social History Tobacco Use Types [...] 5-325 MG tablet To be sent to: [facility] #[id number] [place] - [address] [place] [address] AT [facility] documented in this encounter Plan of Treatment Upcoming Encounters Date Type Department Care Team ([facility] st Contact Info) Description 09/22/2024 3:00 PM EDT Office Visit [facility] ADULT DENTAL [address] [place] [address] Ascencion Joya 10/13/2024 2:00 PM EDT Nurse Only [facility] MED & PEDS [address] [place] [address] 11/15/2024 3:15 PM EDT Clinical Support [facility] MED & PEDS [address] [place] [address] Anupama Solomon RN [address] [place] [address] documented as of this encounter Visit Diagnoses Not on filedocumented in this encounter Additional Health Concerns Assessment Noted Time PHQ-9 Depression Total Score: 0 10/11/19 24 9:09 AM EDT documented as of this encounter Care Teams Professor In Family Studies Relationship Specialty Start Date End Date Sonya Donis MD [address] [place] [address] PCP - General Family Medicine 01/18/23 [employer] PATTERNMAKER APPRENTICE WOOD Services 10/11/23 documented as of this encounter
[2024-08-11 14:08] LABS: MANUAL DIFF FLAG NO
[2024-08-11 14:18] LABS: Basophils Percent Auto 0.9 % (0-2); Eosinophils Absolute Auto 0.1 X10*3/uL (0.0-0.4); Eosinophils Percent Auto 2.6 % (0-4); Hematocrit 40.8 % (42.0-52.0); Hemoglobin 13.7 g/dl (14.0-18.0); Imm Gran Abs Auto 0.02 X10*3/uL (0.00-0.03); Imm Gran Pct Auto 0.4 % (0.0-0.4); Lymphocytes Absolute Auto 1.3 X10*3/uL (1.2-4.9); Lymphocytes Percent Auto 29.1 % (20-40); Mean Corpuscular HGB Conc 33.6 g/dl (31.0-36.0); Mean Corpuscular Hemoglobin 30.9 pg (27.0-33.0); Mean Corpuscular Volume 92.1 fL (80.0-98.0); Mean Platelet Volume 10.3 fL (9.4-12.4); Monocytes Absolute Auto 0.4 X10*3/uL (0.1-1.2); Monocytes Percent Auto 9.3 % (2-11); Neutrophils Absolute Auto 2.7 x10*3/uL (2.0-8.3); Neutrophils Percent Auto 57.7 % (45-73); Platelet Count 207 X10*3/uL (160-400); Red Blood Count 4.43 X10*6/uL (4.60-5.80); Red Cell Distribution Width 12.8 % (11.0-16.0); White Blood Count 4.6 X10*3/uL (4.8-10.8)
[2024-08-11 14:42] LABS: PSA,Total (Free>4and<10) 1.09 ng/mL (0.00-4.00)
[2024-08-11 14:53] LABS: TSH reflex Free T4 4.75 uIU/mL (0.32-4.0)
[2024-08-11 15:44] LABS: Alanine Aminotransferase 38 U/L (0-40); Albumin Level 4.1 g/dL (3.5-5.0); Alkaline Phosphatase 91 U/L (39-117); Anion Gap 8 (12-20); Aspartate Amino Transferase 25 U/L (5-37); Bilirubin Total 0.3 mg/dL (0.0-1.0); Blood Urea Nitrogen 18 mg/dL (9-16); Calcium 9.4 mg/dL (8.4-10.2); Carbon Dioxide 29 mmol/L (22-29); Chloride 109 mmol/L (96-108); Cholesterol 249 mg/dL (<200); Estimated Glomerular Filt Rate 59; Glucose Random 93 mg/dL (60-115); HDL Cholesterol 32 mg/dL (>40); Potassium 4.4 mmol/L (3.3-5.1); Sodium 142 mmol/L (135-145); Triglycerides 461 mg/dL (<150)
[2024-08-11 16:19] LABS: Free T4 (Free Thyroxine) 0.93 ng/dL (0.71-1.85)
== END 2024-08-11 11:04 | disposition home or self-care (01) ==
LOC: HO.CHCLDS 11:03
PROVIDERS: Visit Provider Family Medicine
DX: I10 Essential (primary) hypertension (principal); N36.8 Other specified disorders of urethra; M79.672 Pain in left foot; Z12.5 Encounter for screening for malignant neoplasm of prostate
CPT/HCPCS: 36415; 73610; 73630; 80053; 80061; 84153; 84439; 84443; 85025

== ENCOUNTER → 2024-08-11 14:03 | Outpatient (BNV) | payer OTHER, SELFPAY | PROVIDERS: Visit Provider Radiology Diagnostic Radiology | DX: M79.672 Pain in left foot (principal) | CPT/HCPCS: 73610; 73630 ==

== ENCOUNTER 2024-09-07 06:28 | Outpatient (REF) | payer OTHER, SELFPAY ==
--- NOTE | ~2024-09-07 | FL_ITS ---
EXAMINATION: FL GUIDANCE ONLY HISTORY: M50.30 - Other cervical disc degeneration, unspecified cervical region COMPARISON: None available. TECHNIQUE: Fluoroscopy time: 0.2 minutes. Cumulative Dose: 2.05 mGy. DAP: 0.0183 mGym2 Images: 2. FINDINGS: Fluoroscopic spot films of the cervical spine is straight and electrode on the right. FL/FL guidance in treatment room IMPRESSION: Fluoroscopy during procedure. Please see procedure report for additional information. Electronically signed by: Acosta Norman MD 09/07/2024 03:40 PM EDT
--- OUTSIDE RECORDS SUMMARY | 2024-09-07 06:30 | XMS_ITS | Data Portability ---
Author Organization [employer] - [employer] [facility] Hi inSecond Chance StaffingLULU Medical [facility] Address [address] [place] [phone] Care Team Providers Care Auto Slip Cover Installer Name Role Phone [facility] PRIMARY CARE Primary Care Provider [phone] Assessment No assessment recorded. Plan of Treatment Reminders Order Date Submit Date Provider Last Modified By Organization Details Last Modified Time Details Appointments None recorded. Lab None recorded. Referral None recorded. Procedures None recorded. Surgeries None recorded. Imaging None recorded. Medication Orders fluticasone propionate 50 mcg/actuati on nasal spray,suspe nsion 2023 024 [facility] #[id number], [address] [place], [place], [id number], 4 14:25:30 guaifenesin 400 mg tablet 2023 024 [facility] #[id number], [address] [place], [place], [id number], 4 14:25:29 Patient TargetsNo targets recorded. Patient InstructionsNo instructions recorded. Reason for Referral None Reported. Medical Equipment None Reported. Allergies Allergen ID Allergen Name Allergen Category Reaction Reaction Severity Criticality Documentation Date Start Date Code Code System Note Provider Name and Address Organization Details Recorded Time 4434 aspirin medicatio n Not available Not available Not available 01/04/2024 1191 RxNorm Not Available [facility] - production 4 04:13:31 Medications Name Sig Start Date Stop [...] Address Organization Details Last Updated DateTime 4 [address]644.0 48 g 16 /min 71 /min 170.18 [...] SNOMED-CT Code Diagnosis ICD10 Code Diagnosis Note [id number] Dary Castellanos MD Main - [facility] [address] [place] [phone] 04/26/2023 14:22:55 04/27/2023 11:07:57 COVID-19 [id number] U07.1 I provided real -time medical direction via phone for this encounter, and was available for additional phone based assistance as needed. I have reviewed and agree with the Assessment and Plan as documented by the Practice Manager. 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 Member reporting fever, cough, and throat pain for the past 3 days. Feeling unwell and fatigued. He has been taking Tylenol for body aches and fevers. SOB only r/t cough. Denies chest pain. No known sick contacts. Mikel Gorman RN Will need paper consent in [place] ................... ................... ................... ................... ................... ................... ................... ........ Practice Manager Note From Karan Hardin: Pt reports [...] ........ Disposition: Fulfilled Dary Castellanos MD [address] [facility],[address], [place], [address], [employer] 04/26/2023 23:24:04
--- OUTSIDE RECORDS SUMMARY | 2024-09-07 06:30 | XMS_ITS | Encounter Summary ---
Author Organization [employer] Address [address] [facility] 7t [place] [address] Care Team Providers Care Disbursing Officer Name Role Phone Sonya Donis MD Primary Care Provider [phone] Reason for Visit * Reason Onset Date Comments Med Refill 07/05/2024 Encounter Details Date Type Department Care Team ([facility] st Contact Info) Description 07/05/2024 Telephone [facility] MEDICINE [address] [place] [address] Sonya Donis MD [address] [facility] [place] [phone] Med Refill Social History Tobacco Use Types [...] 5-325 MG tablet To be sent to: [id number] [facility] documented in this encounter Plan of Treatment Upcoming Encounters Date Type Department Care Team ([facility] st Contact Info) Description 09/22/2024 3:00 PM EDT Office Visit [facility] ADULT DENTAL [address] [place] [address] Ascencion Joya 09/29/2024 11:15 AM EDT Office Visit [facility] MED & PEDS [address] [place] [address] Sonya Donis MD [address] [place] [address] 10/13/2024 2:00 PM EDT Nurse Only [facility] MED & PEDS [address] [place] [address] 11/15/2024 3:15 PM EDT Clinical Support [facility] MED & PEDS [address] [place] [address] Anupama Solomon RN [address] [place] [address] documented as of this encounter Visit Diagnoses Not on filedocumented in this encounter Additional Health Concerns Assessment Noted Time PHQ-9 Depression Total Score: 0 10/11/19 24 9:09 AM EDT documented as of this encounter Care Teams Disbursing Officer Relationship Specialty Start Date End Date Sonya Donis MD [address] [place] [address] PCP - General Family Medicine 01/18/23 [employer] DIRECTOR OF SECURITIES AND REAL ESTATE Services 10/11/23 documented as of this encounter
== END 2024-09-07 06:29 | disposition home or self-care (01) ==
LOC: CF 06:28
PROVIDERS: Visit Provider Internal Medicine
DX: M50.30 Other cervical disc degeneration, unspecified cervical region (principal); M47.812 Spondylosis without myelopathy or radiculopathy, cervical region; G89.29 Other chronic pain
CPT/HCPCS: 64555; C1778; J2003

== ENCOUNTER 2024-09-07 12:38 | Outpatient (AMB) | payer OTHER, SELFPAY ==
--- NOTE | 2024-09-07 12:42 | MHC.OFFVIS ---
Vital Signs 09/07/24 12:46 09/07/24 13:58 Height 5 ft 7 in 5 ft 7 in Weight 160 lb 160 lb BMI 25.1 25.1 BP 147/82 H 154/85 H Blood Pressure Location Lt brachial Lt brachial Position Sitting Sitting Respiration 16 16 Pulse 77 70 Pulse Source Pulse Oximeter Pulse Oximeter Pulse Oximetry (%) 98 98 Oxygen Delivery Method Room Air Room Air Intake Visit Reasons: Right C4 Sprint/ ativan Allergies aspirin Allergy (Unknown, Verified 07/20/24 09:53) UNKNOWN shellfish derived Allergy (Unknown, Verified 07/20/24 09:53) Unknown HPI HPI Right C4 Sprint/ ativan: Details: Patient presents for scheduled procedure. Denies any recent cough, cold, infection, fever or other significant changes in medical history since last office visit. [facility] Medical History Pre-diabetes High cholesterol HTN (hypertension), benign Hypothyroid Surgical History H/O colonoscopy S/P urethral surgery History of orthopedic surgery Social History Alcohol intake: current Alcohol intake frequency: holidays/special occasions only Alcohol type: beer Tobacco use type: Cigarette Physical Exam Vital Signs: Last Vital Signs Pulse 70 09/07/24 13:58 Resp 16 09/07/24 13:58 BP 154/85 H 09/07/24 13:58 Pulse Ox 98 09/07/24 13:58 Oxygen Delivery Method Room Air 09/07/24 13:58 BMI result Body Mass Index 25.1 Office Procedures Details: Cervical Medial Branch Nerve Stimulation Lead Placement, SPR (Sprint) System, Right C4 ? After the risks, benefits and alternatives were discussed with the patient and informed consent was obtained, patient was placed in the prone position and padded to foster comfort. The skin overlying the cervical spine was prepped and draped in sterile fashion. Fluoroscopy was used to identify the spinous process and lamina over the C4 articular pillar. After identifying and marking the intended target along the course of the medial branch nerve, the skin around the planned entry point and the subcutaneous tissues were injected with lidocaine 1%. An introducer needle and stimulating probe were assembled, inserted and advanced along the intended course of the medial branch nerve, taking care to maintain the proper depth of insertion as the introducer was advanced under fluoroscopic guidance. The introducer needle was delivered to a location in proximity to the nerve. Multiple stimulation parameters were used to deliver stimulation to the target medial branch nerve in concert with stimulating at multiple positions around the nerve. Nerve target acquisition was confirmed noting generation of paresthesias in the paravertebral regions corresponding to the level being stimulated. Various electrical parameter combinations were tested, and the lead location was adjusted (physically relocated) until the patient indicated paresthesia/muscle tension overlapping the distribution of the patient?s typical region of pain, including neck and occipital region. The stimulating probe was removed from the introducer and a percutaneous lead was guided through the needle and delivered to a location in similar proximity to the nerve. Final location was verified with electrical stimulation and documented with fluoroscopy. The introducer needle was removed, and the exposed end of the percutaneous lead was attached to an external stimulator unit. Various electrical parameter combinations were again tested until the patient indicated paresthesia or muscle tension overlapping the distribution of the patient?s typical region of pain. Fluoroscopy was used to document the location of the percutaneous lead in the deployed position. After confirming that lead impedance was in the normal range, the external unit was detached, the needle was removed, and the lead was anchored at the skin. The lead was threaded into the connector block and electrical continuity and desired patient response was confirmed. The connector block was attached to the external stimulator unit. The site was covered with a sterile occlusive pressure dressing. The patient was observed for stability of vital signs and comfort. Patient was dischared in stable condition. Sprint PNS Device: Sprint PNS Device [id number] Percutaneous Peripheral Neuroelectrode Procedure: 71123 - Percutaneous Peripheral Neuroelectrode Procedure code (CPT) selection complete Office Meds lidocaine HCl 10 mg/mL (1 %) injection solution Performing Provider: Rimma Santoro APRN, JENNY Performing Location: [facility] Administered by: Elio Linares MD on 09/08/24 18:21 Dose Route Admin Location Dispensed Lot Number Expiration Date NDC Geophysical E Logger 5 mL subcut 5 mL Total Dispensed Waste 5 mL 0 % Assessment & Plan Assessment & Plan (1) Cervicogenic headache: Code(s): G44.86 - Cervicogenic headache Category: Medical (2) Cervical spondylosis: Code(s): M47.812 - Spondylosis without myelopathy or radiculopathy, cervical region Category: Medical (3) Chronic pain: Code(s): G89.29 - Other chronic pain Category: Medical Plan Patient is status post right C4 temporary medial branch nerve stimulator. Patient tolerated procedure well and was discharged home in stable condition with discharge instructions. All questions were answered. We will follow-up via telephone or in clinic to assess response to therapy. A follow-up appointment was made during today's visit. Orders: Orders AMB Sprint PNS 09/07/24 M47.812 - Spondylosis without myelopathy or radiculopathy, cervical region FL guidance in treatment room 09/07/24 M50.30 - Other cervical disc degeneration, unspecified cervical region Medications: New lorazepam (Ativan) Take 30 minutes prior to arrival to procedure 1 mg PO ONCE 1 tab 0RF anxiety Coding Level of Care Code Procedure Only Diagnoses Cervicogenic headache G44.86 Cervical spondylosis M47.812 Chronic pain G89.29 CPT Codes Sprint PNS - Sprint PNS Device: Sprint PNS Device ([id number]) Sprint PNS - SPRINT: 46446 - Percutaneous Peripheral Neuroelectrode ([id number]) Implantable Device Implantable Device Implantable Devices Qty Geophysical E Logger Implant Date Expiration Date Analgesic PENS system 1 [employer] 09/07/24
[2024-09-07 12:46] VITALS: BP 147/82; PULSE 77; RESP 16; O2SAT 98; BMI 25.1
[2024-09-07 13:58] VITALS: BP 154/85; PULSE 70; RESP 16; O2SAT 98; BMI 25.1
== END 2024-09-07 14:11 | disposition home or self-care (01) ==
LOC: HO.PMCPRC 12:38
PROVIDERS: Visit Provider Internal Medicine
DX: G44.86 Cervicogenic headache (principal); M47.812 Spondylosis without myelopathy or radiculopathy, cervical region; G89.29 Other chronic pain
CPT/HCPCS: 64555

== ENCOUNTER 2024-09-18 09:38 | Outpatient (AMB) | payer OTHER, SELFPAY ==
--- NOTE | 2024-09-18 09:40 | MHC.OFFVIS ---
Vital Signs 09/18/24 09:47 Height 5 ft 7 in Weight 159 lb BMI 24.9 BP 118/76 Blood Pressure Location Rt brachial Position Sitting Pulse 73 Pulse Source Pulse Oximeter Pulse Oximetry (%) 98 Oxygen Delivery Method Room Air Intake Visit Reasons: s/p Right C4 Sprint Intake Note: Pain today 0/10 Organic Preparation Analyst Required: Yes Organic Preparation Analyst Language: Environmental Sustainability Manager Services: Organic Preparation Analyst Present Organic Preparation Analyst Name: Celia #[id number] Allergies aspirin Allergy (Unknown, Verified 09/18/24 09:48) UNKNOWN shellfish derived Allergy (Unknown, Verified 09/18/24 09:48) Unknown HPI Comments Details: The patient presents today status post Cervical Medial Branch Nerve Stimulation Lead Placement, SPR (Sprint) System, Right C4 on 09/07/[address] Linares for chronic neck pain and management of cervical spondylosis. He also suffers from multilevel cervical DDD and stenosis, most notably severe right-sided neural foraminal stenosis at C5-C6. The patient reports that his assists with dressing changes at home, performing them daily after he showers, although it is only necessary once a week unless the dressing becomes loose or wet. He mentions experiencing some minor discomfort in the area, which he attributes to the overstimulation, but he manages this by adjusting the stimulation settings. Currently he reports no pain at 75 stimulation setting with positive paresthesia on the right side of the neck. He reports improvement in his daily activities, range of motion and sleep with intermittent pain on the left. Patient is scheduled for left sided C4 Sprint on 09/21/24. The dressing was removed today. Lead insertion site look clean, dry, intact, no redness, no swelling, no pathological discharge. Area was cleansed with Chloraprep, applied Bacitracin and covered with Sprint Tegaderm film and gauze dressing. He continues with gabapentin and Percocet for pain management as well as activity modifications, heat and stretching exercises. Denies any recent cough, cold, infection, fever or any significant changes in medical history since last office visit. Past Procedures: 09/07/24: Right C4 Medial Branch Nerve Stimulation Lead Placement, SPR (Sprint) System--100% ongoing pain relief 06/22/24: Right parasagittal interlaminar C5-C6 TEZ-0% pain relief 05/18/24: Left Diagnostic C4-C5 MBB-100% pain relief for 24 hours 04/20/24: Right Diagnostic C3-C4-C5 MBB-100% pain relief for 18 hours PRIOR: Patient is a pleasant 68-year-old Arabic-speaking male with history of chronic neck pain, fatigue, cervical and lumbar degenerative joint disease with moderate cervical canal stenosis, presents today for initial evaluation for neck pain. Denies any recent trauma, injury, or falls. Neck pain has been present for over 15 years and has been worsening. Patient reports history of head fracture in 1970s due to 50ft fall which impacted his left hip, head and elbow and required surgical correction of his left elbow, wrist, mandible, jaw and left hip with hip hardware in place. Neck pain is predominantly axial, easily reproduced with cervical extension in lateral rotations. Reports intermittent radiation of neck pain into his left upper extremity with weakness. He attempted formal physical therapy in January 2024 but had to stop due to increased pain and loss of insurance coverage for PT visits. He reports multiple spine injections 8 years ago in [place] with good results. Denies previous cervical spine surgery. Pain affects his daily activities and functioning, movements, range of motion, sleep, mood, and social interactions. Pain is most severe during the morning rated at 10/10 and least severe at afternoons, rated at 7/10 and are accompanied with cervicogenic headaches. Recent cervical spine MRI is noted below. Patient is interested to undergo diagnostic cervical medial branch blocks for potential therapeutic injections, RFA or Sprint PNS trial. Denies any fever or chills, dizziness, visual disturbances, chest pain, shortness of breaths, weakness, bladder or bowel dysfunction or saddle anesthesia. Oswestry Neck Disability Index Score=33 (severe disability) Location: Neck pain, intermittent radiation in left arm with weakness Duration: Chronic pain for >15 years Characteristics of symptom or complaint: Aching, stabbing, spasming, stiffness, tightness, sharp, sore, tiring Aggravating or associated factors: Movements, ROM, cold weather changes Relieving factors: Oxycodone-acetaminophen, heat, activity modifications, stretching exercises Treatment: PT x1 session in January,; spine injections in [place] [facility] Medical History Pre-diabetes High cholesterol HTN (hypertension), benign Hypothyroid Surgical History H/O colonoscopy S/P urethral surgery History of orthopedic surgery Social History Alcohol intake: current Alcohol intake frequency: holidays/special occasions only Alcohol type: beer Tobacco use type: Cigarette Review of Systems Const All systems reviewed & are unremarkable except as noted in HPI and below Physical Exam Vital Signs: Last Vital Signs Pulse 73 09/18/24 09:47 BP 118/76 09/18/24 09:47 Pulse Ox 98 09/18/24 09:47 Oxygen Delivery Method Room Air 09/18/24 09:47 BMI result Body Mass Index 24.9 General: Appears afebrile. Alert and oriented. Mood and affect appropriate. Follows and participates in conversation appropriately. Respiratory effort is unlabored. No cough. Able to transition from sit to stand unassisted. Ambulates with bilaterally normal heel strike and toe off. Lead Insertion Site: Lead insertion site looks clean, dry, intact. No pathological discharge, no swelling and no erythema. Lead site dressing was changed today in the clinic. Positive paresthesia at 75 on the right. Results Reviewed Results Reviewed: MR CERVICAL SPINE WITHOUT CONTRAST 01/29/24 CLINICAL INFORMATION: 68-year-old with chronic persistent neck pain. Self-reported left arm weakness. FINDINGS: ALIGNMENT: Mild cervicothoracic levocurvature noted slightly convex to the left at C7-T1. There is moderate hyperlordosis centered at C5-C6. CRANIOCERVICAL JUNCTION/C1-C2 ARTICULATIONS: Intact and aligned. VISUALIZED INTRACRANIAL/EXTRACRANIAL STRUCTURES: Grossly unremarkable. VERTEBRAL BODIES: Vertebral body heights are well maintained. DISC SPACES AND ENDPLATES: There is moderate disc volume loss at C5-C6 with intradiscal degenerative signal changes and minor spondylosis. There is intradiscal degenerative signal change at C3-C4 and C4-C5 without significant disc space height loss. BONE MARROW: No suspicious marrow-replacing process or bone marrow edema. C2-C3: Tiny central disc protrusion with a tiny central annular fissure noted. No cord impingement or canal stenosis. No significant DJD or neural foraminal stenosis. C3-C4: Broad-based posterior disc osteophyte complex noted with mild flattening of the ventral dural sac without cord impingement or canal stenosis. Mild right and [id number] left-sided facet joint arthropathy noted with uncinate process spurring bilaterally, with no significant neural foraminal stenosis. C4-C5: Broad-based central to right paramedian disc osteophyte complex, with moderate flattening of the ventral dural sac asymmetric to the right without cord impingement. Slight chronic ventral cord deformity suspected on the right. No significant canal stenosis. Uncinate process spurring noted bilaterally with moderate left and mild right facet joint arthropathy without significant neural foraminal stenosis. C5-C6: Broad-based disc osteophyte complex noted with effacement of the ventral dural sac without cord impingement. Ligamentum flavum thickening or buckling is noted. There is moderate central spinal canal stenosis. There is uncovertebral spurring bilaterally and mild facet joint arthropathy with moderate left-sided and severe right-sided neural foraminal stenosis. C6-C7: Broad-based central disc protrusion with a central annular fissure noted and flattening of the ventral dural sac without cord impingement or canal stenosis. No significant DJD or neural foraminal stenosis. C7-T1: Shallow central disc protrusion. No canal stenosis. Moderate facet joint arthropathy on the left noted with mild craniocaudal neural foraminal narrowing. SPINAL CORD: The cervical and visualized upper thoracic spinal cord is normal in signal intensity throughout, without focal lesion, edema or syrinx. EXTRACRANIAL SOFT TISSUES: Note is made of a somewhat plump left level II IJ chain lymph node measuring 1.6 x 1.2 cm in greatest transverse dimensions consistent with an enlarged lymph node. Signal voids are noted within the visualized major neck vessels. IMPRESSION: 1. Discogenic degenerative changes primarily at C5-C6 as discussed above, with disc osteophyte complex and DJD at this level with moderate spinal canal stenosis without cord impingement. There is moderate left-sided and severe right-sided neural foraminal stenosis at this level. 2. Multilevel disc protrusions and disc osteophyte complexes as described above without cord impingement or significant spinal canal stenosis. 3. Multilevel bilateral facet joint arthropathy as described above. 4. Mildly enlarged left level II IJ chain lymph node. This is nonspecific. Recommend correlation with clinical history and physical exam findings. Cannot exclude neoplastic disease. Recommend CT of the neck with contrast for further assessment. XR CERVICAL SPINE 10/21/23 FINDINGS: No acute visible fracture or dislocation. Slight exaggeration of the cervical lordosis. Grade 1 retrolisthesis of C5 on C6. Mild left multilevel neuroforaminal narrowing. Multilevel degenerative changes with disc space narrowing, endplate sclerosis, osteophyte formation, and facet arthropathy. Visualized dens is intact. Lateral masses are symmetric. Vertebral body has a spaces are maintained. Prevertebral soft tissues are unremarkable. Posterior elements are intact. Paraspinal soft tissues are unremarkable. Visualized portions of the upper chest are unremarkable. IMPRESSION: 1. No acute visible fracture or dislocation. 2. Slight exaggeration of the cervical lordosis. 3. Grade 1 retrolisthesis of C5 on C6. 4. Mild left multilevel neuroforaminal narrowing. 5. Multilevel degenerative changes. Assessment & Plan Assessment & Plan (1) Cervical spondylosis: Code(s): M47.812 - Spondylosis without myelopathy or radiculopathy, cervical region Category: Medical (2) Degenerative disc disease, cervical: Code(s): M50.30 - Other cervical disc degeneration, unspecified cervical region Category: Medical (3) Cervicogenic headache: Code(s): G44.86 - Cervicogenic headache Category: Medical Plan The patient will continue with postoperative care for the right C4 cervical medial branch nerve stimulation. His will assist with dressing changes at home, ensuring they are done once a week and more frequent as needed. Denies any untoward effects with Sprint PNS therapy. Patient reports 100% pain relief since the procedure with significant improvement in his symptoms, improved mobility, functioning and sleep with positive paresthesia at 75 stimulation. All questions and concerns have been answered and patient agrees with the treatment plan. Follow-up is scheduled for the left side procedure on September 21, with a postoperative visit on September 28. Patient request oral sedation with Ativan for left Sprint PNS placement. Patient reports he took Ativan prior to this visit as he thought he was getting his left side done today. Patient was informed and verbally consented to the use of an ambient scribe for clinic note documentation during this visit. Medications: Refilled lorazepam (Ativan) Take 30 minutes prior to arrival to procedure 1 mg PO ONCE 1 tab 0RF anxiety M47.812 - Spondylosis without myelopathy or radiculopathy, cervical region Patient Instructions: - Continue with dressing changes once a week unless the dressing becomes loose or wet. - Adjust stimulation settings if discomfort or swelling occurs. - Attend the left side procedure on September 21 and the follow-up visit on September 28. - Plan for device removal in October for the right side and November for the left side. Coding Level of Care Code Est Pt Level 3 (64650) Complex EM visit Add On G2211 Diagnoses Cervical spondylosis M47.812 Degenerative disc disease, cervical M50.30 Cervicogenic headache G44.86
[2024-09-18 09:47] VITALS: BP 118/76; PULSE 73; O2SAT 98; BMI 24.9
--- OUTSIDE RECORDS SUMMARY | 2024-09-18 10:07 | XMS_ITS | Encounter Summary ---
Author Organization [employer] Address [address] [place] [address] Care Team Providers Care Copy Operator Name Role Phone Sonya Donis MD Primary Care Provider [phone] Reason for Visit * Reason Onset Date Comments Med Refill 07/05/2024 Encounter Details Date Type Department Care Team ([facility] st Contact Info) Description 07/05/2024 Telephone [facility] [address] [place] [address] Sonya Donis MD [address] [facility] [place] [id number] Med Refill Social History Tobacco Use Types [...] 5-325 MG tablet To be sent to: [id number] AT [facility][1] documented in this encounter Plan of Treatment Upcoming Encounters Date Type Department Care Team ([facility] st Contact Info) Description 09/22/2024 3:00 PM EDT Office Visit [facility] ADULT DENTAL [address] [place] [address] Ascencion Joya 09/29/2024 11:15 AM EDT Office Visit [facility] MED & PEDS [address] [place] [address] Sonya Donis MD [address] [place] [address] 10/13/2024 2:00 PM EDT Nurse Only [facility] [address] [place] [address] 11/15/2024 3:15 PM EDT Clinical Support [facility] [address] [place] [address] Anupama Solomon RN [address] [place] [address] documented as of this encounter Visit Diagnoses Not on filedocumented in this encounter Additional Health Concerns Assessment Noted Time PHQ-9 Depression Total Score: 0 10/11/19 24 9:09 AM EDT documented as of this encounter Care Teams Copy Operator Relationship Specialty Start Date End Date Sonya Donis MD [address] [place] [id number] PCP - General Family Medicine 01/18/23 [employer] [facility] 10/11/23 documented as of this encounter
--- OUTSIDE RECORDS SUMMARY | 2024-09-18 10:07 | XMS_ITS | Data Portability ---
Author Organization ANUEL - [employer] [facility] Wy ineriQooLULU Medical [facility] Address [address] [place] [phone] Care Team Providers Care Heavy Equipment Service Technician Name Role Phone [facility] Primary Care Provider Assessment No assessment recorded. Plan of Treatment Reminders Order Date Submit Date Provider Last Modified By Organization Details Last Modified Time Details Appointments None recorded. Lab None recorded. Referral None recorded. Procedures None recorded. Surgeries None recorded. Imaging None recorded. Medication Orders fluticasone propionate 50 mcg/actuati on nasal spray,suspe nsion 2023 024 [id number], [address], [place], [phone], 4 14:25:30 guaifenesin 400 mg tablet 2023 024 [facility] #[id number], [address], [place], [phone], 4 14:25:29 Patient TargetsNo targets recorded. Patient InstructionsNo instructions recorded. Reason for Referral None Reported. Medical Equipment None Reported. Allergies Allergen ID Allergen Name Allergen Category Reaction Reaction Severity Criticality Documentation Date Start Date Code Code System Note Provider Name and Address Organization Details Recorded Time 3059 aspirin medicatio n Not available Not available [...] in Arterial blood by Pulse oximetry Systolic And Diastolic Provider Name and Address Organization Details Last Updated DateTime 4 34755.0 48 g 16 /min 71 /min 170.18 cm 97.1 [degF] 97 % 97 % 153/89 mm[Hg] Not Available [facility] - production 4 14:22:57 Social History None recorded. Functional Status None recorded. Mental Status None recorded. Family History Nothing Reported. Medical History No medical history recorded. Past Encounters Encounter ID Performer Location Encounter Start Date Encounter Closed Date Diagnosis/Indication Diagnosis SNOMED-CT Code Diagnosis ICD10 Code Diagnosis Note [id number] Dary Castellanos MD Main - [facility] [address] [place] [phone] 04/26/2023 14:22:55 04/27/2023 11:07:57 COVID-19 [id number] U07.1 I provided real -time medical direction via phone for this encounter, and was available for additional phone based assistance as needed. I have reviewed and agree with the Assessment and Plan as documented by the Director Data Processing. 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 Member reporting fever, cough, and throat pain for the past 3 days. Feeling unwell and fatigued. He has been taking Tylenol for body aches and fevers. SOB only r/t cough. Denies chest pain. No known sick contacts. Mikel Gorman RN Will need paper consent in Italian ................... ................... ................... ................... ................... ................... ................... ........ Director Data Processing Note From Karan Hardin: Pt reports sore [...] ........ Disposition: Fulfilled Dary Castellanos MD [address] [facility],[address], [place], [address], [facility] [place] 04/26/2023 23:24:04
== END 2024-09-18 09:59 | disposition home or self-care (01) ==
PROVIDERS: Visit Provider Nurse Practitioner Family
DX: M47.812 Spondylosis without myelopathy or radiculopathy, cervical region (principal); M50.30 Other cervical disc degeneration, unspecified cervical region; G44.86 Cervicogenic headache
CPT/HCPCS: 99213; G2211

== ENCOUNTER → 2024-09-18 09:38 | Outpatient (BNVA) | payer OTHER, SELFPAY | PROVIDERS: Visit Provider Nurse Practitioner Family | DX: M47.812 Spondylosis without myelopathy or radiculopathy, cervical region (principal); M50.30 Other cervical disc degeneration, unspecified cervical region; G44.86 Cervicogenic headache | CPT/HCPCS: 99212 ==

== ENCOUNTER 2024-09-21 06:20 | Outpatient (REF) | payer OTHER, SELFPAY ==
--- NOTE | ~2024-09-21 | FL_ITS ---
EXAMINATION: FL GUIDANCE ONLY HISTORY: M47.812 - Spondylosis without myelopathy or radiculopathy, cervical region COMPARISON: None available. TECHNIQUE: Fluoroscopy time: 0.2 minutes. Cumulative Dose: 1.82 mGy. DAP: 0.0140 mGym2 Images: 3. FINDINGS: Fluoroscopic spot films of the cervical spine demonstrate an electrode in place on the left. FL/FL guidance in treatment room IMPRESSION: Fluoroscopy during procedure. Please see procedure report for additional information. Electronically signed by: Acosta Norman MD 09/21/2024 02:44 PM EDT
--- OUTSIDE RECORDS SUMMARY | 2024-09-21 06:22 | XMS_ITS | Encounter Summary ---
Author Organization [employer] Address [address] [facility] [address] [place] [address] Care Team Providers Care Print Finisher Name Role Phone Sonya Donis MD Primary Care Provider [phone] Reason for Visit * Reason Onset Date Comments Med Refill 07/05/2024 Encounter Details Date Type Department Care Team ([facility] st Contact Info) Description 07/05/2024 Telephone [facility] [address] [place] [address] Sonya Donis MD [address] [facility] [place] [id number] Med Refill Social History Tobacco Use Types [...] Miscellaneous Notes * Telephone Encounter - Jeanne iPzarro - 07/05/2024 2:35 PM EDT TC from pt requesting medication refill. Medications needing refill : oxyCODONE-acetaminophen (Percocet) 5-325 MG tablet To be sent to: [id number] AT [facility] documented in this encounter Plan of Treatment Upcoming Encounters Date Type Department Care Team ([facility] st Contact Info) Description 09/22/2024 3:00 PM EDT Office Visit [facility] [address] [place] [address] Ascencion Joya 09/29/2024 11:15 AM EDT Office Visit [facility] [address] [place] [address] Sonya Donis MD [address] [place] [address] 10/13/2024 2:00 PM EDT Nurse Only [facility] [address] [place] [address] 11/15/2024 3:15 PM EDT Clinical Support [facility] [address] [place] [address] Anupama Solomon RN [address] [place] [address] documented as of this encounter Visit Diagnoses Not on filedocumented in this encounter Additional Health Concerns Assessment Noted Time PHQ-9 Depression Total Score: 0 10/11/19 24 9:09 AM EDT documented as of this encounter Care Teams Print Finisher Relationship Specialty Start Date End Date Sonya Donis MD [address] [place] [id number] PCP - General Family Medicine 01/18/23 [employer] PRO[employer] MANAGEMENT MANAGER Services 10/11/23 documented as of this encounter
--- OUTSIDE RECORDS SUMMARY | 2024-09-21 06:22 | XMS_ITS | Data Portability ---
Author Organization ANUEL - [employer] [facility] [employer] Address [address] [place] [phone] Care Team Providers Care Water/Wastewater Project Engineer Name Role Phone [facility] Primary Care Provider [phone] Assessment No assessment recorded. Plan of Treatment Reminders Order Date Submit Date Provider Last Modified By Organization Details Last Modified Time Details Appointments None recorded. Lab None recorded. Referral None recorded. Procedures None recorded. Surgeries None recorded. Imaging None recorded. Medication Orders fluticasone propionate 50 mcg/actuati on nasal spray,suspe nsion 2023 024 [facility] #[id number], [address], [place], [phone], 4 14:25:30 guaifenesin 400 mg tablet 2023 024 [facility] #[id number], [address], [place], [phone], 4 14:25:29 Patient TargetsNo targets recorded. Patient InstructionsNo instructions recorded. Reason for Referral None Reported. Medical Equipment None Reported. Allergies Allergen ID Allergen Name Allergen Category Reaction Reaction Severity Criticality Documentation Date Start Date Code Code System Note Provider Name and Address Organization Details Recorded Time 0325 aspirin medicatio n Not available Not available [...] Address Organization Details Last Updated DateTime 4 04336.0 48 g 16 /min 71 /min 170.18 [...] SNOMED-CT Code Diagnosis ICD10 Code Diagnosis Note [id number] Dary Castellanos MD Main - [facility] [address] [place] [phone] 04/26/2023 14:22:55 04/27/2023 11:07:57 COVID-19 [id number] U07.1 I provided real -time medical direction via phone for this encounter, and was available for additional phone based assistance as needed. I have reviewed and agree with the Assessment and Plan as documented by the [facility]. 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 Member reporting fever, cough, and throat pain for the past 3 days. Feeling unwell and fatigued. He has been taking Tylenol for body aches and fevers. SOB only r/t cough. Denies chest pain. No known sick contacts. Mikel Gorman RN Will need paper consent in Moroccan ................... ................... ................... ................... ................... ................... ................... ........ [facility] Note From Karan Hardin: Pt reports sore [...] ........ Disposition: Fulfilled Dary Castellanos MD [address] [facility],[address], [place], [address], [facility] 04/26/2023 23:24:04
== END 2024-09-21 06:21 | disposition home or self-care (01) ==
LOC: CF 06:20
PROVIDERS: Visit Provider Internal Medicine
DX: M47.812 Spondylosis without myelopathy or radiculopathy, cervical region (principal); G89.29 Other chronic pain; Z79.899 Other long term (current) drug therapy
CPT/HCPCS: 64555; C1778; J2003

== ENCOUNTER 2024-09-21 12:34 | Outpatient (AMB) | payer OTHER, SELFPAY ==
[2024-09-21 12:44] VITALS: BP 138/89; PULSE 66; RESP 16; O2SAT 97; BMI 24.9
--- NOTE | 2024-09-21 12:44 | A.OFFVIS_ITS ---
Vital Signs 09/21/24 12:44 09/21/24 13:21 Height 5 ft 7 in 5 ft 7 in Weight 159 lb 159 lb BMI 24.9 24.9 BP 138/89 149/87 H Blood Pressure Location Lt brachial Lt brachial Position Sitting Sitting Respiration 16 16 Pulse 66 67 Pulse Source Pulse Oximeter Pulse Oximeter Pulse Oximetry (%) 97 98 Oxygen Delivery Method Room Air Room Air Intake Visit Reasons: Left C4 Sprint/ ativan Smoking Pipe Liner Required: Yes Smoking Pipe Liner Services: Smoking Pipe Liner Present Smoking Pipe Liner Name: #[id number] Information Interpreted: non-clinical & clinical Allergies aspirin Allergy (Unknown, Verified 09/21/24 12:46) UNKNOWN shellfish derived Allergy (Unknown, Verified 09/21/24 12:46) Unknown Medication List - Last Reconciled 09/21/24 by Poonam Whitley, SHIPYARD LABORER bisacodyl (Dulcolax (bisacodyl)) 10 mg (2 x 5 mg) PO BEDTIME 2 days fenofibrate nanocrystallized 145 mg PO DAILY gabapentin 300 mg PO TID 30 days levothyroxine 50 mcg PO DAILY lorazepam (Ativan) 1 mg PO ONCE oxycodone-acetaminophen 5-325 mg 1 tab PO BID PRN rosuvastatin 40 mg PO DAILY HPI HPI Left C4 Sprint/ ativan: Details: Patient presents for scheduled procedure. Denies any recent cough, cold, infection, fever or other significant changes in medical history since last office visit. [facility] Medical History Pre-diabetes High cholesterol HTN (hypertension), benign Hypothyroid Surgical History H/O colonoscopy S/P urethral surgery History of orthopedic surgery Social History Alcohol intake: current Alcohol intake frequency: holidays/special occasions only Alcohol type: beer Tobacco use type: Cigarette Physical Exam Vital Signs: Last Vital Signs Pulse 67 09/21/24 13:21 Resp 16 09/21/24 13:21 BP 149/87 H 09/21/24 13:21 Pulse Ox 98 09/21/24 13:21 Oxygen Delivery Method Room Air 09/21/24 13:21 BMI result Body Mass Index 24.9 Office Procedures Details: Cervical Medial Branch Nerve Stimulation Lead Placement, SPR (Sprint) System, Left C5 ? After the risks, benefits and alternatives were discussed with the patient and informed consent was obtained, patient was placed in the prone position and padded to foster comfort. The skin overlying the cervical spine was prepped and draped in sterile fashion. Fluoroscopy was used to identify the spinous process and lamina over the C5 articular pillar. After identifying and marking the intended target along the course of the medial branch nerve, the skin around the planned entry point and the subcutaneous tissues were injected with lidocaine 1%. An introducer needle and stimulating probe were assembled, inserted and advanced along the intended course of the medial branch nerve, taking care to maintain the proper depth of insertion as the introducer was advanced under fluoroscopic guidance. The introducer needle was delivered to a location in proximity to the nerve. Multiple stimulation parameters were used to deliver stimulation to the target medial branch nerve in concert with stimulating at multiple positions around the nerve. Nerve target acquisition was confirmed noting generation of paresthesias in the paravertebral regions corresponding to the C5 level. Various electrical parameter combinations were tested, and the lead location was adjusted (physically relocated) until the patient indicated paresthesia/muscle tension overlapping the distribution of the patient?s typical region of pain, including neck and occipital region. The stimulating probe was removed from the introducer and a percutaneous lead was guided through the needle and delivered to a location in similar proximity to the nerve. Final location was verified with electrical stimulation and documented with fluoroscopy. The introducer needle was removed, and the exposed end of the percutaneous lead was attached to an external stimulator unit. Various electrical parameter combinations were again tested until the patient indicated paresthesia or muscle tension overlapping the distribution of the patient?s typical region of pain. Fluoroscopy was used to document the location of the percutaneous lead in the deployed position. After confirming that lead impedance was in the normal range, the external unit was detached, the needle was removed, and the lead was anchored at the skin. The lead was threaded into the connector block and electrical continuity and desired patient response was confirmed. The connector block was attached to the external stimulator unit. The site was covered with a sterile occlusive pressure dressing. The patient was observed for stability of vital signs and comfort. Patient was dischared in stable condition. Sprint PNS Device: Sprint PNS Device [id number] Percutaneous Peripheral Neuroelectrode Procedure: 61500 - Percutaneous Peripheral Neuroelectrode Procedure code (CPT) selection complete Office Meds lidocaine HCl 10 mg/mL (1 %) injection solution Performing Provider: Elio Linares MD Performing Location: [facility] Administered by: Elio Linares MD on 09/21/24 13:38 Dose Route Admin Location Dispensed Lot Number Expiration Date NDC Sausage Grinder 5 mL subcut 5 mL Total Dispensed Waste 5 mL 0 % Assessment & Plan Assessment & Plan (1) Cervical spondylosis: Code(s): M47.812 - Spondylosis without myelopathy or radiculopathy, cervical region Category: Medical (2) Chronic pain: Code(s): G89.29 - Other chronic pain Category: Medical Plan Patient is status post temporary left C5 medial branch nerve stimulator placement. Patient tolerated procedure well and was discharged home in stable condition with discharge instructions. All questions were answered. We will follow-up via telephone or in clinic to assess response to therapy. A follow-up appointment was made during today's visit. Orders: Orders FL guidance in treatment room Today Rimma Santoro APRN, SKEIN SPOOLER M47.812 - Spondylosis without myelopathy or radiculopathy, cervical region AMB Sprint PNS Today Elio Linares MD G89.29 - Other chronic pain, M47.812 - Spondylosis without myelopathy or radiculopathy, cervical region Medications: Refilled lorazepam (Ativan) Take 30 minutes prior to arrival to procedure 1 mg PO ONCE 1 tab 0RF anxiety Rimma Santoro APRN, SKEIN SPOOLER Coding Level of Care Code Procedure Only Diagnoses Cervical spondylosis M47.812 Chronic pain G89.29 CPT Codes Sprint PNS - Sprint PNS Device: Sprint PNS Device ([id number]) Sprint PNS - SPRINT: 83551 - Percutaneous Peripheral Neuroelectrode ([id number]) Implantable Device Implantable Device Implantable Devices Qty Sausage Grinder Implant Date Expiration Date Analgesic PENS system 1 [employer] 09/07/24 Analgesic PENS system 1 [employer] 09/21/24
[2024-09-21 13:21] VITALS: BP 149/87; PULSE 67; RESP 16; O2SAT 98; BMI 24.9
== END 2024-09-21 13:20 | disposition home or self-care (01) ==
LOC: HO.PMCPRC 12:34
PROVIDERS: Visit Provider Internal Medicine
DX: M47.812 Spondylosis without myelopathy or radiculopathy, cervical region (principal); G89.29 Other chronic pain
CPT/HCPCS: 64555

== ENCOUNTER 2024-09-28 13:22 | Outpatient (AMB) | payer OTHER, SELFPAY ==
--- NOTE | 2024-09-28 13:28 | A.OFFVIS_ITS ---
Vital Signs 09/28/24 13:31 Height 5 ft 7 in Weight 159 lb 8 oz BMI 25.0 BP 114/69 Blood Pressure Location Lt brachial Position Sitting Pulse 78 Pulse Source Pulse Oximeter Pulse Oximetry (%) 99 Oxygen Delivery Method Room Air Intake Visit Reasons: s/p Left C4 Sprint Intake Note: Pain today 0/10 Operator Catalyst Concentration Required: Yes Operator Catalyst Concentration Language: Suit Attendant Services: Operator Catalyst Concentration Present Operator Catalyst Concentration Name: Devika #[id number] Accompanied by: Self / Same As Patient Allergies aspirin Allergy (Unknown, Verified 09/28/24 13:32) UNKNOWN shellfish derived Allergy (Unknown, Verified 09/28/24 13:32) Unknown HPI Comments Details: The patient presents today status post Cervical Medial Branch Nerve Stimulation Lead Placement, SPR (Sprint) System, Left C5 and chronic neck pain and management of cervical spondylosis. He also suffers from multilevel cervical DDD and stenosis, most notably severe right-sided neural foraminal stenosis at C5- C6. He had the right side done on September 07 and the left side on September 21, reporting no pain today. The patient has attempted has been adjusting stimulation for better pain relief and continues to take Percocet, gabapentin and muscle relaxants when the pain is severe, although the pain persists from morning until night. He continues with stretching exercises regularly at home. The patient reports that his assists with dressing changes at home weekly and as needed after he showers. Currently he reports no pain at 55 left and 54 right stimulation setting with positive paresthesia bilaterally. He reports improvement in his daily activities, range of motion and sleep with intermittent right shoulder pain. Denies untoward effects with Sprint PNS therapy. The dressing was removed today. Lead insertion site look clean, dry, intact, no redness on the right and minimal insertional redness on the left, no swelling, no pathological discharge. Area was cleansed with Chloraprep, applied Bacitracin and covered with Sprint Tegaderm film and gauze dressing. Past Procedures: 09/21/24: Left C5 Medial Branch Nerve Stimulation Lead Placement, SPR (Sprint) System--100% ongoing pain relief 09/07/24: Right C4 Medial Branch Nerve Stimulation Lead Placement, SPR (Sprint) System--100% ongoing pain relief 06/22/24: Right parasagittal interlaminar C5-C6 TEZ-0% pain relief 05/18/24: Left Diagnostic C4-C5 MBB-100% pain relief for 24 hours 04/20/24: Right Diagnostic C3-C4-C5 MBB-100% pain relief for 18 hours PRIOR: Patient is a pleasant 68-year-old Mohawk-speaking male with history of chronic neck pain, fatigue, cervical and lumbar degenerative joint disease with moderate cervical canal stenosis, presents today for initial evaluation for neck pain. Denies any recent trauma, injury, or falls. Neck pain has been present for over 15 years and has been worsening. Patient reports history of head fracture in s due to 50ft fall which impacted his left hip, head and elbow and required surgical correction of his left elbow, wrist, mandible, jaw and left hip with hip hardware in place. Neck pain is predominantly axial, easily reproduced with cervical extension in lateral rotations. Reports intermittent radiation of neck pain into his left upper extremity with weakness. He attempted formal physical therapy in January 2024 but had to stop due to increased pain and loss of insurance coverage for PT visits. He reports multiple spine injections 8 years ago in [place] with good results. Denies previous cervical spine surgery. Pain affects his daily activities and functioning, movements, range of motion, sleep, mood, and social interactions. Pain is most severe during the morning rated at 10/10 and least severe at afternoons, rated at 7/10 and are accompanied with cervicogenic headaches. Recent cervical spine MRI is noted below. Patient is interested to undergo diagnostic cervical medial branch blocks for potential therapeutic injections, RFA or Sprint PNS trial. Denies any fever or chills, dizziness, visual disturbances, chest pain, shortness of breaths, weakness, bladder or bowel dysfunction or saddle anesthesia. Oswestry Neck Disability Index Score=33 (severe disability) Location: Neck pain, intermittent radiation in left arm with weakness Duration: Chronic pain for >15 years Characteristics of symptom or complaint: Aching, stabbing, spasming, stiffness, tightness, sharp, sore, tiring Aggravating or associated factors: Movements, ROM, cold weather changes Relieving factors: Oxycodone-acetaminophen, heat, activity modifications, stretching exercises Treatment: PT x1 session in January,; spine injections in [place] [facility] Medical History Pre-diabetes High cholesterol HTN (hypertension), benign Hypothyroid Surgical History H/O colonoscopy S/P urethral surgery History of orthopedic surgery Social History Alcohol intake: current Alcohol intake frequency: holidays/special occasions only Alcohol type: beer Tobacco use type: Cigarette Review of Systems Const All systems reviewed & are unremarkable except as noted in HPI and below Physical Exam General: Appears afebrile. Alert and oriented. Mood and affect appropriate. Follows and participates in conversation appropriately. Respiratory effort is unlabored. No cough. Able to transition from sit to stand unassisted. Ambulates with bilaterally normal heel strike and toe off. Lead Insertion Site: Lead insertion site looks clean, dry, intact. No pathological discharge, no swelling and no erythema. Mild redness on the left at lead insertion site, no pathological discharge. Lead site dressings were changed today in the clinic. Positive paresthesia at 54 on the right and 55 on the left. Results Reviewed Results Reviewed: MR CERVICAL SPINE WITHOUT CONTRAST 01/29/24 CLINICAL INFORMATION: 68-year-old with chronic persistent neck pain. Self-reported left arm weakness. FINDINGS: ALIGNMENT: Mild cervicothoracic levocurvature noted slightly convex to the left at C7-T1. There is moderate hyperlordosis centered at C5-C6. CRANIOCERVICAL JUNCTION/C1-C2 ARTICULATIONS: Intact and aligned. VISUALIZED INTRACRANIAL/EXTRACRANIAL STRUCTURES: Grossly unremarkable. VERTEBRAL BODIES: Vertebral body heights are well maintained. DISC SPACES AND ENDPLATES: There is moderate disc volume loss at C5-C6 with intradiscal degenerative signal changes and minor spondylosis. There is intradiscal degenerative signal change at C3-C4 and C4-C5 without significant disc space height loss. BONE MARROW: No suspicious marrow-replacing process or bone marrow edema. C2-C3: Tiny central disc protrusion with a tiny central annular fissure noted. No cord impingement or canal stenosis. No significant DJD or neural foraminal stenosis. C3-C4: Broad-based posterior disc osteophyte complex noted with mild flattening of the ventral dural sac without cord impingement or canal stenosis. Mild right and ktzi-[id number] left-sided facet joint arthropathy noted with uncinate process spurring bilaterally, with no significant neural foraminal stenosis. C4-C5: Broad-based central to right paramedian disc osteophyte complex, with moderate flattening of the ventral dural sac asymmetric to the right without cord impingement. Slight chronic ventral cord deformity suspected on the right. No significant canal stenosis. Uncinate process spurring noted bilaterally with moderate left and mild right facet joint arthropathy without significant neural foraminal stenosis. C5-C6: Broad-based disc osteophyte complex noted with effacement of the ventral dural sac without cord impingement. Ligamentum flavum thickening or buckling is noted. There is moderate central spinal canal stenosis. There is uncovertebral spurring bilaterally and mild facet joint arthropathy with moderate left-sided and severe right-sided neural foraminal stenosis. C6-C7: Broad-based central disc protrusion with a central annular fissure noted and flattening of the ventral dural sac without cord impingement or canal stenosis. No significant DJD or neural foraminal stenosis. C7-T1: Shallow central disc protrusion. No canal stenosis. Moderate facet joint arthropathy on the left noted with mild craniocaudal neural foraminal narrowing. SPINAL CORD: The cervical and visualized upper thoracic spinal cord is normal in signal intensity throughout, without focal lesion, edema or syrinx. EXTRACRANIAL SOFT TISSUES: Note is made of a somewhat plump left level II IJ chain lymph node measuring 1.6 x 1.2 cm in greatest transverse dimensions consistent with an enlarged lymph node. Signal voids are noted within the visualized major neck vessels. IMPRESSION: 1. Discogenic degenerative changes primarily at C5-C6 as discussed above, with disc osteophyte complex and DJD at this level with moderate spinal canal stenosis without cord impingement. There is moderate left-sided and severe right-sided neural foraminal stenosis at this level. 2. Multilevel disc protrusions and disc osteophyte complexes as described above without cord impingement or significant spinal canal stenosis. 3. Multilevel bilateral facet joint arthropathy as described above. 4. Mildly enlarged left level II IJ chain lymph node. This is nonspecific. Recommend correlation with clinical history and physical exam findings. Cannot exclude neoplastic disease. Recommend CT of the neck with contrast for further assessment. XR CERVICAL SPINE 10/21/23 FINDINGS: No acute visible fracture or dislocation. Slight exaggeration of the cervical lordosis. Grade 1 retrolisthesis of C5 on C6. Mild left multilevel neuroforaminal narrowing. Multilevel degenerative changes with disc space narrowing, endplate sclerosis, osteophyte formation, and facet arthropathy. Visualized dens is intact. Lateral masses are symmetric. Vertebral body has a spaces are maintained. Prevertebral soft tissues are unremarkable. Posterior elements are intact. Paraspinal soft tissues are unremarkable. Visualized portions of the upper chest are unremarkable. IMPRESSION: 1. No acute visible fracture or dislocation. 2. Slight exaggeration of the cervical lordosis. 3. Grade 1 retrolisthesis of C5 on C6. 4. Mild left multilevel neuroforaminal narrowing. 5. Multilevel degenerative changes. Assessment & Plan Assessment & Plan (1) Cervical spondylosis: Code(s): M47.812 - Spondylosis without myelopathy or radiculopathy, cervical region Category: Medical (2) Chronic pain: Code(s): G89.29 - Other chronic pain Category: Medical (3) Degenerative disc disease, cervical: Code(s): M50.30 - Other cervical disc degeneration, unspecified cervical region Category: Medical (4) Cervicogenic headache: Code(s): G44.86 - Cervicogenic headache Category: Medical Plan The patient will continue with the current stimulation settings, with adjustments made to ensure comfort and effectiveness. His will continue to perform dressing changes, and appointments are scheduled for the removal of the devices on October 30 for the right side and November 16 for the left side. The patient will continue utilizing Percocet and gabapentin as needed for severe pain, and to monitor for any changes in pain levels or device effectiveness. Currently he reports significant improvement in his symptoms, improved mobility, functioning and sleep. All questions and concerns have been answered and patient agrees with the treatment plan. Follow-up as needed. Patient was informed and verbally consented to the use of an ambient scribe for clinic note documentation during this visit. Coding Level of Care Code Est Pt Level 3 (69262) Complex EM visit Add On G2211 Diagnoses Cervical spondylosis M47.812 Chronic pain G89.29 Degenerative disc disease, cervical M50.30 Cervicogenic headache G44.86
--- OUTSIDE RECORDS SUMMARY | 2024-09-28 13:30 | XMS_ITS | Data Portability ---
Author Organization [employer] [facility] Address [address] [place] [id number] Care Team Providers Care Tacking Stitch Remover Name Role Phone [facility] Primary Care Provider Assessment No assessment recorded. Plan of Treatment Reminders Order Date Submit Date Provider Last Modified By Organization Details Last Modified Time Details Appointments None recorded. Lab None recorded. Referral None recorded. Procedures None recorded. Surgeries None recorded. Imaging None recorded. Medication Orders fluticasone propionate 50 mcg/actuati on nasal spray,suspe nsion 2023 024 [id number], [address], [place], [id number], 4 14:25:30 guaifenesin 400 mg tablet 2023 024 [facility] #[id number], [address], [place], [id number], 4 14:25:29 Patient TargetsNo targets recorded. Patient InstructionsNo instructions recorded. Reason for Referral None Reported. Medical Equipment None Reported. Allergies Allergen ID Allergen Name Allergen Category Reaction Reaction Severity Criticality Documentation Date Start Date Code Code System Note Provider Name and Address Organization Details Recorded Time 8739 aspirin medicatio n Not available Not available [...] Address Organization Details Last Updated DateTime 4 08606.0 48 g 16 /min 71 /min 170.18 [...] SNOMED-CT Code Diagnosis ICD10 Code Diagnosis Note [id number] Dary Castellanos MD Main - [facility] [address] [place] [phone] 04/26/2023 14:22:55 04/27/2023 11:07:57 COVID-19 [id number] U07.1 I provided real -time medical direction via phone for this encounter, and was available for additional phone based assistance as needed. I have reviewed and agree with the Assessment and Plan as documented by the Spray Technician. Patient given the opportunit y to ask [...] Manning Member ID Guarantor Name 04/26/2023 1 [facility] - DOS ON OR AFTER 2022 - DUAL ELIGIBLE - JAIL OPTIONS AND ONE CARE (MEDICARE REPLACEMENT/ADV ANTAGE - HMO) Nemo De Los Santos [id number] [facility] Notes Date Note Type Note Provider Name and Address Organization Details Recorded Time 04/26/2023 text/html CRC Nurse Triage Notes (Paris Gorman): Chief Complaints: Fever/Chills, Cough Allergies: Aspirin Comments: Russian speaking member called in - verified name/ with coding manager. Member reporting fever, cough, and throat pain for the past 3 days. Feeling unwell and fatigued. He has been taking Tylenol for body aches and fevers. SOB only r/t cough. Denies chest pain. No known sick contacts. Mikel Gorman RN Will need paper consent in Russian ................... ................... ................... ................... ................... ................... ................... ........ Spray Technician Note From Karan Hardin: Pt reports sore [...] ........ Disposition: Fulfilled Dary Castellanos MD [address] [facility],[address], [place], [address], [employer] 04/26/2023 23:24:04
--- OUTSIDE RECORDS SUMMARY | 2024-09-28 13:30 | XMS_ITS | Encounter Summary ---
Author Organization [employer] Address [address] [place] [address] Care Team Providers Care Multicultural Services Librarian Name Role Phone Sonya Donis MD Primary Care Provider [phone] Reason for Visit * Reason Onset Date Comments Med Refill 07/05/2024 Encounter Details Date Type Department Care Team ([facility] st Contact Info) Description 07/05/2024 Telephone [facility] MEDICINE [address] [place] [address] Sonya Donis MD [address] [facility] [place] [id number] Med Refill Social History Tobacco Use Types [...] 5-325 MG tablet To be sent to: [id number] AT [facility] documented in this encounter Plan of Treatment Upcoming Encounters Date Type Department Care Team ([facility] Contact Info) Description 09/29/2024 11:15 AM EDT Office Visit [facility] [address] [place] [address] Sonya Donis MD [address] [place] [address] 10/13/2024 2:00 PM EDT Nurse Only [facility] [address] [place] [address] 10/20/2024 2:00 PM EDT Office Visit [facility] ADULT DENTAL [address] [place] [address] Sebas Shrestha DMD [address] [place] [address] 11/15/2024 3:15 PM EDT Clinical Support [facility] [address] [place] [address] Anupama Solomon, RN [address] [place] [address] 03/27/2025 2:00 PM EST Office Visit [facility] AD[facility] [address] [place] [address] [employer] Joya documented as of this encounter Visit Diagnoses Not on filedocumented in this encounter Additional Health Concerns Assessment Noted Time PHQ-9 Depression Total Score: 0 10/11/19 9:09 AM EDT documented as of this encounter Care Teams Multicultural Services Librarian Relationship Specialty Start Date End Date Sonya Donis MD [address] [place] [phone] PCP - General Family Medicine 01/18/23 [employer] 10/11/23 documented as of this encounter
--- OUTSIDE RECORDS SUMMARY | 2024-09-28 13:30 | XMS_ITS | Clinical Summary ---
Author Organization [facility] Address [address] [place] [address] Phone Care Team Providers Care Social Service Agency Director Name Role Phone Pcp, Unknown Primary Care Provider Unavailabl e Encounters Date Type Department Care Team Description 07/18/2024 9:43 AM EDT - 07/18/2024 11:59 PM EDT Hospital Encounter [facility] [address] [place] [id number] Yves Figueroa MD, LETTY Discharge Disposition: Home or Self Care from Last 3 Months Social History Tobacco Use Types Packs/Day Years Used Date Smoking Tobacco: Never Assessed Education Answer Date Recorded Are you interested in more education? Not on jason e 07/19/2024 Are you concerned about learning? Not on file 07/19/2024 No 07/19/2024 No 07/19/2024 Digital Access Answer Date Recorded No 07/19/2024 No 07/19/2024 Reliable internet access at home? Not on file 07/19/2024 Device with a working camera? Not on file Sex and Gender Information Value Date Recorded Sex Assigned at Not on file Legal Sex Male 9:40 AM EDT Gender Identity Not on file Sexual Orientation Not on file Plan of Treatment Not on file Medical Devices Not on file Procedures Procedure Name Priority Date/Time Associated Diagnosis Comments NON-CHANNEL DEVELOPMENT DIRECTOR CYTOLOGY, NON CSF, NON URINE Routine 07/18/2024 12:00 AM EDT from Last 3 Months Results * Non-Lift Slab Operator Cytology (07/18/2024 12:00 AM EDT) 07/18/2024 07/19/2024 9:4 6 AM EDT Narrative SEE NARRATIVE - 07/20/2024 2:35 PM EDT [address] [address] Retail Seasonal Specialist: Jacob Champion MD Non Lift Slab Operator Cytology Report FINAL DIAGNOSIS A. LEFT LEVEL IIA LYMPH NODE, ULTRASOUND GUIDED FINE NEEDLE ASPIRATION BIOPSY: SPECIMEN ADEQUACY: Satisfactory for evaluation. INTERPRETATION: NEGATIVE FOR CARCINOMA. Benign lymphoid material with small lymphocytes.Flow studies are negative.The smears are air dried, making the morphologic interpretation difficult. However, the flow studies are negative and there is no evidence of malignancy. Electronically Signed Out By: MASSIEL Santo MD(ASC) By his/her signature above, the pathologist listed as making the Final Diagnosis certifies that he/she has personally reviewed this case and confirmed or corrected the diagnosis. PROCEDURES/ADDENDA ADDENDUM Ordered Date: 07/20/2024 FLOW CYTOMETRY PERFORMED AT [facility], CASE# [id number] LYMPH NODE, LEFT: - In the sample analyzed, there is no detectable clonal B-cell population or an abnormal T-cell population. See comment. Comment Correlation with morphologic evaluation of the original tissue sections is recommended. Phenotype 1. The B-cells (38% of total) appear polytypic. The T-cells (48% of total) show no quiroz T-cell antigenic deletion. The CD4:CD8 ratio is elevated (6.84:1). 2. The CD13+/CD33+ granulocytes/monocytes/histiocytes comprise 14%. Gross Description A specimen labeled left lymph node is received fresh in RPMI media and consists of soft tissue measuring 2.0 x 0.2 x 0.1 cm. Reviewing Pathologist Yumiko Payne M.D., PhD. [phone] Viability & Abnormal Cells Viability 86 % Abnormal Cells No Cell Distribution Total Gated Cells 86.66 % Small Cells 84.39 % Large Cells 2.37 % The above estimated percentages are based on the scattergram of Forward Light Scatter (FSC) vs Viability Dye 7-AAD. B-Lymphoid Associated sKappa B cells+ sLambda B cells+ CD10 Subset B cells+ CD19 B cells+ CD20 B cells+ CD22 B cells+ CD23 B cells+ T-Lymphoid Associated CD2 T cells+ CD3 T cells+ CD4 T cells+ CD5 T cells+ CD7 T cells+ CD8 T cells+ CD56 T cells+ Miscellaneous Markers CD13+CD33 Myeloid+ CD38 Myeloid/Plasma cells/Activated cells+ CD45 Leukocytes+ CD71 Proliferative cells/Activated Cells+ CD11c Myeloid/B-cell subset+ Electronically Signed by Yumiko Panye M.D., PhD. Reported Date [id number] CLINICAL HISTORY Patient presents with left sided cervical lymphadenopathy. SPECIMEN SOURCE A: LEFT LEVEL IIA LYMPH NODE, ULTRASOUND GUIDED FINE NEEDLE ASPIRATION BIOPSY GROSS DESCRIPTION A. LEFT LEVEL IIA LYMPH NODE, ULTRASOUND GUIDED FINE NEEDLE ASPIRATION BIOPSY: Received are six (6) spray fixed direct smears and a needle rinse in 30ml CytoLyt preservative labeled with patient name and date of . One (1) ThinPrep slide prepared. A portion of the specimen is submitted in RPMI for flow cytometry. Patient Name: DAVID TRENTCARLO : 1955 (Age: 68) Sex: M Institution: [facility] Location: [facility] Date of Collection: 07/18/2024 Date of Reported: 07/20/2024 12:15 Results to: Yves Beasley MD, BA Kevin Donis MD Yves Figueroa MD, LETTY CYTOLOGY ORDERABLES E dited Result - Final SEE NARRATIVE from Last 3 Months Insurance [facility] [employer] MEDICARE REPLACEMENT [employer] [address]IC[address] [place] [address] [place] [address] MEDICARE REPLACEMENT [facility] MEDICARE REPLACEMENT [facility] MEDICARE REPLACEMENT Care Teams Social Service Agency Director Relationship Specialty Start Date End Date Pcp, Unknown PCP - General 07/19/24 Additional Source Comments The information contained in this document represents components of the legal health record. It is not the complete legal health record.[facility]
[2024-09-28 13:31] VITALS: BP 114/69; PULSE 78; O2SAT 99; BMI 25.0
== END 2024-09-28 13:46 | disposition home or self-care (01) ==
LOC: HO.PMC 13:23
PROVIDERS: PCP Family Medicine; Visit Provider Nurse Practitioner Family
DX: M47.812 Spondylosis without myelopathy or radiculopathy, cervical region (principal); G89.29 Other chronic pain; M50.30 Other cervical disc degeneration, unspecified cervical region; G44.86 Cervicogenic headache
CPT/HCPCS: 99024

== ENCOUNTER → 2024-09-28 13:22 | Outpatient (BNVA) | payer OTHER, SELFPAY | PROVIDERS: PCP Family Medicine; Visit Provider Nurse Practitioner Family | DX: M47.812 Spondylosis without myelopathy or radiculopathy, cervical region (principal); G89.29 Other chronic pain; M50.30 Other cervical disc degeneration, unspecified cervical region; G44.86 Cervicogenic headache | CPT/HCPCS: 99212 ==

== ENCOUNTER 2024-09-29 17:40 | Outpatient (REF) | payer OTHER, SELFPAY ==
--- OUTSIDE RECORDS SUMMARY | 2024-09-29 17:42 | XMS_ITS | Data Portability ---
Author Organization [employer] [facility] Hi in[employer]UL[facility] Address [address] [place] [phone] Care Team Providers Care Dry Wall Finisher Name Role Phone [facility] Primary Care Provider Assessment No assessment recorded. Plan of Treatment Reminders Order Date Submit Date Provider Last Modified By Organization Details Last Modified Time Details Appointments None recorded. Lab None recorded. Referral None recorded. Procedures None recorded. Surgeries None recorded. Imaging None recorded. Medication Orders fluticasone propionate 50 mcg/actuati on nasal spray,suspe nsion 2023 024 [id number], [address], [place], [id number], 4 14:25:30 guaifenesin 400 mg tablet 2023 024 [facility] #[id number], [address], [place], [phone], 4 14:25:29 Patient TargetsNo targets recorded. Patient InstructionsNo instructions recorded. Reason for Referral None Reported. Medical Equipment None Reported. Allergies Allergen ID Allergen Name Allergen Category Reaction Reaction Severity Criticality Documentation Date Start Date Code Code System Note Provider Name and Address Organization Details Recorded Time 7874 aspirin medicatio n Not available Not available [...] Address Organization Details Last Updated DateTime 4 91544.0 48 g 16 /min 71 /min 170.18 [...] SNOMED-CT Code Diagnosis ICD10 Code Diagnosis Note [id number] Dary Castellanos MD Main - [facility] [address] [place] [phone] 04/26/2023 14:22:55 04/27/2023 11:07:57 COVID-19 [id number] U07.1 I provided real -time medical direction via phone for this encounter, and was available for additional phone based assistance as needed. I have reviewed and agree with the Assessment and Plan as documented by the Linderman Operator. 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 Member reporting fever, cough, and throat pain for the past 3 days. Feeling unwell and fatigued. He has been taking Tylenol for body aches and fevers. SOB only r/t cough. Denies chest pain. No known sick contacts. Mikel Gorman RN Will need paper consent in Moroccan ................... ................... ................... ................... ................... ................... ................... ........ Linderman Operator Note From Karan Hardin: Pt reports [...] ........ Disposition: Fulfilled Dary Castellanos MD [address] [facility],[address], [place], [address], Diurnal - Tuebora 04/26/2023 23:24:04
--- OUTSIDE RECORDS SUMMARY | 2024-09-29 17:42 | XMS_ITS | Clinical Summary ---
Author Organization [facility] Address [address] [facility] [facility] [place] [address] Phone Care Team Providers Care Needle Loom Tender Name Role Phone Pcp, Unknown Primary Care Provider Unavailabl e Encounters Date Type Department Care Team Description 07/18/2024 9:43 AM EDT - 07/18/2024 11:59 PM EDT Hospital Encounter [facility] [address] [place] [address] Yves Figueroa MD, LETTY Discharge Disposition: Home [...] Procedure Name Priority Date/Time Associated Diagnosis Comments NON-SLOT FLOOR SUPERVISOR CYTOLOGY, NON CSF, NON URINE Routine 07/18/2024 12:00 AM EDT from Last 3 Months Results * Non-Inspecting Engineer Cytology (07/18/2024 12:00 AM EDT) 07/18/2024 07/19/2024 9:4 6 AM EDT Narrative SEE NARRATIVE - 07/20/2024 2:35 PM EDT [address] [address] Computer Help Desk Representative: Jacob Champoin MD Non Inspecting Engineer Cytology Report FINAL DIAGNOSIS A. LEFT LEVEL [...] Ordered Date: 07/20/2024 FLOW CYTOMETRY PERFORMED AT [facility], CASE# [id number] LYMPH NODE, LEFT: - In the sample [...] cm. Reviewing Pathologist Yumiko Payne M.D., PhD. [phone] Viability & Abnormal Cells Viability 86 % [...] CD11c Myeloid/B-cell subset+ Electronically Signed by Yumiko Payne M.D., PhD. Reported Date [id number] CLINICAL HISTORY Patient presents with left sided [...] : 1955 (Age: 68) Sex: M Institution: [facility] Location: [facility] Date of Collection: 07/18/2024 Date of Reported: 07/20/2024 12:15 Results to: Yves Beasley MD, BA Kevin Donis MD Yves Figueroa MD, LETTY CYTOLOGY ORDERABLES E dited Result - Final SEE NARRATIVE from Last 3 Months Insurance [facility] SCO MEDICARE REPLACEMENT S[employer] [address] MEDICARE [place] [address] [place] [address] [place] [place] [address] MEDICARE REPLACEMENT [facility] MEDICARE REPLACEMENT [facility] MEDICARE REPLACEMENT Care Teams Needle Loom Tender Relationship Specialty Start Date End Date Pcp, Unknown PCP - General 07/19/24 Additional Source Comments The information contained in this document represents components of the legal health record. It is not the complete legal health record.[facility]
== END 2024-09-29 17:41 | disposition home or self-care (01) ==
LOC: HO.HHCLNP 17:40
PROVIDERS: Visit Provider Family Medicine
DX: Z11.3 Encounter for screening for infections with a predominantly sexual mode of transmission (principal); A60.01 Herpesviral infection of penis; E78.5 Hyperlipidemia, unspecified; H93.12 Tinnitus, left ear
CPT/HCPCS: 36415; 87255

== ENCOUNTER 2024-10-04 11:06 | Outpatient (REF) | payer OTHER, SELFPAY ==
--- OUTSIDE RECORDS SUMMARY | 2024-10-04 12:11 | XMS_ITS | Encounter Summary ---
Author Organization [employer] Address [address] [facility] 7[address] [place] [address] Care Team Providers Care Nailer Hand Name Role Phone Sonya Donis MD Primary Care Provider [phone] Reason for Visit * Reason Onset Date Comments Med Refill 07/05/2024 Encounter Details Date Type Department Care Team ([facility] st Contact Info) Description 07/05/2024 Telephone [facility] [address] [place] [address] Sonya Donis MD [address] [facility] [place] [id number] Med Refill Social History Tobacco Use Types [...] 5-325 MG tablet To be sent to: [id number] [place] - [address] [place] [address] AT [facility] documented in this encounter Plan of Treatment Upcoming Encounters Date Type Department Care Team ([facility] st Contact Info) Description 10/05/2024 1:30 PM EDT Clinical Support [facility] [address] [place] [address] 10/13/2024 2:00 PM EDT Nurse Only [facility] [address] [place] [address] 10/20/2024 2:00 PM EDT Office Visit [facility] [address] [place] [address] Sebas Shrestha DMD [address] [place] [address] 11/15/2024 3:15 PM EDT Clinical Support [facility] [address] [place] [address] Anupama Solomon RN [address] [place] [address] 03/27/2025 2:00 PM EST Office Visit [facility] [address] [place] [address] Ascencion Joya documented as of this encounter Visit Diagnoses Not on filedocumented in this encounter Additional Health Concerns Assessment Noted Time PHQ-9 Depression Total Score: 0 10/11/19 9:09 AM EDT documented as of this encounter Care Teams Nailer Hand Relationship Specialty Start Date End Date Sonya Donis MD [address] [place] [phone] PCP - General Family Medicine 01/18/23 [employer] [facility] 10/11/23 documented as of this encounter
--- OUTSIDE RECORDS SUMMARY | 2024-10-04 12:11 | XMS_ITS | Clinical Summary ---
Author Organization [facility] Address [address] [facility] [address] [place] [address] Phone Care Team Providers Care Material Handler 2Nd Shift Name Role Phone Pcp, Unknown Primary Care Provider Unavailabl e Encounters Date Type Department Care Team Description 07/18/2024 9:43 AM EDT - 07/18/2024 11:59 PM EDT Hospital Encounter [facility] [address] [place] [address] Yves Figueroa MD, LETTY Discharge Disposition: Home [...] Procedure Name Priority Date/Time Associated Diagnosis Comments NON-SCAFFOLDING HELPER CYTOLOGY, NON CSF, NON URINE Routine 07/18/2024 12:00 AM EDT from Last 3 Months Results * Non-Insurance Examining Clerk Cytology (07/18/2024 12:00 AM EDT) 07/18/2024 07/19/2024 9:4 6 AM EDT Narrative SEE NARRATIVE - 07/20/2024 2:35 PM EDT [address] [address] Lighter: Jacob Champion MD Non Insurance Examining Clerk Cytology Report FINAL DIAGNOSIS A. LEFT LEVEL [...] Ordered Date: 07/20/2024 FLOW CYTOMETRY PERFORMED AT [facility] [place] [facility], CASE# [id number] LYMPH NODE, LEFT: - In the sample [...] cm. Reviewing Pathologist Yumiko Payne M.D., PhD. [phone] Viability & Abnormal Cells Viability 86 % [...] by Yumiko Payne M.D., PhD. Reported Date [id number] CLINICAL HISTORY Patient presents with left sided [...] 1955 (Age: 68) Sex: M Institution: [facility] Location: [place] Date of Collection: 07/18/2024 Date of Reported: 07/20/2024 12:15 Results to: Yves Beasley MD, BA Kevin Donis MD Yves Figueroa MD, LETTY CYTOLOGY ORDERABLES E dited Result - Final SEE NARRATIVE from Last 3 Months Insurance [facility] SCO MEDICARE REPLACEMENT [employer] [address] MEDICARE [place] [address] [address] [place] [address] MEDICARE REPLACEMENT [facility] MEDICARE REPLACEMENT [facility] MEDICARE REPLACEMENT Care Teams Material Handler 2Nd Shift Relationship Specialty Start Date End Date Pcp, Unknown PCP - General 07/19/24 Additional Source Comments The information contained in this document represents components of the legal health record. It is not the complete legal health record.[facility]
[2024-10-04 15:19] LABS: Cholesterol 147 mg/dL (<200); HDL Cholesterol 43 mg/dL (>40); Iron 73 mcg/dL (45-160); Percent Iron Saturation 20 % (15-50); Total Iron Binding Capacity 358 mcg/dL (228-428); Triglycerides 84 mg/dL (<150); Unsaturated Iron Binding 285 ug/dL
[2024-10-04 17:02] LABS: Reflex LDLD? No
[2024-10-05 08:08] LABS: Syphilis Screen Nonreactive (Nonreactive)
[2024-10-05 09:48] LABS: Lyme Abs Screen <0.90 index
== END 2024-10-04 11:07 | disposition home or self-care (01) ==
LOC: HO.CHCLDS 11:06
PROVIDERS: Visit Provider Family Medicine
DX: Z11.3 Encounter for screening for infections with a predominantly sexual mode of transmission (principal); Z01.84 Encounter for antibody response examination; E78.5 Hyperlipidemia, unspecified; H93.12 Tinnitus, left ear
CPT/HCPCS: 36415; 80061; 83540; 84443; 86617; 86618; 86780

== ENCOUNTER → 2024-10-30 09:50 | Outpatient (BNVA) | payer OTHER, SELFPAY | PROVIDERS: Absent Provider Nurse Practitioner Family; PCP Family Medicine | DX: Z46.89 Encounter for fitting and adjustment of other specified devices (principal) ==

== ENCOUNTER 2024-11-16 12:48 | Outpatient (AMB) | payer OTHER, SELFPAY ==
--- OUTSIDE RECORDS SUMMARY | 2024-11-15 15:15 | XMS_ITS | Encounter Summary ---
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 Encounter Details Date Type Department Care Team (Latest Contact Info) Description 11/15/2024 3:15 PM EDT Clinical Support [facility] [address] [place] [address] Anupama Solomon, ADONAY [address] [place], [place] Chronic neck pain with history of cervical spinal surgery Social History Tobacco Use Types Packs/Day Years Used Date Smoking Tobacco: Some Days Cigarettes Depression Answer Date Recorded Patient Health Questionnaire-9 Score 0 09/29/2024 Patient Health Questionnaire-9 Score 0 09/29/2024 Last PHQ-9: Questionnaire Data Not on file 0 09/29/2024 Housing Stability Answer Date Recorded What is [...] Date Recorded Patient Health Questionnaire-2 Score 0 09/29/2024 Internet Access Answer Date Recorded Internet Access [...] Progress Notes * Anupama Solomon RN - 11/15/2024 3:15 PM EDT SUBJECTIVE: Nemo De Los Santos is a 69 y.o. 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 The patient last took Percocet on: 11/15/24 Medication is: 50% % effective at alleviating pain. OBJECTIVE: RN ACUTE checked: 11/15/2024 Pill count completed for Percocet , count today is 61 , anticipated count should be 61-62, this is as expected. 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 Very rare ETOH use, pt educated of the risks associated with the combination of ETOH and opioids, verbalized understanding. Illicit substances: Denies Marijuana use: No , Lab Results Component Value Date POCTHC Negative 11/15/2024 POCCOCAINEUR Negative 11/15/2024 POCOPIATEUR Negative 11/15/2024 DOAUR Negative 11/15/2024 POCAMPHETAMI Negative 11/15/2024 POCBENZODIUR Negative 11/15/2024 POCBARBSCRN Negative 11/15/2024 POCMETHADOUR Negative 11/15/2024 POCBUPSCRN Negative 11/15/2024 POCTCAUR Positive (A) 11/15/2024 POCMDMAUR Negative 11/15/2024 POCOXYCODONE Positive (A) 11/15/2024 POCPHENCYCUR Negative 11/15/2024 PROPOXUR Negative 11/15/2024 FENTANYLURIN Negative 11/15/2024 ASSESSMENT: Encounter Diagnosis Name Primary? Chronic neck pain with history of cervical spinal surgery PLAN: Information on pain group given: Previously discussed Information on acupuncture given: Previously discussed Narcan education provided: Previously discussed Narcan prescription: active Nemo De Los Santos will continue taking medication as prescribed and follow up at the next [facility] visit or sooner if needed. Nemo De Los Santos has verbalized understanding of care plan. Future Appointments Date Time Provider Department Center 12/27/2024 11:15 AM Sonya Donis MD [facility] 02/15/2025 3:00 PM Anupama Solomon RN [facility] 03/27/2025 2:00 PM Ascencion Joya [facility] Anupama Solomon RN [1] Current Outpatient Medications: albuterol 108 (90 Base) MCG/ACT inhaler, Inhale 2 puffs every 4 (four) hours if needed for wheezing., Disp: 18 g, Rfl: 1 cetirizine (ZyrTEC) 10 MG tablet, Take 1 tablet (10 mg) by mouth in the morning., Disp: 30 tablet, Rfl: 0 cyclobenzaprine (Flexeril) 10 MG tablet, Take 1 tablet (10 mg) by mouth 3 times daily., Disp: 90 tablet, Rfl: 2 famotidine (Pepcid) 40 MG tablet, Take 1 tablet (40 mg) by mouth if needed at bedtime for heartburn., Disp: 30 tablet, Rfl: 0 fenofibrate (Tricor) 145 MG tablet, Take 1 tablet (145 mg) by mouth Once per day., Disp: 90 tablet,Rfl: 1 fluticasone (Flonase) 50 MCG/ACT nasal spray, SHAKE LIQUID AND USE 1 SPRAY IN EACH NOSTRIL EVERY DAY, Disp: , Rfl: gabapentin (Neurontin) 300 MG capsule, TAKE 1 CAPSULE BY MOUTH THREE TIMES DAILY FOR PAIN, Disp: , Rfl: GaviLyte-G 236 g solution, , Disp: , Rfl: Gentle Laxative 5 MG EC tablet, Take 10 mg by mouth at bedtime., Disp: , Rfl: levothyroxine (Synthroid) 50 MCG tablet, Take 1 tablet (50 mcg) by mouth before breakfast., Disp: 90 tablet, Rfl: 1 LORazepam (Ativan) 1 MG tablet, Take 1 tablet by mouth Once per day., Disp: , Rfl: meloxicam (Mobic) 15 MG tablet, Take 1 tablet by mouth 1 (one) time each day., Disp: , Rfl: naloxone (Narcan) 4 mg/0.1 mL nasal spray, Administer 1 spray (4 mg) into affected nostril(s) if needed for opioid reversal. May repeat every 2-3 minutes if needed, alternating nostrils, until medical assistance becomes available., Disp: 2 each, Rfl: 2 omega-3 acid ethyl esters (Lovaza) 1 g capsule, Take 1 capsule (1 g) by mouth 2 times daily., Disp:60 capsule, Rfl: 11 oxyCODONE-acetaminophen (Percocet) 5-325 MG tablet, Take 1 tablet by mouth every 6 (six) hours if needed for severe pain., Disp: 112 tablet, Rfl: 0 rosuvastatin (Crestor) 40 MG tablet, TAKE 1 TABLET(40 MG) BY MOUTH DAILY, Disp: 90 tablet, Rfl: 1 tamsulosin (Flomax) 0.4 MG 24 hr capsule, Take 1 capsule by mouth Once per day., Disp: , Rfl: valACYclovir (Valtrex) 500 MG tablet, Take 1 tablet (500 mg) by mouth 2 times daily., Disp: 20 tablet, Rfl: 0 documented in this encounter Plan of Treatment Upcoming Encounters Date Type Department Care Team (Late st Contact Info) Description 12/27/2024 11:15 AM EDT Office Visit [facility] [address] [place] [address] Sonya Donis MD [address] [place] [address] 02/15/2025 3:00 PM EST Clinical Support [facility] [address] [place] [address] Anupama Solomon, ADONAY [address] [place] [address] 03/27/2025 2:00 PM EST Office Visit [facility] [address] [place] [address] Ascencion Joya documented as of this encounter Procedures Procedure Name Priority Date/Time Associated Diagnosis Comments POCT RHEA-14 URINE DRUG SCREEN Routine 11/15/2024 3:41 PM EDT Chronic neck pain with history of cervical spinal surgery documented in this encounter Results * (ABNORMAL) POCT RHEA-14 Urine Drug Screen (11/15/2024 3:41 PM EDT) THC Negative Negative Cocaine Screen, Urine Negative Negative Opiate Screen, Urine Negative Negative Methamphetamine Screen Urine Negative Negative Amphetamine Screen, Urine Negative Negative Benzodiazepines Screen, Urine Negative Negative Barbiturate Screen, Urine Negative Negative Methadone Screen, Urine Negative Negative Buprenophine Screen, Urine Negative Negative TCA, Urine Positive(A) Negative MDMA Urine Negative Negative ng/mL Oxycodone Screen, Urine Positive(A) Negative Phencyclidine (PCP), Urine Negative Negative Propoxyphene, Urine Negative Negative Fentanyl, Urine Negative Negative Urine Urine specimen obtained by clean catch procedure / Unknown 11/15/2024 3:41 PM EDT Narrative Anupama Solomon RN - 11/15/2024 3:41 PM EDT Internal Pass Control Lot# [id number] Exp: 01-05-26 us Sonya Donis MD POINT OF CARE TEST ENTER/EDIT ORDERABLES Final Result documented in this encounter Visit Diagnoses Diagnosis Chronic neck pain with history of cervical spinal surgery documented in this encounter Additional Health Concerns Assessment Noted Time PHQ-9 Depression Total Score: 0 09/30/19 25 11:11 AM EDT documented as of this encounter Care Teams Communications Coordinator Relationship Specialty Start Date End Date Sonya Donis MD [address] [place] [id number] PCP - General Family Medicine 01/18/23 [employer] LIBRARIAN HEL[employer] Services 10/11/23 documented as of this encounter
--- NOTE | 2024-11-16 12:59 | A.OFFVIS_ITS ---
Vital Signs 11/16/24 13:03 Height 5 ft 7 in Weight 160 lb BMI 25.1 BP 116/73 Blood Pressure Location Lt brachial Position Sitting Pulse 72 Pulse Source Pulse Oximeter Pulse Oximetry (%) 98 Oxygen Delivery Method Room Air Intake Visit Reasons: Left Sprint removal Intake Note: Pain today: neck 0-3/10; bilateral shoulders, R>L 5-6/10 with movements, overhead and backside pocket reaches. Government Affairs Director Required: Yes Government Affairs Director Language: Awning Hanger Services: Government Affairs Director Present Government Affairs Director Name: Edmund #[id number] Accompanied by: Self / Same As Patient Allergies aspirin Allergy (Unknown, Verified 11/16/24 13:05) UNKNOWN shellfish derived Allergy (Unknown, Verified 11/16/24 13:05) Unknown HPI Comments Details: The patient presents today for left C5 Sprint PNS removal. He reports no pain his left side and has been experiencing right-sided neck pain and bilateral shoulder pain for few weeks. Patient reports overall his range of motion of the neck movements have significantly improved. Currently he is experiencing left shoulder worse than the right shoulder pain with overhead reaching and lifting activities and difficulty sleeping on his side. Patient also suffers from multilevel cervical DDD and stenosis, most notably severe right-sided neural foraminal stenosis at C5-C6. He continues to take Percocet, gabapentin and muscle relaxants when the pain is moderate to severe, although the pain persists from morning until night. He continues with stretching exercises regularly at home. The dressing was removed today. Lead insertion site look clean, dry, intact, no redness, no swelling, no pathological discharge. Area was cleansed with Chloraprep, applied Bacitracin and covered with Sprint Tegaderm film and gauze dressing. Past Procedures: 09/21/24: Left C5 Medial Branch Nerve Stimulation Lead Placement, SPR (Sprint) System--100% ongoing pain relief 09/07/24: Right C4 Medial Branch Nerve Stimulation Lead Placement, SPR (Sprint) System--100% ongoing pain relief 06/22/24: Right parasagittal interlaminar C5-C6 TEZ-0% pain relief 05/18/24: Left Diagnostic C4-C5 MBB-100% pain relief for 24 hours 04/20/24: Right Diagnostic C3-C4-C5 MBB-100% pain relief for 18 hours PRIOR: Patient is a pleasant 68-year-old Korean-speaking male with history of chronic neck pain, fatigue, cervical and lumbar degenerative joint disease with moderate cervical canal stenosis, presents today for initial evaluation for neck pain. Denies any recent trauma, injury, or falls. Neck pain has been present for over 15 years and has been worsening. Patient reports history of head fracture in 1970's due to 50ft fall which impacted his left hip, head and elbow and required surgical correction of his left elbow, wrist, mandible, jaw and left hip with hip hardware in place. Neck pain is predominantly axial, easily reproduced with cervical extension in lateral rotations. Reports intermittent radiation of neck pain into his left upper extremity with weakness. He attempted formal physical therapy in January 2024 but had to stop due to increased pain and loss of insurance coverage for PT visits. He reports multiple spine injections 8 years a go in [place] with good results. Denies previous cervical spine surgery. Pain affects his daily activities and functioning, movements, range of motion, sleep, mood, and social interactions. Pain is most severe during the morning rated at 10/10 and least severe at afternoons, rated at 7/10 and are accompanied with cervicogenic headaches. Recent cervical spine MRI is noted below. Patient is interested to undergo diagnostic cervical medial branch blocks for potential therapeutic injections, RFA or Sprint PNS trial. Denies any fever or chills, dizziness, visual disturbances, chest pain, shortness of breaths, weakness, bladder or bowel dysfunction or saddle anesthesia. Oswestry Neck Disability Index Score=33 (severe disability) Location: Neck pain, intermittent radiation in left arm with weakness Duration: Chronic pain for >15 years Characteristics of symptom or complaint: Aching, stabbing, spasming, stiffness, tightness, sharp, sore, tiring Aggravating or associated factors: Movements, ROM, cold weather changes Relieving factors: Oxycodone-acetaminophen, heat, activity modifications, stretching exercises Treatment: PT x1 session in January,; spine injections in [place] PFSH Medical History Pre-diabetes High cholesterol HTN (hypertension), benign Hypothyroid Surgical History H/O colonoscopy S/P urethral surgery History of orthopedic surgery Social History Alcohol intake: current Alcohol intake frequency: holidays/special occasions only Alcohol type: beer Tobacco use type: Cigarette Review of Systems Const All systems reviewed & are unremarkable except as noted in HPI and below Physical Exam Vital Signs: Last Vital Signs Pulse 72 11/16/24 13:03 BP 116/73 11/16/24 13:03 Pulse Ox 98 11/16/24 13:03 Oxygen Delivery Method Room Air 11/16/24 13:03 BMI result Body Mass Index 25.1 General: Appears afebrile. Alert and oriented. Mood and affect appropriate. Follows and participates in conversation appropriately. Respiratory effort is unlabored. No cough. Able to transition from sit to stand unassisted. Ambulates with bilaterally normal heel strike and toe off. Lead Insertion Site: Lead insertion site looks clean, dry, intact. No pathological discharge, no swelling, no erythema, no redness, no pathological discharge. Lead pulled with tip intact, lead removed entirely, including tip. Extrem General: Yes capillary refill normal, Yes no clubbing, cyanosis or edema and Yes no calf tenderness Right upper extremity: shoulder/upper arm (Limited ROM due to pain with I/E rotations) Details: normal to inspection, tenderness Location: of the A-C joint, over the biceps tendon and over the subacromial bursa and crepitus; no swelling, no ecchymosis and no unusual warmth Left upper extremity: shoulder/upper arm (Limited ROM due to pain with I/E rotations) Details: inspection abnormal, tenderness Location: of the A-C joint and over the subacromial bursa and crepitus; no swelling, no ecchymosis and no unsual warmth Results Reviewed Results Reviewed: MR CERVICAL SPINE WITHOUT CONTRAST 01/29/24 CLINICAL INFORMATION: 68-year-old with chronic persistent neck pain. Self-reported left arm weakness. FINDINGS: ALIGNMENT: Mild cervicothoracic levocurvature noted slightly convex to the left at C7-T1. There is moderate hyperlordosis centered at C5-C6. CRANIOCERVICAL JUNCTION/C1-C2 ARTICULATIONS: Intact and aligned. VISUALIZED INTRACRANIAL/EXTRACRANIAL STRUCTURES: Grossly unremarkable. VERTEBRAL BODIES: Vertebral body heights are well maintained. DISC SPACES AND ENDPLATES: There is moderate disc volume loss at C5-C6 with intradiscal degenerative signal changes and minor spondylosis. There is intradiscal degenerative signal change at C3-C4 and C4-C5 without significant disc space height loss. BONE MARROW: No suspicious marrow-replacing process or bone marrow edema. C2-C3: Tiny central disc protrusion with a tiny central annular fissure noted. No cord impingement or canal stenosis. No significant DJD or neural foraminal stenosis. C3-C4: Broad-based posterior disc osteophyte complex noted with mild flattening of the ventral dural sac without cord impingement or canal stenosis. Mild right and [id number] left-sided facet joint arthropathy noted with uncinate process spurring bilaterally, with no significant neural foraminal stenosis. C4-C5: Broad-based central to right paramedian disc osteophyte complex, with moderate flattening of the ventral dural sac asymmetric to the right without cord impingement. Slight chronic ventral cord deformity suspected on the right. No significant canal stenosis. Uncinate process spurring noted bilaterally with moderate left and mild right facet joint arthropathy without significant neural foraminal stenosis. C5-C6: Broad-based disc osteophyte complex noted with effacement of the ventral dural sac without cord impingement. Ligamentum flavum thickening or buckling is noted. There is moderate central spinal canal stenosis. There is uncovertebral spurring bilaterally and mild facet joint arthropathy with moderate left-sided and severe right-sided neural foraminal stenosis. C6-C7: Broad-based central disc protrusion with a central annular fissure noted and flattening of the ventral dural sac without cord impingement or canal stenosis. No significant DJD or neural foraminal stenosis. C7-T1: Shallow central disc protrusion. No canal stenosis. Moderate facet joint arthropathy on the left noted with mild craniocaudal neural foraminal narrowing. SPINAL CORD: The cervical and visualized upper thoracic spinal cord is normal in signal intensity throughout, without focal lesion, edema or syrinx. EXTRACRANIAL SOFT TISSUES: Note is made of a somewhat plump left level II IJ chain lymph node measuring 1.6 x 1.2 cm in greatest transverse dimensions consistent with an enlarged lymph node. Signal voids are noted within the visualized major neck vessels. IMPRESSION: 1. Discogenic degenerative changes primarily at C5-C6 as discussed above, with disc osteophyte complex and DJD at this level with moderate spinal canal stenosis without cord impingement. There is moderate left-sided and severe right-sided neural foraminal stenosis at this level. 2. Multilevel disc protrusions and disc osteophyte complexes as described above without cord impingement or significant spinal canal stenosis. 3. Multilevel bilateral facet joint arthropathy as described above. 4. Mildly enlarged left level II IJ chain lymph node. This is nonspecific. Recommend correlation with clinical history and physical exam findings. Cannot exclude neoplastic disease. Recommend CT of the neck with contrast for further assessment. XR CERVICAL SPINE 10/21/23 FINDINGS: No acute visible fracture or dislocation. Slight exaggeration of the cervical lordosis. Grade 1 retrolisthesis of C5 on C6. Mild left multilevel neuroforaminal narrowing. Multilevel degenerative changes with disc space narrowing, endplate sclerosis, osteophyte formation, and facet arthropathy. Visualized dens is intact. Lateral masses are symmetric. Vertebral body has a spaces are maintained. Prevertebral soft tissues are unremarkable. Posterior elements are intact. Paraspinal soft tissues are unremarkable. Visualized portions of the upper chest are unremarkable. IMPRESSION: 1. No acute visible fracture or dislocation. 2. Slight exaggeration of the cervical lordosis. 3. Grade 1 retrolisthesis of C5 on C6. 4. Mild left multilevel neuroforaminal narrowing. 5. Multilevel degenerative changes. Assessment & Plan Assessment & Plan (1) Bilateral shoulder pain: Code(s): M25.511 - Pain in right shoulder; M25.512 - Pain in left shoulder Category: Medical (2) Cervical spondylosis: Code(s): M47.812 - Spondylosis without myelopathy or radiculopathy, cervical region Category: Medical (3) Muscle spasms of neck: Code(s): M62.838 - Other muscle spasm Category: Medical Plan Patient presented today Sprint PNS lead removal. He reports ongoing 80% neck pain relief but reports bilateral shoulder pain, right worse than left with movements, overhead reaches. Will obtain x-rays today to assess for degenerative changes. Patient will continue to monitor his pain levels and notify our office when his neck symptoms return to baseline. Script sent for cyclobenzaptine for muscle spasms in shoulder and cervical paraspinal regions. Side effects and precautions were discussed with patient. All questions and concerns have been answered and the patient agreed with the plan. Follow up for xray results and sooner as needed. Orders: Orders XR shoulder RT min 2V 11/16/24 M25.511 - Pain in right shoulder, M25.512 - Pain in left shoulder Medications: New cyclobenzaprine 5 mg PO BEDTIME PRN 30 tabs 0RF muscle spasm 30 days M47.812 - Spondylosis without myelopathy or radiculopathy, cervical region, M62.838 - Other muscle spasm Coding Level of Care Code Est Pt Level 4 (84893) Complex EM visit Add On G2211 Diagnoses Bilateral shoulder pain M25.511; M25.512 Cervical spondylosis M47.812 Muscle spasms of neck M62.838
[2024-11-16 13:03] VITALS: BP 116/73; PULSE 72; O2SAT 98; BMI 25.1
--- OUTSIDE RECORDS SUMMARY | 2024-11-16 16:58 | XMS_ITS | Encounter Summary ---
Author Organization [employer] Address [address] [place] [address] Care Team Providers Care Tool Specialist Name Role Phone Sonya Donis MD Primary Care Provider [phone] Reason for Visit * Reason Onset Date Comments Med Refill 02/02/2024 Encounter Details Date Type Department Care Team ([facility] st Contact Info) Description 02/02/2024 Telephone [facility] [address] [place] [address] Sonya Donis MD [address] [place] [address] Med Refill Social History Tobacco Use Types [...] 5-325 MG tablet To be sent to: [facility][id number] documented in this encounter Plan of Treatment Upcoming Encounters Date Type Department Care Team (Late st Contact Info) Description 12/27/2024 11:15 AM EDT Office Visit [facility] [address] [place] [address] Sonya Donis MD [address] [place] [address] 02/15/2025 3:00 PM EST Clinical Support [facility] [address] [place] [address] Anupama Solomon RN [address] [place] [address] 03/27/2025 2:00 PM EST Office Visit [facility] [address] [place] [address] Ascencion Joya documented as of this encounter Visit Diagnoses Not on filedocumented in this encounter Additional Health Concerns Assessment Noted Time PHQ-9 Depression Total Score: 0 10/11/19 24 9:09 AM EDT documented as of this encounter Care Teams Tool Specialist Relationship Specialty Start Date End Date Sonya Donis MD [address] [place] [id number] PCP - General Family Medicine 01/18/23 [employer] [facility] 10/11/23 documented as of this encounter
--- OUTSIDE RECORDS SUMMARY | 2024-11-16 16:58 | XMS_ITS | Clinical Summary ---
Author Organization [employer] Address [address] [facility] 7[address] [place] [address] Care Team Providers Care Leaf Tinner Name Role Phone Sonya Donis MD Primary Care Provider [phone] Allergies Active Allergy Reactions Criticality Noted Date Comments Aspirin Swelling Low 01/18/2023 Shellfish-Derived Products Swelling Low 3 Medications albuterol 108 (90 Base) MCG/ACT inhalerIndication s:Chronic cough Inhale 2 puffs every 4 (four) hours if needed for wheezing. 18 g 1 023 Active cetirizine (ZyrTEC) 10 MG tabletIndications :Chronic cough Take 1 tablet (10 mg) by mouth in the morning. 30 tablet 023 Active famotidine (Pepcid) 40 MG tabletIndications :Chronic cough Take 1 tablet (40 mg) by mouth if needed at bedtime for heartburn. 30 tablet 023 Active meloxicam (Mobic) 15 MG tablet Take 1 tablet by mouth 1 (one) time each day. Active fluticasone (Flonase) 50 MCG/ACT nasal spray SHAKE LIQUID AND USE 1 SPRAY IN EACH NOSTRIL EVERY DAY Active cyclobenzaprine (Flexeril) 10 MG tablet Take 1 tablet (10 mg) by mouth 3 times daily. 90 tablet 2 024 Active GaviLyte-G 236 g solution 024 Active Gentle Laxative 5 MG EC tablet Take 10 mg by mouth at bedtime. 024 Active rosuvastatin (Crestor) 40 MG tablet TAKE 1 TABLET(40 MG) BY MOUTH DAILY 90 tablet 1 025 Active gabapentin (Neurontin) 300 MG capsule TAKE 1 CAPSULE BY MOUTH THREE TIMES DAILY FOR PAIN Active fenofibrate (Tricor) 145 MG tablet Take 1 tablet (145 mg) by mouth Once per day. 90 tablet 1 Active levothyroxine (Synthroid) 50 MCG tablet Take 1 tablet (50 mcg) by mouth before breakfast. 90 tablet 1 Active omega-3 acid ethyl esters (Lovaza) 1 g capsuleIndication s:Hyperlipidemia, unspecified hyperlipidemia type Take 1 capsule (1 g) by mouth 2 times daily. 60 capsule 11 025 2025 Active LORazepam (Ativan) 1 MG tablet Take 1 tablet by mouth Once per day. Active tamsulosin (Flomax) 0.4 MG 24 hr capsule Take 1 capsule by mouth Once per day. Active valACYclovir (Valtrex) 500 MG tablet Take 1 tablet (500 mg) by mouth 2 times daily. 20 tablet Active oxyCODONE-acetami nophen (Percocet) 5-325 MG tabletIndications :Chronic left hip pain,Chronic neck pain with history of cervical spinal surgery Take 1 tablet by mouth every 6 (six) hours if needed for severe pain. 112 tablet Active naloxone (Narcan) 4 mg/0.1 mL nasal sprayIndications: Chronic left hip pain,Chronic neck pain with history of cervical spinal surgery Administer 1 spray (4 mg) into affected nostril(s) if needed for opioid reversal. May repeat every 2-3 minutes if needed, alternating nostrils, until medical assistance becomes available. 2 each 2 025 2025 Active oxyCODONE-acetami nophen (Percocet) 5-325 MG tabletIndications :Chronic left hip pain Take 1 tablet by mouth every 6 (six) hours if needed for severe pain. 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 The swelling is more pronounced in one or two toes and is accompanied by a purplish discoloration. The patient denies recent trauma but mentions a fall two weeks prior. Based on the localized nature of the swelling and pain, as well as the ability to move the affected area, the condition is assessed as likely musculoskeletal in origin, possibly a strain. Plan: - Order left foot and ankle X-ray to evaluate for any underlying skeletal abnormalities - Recommend continued use of home remedies (soaking foot, massage) for symptom relief - Reassess in 10 weeks or sooner if symptoms worsen or persist Long-term current use of opiate analgesic 2024 Low pressure urethral dysfunction 02/18/2023 Assessment & Plan (08/04/2024 1:47 PM EDT): Patient reports a history of urinary frequency, particularly at night, with incomplete emptying and post-void dribbling. These symptoms have been present for years. A previous referral to urology was made, but the patient has not been able to establish care due to communication difficulties. Plan: - Place new referral to urology for evaluation of chronic urinary symptoms - Advise patient on the referral process and the importance of following up with the specialist Assessment & Plan (02/18/2023 2:25 PM EST): Patient that presented visit with complaints of low pressure urethral dysfunction will be referred to Urology. Chronic left hip pain 02/18/2023 Assessment & Plan (08/04/2024 1:46 PM EDT): Patient has a history of chronic hip pain requiring assistive devices for mobility and toileting. The patient is requesting a shower chair and toilet seat riser to manage his symptoms and improve his quality of life. Plan: - Order shower chair and toilet seat riser for chronic hip pain management - Advise patient to do requests for letter via medical records (requesting letter for [facility] authority for modification of toilet to chair height given difficulties with standing due to his severe left hip arthritis) Medical Necessity Statement The patient has severe left hip arthritis, resulting in limited mobility and difficulty with weight-bearing, increasing the risk of falls during activities of daily living. A shower chair and toilet seat riser are medically necessary to promote safety and stability during bathing and toileting, reduce joint strain, and prevent falls in the home environment. Assessment & Plan (10/11/2023 9:35 AM EDT): [...] Encounter for health-related screening Assessment & Plan (08/04/2024 1:48 PM EDT): Patient is due for several preventive care measures, including colonoscopy and vaccinations. There have been difficulties in scheduling the colonoscopy due to various factors, including provider availability and communication issues. Plan: - Attempt to schedule colonoscopy at an alternative facility ([facility]) for improved access - Order Shingrix vaccine to be administered at the pharmacy - Discuss potential for COVID-19 and influenza vaccinations when they become available for the upcoming season Assessment & Plan (01/18/2023 10:14 AM EST): -Lab: Hep.C, HIV-1/2 -Immunizations: PCV-20, Influenza Vaccine (High-Dose). Hypertension 01/18/2023 Assessment & Plan (08/04/2024 1:47 PM EDT): Controlled. Target BP <150/90 mmHg per JNC 8 guidelines. Continue current medication regimen Reviewed med side effects Lab Results Component Value Date K 4.2 05/01/2024 Lab Results Component Value Date CREATININE 1.15 05/01/2024 No results found for: ALBUMIN Recommend lifestyle modification: Weight loss, DASH diet, High K, Low Na, Aerobic exercise, and reduce intake of alcohol Assessment & Plan (01/17/2024 3:02 AM EST): [...] for nutritional changes, Pt agreed to see Information Systems Specialist. Ordering lab work for Lipids recheck, to [...] Center 07/09/2023 1:00 PM Sonya Donis MD [facility] Assessment & Plan (01/18/2023 10:23 AM EST): -Labs: Lipid Panel. Hypothyroidism 01/18/2023 Assessment & Plan (01/18/2023 10:23 AM EST): -Labs: TSH/FT4. 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 neck pain with history of cervical spinal surgery 11/15/2024 Travel 11/03/2024 Telephone [facility] [address] [place], [place] [phone] oSnya Donis MD Medication Question 11/02/2024 Telephone [facility] [address] [place] [address] Sonya Donis MD Nurse Triage 11/02/2024 Telephone [facility] [address] [place] [phone] Sonya Donis MD Nurse Triage 10/05/2024 1:30 PM EDT Clinical Support [facility] [address] [place] [address] Naima Arteaga RN Impacted cerumen of left ear [H61.22] 10/05/2024 Travel 10/04/2024 Results Follow-Up [facility] [address] [place] [address] Sonya Donis MD Lipid Panel with Reflex to Direct LDL, Iron And Total Iron Binding Capacity, TSH W/Reflex to FT4 10/04/2024 Telephone [facility] [address] [place] [address] Sonya Donis MD 10/02/2024 Refill [facility] [address] [place] [address] Sonya Donis MD Chronic left hip pain 09/29/2024 11:15 AM EDT Office Visit [facility] [address] [place] [address] Sonya Donis MD Herpes simplex infection of penis (Primary Dx); Tinnitus aurium, left; Impacted cerumen of left ear; Hyperlipidemia, unspecified hyperlipidemia type 09/29/2024 Travel 09/26/2024 Telephone [facility] [address] [place] [address] Sonya Donis MD chart prep 09/22/2024 3:00 PM EDT Office Visit [facility] [address] [place] [address] Ascencion Joya Dental calculus (Primary Dx); 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 druze 09/01/2024 Refill [facility] [address] [place] [phone] Sonya Donis MD Chronic left hip pain from Last 3 Months Immunizations Immunization Administration Dates Next Due Influenza High-dose Quadriva lent Preservative Free 01/18/2023 Influenza, seasonal, injecta ble, preservative free 01/13/2024 Moderna Covid-19 Vaccine 12+ 02/13/2021,06/15/19 21,05/17/2020 Moderna Covid-19 Vaccine 6+ Bivalent 03/11/2022 Pneumococcal Conjugate PCV 20 01/18/2023 Tdap 01/13/2024 Zoster, Recombinant 10/13/2024,08/04/2024 Social History Tobacco Use Types Packs/Day Years [...] Sign Reading Time Taken Comments Blood Pressure 150/86 09/29/2024 12:03 PM EDT Pulse 76 09/29/2024 11:10 AM EDT Temperature 36.9 C (98.4 F) 09/29/2024 11:10 AM EDT Respiratory Rate 20 09/29/2024 11:10 AM EDT Oxygen Saturation 99% 09/29/2024 11:10 AM EDT Inhaled Oxygen Concentration - - Weight 73.7 kg (162 lb 6.4 oz) 09/29/2024 11:10 AM EDT Height 170.2 cm (5' 7 ) 09/29/2024 11:10 AM EDT Body Mass Index 25.44 09/29/2024 11:10 AM EDT Plan of Treatment Upcoming Encounters Date Type Department Care Team (Late st Contact Info) Description 12/27/2024 11:15 AM EDT Office Visit [facility] [address] [place] [address] Sonya Donis MD [address] [place] [address] 02/15/2025 3:00 PM EST Clinical Support [facility] [address] [place] [address] Anupama Solomon, ADONAY [address] [place] [address] 03/27/2025 2:00 PM EST Office Visit [facility] [address] [place] [address] Ascencion Joya Health Maintenance Due Date Last Done Comments CT Colonography 1955 FIT DNA/Cologuard 1955 FIT 1955 FOBT 1955 Sigmoidoscopy 1955 Colonoscopy 01/13/2023 01/13/2018 Colorectal Cancer Screening 01/13/2023 Dental X-Ray: Bitewings 09/21/2024 09/21/2023 SDOH Screening 10/10/2024 10/11/2023 COVID-19 Vaccine ( season) 2024 03/11/2022, 02/13/2021, 06/14/2020, Additional history exists Influenza Vaccine (#1) 2024 01/13/2024, 2022 Dental Oral Exam 03/26/2025 09/22/2024, 09/21/2023 Dental Prophylaxis 03/26/2025 09/22/2024, 0 03/24/2024, 09/21/2023 Tobacco Screening 09/22/2025 09/22/2024 Alcohol/Substance Use Screening 09/29/2025 09/29/2024 Depression Screening 09/29/2025 09/29/2024, 09/30/19 Dental X-Ray: Full Mouth 09/21/2026 09/21/2023 Lipid Panel 10/04/2029 10/04/2024, 06/0 08/2024, 01/10/2024, Additional history exists RSV Patients and Patients Aged 60 years or older (1 - 1-dose 75+ series) 08/17/2031 DTaP/Tdap/Td Vaccines (2 - Td or Tdap) 01/12/2034 01/13/2024 Pneumococcal Vaccine: 50+ Years Completed 01/18/2023 Hepatitis C Screening Completed 01/22/2023 Zoster Vaccines Completed 10/13/2024, 08/04/2024 HIB Vaccines Aged Out No longer eligi [...] Procedure Name Priority Date/Time Associated Diagnosis Comments XR SHOULDER 2+ VIEWS BILATERAL Routine 11/16/2024 1:47 PM EDT POCT RHEA-14 URINE DRUG SCREEN Routine 11/15/2024 3:41 PM EDT Chronic neck pain with history of cervical spinal surgery SYPHILIS SCREEN Routine 10/04/2024 11:07 AM EDT Tinnitus aurium, left LYME DISEASE AB W/REFL TO BLOT (IGG, IGM) Routine 10/04/2024 11:07 AM EDT Tinnitus aurium, left TSH W/REFLEX TO FT4 Routine 10/04/2024 1 1:07 AM EDT Tinnitus aurium, left IRON AND TOTAL IRON BINDING CAPACITY Routine 10/04/2024 11:07 AM EDT Tinnitus aurium, left LIPID PANEL WITH REFLEX TO DIRECT LDL Routine 10/04/2024 11:07 AM EDT Hyperlipidemia, unspecified hyperlipidemia type HERPES CULTURE WITH REFLEX TYPING Routine 09/29/2024 12:00 AM EDT PERIODIC ORAL EVALUATION - ESTABLISHED PATIENT Routine 09/22/2024 3:00 PM EDT 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 druze CASE PRESENTATION, DETAILED AND EXTENSIVE TREATMENT PLANNING Routine 09/22/2024 3:00 PM EDT 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 druze ORAL HYGIENE INSTRUCTIONS Routine 09/22/2024 3:00 PM EDT 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 druze PROPHYLAXIS - ADULT Routine 09/22/2024 3 :00 PM EDT 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 druze 6 F(V) COMPOSITE FILLING Routine 09/22/2024 12:00 AM EDT 7 F(V) COMPOSITE FILLING Routine 09/22/2024 12:00 AM EDT 9 F(V) COMPOSITE FILLING Routine 09/22/2024 12:00 AM EDT 10 F(V) COMPOSITE FILLING Routine 09/22/2024 12:00 AM EDT 11 F(V) COMPOSITE FILLING Routine 09/22/2024 12:00 AM EDT 12 B(V) COMPOSITE FILLING Routine 09/22/2024 12:00 AM EDT 13 L COMPOSITE FILLING Routine 09/22/2024 12:00 AM EDT 12 L COMPOSITE FILLING Routine 09/22/2024 12:00 AM EDT 16 O AMALGAM FILLING Routine 09/22/2024 12:00 AM EDT AMB REFERRAL TO UROLOGY Routine 09/20/2024 Low pressure urethral dysfunction INTRAORAL - COMPLETE SERIES OF RADIOGRAPHIC IMAGES Routine 09/21/2023 2:00 PM EDT HEPATITIS C ANTIBODY Routine 01/22/2023 1:05 PM EST Encounter for health-related screening HM COLONOSCOPY Routine 01/13/2018 from Last 3 Months or Most Recently Relevant to Health Maintenance Results * XR Shoulder 2+ Views Bilateral (11/16/2024 1:47 PM EDT) Anatomical Region Laterality Modality Upper Extremities, Shoulder Bilateral Radi ographic Imaging 11/16/2024 1:47 PM EDT Narrative 11/16/2024 2:22 PM EDT [place] [address] XRay Report Signed Patient: Nemo Amezquita MR#: [id number] : 1955 Acct:[id number] Age/Sex: 69 / M ADM Date: 11/16/24 Loc: [facility] Attending Dr: Maria Dolores SERRA Ordering Physician: Maria Dolores Campbell Date of Service: 11/16/24 Procedure(s): XR Shoulder Kale min 2V Accession Number(s): [id number] cc: Maria Dolores Campbell; Sonya Donis MD Reason for Exam: M25.511 - Pain in right shoulder Exam: 4 view bilateral shoulders. INDICATION: Shoulder pain TECHNIQUE: 4 views bilateral shoulder, x-rays No prior FINDINGS: Right shoulder: Mild degenerative changes are present in the AC joint. There is no AC joint separation. Glenohumeral joint demonstrates minimal osteophytes along the margin of the glenoid. There is no dislocation. There is no fracture. Left shoulder Mild degenerative changes are present in the AC joint. There is no AC joint separation. Glenohumeral joint demonstrates minimal osteophytes along the margin of the glenoid. There is no dislocation. There is no fracture. XR/XR Shoulder Kale min 2V IMPRESSION: Mild degenerative changes, bilateral shoulder and AC joints. Electronically signed by: Ethan Gloria MD 11/16/2024 02:20 PM EDT RP Dictated By: Ethan Gloria MD Signed By: <Electronically signed by Ethan Gloria MD in OV> 11/16/24 1420 DD/ 1347 TD/TT: 11/16/24 1400 Hat Ironer: Procedure Note Donotuseinterpreter, Image - 11/16/[address] [address] XRay Report Signed Patient: Nemo AmezquitaMR#: [id number] : 1955cct:[id number] Age/Sex: 69 / MADM Date: 11/16/24 Loc: [facility] Attending Dr: Maria Dolores SERRA Ordering Physician: Maria Dolores Campbell Date of Service: 11/16/24 Procedure(s): XR Shoulder Kale min 2V Accession Number(s): [id number] cc: Maria Dolores Campbell; Sonya Donis MD Reason for Exam: M25.511 - Pain in right shoulder Exam: 4 view bilateral shoulders. INDICATION: Shoulder pain TECHNIQUE: 4 views bilateral shoulder, x-rays No prior FINDINGS: Right shoulder: Mild degenerative changes are present in the AC joint. There is no AC joint separation. Glenohumeral joint demonstrates minimal osteophytes along the margin of the glenoid. There is no dislocation. There is no fracture. Left shoulder Mild degenerative changes are present in the AC joint. There is no AC joint separation. Glenohumeral joint demonstrates minimal osteophytes along the margin of the glenoid. There is no dislocation. There is no fracture. XR/XR Shoulder Kale min 2V IMPRESSION: Mild degenerative changes, bilateral shoulder and AC joints. Electronically signed by: Ethan Gloria MD 11/16/2024 02:20 PM EDT RP Dictated By: Ethan Gloria MD Signed By: <Electronically signed by Ethan Gloria MD in OV> 11/16/24 1420 DD/ 1347 TD/TT: 11/16/24 1400 Hat Ironer: [facility] External Provider IMG XR PROCEDURES Final Result * (ABNORMAL) POCT RHEA-14 Urine Drug Screen [...] 3:41 PM EDT Internal Pass Control Lot# [id number] Exp: 01-05-26 Sonya Donis MD POINT OF CARE TEST ENTER/EDIT ORDERABLES Final Result * Syphilis Screen (10/04/2024 11:07 AM EDT) Syphilis Screen Nonreactive Nonreactive [facility] Blood 10/04/2024 11:0 7 AM EDT 10/04/2024 2:25 PM EDT Sonya Donis MD LAB BLOOD ORDERABLES Final Re sult [facility] [address] [place] [phone] * TSH W/Reflex to FT4 (10/04/2024 11:07 AM EDT) TSH reflex Free T4 2.26 0.32 - 4.0 uIU/mL [facility] Blood Venous blood specimen / Unknown 10/04/2024 11:07 AM EDT 10/04/2024 2:25 PM EDT Sonya Donis MD LAB BLOOD ORDERABLES Final Re sult Performing Organization Address [facility]/ZIP Co de Phone Number [facility] [address] [place] [phone] * Lyme Disease Ab with Reflex to Blot (IgG, IgM) (10/04/2024 11:07 AM EDT) Lyme Antibody Screen <0.90 index [facility] Comment:Index Interpretation ----- < 0.90 Negative 0.90-1.09 Equivocal > 1.09 PositiveAs recommended by the Food and Drug Administration(FDA), all samples with positive or equivocalresults in a Borrelia burgdorferi antibody screenwill be tested using a blot method. Positive orequivocal screening test results should not beinterpreted as truly positive until verified as suchusing a supplemental assay (e.g., B. burgdorferi blot).The screening test and/or blot for B. burgdorferiantibodies may be falsely negative in early stagesof Lyme disease, including the period when erythemamigrans is apparent.THIS TEST WAS PERFORMED AT:[facility] [place] [id number] GUERRA MD Lyme Blot TNP [facility] 10/04/2024 11:0 7 AM EDT 10/04/2024 2:25 PM EDT Sonya Donis MD LAB BLOOD ORDERABLES Final Re sult Performing Organization Address [facility]/ZIP Co de Phone Number [facility] [address] [place] [address] [place] [phone] * Lipid Panel with Reflex to Direct LDL (10/04/2024 11:07 AM EDT) Triglycerides 84 <150 mg/dL [facility] Comment:Desirable Triglyceri de: less than 150 mg/dLBorderline High Triglyceride 150-199 mg/dLHigh Triglyceride: 200-499 mg/dLVery High Triglyceride: greater than or equal to 5OO mg/dL Cholesterol 147 <200 mg/dL [facility] Comment:Desirable Cholestero l: less than 200 mg/dLBorderline High Cholesterol: 200-239 mg/dLHigh Cholesterol: greater than 239 mg/dL LDL Cholesterol Calculated 88 <100 mg/dL [facility] Comment:Desirable LDL: less than 100 mg/dLNear Optimal/Above Optimal LDL: 110- 129 mg/dLBorderline High LDL: 130-159 mg/dLHigh LDL: 160-189 mg/dLVery High LDL: greater than or equal to 190 mg/dL HDL Cholesterol 43 >40 mg/dL [facility] Comment:Desirable HDL: great er than 40 mg/dL Note: This HDL assay may give artificially low results in patients with liver disease. Blood 10/04/2024 11:0 7 AM EDT 10/04/2024 2:25 PM EDT us Sonya Donis MD LAB BLOOD ORDERABLES Final Re sult [facility] [address] [place] [address] [phone] * Iron And Total Iron Binding Capacity (10/04/2024 11:07 AM EDT) Iron 73 45 - 160 mcg/dL [facility] Total Iron Binding Capacity 358 228 - 428 mcg/dL [facility] Percent Iron Saturation 20 15 - 50 % [facility] Unsaturated Iron Binding 285 ug/dL [facility] Blood Venous blood specimen / Unknown 10/04/2024 11:07 AM EDT 10/04/2024 2:25 PM EDT Sonya Donis MD LAB BLOOD ORDERABLES Final Re sult Performing Organization Address [facility]/ZIP Co de Phone Number [facility] [address] [place] [phone] * Herpes Simplex Virus Culture with Reflex Typing (09/29/2024 12:00 AM EDT) HSV Culture/Type SEE NOTE [facility] Comment:HERPES SIMPLEX VIRUS CULTURE W/RFL TO TYPING Micro Number: [id number] Test Status: Final Specimen Source: Not given Specimen Quality: Adequate HSV Culture: Not IsolatedTHIS TEST WAS PERFORMED AT:[employer] [id number] MERATI,MD 09/29/2024 09/29/2024 oSnya Donis MD LAB MICROBIOLOGY - GENERAL OR DERABLES Final Result Performing Organization Address [facility] Co de Phone Number [facility] [address] [place] [phone] * Referral to Urology (09/20/2024) us Sonya Donis MD OUTPATIENT REFERRAL ORDERABLE S Final Result * Hepatitis C Ab (01/22/2023 1:05 PM EST) Hepatitis C Antibody Nonreactive Nonreactive [facility] Comment:Antibodies to HCV no t detected; does not exclude early acuteHCV infection. Blood Venous blood specimen / Unknown 01/22/2023 1:05 PM EST 01/22/2023 2:22 PM EST us Sonya Donis MD LAB BLOOD ORDERABLES Final Re sult Performing Organization Address [facility]/ZIP Co de Phone Number [facility] [address] [place] [address] [phone] * Hm Colonoscopy (01/13/2018) Colonoscopy Normal Normal Narrative Sonya Donis MD - 01/13/2018 Normal colonoscopy, unknown why recommended repeat 5 yrs us Historical Provider MD HEALTH MAINTENANCE Final Result from Last 3 Months or Most Recently Relevant to Health Maintenance Insurance [facility] OPTIONS (O D-SNP) [facility] Care Teams Leaf Tinner Relationship Specialty Start Date End Date Sonya Donis MD [address] [place] [address] PCP - General Family Medicine 01/18/23 [facility] Services 10/11/23
--- OUTSIDE RECORDS SUMMARY | 2024-11-16 16:58 | XMS_ITS | Encounter Summary ---
Author Organization [employer] Address 75 [facility] 7t [place] [address] Care Team Providers Care Industrial Hygiene Technician Name Role Phone Sonya Donis MD Primary Care Provider [phone] Encounter Details Date Type Department Care Team (Late st Contact Info) Description 11/16/2024 Orders Only [facility] External Provider, [facility] Social History Tobacco Use Types Packs/Day Years [...] Description 12/27/2024 11:15 AM EDT Office Visit [facility] MED & PEDS [address] [place] [address] Sonya Donis MD 505 [place] [address] 02/15/2025 3:00 PM EST Clinical Support [facility] MED & PEDS [address] [place] [address] Anupama Solomon RN 505 [place] [address] 03/27/2025 2:00 PM EST Office Visit [facility] ADULT DENTAL [address] [place] [address] Ascencion Joya documented as of this encounter Procedures Procedure Name Priority Date/Time Associated Diagnosis Comments XR SHOULDER 2+ VIEWS BILATERAL Routine 11/16/2024 1:47 PM EDT documented in this encounter Results * XR Shoulder 2+ Views Bilateral (11/16/2024 1:47 PM EDT) Anatomical Region Laterality Modality Upper Extremities, Shoulder Bilateral Radi ographic Imaging 11/16/2024 1:47 PM EDT Narrative 11/16/2024 2:22 PM EDT [address] [address] XRay Report Signed Patient: Nemo Amezquita MR#: [id number] : 1955 Acct:[id number] Age/Sex: 69 / M ADM Date: 11/16/24 Loc: [facility] Attending Dr: Maria Dolores Buchachiy SOCIAL WORK CASE MANAGER Ordering Physician: Maria Dolores Campbell Date of Service: 11/16/24 Procedure(s): XR Shoulder Kale min 2V Accession Number(s): [id number] cc: Maria Dolores Campbell; Sonya Donis MD [...] Ethan Gloria MD 11/16/2024 02:20 PM EDT Dictated By: Ethan Gloria MD Signed By: <Electronically signed by Ethan Gloria MD in OV> 11/16/24 1420 DD/ 1347 TD/TT: 11/16/24 1400 Enrolled Nurse: Procedure Note Donotuseinterpreter, Image - 11/16/2024 [place] [address] XRay Report Signed Patient: Nemo AmezquitaMR#: [id number] : 7Acct:[id number] Age/Sex: 69 / MADM Date: 11/16/24 Loc: [facility] Attending Dr: Maria Dolores SERRA Ordering Physician: Maria Dolores Campbell Date of Service: 11/16/24 Procedure(s): XR Shoulder Kale min 2V Accession Number(s): [id number] cc: Maria Dolores Campbell; Sonya Donis MD [...] 11/16/24 1420 DD/ 1347 TD/TT: 11/16/24 1400 Enrolled Nurse: [facility] External Provider IMG XR PROCEDURES Final Result documented in this encounter Visit Diagnoses Not on filedocumented in this encounter Additional Health Concerns Assessment Noted Time PHQ-9 Depression Total Score: 0 09/30/19 11:11 AM EDT documented as of this encounter Care Teams Industrial Hygiene Technician Relationship Specialty Start Date End Date Sonya Donis MD [address] [place] [address] PCP - General Family Medicine 01/18/23 [employer] TERMINAL GAUGER Services 10/11/23 documented as of this encounter
--- OUTSIDE RECORDS SUMMARY | 2024-11-16 16:58 | XMS_ITS | Encounter Summary ---
Author Organization [employer] Address 75 [facility] 7t [place] [address] Care Team Providers Care Cup Setter Lockstitch Name Role Phone Sonya Donis MD Primary Care Provider Reason for Visit * Reason Onset Date Comments Med Refill 11/11/2023 Encounter Details Date Type Department Care Team ([facility] st Contact Info) Description 11/11/2023 Telephone [facility] MEDICINE [address] [place] [address] Sonya Donis MD [address] [place] [address] Med Refill Social History Tobacco Use Types [...] 5-325 MG tablet To be sent to: [id number] AT [facility] documented in this encounter Plan of Treatment Upcoming Encounters Date Type Department Care Team ([facility] Contact Info) Description 12/27/2024 11:15 AM EDT Office Visit [facility] MED & PEDS [address] [place] [address] Sonya Donis MD 505 [place] [address] 02/15/2025 3:00 PM EST Clinical Support [facility] MED & PEDS [address] [place] [address] Anupama Solomon RN 505 [place] [address] 03/27/2025 2:00 PM EST Office Visit [facility] ADULT DENTAL [address] [place] [address] Ascencion Joya documented as of this encounter Visit Diagnoses Not on filedocumented in this encounter Additional Health Concerns Assessment Noted Time PHQ-9 Depression Total Score: 0 10/11/19 24 9:09 AM EDT documented as of this encounter Care Teams Cup Setter Lockstitch Relationship Specialty Start Date End Date Sonya Donis MD [address] [place] [address] PCP - General Family Medicine 01/18/23 [employer] CLASSIFICATION CASE MANAGER Services 10/11/23 documented as of this encounter
--- OUTSIDE RECORDS SUMMARY | 2024-11-16 16:58 | XMS_ITS | Encounter Summary ---
Author Organization [employer] Address [address] [place] [address] 7t [place] [address] Care Team Providers Care Ccnp Name Role Phone Sonya Donis MD Primary Care Provider [phone] Reason for Visit * Reason Onset Date Comments New Patient 10/28/2022 Encounter Details Date Type Department Care Team ([facility] st Contact Info) Description 10/28/2022 Telephone [facility] MEDICINE [address] [place], [place] [phone] Dony Bhagat MD [address] [place], [place] [phone] New Patient Social History Tobacco Use Types [...] Gayatri Chaudhary - 12/10/2022 3:03 PM EDT PAR Gayatri Brown called pt to Offer CLINICAL QUALITY MANAGER appt. Pt demographics and insurance information were verified. Pt states following medical conditions: thyroid, Cholesterol, Arthritis, Needs Hip replacement, and High blood pressure. Pt reports taking medications: No Pt given CLINICAL QUALITY MANAGER appt with Dr. Donis on 01/18/2023 @ 9:30 am. Pt will be sent appt reminder card and medical release form and agrees to complete and to return to medical records prior to CLINICAL QUALITY MANAGER appt. * Telephone Encounter - Gayatri Chaudhary - 10/28/2022 1:35 PM EDT Pt has been transfer over to wait list for CLINICAL QUALITY MANAGER. EFFECTIVE SINCE 10/28/2022 documented in this encounter Plan of Treatment Upcoming Encounters Date Type Department Care Team (Late st Contact Info) Description 12/27/2024 11:15 AM EDT Office Visit [facility] MED & PEDS [address] [place] [address] Sonya Donis MD 505 [place] [address] 02/15/2025 3:00 PM EST Clinical Support [facility] MED & PEDS [address] [place] [address] Anupama Solomon, ADONAY [address] [place], [place] [phone] 03/27/2025 2:00 PM EST Office Visit [facility] ADULT DENTAL [address] [place] [address] Ascencion Joya documented as of this encounter Visit Diagnoses Not on filedocumented in this encounter Care Teams Ccnp Relationship Specialty Start Date End Date Sonya Donis MD [address] [place] [phone] PCP - General Family Medicine 01/18/23 [employer] MAIL AGENT Services 10/11/23 documented as of this encounter
--- OUTSIDE RECORDS SUMMARY | 2024-11-16 16:58 | XMS_ITS | Encounter Summary ---
Author Organization [employer] Address 75 [facility] 7t [place] [address] Care Team Providers Care Strip Stamp Straightener Name Role Phone Sonya Donis MD Primary Care Provider [phone] Reason for Visit * Reason Onset Date Comments Med Refill 01/07/2024 Encounter Details Date Type Department Care Team ([facility] st Contact Info) Description 01/07/2024 Telephone [facility] MEDICINE [address] [place] [address] Sonya Donis MD [address] [place] [address] Med Refill Social History Tobacco Use Types [...] 5-325 MG tablet To be sent to: [facility] #[id number] documented in this encounter Plan of Treatment Upcoming Encounters Date Type Department Care Team (Late st Contact Info) Description 12/27/2024 11:15 AM EDT Office Visit [facility] MED & PEDS [address] [place] [address] Sonya Donis MD 505 [place] [address] 02/15/2025 3:00 PM EST Clinical Support [facility] MED & PEDS [address] [place] [address] Anupama Solomon RN 505 [place] [address] 03/27/2025 2:00 PM EST Office Visit [facility] ADULT DENTAL [address] [place] [address] Ascencion Joya documented as of this encounter Visit Diagnoses Not on filedocumented in this encounter Additional Health Concerns Assessment Noted Time PHQ-9 Depression Total Score: 0 10/11/19 24 9:09 AM EDT documented as of this encounter Care Teams Strip Stamp Straightener Relationship Specialty Start Date End Date Sonya Donis MD [address] [place] [address] PCP - General Family Medicine 01/18/23 [employer] CORPORATE GENERAL MANAGER Services 10/11/23 documented as of this encounter
--- OUTSIDE RECORDS SUMMARY | 2024-11-16 16:58 | XMS_ITS | Encounter Summary ---
Author Organization [employer] Address 75 [facility] 7t [place] [address] Care Team Providers Care Media Analyst Name Role Phone Sonya Donis MD Primary Care Provider [phone] Encounter Details Date Type Department Care Team (Latest Contact Info) Description 11/15/2024 Travel Social History Tobacco Use Types Packs/Day [...] 12/27/2024 11:15 AM EDT Office Visit [facility] MED & PEDS [address] [place] [address] Sonya Donis MD 505 [place] [address] 02/15/2025 3:00 PM EST Clinical Support [facility] MED & PEDS [address] [place] [address] Anupama Solomon RN 505 [place] [address] 03/27/2025 2:00 PM EST Office Visit [facility] ADULT DENTAL [address] [place] [address] Ascencion Joya documented as of this encounter Visit Diagnoses Not on filedocumented in this encounter Additional Health Concerns Assessment Noted Time PHQ-9 Depression Total Score: 0 09/30/19 25 11:11 AM EDT documented as of this encounter Care Teams Media Analyst Relationship Specialty Start Date End Date Sonya Donis MD [address] [place] [address] PCP - General Family Medicine 01/18/23 [employer] ALUM MIXER Services 10/11/23 documented as of this encounter
--- OUTSIDE RECORDS SUMMARY | 2024-11-16 16:58 | XMS_ITS | Encounter Summary ---
Author Organization [employer] Address [address] [place] [address] 7t [place] [address] Care Team Providers Care Dinkey Motor Operator Name Role Phone Sonya Donis MD Primary Care Provider [phone] Encounter Details Date Type Department Care Team (Late st Contact Info) Description 07/20/2024 Orders Only [facility] [address] [place], [place] [phone] Provider, MD Annabelle Social History Tobacco Use Types Packs/Day Years [...] Description 12/27/2024 11:15 AM EDT Office Visit [facility] MED [facility]EDS [address] [place] [address] Sonya Donis MD 505 [place] [address] 02/15/2025 3:00 PM EST Clinical Support [facility] MED [facility]ED[facility] [address] [place] [address] Anupama Solomon RN 505 [place] [address] 03/27/2025 2:00 PM EST Office Visit [facility] ADULT DENTAL [address] [place] [address] Ascencion Joya documented as of this encounter Procedures Procedure Name Priority Date/Time Associated Diagnosis Comments HERPES CULTURE WITH REFLEX TYPING Routine 09/29/2024 12:00 AM EDT T4, FREE Routine 08/11/2024 12:00 AM EDT CYTOLOGY, NON-PLASMA PROCESSING CENTRIFUGE OPERATOR Routine 07/18/2024 2:2 5 PM EDT documented in this encounter Results * Herpes Simplex Virus Culture with Reflex Typing (09/29/2024 12:00 AM EDT) HSV Culture/Type SEE NOTE [facility] Comment:HERPES SIMPLEX VIRUS CULTURE W/RFL TO TYPING Micro Number: [id number] Test Status: Final Specimen Source: Not given Specimen Quality: Adequate HSV Culture: Not IsolatedTHIS TEST WAS PERFORMED AT:[employer] [place] [id number] MERATI,MD 09/29/2024 09/29/2024 us Sonya Donis MD LAB MICROBIOLOGY - GENERAL OR DERABLES Final Result Performing Organization Address [facility] Co de Phone Number [facility] [address] [place] [phone] * T4, Free (08/11/2024 12:00 AM EDT) Free T4 (Free Thyroxine) 0.93 0.71 - 1.85 ng/dL [facility] 08/11/2024 08/11/2024 us Sonya Donis MD LAB BLOOD ORDERABLES Final Re sult Performing Organization Address [facility] de Phone Number [facility] [address] [place] [phone] * Cytology, Non-PLASMA PROCESSING CENTRIFUGE OPERATOR (07/18/2024 2:25 PM EDT) Historical Provider LAB CYTOLOGY ORDERABLES F inal Result documented in this encounter Visit Diagnoses Not on filedocumented in this encounter Additional Health Concerns Assessment Noted Time PHQ-9 Depression Total Score: 0 10/11/19 9:09 AM EDT documented as of this encounter Care Teams Dinkey Motor Operator Relationship Specialty Start Date End Date Sonya Donis MD [address] [place] [address] PCP - General Family Medicine 01/18/23 [employer] ROUGE SIFTER AND MILLER Services 10/11/23 documented as of this encounter
--- OUTSIDE RECORDS SUMMARY | 2024-11-16 16:58 | XMS_ITS | Encounter Summary ---
Author Organization [employer] Address [address] [place] [address] 7t [place] [address] Care Team Providers Care Squadron Worker Name Role Phone Sonya Donis MD Primary Care Provider [phone] Reason for Visit * Reason Onset Date Comments Med Refill 09/08/2023 Encounter Details Date Type Department Care Team ([facility] st Contact Info) Description 09/08/2023 Telephone [facility] MED & PEDS [address] [place] [address] Sonya Donis MD 505 [place] [address] Med Refill Social History Tobacco Use Types [...] 2:59 PM EDT Medication was sent to [email or web address] #[id number] on 07/09/23 with 2 refills. * Telephone Encounter - Marcy Mohan - 09/08/2023 1:12 PM EDT TC from pt requesting medication refill. Medications needing refill : cyclobenzaprine (Flexeril) 10 MG tablet To be sent to: [id number] AT [facility] documented in this encounter Plan of Treatment Upcoming Encounters Date Type Department Care Team ([facility] Contact Info) Description 12/27/2024 11:15 AM EDT Office Visit [facility] MED & PEDS 505 [place] [address] Sonya Donis MD 505 [place] [address] 02/15/2025 3:00 PM EST Clinical Support [facility] MED & PEDS 505 [facility] [place] [address] Anupama Solomon RN 505 [place] [address] 03/27/2025 2:00 PM EST Office Visit [facility] ADULT DENTAL [address] [place] [address] Ascencion Joya documented as of this encounter Visit Diagnoses Not on filedocumented in this encounter Additional Health Concerns Assessment Noted Time PHQ-9 Depression Total Score: 9 03/11/19 11:12 AM EST documented as of this encounter Care Teams Squadron Worker Relationship Specialty Start Date End Date Sonya Donis MD [address] [place] [address] PCP - General Family Medicine 01/18/23 [employer] LIME HIDE INSPECTOR Services 10/11/23 documented as of this encounter
--- OUTSIDE RECORDS SUMMARY | 2024-11-16 16:58 | XMS_ITS | Encounter Summary ---
Author Organization [employer] Address [address] [place] [address] 7t [place] [address] Care Team Providers Care Field Gauger Name Role Phone Sonya Donis MD Primary Care Provider [phone] Encounter Details Date Type Department Care Team ([facility] st Contact Info) Description 10/04/2024 Telephone [employer] [facility] Management [address] [place] [address] Sonya Donis MD [address] [place], [place] [phone] Social History Tobacco Use Types Packs/Day Years [...] t he electric, gas, oil or water [employer] threatened to shut off services in your [...] Description 12/27/2024 11:15 AM EDT Office Visit [facility] MED & PEDS [address] [place] [address] Sonya Donis MD 505 [place] [address] 02/15/2025 3:00 PM EST Clinical Support [facility] MED & PEDS [address] [place] [address] Anupama Solomon, ADONAY [address] [place] [address] 03/27/2025 2:00 PM EST Office Visit [facility] ADULT DENTAL [address] [place] [address] Ascencion Joya documented as of this encounter Visit Diagnoses Not on filedocumented in this encounter Additional Health Concerns Assessment Noted Time PHQ-9 Depression Total Score: 0 09/30/19 25 11:11 AM EDT documented as of this encounter Care Teams Field Gauger Relationship Specialty Start Date End Date Sonya Donis MD [address] [place] [address] PCP - General Family Medicine 01/18/23 [employer] FLAT SORTING MACHINE CLERK Services 10/11/23 documented as of this encounter
--- OUTSIDE RECORDS SUMMARY | 2024-11-16 16:59 | XMS_ITS | Clinical Summary ---
Author Organization [facility] Address [address] [facility] [address] [place] [address] Phone Care Team Providers Care Car Mechanic Helper Name Role Phone Pcp, Unknown Primary Care Provider Unavailabl e Social History Tobacco Use Types Packs/Day Years [...] on file Medical Devices Not on file [facility] REPLAC[place] [address] [address] [address] [place] [address] [place] [address] MEDICARE REPLACEMENT [facility] MEDICARE RE[facility]ACEMENT [facility] [place] [address] [facility] MEDICARE REPLACEMENT [place] [id number] Care Teams Car Mechanic Helper Relationship Specialty Start Date End Date Pcp, Unknown PCP - General 07/19/24 Additional Source Comments The information contained in this document represents components of the legal health record. It is not the complete legal health record.[facility]
== END 2024-11-16 13:18 | disposition home or self-care (01) ==
LOC: HO.PMC 12:48
PROVIDERS: PCP Family Medicine; Visit Provider Nurse Practitioner Family
DX: M25.511 Pain in right shoulder (principal); M25.512 Pain in left shoulder; M47.812 Spondylosis without myelopathy or radiculopathy, cervical region; M62.838 Other muscle spasm
CPT/HCPCS: 99214; G2211

== ENCOUNTER 2024-11-16 12:48 | Outpatient (REF) | payer OTHER, SELFPAY ==
--- NOTE | ~2024-11-16 | XR_ITS ---
Exam: 4 view bilateral shoulders. INDICATION: Shoulder pain TECHNIQUE: 4 views bilateral shoulder, x-rays No prior FINDINGS: Right shoulder: Mild degenerative changes are present in the AC joint. There is no AC joint separation. Glenohumeral joint demonstrates minimal osteophytes along the margin of the glenoid. There is no dislocation. There is no fracture. Left shoulder Mild degenerative changes are present in the AC joint. There is no AC joint separation. Glenohumeral joint demonstrates minimal osteophytes along the margin of the glenoid. There is no dislocation. There is no fracture. XR/XR Shoulder Kale min 2V IMPRESSION: Mild degenerative changes, bilateral shoulder and AC joints. Electronically signed by: Ethan Gloria MD 11/16/2024 02:20 PM EDT
== END 2024-11-16 12:49 | disposition home or self-care (01) ==
LOC: HO.XRAY 12:48
PROVIDERS: PCP Family Medicine; Visit Provider Nurse Practitioner Family
DX: M47.812 Spondylosis without myelopathy or radiculopathy, cervical region (principal); M62.838 Other muscle spasm; M25.511 Pain in right shoulder; M25.512 Pain in left shoulder; Z45.42 Encounter for adjustment and management of neurostimulator; Z79.891 Long term (current) use of opiate analgesic; Z79.899 Other long term (current) drug therapy
CPT/HCPCS: 73030; 99212

== ENCOUNTER → 2024-11-16 13:33 | Outpatient (BNV) | payer OTHER, SELFPAY | PROVIDERS: PCP Family Medicine; Visit Provider Radiology Diagnostic Radiology | DX: M25.511 Pain in right shoulder (principal); M25.512 Pain in left shoulder | CPT/HCPCS: 73030 ==

== ENCOUNTER 2024-11-20 12:00 | Outpatient (REF) | payer OTHER, SELFPAY ==
--- OUTSIDE RECORDS SUMMARY | 2024-11-20 18:20 | XMS_ITS | Encounter Summary ---
Author Organization [employer] Address [address] [facility] 7t [place] [address] Care Team Providers Care Professor Of Political Science Name Role Phone Sonya Donis MD Primary Care Provider [phone] Encounter Details Date Type Department Care Team (Late st Contact Info) Description 11/20/2024 6:20 PM EDT Office Visit [facility] [address] [place] [address] [phone] Georges Dean MD [address] [place] [address] [phone] Penile rash (Primary Dx) Social History Tobacco Use Types [...] Sign Reading Time Taken Comments Blood Pressure 130/80 11/20/2024 5:57 PM EDT Pulse 80 11/20/2024 5:57 PM EDT Temperature 36.6 C (97.8 F) 11/20/2024 5:57 PM EDT Respiratory Rate 14 11/20/2024 5:57 PM EDT Oxygen Saturation - - Inhaled Oxygen Concentration - - Weight 72.3 kg (159 lb 6.4 oz) 11/20/2024 5:57 P M EDT Height 170.2 cm (5' 7 ) 11/20/2024 5:57 PM EDT Body Mass Index 24.97 11/20/2024 5:57 PM EDT documented in this encounter Progress Notes * Georges Dean MD - 11/20/2024 6:20 PM EDT Subjective History was provided by the patient. Nemo De Los Santos is a 69 y.o. male who presents for evaluation of recurrent penile lesions. Initially developed ~8 years ago while living in [place]. Having outbreaks at times of increased stress. Previously treated with Acyclovir. Was evaluated by PCP in 09/2024. Reported of having 2-3 episodes in the prior year. He was treated with Valacyclovir 500mg BID for 10 days. HSV Culture came back negative. He presented about 10 days after the onset of his rash. His syphilis test was negativeas well. Today, he reports painful tiny blisters (filled with clear discharge) on the dorsum of his penis and on his foreskin (uncircumcised), started 2 weeks ago. The blisters have opened and the lesions nowhave dried up. Denies any purulent discharge or bleeding. Denies penile swelling. Denies F/C. Denies abdominal pain. Denies dysuria or hematuria. Objective Vitals: 11/20/24 1757 BP: 130/80 BP Location: Left arm Patient Position: Sitting BP Cuff Size: Adult Pulse: 80 Resp: 14 Temp: 97.8 ??F (36.6 ??C) TempSrc: Oral Weight: 159 lb 6.4 oz (72.3 kg) Height: 5' 7 (1.702 m) Physical Exam Constitutional: Appearance: Normal appearance. HENT: Head: Normocephalic and atraumatic. Right Ear: External ear normal. Left Ear: External ear normal. Mouth/Throat: Pharynx: Oropharynx is clear. Eyes: Extraocular Movements: Extraocular movements intact. Conjunctiva/sclera: Conjunctivae normal. Pulmonary: Effort: Pulmonary effort is normal. Abdominal: General: Abdomen is flat. Palpations: Abdomen is soft. Genitourinary: Testes: Normal. Comments: Uncircumcised penis; 4mm x 3mm dry scar on the distal dorsum of penis and 2mm x 2mm dry scar on the ventral aspect of foreskin; no ulceration, no erythema, no edema; no current vesicles or pustules; no inguinal LAD Musculoskeletal: General: Normal range of motion. Cervical back: Neck supple. Skin: General: Skin is warm and dry. Neurological: General: No focal deficit present. Mental Status: He is alert and oriented to person, place, and time. Psychiatric: Mood and Affect: Mood normal. Behavior: Behavior normal. Diagnoses and all orders for this visit: Penile rash (Primary) - Herpes Simple Virus Culture; Future - valACYclovir (Valtrex) 500 MG tablet; Take 1 tablet (=500mg) PO BID for 3 days at the onset of penile lesions (due to frequent outbreaks, 5 courses being prescribed) Patient with a clinical presentation of genital HSV, but presenting with healed lesions Painful vesicular lesions started 2 weeks ago No associated dysuria or hematuria Denies purulent discharge or bleeding No current clinical evidence of cellulitis of dermatophytosis Have not been able to capture with HSV Culture Will check HSV Culture again Advised to present to the clinic at the onset of his symptoms Recommended to treat each outbreak with Valacyclovir 500mg PO BID for 3 days (at the onset of outbreak) Recent syphilis test negative States monogamous partner Advised to contact the clinic if no improvement of symptoms Indications for UC/ER use reviewed documented in this encounter Plan of Treatment Upcoming Encounters Date Type Department Care Team ([facility] st Contact Info) Description 12/27/2024 11:15 AM EDT Office Visit [facility] [address] [place] [address] Sonya Donis MD [address] [place] [address] 02/15/2025 3:00 PM EST Clinical Support [facility] [address] [place] [address] Anupama Solomon RN [address] [place] [address] 03/27/2025 2:00 PM EST Office Visit [facility] [address] [place] [address] Ascencion Joya Scheduled Orders Name Type Priority Associated Diagnoses Orde r Schedule Herpes Simple Virus Culture Microbiology Routine Penile rash Expected: 11/20/2024 (Approximate), Expires: 11/20/2025 documented as of this encounter Visit Diagnoses Diagnosis Penile rash- Primary documented in this encounter Additional Health Concerns Assessment Noted Time PHQ-9 Depression Total Score: 0 09/30/19 25 11:11 AM EDT documented as of this encounter Care Teams Professor Of Political Science Relationship Specialty Start Date End Date Sonya Donis MD [address] [place] [address] PCP - General Family Medicine 01/18/23 [employer] MANAGEMENT CONSULTANT Services 10/11/23 documented as of this encounter
--- OUTSIDE RECORDS SUMMARY | 2024-11-21 16:51 | XMS_ITS | Clinical Summary ---
Author Organization [facility] Address [address] [place] [address] Phone Care Team Providers Care Slab Grinder Name Role Phone Pcp, Unknown Primary Care [...] file Medical Devices Not on file Insurance [facility] MEDICARE [place] [address] [address] [place] [address] [place] [address] [place] [address] [place] [address] [place] [address] MEDICARE REPLACEMENT [facility] MEDICARE REPLACEMENT [facility] [place] [address] [facility] MEDICARE REPLACEMENT ZACHARY [place]UMBO [id number] Care Teams Slab Grinder Relationship Specialty Start Date End Date Pcp, Unknown PCP - General 07/19/24 Additional Source Comments The information contained in this document represents components of the legal health record. It is not the complete legal health record.[facility]
--- OUTSIDE RECORDS SUMMARY | 2024-11-21 16:51 | XMS_ITS | Encounter Summary ---
Author Organization [employer] Address [address] [place] [address] 7t [place] [address] Care Team Providers Care Vocational Counselor Name Role Phone Sonya Donis MD Primary Care Provider [phone] Encounter Details Date Type Department Care Team (Late st Contact Info) Description 07/20/2024 Orders Only [facility] [address] [place], [place] [phone] Provider, MD Annabelle Social History Tobacco Use [...] Description 12/27/2024 11:15 AM EDT Office Visit [facility] [address] [place] [address] Sonya Donis MD [address] [place] [address] 02/15/2025 3:00 PM EST Clinical Support [facility] [address] [place] [address] Anupama Solomon RN [address] [place] [address] 03/27/2025 2:00 PM EST Office Visit [facility] [address] [place] [address] Ascencion Joya documented as of this encounter Procedures Procedure Name Priority Date/Time Associated Diagnosis Comments HERPES CULTURE WITH REFLEX TYPING Routine 09/29/2024 12:00 AM EDT T4, FREE Routine 08/11/2024 12:00 AM EDT CYTOLOGY, NON-ELECTRONIC ENGINEERING DRAFTSPERSON Routine 07/18/2024 2:2 5 PM EDT documented in this encounter Results * Herpes Simplex Virus Culture with Reflex Typing (09/29/2024 12:00 AM EDT) HSV Culture/Type SEE NOTE [facility] Comment:HERPES SIMPLEX VIRUS CULTURE W/RFL TO TYPING Micro Number: [id number] Test Status: Final Specimen Source: Not given Specimen Quality: Adequate HSV Culture: Not IsolatedTHIS TEST WAS PERFORMED AT:[employer] [place] [id number] MERATI,MD 09/29/2024 09/29/2024 us Sonya Donis MD LAB MICROBIOLOGY - GENERAL OR DERABLES Final Result Performing Organization Address [facility] Co de Phone Number [facility] [address] [place] [phone] * T4, Free (08/11/2024 12:00 AM EDT) Free T4 (Free Thyroxine) 0.93 0.71 - 1.85 ng/dL [facility] 08/11/2024 08/11/2024 us Sonya Donis MD LAB BLOOD ORDERABLES Final Re sult Performing Organization Address [facility] de Phone Number [facility] [address] [place] [phone] * Cytology, Non-ELECTRONIC ENGINEERING DRAFTSPERSON (07/18/2024 2:25 PM EDT) Historical Provider LAB CYTOLOGY ORDERABLES F inal Result documented in this encounter Visit Diagnoses Not on filedocumented in this encounter Additional Health Concerns Assessment Noted Time PHQ-9 Depression Total Score: 0 10/11/19 9:09 AM EDT documented as of this encounter Care Teams Vocational Counselor Relationship Specialty Start Date End Date Sonya Donis MD [address] [place] [phone] PCP - General Family Medicine 01/18/23 [employer] ENGINEERING EQUIPMENT OPERATOR Services 10/11/23 documented as of this encounter
--- OUTSIDE RECORDS SUMMARY | 2024-11-21 16:51 | XMS_ITS | Clinical Summary ---
Author Organization [employer] Address [address] [facility] 7t [place] [address] Care Team Providers Care State Farm Agent Name Role Phone Sonya Donis MD Primary Care Provider [phone] Allergies Active Allergy Reactions Criticality Noted Date [...] by mouth before breakfast. 90 tablet 1 025 Active omega-3 acid ethyl esters (Lovaza) 1 [...] by mouth 2 times daily. 20 tablet 025 Active oxyCODONE-acetami nophen (Percocet) 5-325 MG tabletIndications :Chronic left hip pain,Chronic neck pain with history of cervical spinal surgery Take 1 tablet by mouth every 6 (six) hours if needed for severe pain. 112 tablet 025 Active naloxone (Narcan) 4 mg/0.1 mL nasal sprayIndications: Chronic left hip pain,Chronic neck pain with history of cervical spinal surgery Administer 1 spray (4 mg) into affected nostril(s) if needed for opioid reversal. May repeat every 2-3 minutes if needed, alternating nostrils, until medical assistance becomes available. 2 each 2 025 2025 Active valACYclovir (Valtrex) 500 MG tabletIndications :Penile rash Take 1 tablet (=500mg) PO BID for 3 days at the onset of penile lesions (due to frequent outbreaks, 5 courses being prescribed) 30 tablet 025 Active oxyCODONE-acetami nophen (Percocet) 5-325 MG tabletIndications [...] letter via medical records (requesting letter for housing authority for modification of toilet to chair [...] to schedule colonoscopy at an alternative facility ([facility]) for improved access - Order Shingrix [...] for nutritional changes, Pt agreed to see Retail Merchandising Specialist. Ordering lab work for Lipids recheck, [...] Center 07/09/2023 1:00 PM Sonya Donis MD [facility] Assessment & Plan (01/18/2023 10:23 AM EST): -Labs: Lipid Panel. Hypothyroidism 01/18/2023 Assessment & Plan (01/18/2023 10:23 AM EST): -Labs: TSH/FT4. Encounters Date Type Department Care Team Description 11/20/2024 6:20 PM EDT Office Visit [facility] [address] [place], [place] [phone] Georges Dean MD Penile rash (Primary Dx) 11/20/2024 Travel 11/20/2024 Telephone [facility] [address] [place] [address] Sonya Donis MD Nurse Triage 11/16/2024 Orders Only [facility] External Provider, [facility] 11/15/2024 3:15 PM EDT Clinical Support [facility] [address] [place] [address] Anupama Solomon, supervisor hot strip mill neck pain with history of cervical spinal surgery 11/15/2024 Travel 11/03/2024 Telephone [facility] [address] [place] [phone] Sonya Donis MD Medication Question 11/02/[address] [address] Sonya Donis MD Nurse Triage 11/02/[address] [address] Sonya Donis MD Nurse Triage 10/05/2024 1:30 PM EDT Clinical Support [facility] [address] [place] [address] Naima Arteaga, ADONAY Impacted cerumen of left ear [H61.22] 10/05/2024 Travel 10/04/2024 Results Follow-Up [facility] [address] [place] [address] Sonya Donis MD Lipid Panel with Reflex to Direct LDL, Iron And Total Iron Binding Capacity, TSH W/Reflex to FT4 10/04/2024 Telephone [facility] [address] [place] [address] Sonya Donis MD 10/02/2024 Refill [facility] [address] [place] [address] Sonya Donis MD Chronic left hip pain 09/29/2024 11:15 AM EDT Office Visit [facility] [address] [place] [phone] Sonya Donis MD Herpes simplex infection of penis (Primary Dx); Tinnitus aurium, left; Impacted cerumen of left ear; Hyperlipidemia, unspecified hyperlipidemia type 09/29/2024 Travel 09/26/2024 Telephone [facility] [address] [place], [place] [phone] Sonya Donis MD chart prep 09/22/2024 3:00 PM EDT Office Visit [facility] [address] [place], [place] [phone] SantiagoshannaAscencion brown Dental calculus (Primary Dx); 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 jew 09/01/2024 Refill [facility] [address] [place], [place] [phone] Sonya Donis MD Chronic left hip pain [...] 14 11/20/2024 5:57 PM EDT Oxygen Saturation 99% 09/29/2024 11:10 AM EDT Inhaled Oxygen Concentration - - Weight 72.3 kg (159 lb 6.4 oz) 11/20/2024 5:57 P M EDT Height 170.2 cm (5' 7 ) 11/20/2024 5:57 PM EDT Body Mass Index 24.97 11/20/2024 5:57 PM EDT Plan of Treatment Upcoming Encounters Date Type Department Care Team (Late st Contact Info) Description 12/27/2024 11:15 AM EDT Office Visit [facility] [address] [place] [address] Sonya Donis MD [address] [place] [address] 02/15/2025 3:00 PM EST Clinical Support [facility] [address] [place] [address] Anupama Solomon, ADONAY [address] [place] [address] 03/27/2025 2:00 PM EST Office Visit [facility] [address] [place] [address] Ascencion Joya Health Maintenance Due Date Last [...] caries associated with failed or defective dental jew CASE PRESENTATION, DETAILED AND EXTENSIVE TREATMENT PLANNING Routine 09/22/2024 3:00 PM EDT 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 jew ORAL HYGIENE INSTRUCTIONS Routine 09/22/2024 3:00 PM EDT 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 jew PROPHYLAXIS - ADULT Routine 09/22/2024 3 :00 PM EDT 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 jew 6 F(V) COMPOSITE FILLING Routine 09/22/2024 12:00 [...] PM EDT Narrative 11/16/2024 2:22 PM EDT [address] [address] XRay Report Signed Patient: Nemo Amezquita MR#: [id number] : 1955 Acct:[id number] Age/Sex: 69 / M ADM Date: 11/16/24 Loc: [facility] Attending Dr: Maria Dolores SERRA Ordering Physician: Maria Dolores Campbell Date of Service: 11/16/24 Procedure(s): XR Shoulder Kale min 2V Accession Number(s): [id number] cc: Maria Dolores Campbell; Sonya Donis MD [...] 11/16/24 1420 DD/ 1347 TD/TT: 11/16/24 1400 Batch Mixing Truck Driver: Procedure Note Donotuseinterpreter, Image - 11/16/2024 [place] [address] XRay Report Signed Patient: Nemo AmezquitaMR#: [id number] : 1955cct:[id number] Age/Sex: 69 / MADM Date: 11/16/24 Loc: [facility] Attending Dr: Maria Dolores SERRA Ordering Physician: Maria Dolores Campbell Date of Service: 11/16/24 Procedure(s): XR Shoulder Kale min 2V Accession Number(s): [id number] cc: Maria Dolores Campbell; Sonya Donis MD [...] 11/16/24 1420 DD/ 1347 TD/TT: 11/16/24 1400 Batch Mixing Truck Driver: [facility] External Provider IMG XR PROCEDURES Final Result [...] 3:41 PM EDT Internal Pass Control Lot# [id number] Exp: 01-05-26 Sonya Donis MD POINT OF CARE TEST ENTER/EDIT ORDERABLES Final Result * Syphilis Screen (10/04/2024 11:07 AM EDT) [facility] Syphilis Screen Nonreactive Nonreactive [facility] Blood 10/04/2024 11:0 7 AM EDT 10/04/2024 2:25 PM EDT Sonya Donis MD LAB BLOOD ORDERABLES Final Re sult Performing Organization Address [facility] Co de Phone Number [facility] [address] [place] [phone] * TSH W/Reflex to FT4 (10/04/2024 11:07 AM EDT) [facility] TSH reflex Free T4 2.26 0.32 - 4.0 uIU/mL [facility] Blood Venous blood specimen / Unknown 10/04/2024 11:07 AM EDT 10/04/2024 2:25 PM EDT Sonya Donis MD LAB BLOOD ORDERABLES Final Re sult Performing Organization Address [facility] de Phone Number [facility] [address] [place] [phone] * Lyme Disease Ab with Reflex to Blot (IgG, IgM) (10/04/2024 11:07 AM EDT) [facility] Lyme Antibody Screen <0.90 index [facility] Comment:Index Interpretation ----- < 0.90 [...] when erythemamigrans is apparent.THIS TEST WAS PERFORMED AT:[employer] [place] [id number] GUERRA MD Lyme Blot TNP [facility] 10/04/2024 11:0 7 AM EDT 10/04/2024 2:25 PM EDT us Sonya Donis MD LAB BLOOD ORDERABLES Final Re sult Performing Organization Address [facility] Co de Phone Number [facility] [address] [place] [phone] * Lipid Panel with Reflex to Direct LDL (10/04/2024 11:07 AM EDT) Triglycerides 84 <150 mg/dL [facility] Comment:Desirable Triglyceri de: less than 150 mg/dLBorderline High Triglyceride 150-199 mg/dLHigh Triglyceride: 200-499 mg/dLVery High Triglyceride: greater than or equal to 5OO mg/dL Cholesterol 147 <200 mg/dL [facility] Comment:Desirable Cholestero l: less than 200 mg/dLBorderline High Cholesterol: 200-239 mg/dLHigh Cholesterol: greater than 239 mg/dL LDL Cholesterol Calculated 88 <100 mg/dL [facility] Comment:Desirable LDL: less than 100 mg/dLNear Optimal/Above Optimal LDL: 110- 129 mg/dLBorderline High LDL: 130-159 mg/dLHigh LDL: 160-189 mg/dLVery High LDL: greater than or equal to 190 mg/dL HDL Cholesterol 43 >40 mg/dL [facility] Comment:Desirable HDL: great er than 40 mg/dL Note: This HDL assay may give artificially low results in patients with liver disease. Blood 10/04/2024 11:0 7 AM EDT 10/04/2024 2:25 PM EDT us Sonya Donis MD LAB BLOOD ORDERABLES Final Re sult [facility] [address] [place] [address] [phone] * Iron And Total Iron Binding Capacity (10/04/2024 11:07 AM EDT) Iron 73 45 - 160 mcg/dL [facility] Total Iron Binding Capacity 358 228 - 428 mcg/dL [facility] Percent Iron Saturation 20 15 - 50 % [facility] Unsaturated Iron Binding 285 ug/dL [facility] Blood Venous blood specimen / Unknown 10/04/2024 11:07 AM EDT 10/04/2024 2:25 PM EDT us Sonya Donis MD LAB BLOOD ORDERABLES Final Re sult Performing Organization Address [facility] Co de Phone Number [facility] [address] [place] [phone] [phone] * Herpes Simplex Virus Culture with Reflex Typing (09/29/2024 12:00 AM EDT) HSV Culture/Type SEE NOTE [facility] Comment:HERPES SIMPLEX VIRUS CULTURE W/RFL TO TYPING Micro Number: [id number] Test Status: Final Specimen Source: Not given Specimen Quality: Adequate HSV Culture: Not IsolatedTHIS TEST WAS PERFORMED AT:[employer] [address] [id number] MERATI,MD 09/29/2024 09/29/2024 us Sonya Donis MD LAB MICROBIOLOGY - GENERAL OR DERABLES Final Result Performing Organization Address [facility] Co de Phone Number [facility] [address] [place] [phone] [phone] * Referral to Urology (09/20/2024) us Sonya Donis MD OUTPATIENT REFERRAL ORDERABLE S Final Result * Hepatitis C Ab (01/22/2023 1:05 PM EST) Hepatitis C Antibody Nonreactive Nonreactive [facility] Comment:Antibodies to HCV no t detected; does not exclude early acuteHCV infection. Blood Venous blood specimen / Unknown 01/22/2023 1:05 PM EST 01/22/2023 2:22 PM EST us Sonya Donis MD LAB BLOOD ORDERABLES Final Re sult [facility] [address] [place] [phone] * Colonoscopy (01/13/2018) Colonoscopy Normal Normal Narrative Sonya Donis MD - 01/13/2018 Normal colonoscopy, unknown why recommended repeat 5 yrs us Historical Provider HEALTH MAINTENANCE Final Result from Last 3 Months or Most Recently Relevant to Health Maintenance Insurance [facility] OPTIONS (O D-SNP) ZACHARY [place] [id number] DENTAL [facility] Care Teams State Farm Agent Relationship Specialty Start Date End Date Sonya Donis MD [address] [place] [phone] PCP - General Family Medicine 01/18/23 [employer] HOME AIDE Services 10/11/23
--- OUTSIDE RECORDS SUMMARY | 2024-11-21 16:51 | XMS_ITS | Encounter Summary ---
Author Organization [employer] Address [address] [place] [address] 7[address] [place] [address] Care Team Providers Care Rn Endocrinology Name Role Phone Sonya Donis MD Primary Care Provider [phone] Reason for Visit * Reason Onset Date Comments Med Refill 01/07/2024 Encounter Details Date Type Department Care Team ([facility] st Contact Info) Description 01/07/2024 Telephone [facility] [address] [place] [address] Sonya Donis MD [address] [place] [address] Med Refill Social History Tobacco Use Types [...] 5-325 MG tablet To be sent to: [facility] #[id number] documented in this encounter Plan of Treatment Upcoming Encounters Date Type Department Care Team (Late st Contact Info) Description 12/27/2024 11:15 AM EDT Office Visit [facility] [address] [place] [address] Sonya Donis MD [address] [place] [address] 02/15/2025 3:00 PM EST Clinical Support [facility] [address] [place] [address] Anupama Solomon RN [address] [place] [address] 03/27/2025 2:00 PM EST Office Visit [facility] [address] [place] [address] Ascencion Joya documented as of this encounter Visit Diagnoses Not on filedocumented in this encounter Additional Health Concerns Assessment Noted Time PHQ-9 Depression Total Score: 0 10/11/19 24 9:09 AM EDT documented as of this encounter Care Teams Rn Endocrinology Relationship Specialty Start Date End Date Sonya Donis MD [address] [place] [address] PCP - General Family Medicine 01/18/23 [employer] DUMPLING MACHINE OPERATOR Services 10/11/23 documented as of this encounter
--- OUTSIDE RECORDS SUMMARY | 2024-11-21 16:51 | XMS_ITS | Encounter Summary ---
Author Organization [employer] Address [address] [place] [address] 7t [place] [address] Care Team Providers Care Groundskeeper Porter Name Role Phone Sonya Donis MD Primary Care Provider [phone] Reason for Visit * Reason Onset Date Comments Nurse Triage 11/20/2024 Encounter Details Date Type Department Care Team ([facility] st Contact Info) Description 11/20/2024 Telephone [facility] CHC MED & PEDS [address] [place], [place] [phone] Sonya Donis MD 505 [place] [address] Nurse Triage Social History Tobacco Use Types [...] Telephone Encounter - Mahsa Apodaca RN - 11/20/2024 9:11 AM EDT No power saw mechanic needed as this lead technical writer speaks Indian. Call returned to [facility] to triage below at [phone]. Reports having sx of blisters on tip and on foreskin. Pt denies any penile discharge. No difficulty with passing urine, flank pain or abd pain. Denies any fever. Pt advised of disposition, agrees to seek [facility] for exam as no sick on site availability on teams at time of call. Reviewed WIC operating hours and that wait times vary. Reviewed home care advise, ER precautions and reasons to call back. Protocol Used: Penis and Scrotum Symptoms (Adult) Protocol-Based Disposition: See in Office or Video Visit Today Positive Triage Question: * Rash with painful tiny water blisters or painful sores * All higher-acuity triage questions were negative Care Advice Discussed: * Reassurance and Education - STIs * Genital Hygiene * Reasons To Call Back - Fever or pain occur - You become worse * Telephone Encounter - Alessio De Oliveira - 11/20/2024 9:05 AM EDT Symptom: Sexually Transmitted Infection - Caller Reports Outcome: Schedule an urgent appointment (within 1 hour) or talk to a nurse or provider soon Reason: Severe pain now The caller accepted this outcome. Pt states he is concerned due to the spread ness on the area documented in this encounter Plan of Treatment Upcoming Encounters Date Type Department Care Team (Late st Contact Info) Description 12/27/2024 11:15 AM EDT Office Visit [facility] MED & PEDS [address] [place] [address] Sonya Donis MD 505 [place] [address] 02/15/2025 3:00 PM EST Clinical Support [facility] MED & PEDS [address] [place] [address] Anupama Solomon RN 505 [place] [address] 03/27/2025 2:00 PM EST Office Visit [facility] ADULT DENTAL [address] [place] [address] Ascencion Joya documented as of this encounter Visit Diagnoses Not on filedocumented in this encounter Additional Health Concerns Assessment Noted Time PHQ-9 Depression Total Score: 0 09/30/19 25 11:11 AM EDT documented as of this encounter Care Teams Groundskeeper Porter Relationship Specialty Start Date End Date Sonya Donis MD [address] [place] [address] PCP - General Family Medicine 01/18/23 [employer] PIG MACHINE CRANE OPERATOR Services 10/11/23 documented as of this encounter
--- OUTSIDE RECORDS SUMMARY | 2024-11-21 16:51 | XMS_ITS | Encounter Summary ---
Author Organization [employer] Address [address] [facility] 7t [place] [address] Care Team Providers Care Head Machine Feeder Name Role Phone Sonya Donis MD Primary Care Provider [phone] Encounter Details Date Type Department Care Team (Latest Contact Info) Description 11/20/2024 Travel Social History Tobacco Use Types Packs/Day [...] Description 12/27/2024 11:15 AM EDT Office Visit [facility] MED & PEDS [address] [place] [address] Sonya Donis MD 505 [place] [address] 02/15/2025 3:00 PM EST Clinical Support [facility] MED & PEDS [address] [place] [address] Anupama Solomon RN 505 [place] [address] 03/27/2025 2:00 PM EST Office Visit [facility] ADULT DENTAL [address] [place] [address] Ascencion Joya documented as of this encounter Visit Diagnoses Not on filedocumented in this encounter Additional Health Concerns Assessment Noted Time PHQ-9 Depression Total Score: 0 09/30/19 25 11:11 AM EDT documented as of this encounter Care Teams Head Machine Feeder Relationship Specialty Start Date End Date Sonya Donis MD [address] [place] [address] PCP - General Family Medicine 01/18/23 [employer] SHARK BIOLOGIST Services 10/11/23 documented as of this encounter
--- OUTSIDE RECORDS SUMMARY | 2024-11-21 16:51 | XMS_ITS | Encounter Summary ---
Author Organization [employer] Address [address] [place] [address] 7t [place] [address] Care Team Providers Care Commercial Litigation Paralegal Name Role Phone Sonya Donis MD Primary Care Provider [phone] Reason for Visit * Reason Onset Date Comments Med Refill 09/08/2023 Encounter Details Date Type Department Care Team ([facility] st Contact Info) Description 09/08/2023 Telephone [facility] CHC MED & PEDS 505 [place] [address] Sonya Donis MD [address] [place] [address] Med Refill Social History Tobacco Use Types [...] 2:59 PM EDT Medication was sent to [id number] on 07/09/23 with 2 refills. * Telephone Encounter - Marcy Mohan - 09/08/2023 1:12 PM EDT TC from pt requesting medication refill. Medications needing refill : cyclobenzaprine (Flexeril) 10 MG tablet To be sent to: [id number] AT [facility] documented in this encounter Plan of Treatment Upcoming Encounters Date Type Department Care Team ([facility] Contact Info) Description 12/27/2024 11:15 AM EDT Office Visit [facility] MED & PEDS 505 [place] [address] Sonya Donis MD [address] [place] [address] 02/15/2025 3:00 PM EST Clinical Support [facility] MED & PEDS [facility] [place] [address] Anupama Solomon RN 505 [place] [address] 03/27/2025 2:00 PM EST Office Visit [facility] CHC ADULT DENTAL [address] [place] [address] Ascencion Joya documented as of this encounter Visit Diagnoses Not on filedocumented in this encounter Additional Health Concerns Assessment Noted Time PHQ-9 Depression Total Score: 9 03/11/19 11:12 AM EST documented as of this encounter Care Teams Commercial Litigation Paralegal Relationship Specialty Start Date End Date Sonya Donis MD [address] [place] [address] PCP - General Family Medicine 01/18/23 [employer] ASSISTANT PUBLIC DEFENDER Services 10/11/23 documented as of this encounter
--- OUTSIDE RECORDS SUMMARY | 2024-11-21 16:51 | XMS_ITS | Encounter Summary ---
Author Organization [employer] Address [address] [facility] 7t [place] [address] Care Team Providers Care Calibration Laboratory Technician Name Role Phone Sonya Donis MD Primary Care Provider [phone] Encounter Details Date Type Department Care Team (Late st Contact Info) Description 11/16/2024 Orders Only [facility] External Provider, [facility] Social History Tobacco Use Types Packs/Day Years [...] 11:15 AM EDT Office Visit [facility] MED & PEDS [address] [place] [address] Sonya Donis MD 505 [place] [address] 02/15/2025 3:00 PM EST Clinical Support [facility] MED & PEDS [address] [place] [address] Anupama Solomon RN 505 [place] [address] 03/27/2025 2:00 PM EST Office Visit [facility] ADULT DENTAL [address] [place] [address] Ascencion Joya documented as of this encounter Procedures Procedure Name Priority Date/Time Associated Diagnosis Comments XR SHOULDER 2+ VIEWS BILATERAL Routine 11/16/2024 1:47 PM EDT documented in this encounter Results * XR Shoulder 2+ Views Bilateral (11/16/2024 1:47 PM EDT) Anatomical Region Laterality Modality Upper Extremities, Shoulder Bilateral Radi ographic Imaging 11/16/2024 1:47 PM EDT Narrative 11/16/2024 2:22 PM EDT [address] [address] XRay Report Signed Patient: Nemo Amezquita MR#: [id number] : 1955 Acct:[id number] Age/Sex: 69 / M ADM Date: 11/16/24 Loc: [facility] Attending Dr: Maria Dolores Buchachiy MACHINE HEDDLE CLEANER Ordering Physician: Maria Dolores Campbell Date of Service: 11/16/24 Procedure(s): XR Shoulder Kale min 2V Accession Number(s): [id number] cc: Maria Dolores Campbell; Sonya Donis MD [...] 11/16/24 1420 DD/ 1347 TD/TT: 11/16/24 1400 Counter Tender: Procedure Note Donotuseinterpreter, Image - 11/16/2024 [place] [address] XRay Report Signed Patient: Nemo AmezquitaMR#: [id number] : 7Acct:[id number] Age/Sex: 69 / MADM Date: 11/16/24 Loc: [facility] Attending Dr: Maria Dolores SERRA Ordering Physician: Maria Dolores Campbell Date of Service: 11/16/24 Procedure(s): XR Shoulder Kale min 2V Accession Number(s): [id number] cc: Maria Dolores Campbell; Sonya Donis MD [...] 11/16/24 1420 DD/ 1347 TD/TT: 11/16/24 1400 Counter Tender: [facility] External Provider IMG XR PROCEDURES Final Result documented in this encounter Visit Diagnoses Not on filedocumented in this encounter Additional Health Concerns Assessment Noted Time PHQ-9 Depression Total Score: 0 09/30/19 11:11 AM EDT documented as of this encounter Care Teams Calibration Laboratory Technician Relationship Specialty Start Date End Date Sonya Donis MD [address] [place] [address] PCP - General Family Medicine 01/18/23 [employer] DIRECTOR OF QUALITY Services 10/11/23 documented as of this encounter
--- OUTSIDE RECORDS SUMMARY | 2024-11-21 16:51 | XMS_ITS | Encounter Summary ---
Author Organization [employer] Address [address] [facility] 7t [place] [address] Care Team Providers Care Radio Operator Ground Name Role Phone Sonya Donis MD Primary Care Provider [phone] Reason for Visit * Reason Onset Date Comments Med Refill 11/11/2023 Encounter Details Date Type Department Care Team ([facility] st Contact Info) Description 11/11/2023 Telephone [facility] MEDICINE [address] [place] [address] Sonya Donis MD [address] [place] [address] Med Refill Social History Tobacco Use Types [...] 5-325 MG tablet To be sent to: [id number] AT [facility] documented in this encounter Plan of Treatment Upcoming Encounters Date Type Department Care Team ([facility] Contact Info) Description 12/27/2024 11:15 AM EDT Office Visit [facility] MED & PEDS 505 [place] [address] Sonya Donis MD 505 [place] [address] 02/15/2025 3:00 PM EST Clinical Support [facility] MED & PEDS 505 [place] [address] Anupama Solomon RN 505 [place] [address] 03/27/2025 2:00 PM EST Office Visit [facility] ADULT DENTAL [address] [place] [address] Ascencion Joya documented as of this encounter Visit Diagnoses Not on filedocumented in this encounter Additional Health Concerns Assessment Noted Time PHQ-9 Depression Total Score: 0 10/11/19 24 9:09 AM EDT documented as of this encounter Care Teams Radio Operator Ground Relationship Specialty Start Date End Date Sonya Donis MD 230 [place] [address] PCP - General Family Medicine 01/18/23 [employer] EMPLOYEE RELATIONS ADMINISTRATOR Services 10/11/23 documented as of this encounter
--- OUTSIDE RECORDS SUMMARY | 2024-11-21 16:51 | XMS_ITS | Encounter Summary ---
Author Organization [employer] Address [address] [place] [address] 7t [place] [address] Care Team Providers Care Chiller Operator Name Role Phone Sonya Donis MD Primary Care Provider [phone] Encounter Details Date Type Department Care Team ([facility] st Contact Info) Description 10/04/2024 Telephone [employer] [facility] [address] [place] [address] Sonya Donis MD [address] [place], [place] [phone] Social History Tobacco Use Types Packs/Day Years [...] t he electric, gas, oil or water CareFamily threatened to shut off services in your [...] Description 12/27/2024 11:15 AM EDT Office Visit [facility] MED & PEDS 505 [place] [address] Sonya Donis MD 505 [place] [address] 02/15/2025 3:00 PM EST Clinical Support [facility] MED & PEDS [address] [place] [address] Anupama Solomon, ADONAY 505 [place] [address] 03/27/2025 2:00 PM EST Office Visit [facility] ADULT DENTAL [address] [place] [address] Ascencion Joya documented as of this encounter Visit Diagnoses Not on filedocumented in this encounter Additional Health Concerns Assessment Noted Time PHQ-9 Depression Total Score: 0 09/30/19 25 11:11 AM EDT documented as of this encounter Care Teams Chiller Operator Relationship Specialty Start Date End Date Sonya Donis MD [address] [place] [address] PCP - General Family Medicine 01/18/23 [employer] TOOL DESIGN DRAFTSPERSON Services 10/11/23 documented as of this encounter
--- OUTSIDE RECORDS SUMMARY | 2024-11-21 16:51 | XMS_ITS | Encounter Summary ---
Author Organization [employer] Address [address] [facility] 7t [place] [address] Care Team Providers Care Supervisor Agricultural Education Name Role Phone Sonya Donis MD Primary Care Provider [phone] Reason for Visit * Reason Onset Date Comments Med Refill 02/02/2024 Encounter Details Date Type Department Care Team ([facility] st Contact Info) Description 02/02/2024 Telephone [facility] MEDICINE 230 [place] [address] Sonya Donis MD [address] [place] [address] Med Refill Social History Tobacco Use Types [...] 5-325 MG tablet To be sent to: [facility] #[id number] documented in this encounter Plan of Treatment Upcoming Encounters Date Type Department Care Team (Late st Contact Info) Description 12/27/2024 11:15 AM EDT Office Visit [facility] MED & PEDS 505 [place] [address] Sonya Donis MD 505 [place] [address] 02/15/2025 3:00 PM EST Clinical Support [facility] MED & PEDS [address] [place] [address] Anupama Solomon RN 505 [place] [address] 03/27/2025 2:00 PM EST Office Visit [facility] ADULT DENTAL [address] [place] [address] Ascencion Joya documented as of this encounter Visit Diagnoses Not on filedocumented in this encounter Additional Health Concerns Assessment Noted Time PHQ-9 Depression Total Score: 0 10/11/19 24 9:09 AM EDT documented as of this encounter Care Teams Supervisor Agricultural Education Relationship Specialty Start Date End Date Sonya Donis MD [address] [place] [address] PCP - General Family Medicine 01/18/23 [employer] PRINTING ROLLER POLISHER Services 10/11/23 documented as of this encounter
--- OUTSIDE RECORDS SUMMARY | 2024-11-21 16:51 | XMS_ITS | Encounter Summary ---
Author Organization [employer] Address [address] [place] [address] 7t [place] [address] Care Team Providers Care Lens Inserter Name Role Phone Sonya Donis MD Primary Care Provider [phone] Reason for Visit * Reason Onset Date Comments New Patient 10/28/2022 Encounter Details Date Type Department Care Team ([facility] st Contact Info) Description 10/28/2022 Telephone [facility] MEDICINE 230 [place], [place] [phone] Dony Bhagat MD [address] [place], [place] [phone] New Patient Social History Tobacco Use Types [...] PAR Gayatri Brown called pt to Offer MANAGER TRAINEE appt. Pt demographics and insurance information were verified. Pt states following medical conditions: thyroid, Cholesterol, Arthritis, Needs Hip replacement, and High blood pressure. Pt reports taking medications: No Pt given MANAGER TRAINEE appt with Dr. Donis on 01/18/2023 @ 9:30 am. Pt will be sent appt reminder card and medical release form and agrees to complete and to return to medical records prior to MANAGER TRAINEE appt. * Telephone Encounter - Gayatri Chaudhary - 10/28/2022 1:35 PM EDT Pt has been transfer over to wait list for MANAGER TRAINEE. EFFECTIVE SINCE 10/28/2022 documented in this encounter Plan of Treatment Upcoming Encounters Date Type Department Care Team (Late st Contact Info) Description 12/27/2024 11:15 AM EDT Office Visit [facility] MED & PEDS 505 [place] [address] Sonya Donis MD 505 [place] [address] 02/15/2025 3:00 PM EST Clinical Support [facility] MED & PEDS [address] [place] [address] Anupama Solomon, ADONAY 505 [place], [place] [address] 03/27/2025 2:00 PM EST Office Visit [facility] ADULT DENTAL 505 [place] [address] Ascencion Joya documented as of this encounter Visit Diagnoses Not on filedocumented in this encounter Care Teams Lens Inserter Relationship Specialty Start Date End Date Sonya Donis MD [address] [place] [address] PCP - General Family Medicine 01/18/23 [employer] TAG PRESS OPERATOR Services 10/11/23 documented as of this encounter
== END 2024-11-20 12:01 | disposition home or self-care (01) ==
LOC: HO.HHCLNP 12:00
PROVIDERS: Visit Provider Family Medicine
DX: Z13.89 Encounter for screening for other disorder (principal)

== ENCOUNTER 2024-12-08 16:01 | Outpatient (REF) | payer OTHER, SELFPAY ==
--- NOTE | ~2024-12-08 | CT_ITS ---
Exam: CT ankle without contrast, left TECHNIQUE: Axial CT imaging was performed through the ankle joint without contrast. Coronal and sagittal reformatted images were generated from the original axial data set. ALARA: The examination used one or more of the following radiation dose reduction techniques: Automated exposure control, iterative reconstruction, and/or adjustment of mA and/or KV. COMPARISON: Ankle x-ray August 11, 2024 FINDINGS: There is no talar coalition. There are no osteochondral lesions involving talar dome. There are small marginal osteophyte involving tibial plafond and posterior talar dome. There is mild ossification in the distal Achilles tendon. Syndesmotic ligaments are intact. Tibial fibular and calcaneofibular ligaments are grossly intact. Peroneal, medial, and anterior ankle tendons are intact. There is no muscle atrophy or fatty streaking. 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 No talar coalition. Electronically signed by: Ethan Gloria MD 12/08/2024 05:07 PM EDT
--- NOTE | ~2024-12-08 | CT_ITS ---
Exam: CT ankle without contrast, right TECHNIQUE: Axial CT imaging was performed through the ankle joint without contrast. Coronal and sagittal reformatted images were generated from the original axial data set. ALARA: The examination used one or more of the following radiation dose reduction techniques: Automated exposure control, iterative reconstruction, and/or adjustment of mA and/or KV. COMPARISON: None FINDINGS: There is no talar coalition. There are no osteochondral lesions involving talar dome. There are small marginal osteophyte involving tibial plafond and posterior talar dome and also the posterior subtalar joint. There is vacuum phenomenon superior clear space of the ankle mortise. There is a small enthesophyte at the distal Achilles tendon. Syndesmotic ligaments are intact. Talofibular and calcaneofibular ligaments are grossly intact. Peroneal, medial, and anterior ankle tendons are intact. There is no muscle atrophy or fatty streaking. 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 No tarsal coalition. Electronically signed by: Ethan Gloria MD 12/08/2024 05:12 PM EDT
--- OUTSIDE RECORDS SUMMARY | 2024-12-08 16:03 | XMS_ITS | Encounter Summary ---
Author Organization [employer] Address [address] [place] [address] 7t [place] [address] Care Team Providers Care Correction Warden Name Role Phone Sonya Donis MD Primary Care Provider [phone] Reason for Visit * Reason Onset Date Comments Med Refill 12/04/2024 Encounter Details Date Type Department Care Team ([facility] st Contact Info) Description 12/04/2024 Refill [facility] CHC MED & PEDS [address] [place] [address] Sonya Donis MD 505 [place] [address] Chronic left hip pain; Chronic neck pain with history of cervical [...] encounter Miscellaneous Notes * Telephone Encounter - Bernie Dos Santos - 12/04/2024 10:27 AM EDT TC from pt requesting medication refill. Medications needing refill : oxyCODONE-acetaminophen (Percocet) 5-325 MG tablet To be sent to: [facility] #[id number] [place], [place] - [address] [place] [address] AT [facility] documented in this encounter Plan of Treatment Upcoming Encounters Date Type Department Care Team ([facility] Contact Info) Description 12/27/2024 11:15 AM EDT Office Visit [facility] MED & PEDS [address] [place] [address] Sonya Donis MD 505 [place] [address] 02/15/2025 3:00 PM EST Clinical Support [facility] MED & PEDS [address] [place] [address] Anupama Solomon RN 505 [place] [address] 03/27/2025 2:00 PM EST Office Visit [facility] ADULT DENTAL [address] [place] [address] Ascencion Joya documented as of this encounter Visit Diagnoses Diagnosis Chronic left hip pain Chronic neck pain with history of cervical spinal surgery documented in this encounter Additional Health Concerns Assessment Noted Time PHQ-9 Depression Total Score: 0 09/30/19 11:11 AM EDT documented as of this encounter Care Teams Correction Warden Relationship Specialty Start Date End Date Sonya Donis MD [address] [place] [address] PCP - General Family Medicine 01/18/23 [employer] HONING MACHINE OPERATOR SEMIAUTOMATIC Services 10/11/23 documented as of this encounter
--- OUTSIDE RECORDS SUMMARY | 2024-12-08 16:03 | XMS_ITS | Encounter Summary ---
Author Organization [employer] Address [address] [facility] 7t [place] [address] Care Team Providers Care Haul Driver Name Role Phone Sonya Donis MD Primary Care Provider [phone] Reason for Visit * Reason Onset Date Comments Med Refill 11/11/2023 Encounter Details Date Type Department Care Team ([facility] st Contact Info) Description 11/11/2023 Telephone [facility] MEDICINE [address] [place] [address] Sonya Donis MD [address] [place] [address] Med Refill Social History Tobacco Use Types [...] 5-325 MG tablet To be sent to: [facility] #[id number] AT [facility] documented in this encounter Plan of Treatment Upcoming Encounters Date Type Department Care Team ([facility] Contact Info) Description 12/27/2024 11:15 AM EDT Office Visit [facility] MED & PEDS [address] [place] [address] Sonya Donis MD 505 [place] [address] 02/15/2025 3:00 PM EST Clinical Support [facility] MED & PEDS [address] [place] [address] Anupama Solomon RN 505 [place] [address] 03/27/2025 2:00 PM EST Office Visit [facility] ADULT DENTAL [address] [place] [address] Ascencion Joya documented as of this encounter Visit Diagnoses Not on filedocumented in this encounter Additional Health Concerns Assessment Noted Time PHQ-9 Depression Total Score: 0 10/11/19 24 9:09 AM EDT documented as of this encounter Care Teams Haul Driver Relationship Specialty Start Date End Date Sonya Donis MD [address] [place] [address] PCP - General Family Medicine 01/18/23 [employer] CLOTHING TRADES WORKERS Services 10/11/23 documented as of this encounter
--- OUTSIDE RECORDS SUMMARY | 2024-12-08 16:03 | XMS_ITS | Encounter Summary ---
Author Organization [employer] Address [address] [place] [address] 7t [place] [address] Care Team Providers Care Bullet Slug Casting Machine Operator Name Role Phone Sonya Donis MD Primary Care Provider [phone] Reason for Visit * Reason Onset Date Comments New Patient 10/28/2022 Encounter Details Date Type Department Care Team ([facility] st Contact Info) Description 10/28/2022 Telephone [facility] MEDICINE 230 [place], [place] [phone] Dony Bhagat MD 230 [place], [place] [phone] New Patient Social History Tobacco Use Types [...] PAR Gayatri Brown called pt to Offer SCIENTOLOGIST appt. Pt demographics and insurance information were verified. Pt states following medical conditions: thyroid, Cholesterol, Arthritis, Needs Hip replacement, and High blood pressure. Pt reports taking medications: No Pt given SCIENTOLOGIST appt with Dr. Donis on 01/18/2023 @ 9:30 am. Pt will be sent appt reminder card and medical release form and agrees to complete and to return to medical records prior to SCIENTOLOGIST appt. * Telephone Encounter - Gayatri Chaudhary - 10/28/2022 1:35 PM EDT Pt has been transfer over to wait list for SCIENTOLOGIST. EFFECTIVE SINCE 10/28/2022 documented in this encounter Plan of Treatment Upcoming Encounters Date Type Department Care Team (Late st Contact Info) Description 12/27/2024 11:15 AM EDT Office Visit [facility] MED & PEDS 505 [place] [address] Sonya Donis MD 505 [place] [address] 02/15/2025 3:00 PM EST Clinical Support [facility] MED & PEDS [address] [place] [address] Anupama Solomon, ADONAY 505 [place], [place] [phone] 03/27/2025 2:00 PM EST Office Visit [facility] ADULT DENTAL 505 [place] [address] Ascencion Joya documented as of this encounter Visit Diagnoses Not on filedocumented in this encounter Care Teams Bullet Slug Casting Machine Operator Relationship Specialty Start Date End Date Sonya Donis MD [address] [place] [address] PCP - General Family Medicine 01/18/23 [employer] BOBTAIL DRIVER Services 10/11/23 documented as of this encounter
--- OUTSIDE RECORDS SUMMARY | 2024-12-08 16:04 | XMS_ITS | Clinical Summary ---
Author Organization [facility] Address [address] [place] [address] Phone Care Team Providers Care Core Drilling Supervisor Name Role Phone Pcp, Unknown Primary Care [...] file Medical Devices Not on file Insurance [facility] Member Subscriber Plan / Payer (Ef fective 2023-Present) Name:Nemo Amezquita Relation to Subscriber:Self Name:Nemo Amezquita Payer ID:[id number] ([facility]) [id number] [facility] [place]ic[place] Address: [facility] [address] [place] [address] [place] [address] [place] [address] MEDICARE REPLACEMENT [facility] MEDICARE REPLACEMENT [facility] [place] [address] [facility] MEDICARE REPLACEMENT [address] [id number] Care Teams Core Drilling Supervisor Relationship Specialty Start Date End Date Pcp, Unknown PCP - General 07/19/24 Additional Source Comments The information contained in this document represents components of the legal health record. It is not the complete legal health record.[facility]
--- OUTSIDE RECORDS SUMMARY | 2024-12-08 16:04 | XMS_ITS | Clinical Summary ---
Author Organization [employer] Address [address] 7t [place] [address] Care Team Providers Care Statistics Manager Name Role Phone Sonya Donis MD Primary Care Provider [phone] Allergies Active Allergy Reactions Criticality Noted Date [...] mouth 2 times daily. 20 tablet Active naloxone (Narcan) 4 mg/0.1 mL [...] for severe pain. 112 tablet 025 Active oxyCODONE-acetami nophen (Percocet) 5-325 [...] to schedule colonoscopy at an alternative facility ([facility]) for improved access - Order Shingrix [...] for nutritional changes, Pt agreed to see Coremaker. Ordering lab work for Lipids recheck, to [...] Sonya Donis MD [facility] Assessment & Plan (01/18/2023 10:23 AM EST): -Labs: Lipid Panel. Hypothyroidism 01/18/2023 Assessment & Plan (01/18/2023 10:23 AM EST): -Labs: TSH/FT4. Encounters Date Type Department Care Team Description 12/04/2024 Refill [facility] [address] [place], [place] [phone] Sonya Donis MD Chronic left hip pain; Chronic neck pain with history of cervical spinal surgery 11/23/2024 Telephone [facility] [address] [place] [address] Sonya Donis MD [facility] [place] 11/20/2024 6:20 PM EDT Office Visit [facility] [address] [place] [address] Georges Dean MD Penile rash (Primary Dx) 11/20/2024 Travel 11/20/2024 Telephone [facility] [address] [place] [address] Sonya Donis MD Nurse Triage 11/16/2024 Orders Only [facility] External Provider, [facility] 11/15/2024 3:15 PM EDT Clinical Support [facility] [address] [place] [address] Anupama Solomon RN Chronic neck pain with history of cervical spinal surgery 11/15/2024 Travel 11/03/2024 Telephone [facility] [address] [place] [address] Sonya Donis MD Medication Question 11/02/[address] [address] Sonya Donis MD Nurse Triage 11/02/[address] [address] Sonya Donis MD Nurse Triage 10/05/2024 1:30 PM EDT Clinical Support [facility] [address] [place] [address] Naima Arteaga, ADONAY Impacted cerumen of left ear [H61.22] 10/05/2024 Travel 10/04/2024 Results Follow-Up [facility] [address] [place] [address] Sonya Donis MD Lipid Panel with Reflex to Direct LDL, Iron And Total Iron Binding Capacity, TSH W/Reflex to FT4 10/04/2024 Telephone [facility] [address] [place] [address] Sonya Donis MD 10/02/2024 Refill [facility] [address] [place] [address] Sonya Donis MD Chronic left hip pain 09/29/2024 11:15 AM EDT Office Visit [facility] [address] [place] [address] Sonya Donis MD Herpes simplex infection of penis (Primary Dx); Tinnitus aurium, left; Impacted cerumen of left ear; Hyperlipidemia, unspecified hyperlipidemia type 09/29/2024 Travel 09/26/2024 Telephone [facility] [address] [place] [address] Sonya Donis MD chart prep 09/22/2024 3:00 PM EDT Office Visit [facility] [address] [place] [address] Ascencion Joya Dental calculus (Primary Dx); 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 episcopal from Last 3 Months Immunizations Immunization Administration [...] Description 12/27/2024 11:15 AM EDT Office Visit [facility] [address] [place] [address] Sonya Donis MD [address] [place] [address] 02/15/2025 3:00 PM EST Clinical Support [facility] [address] [place] [address] Anupama Solomon, RN [address] [place] [address] 03/27/2025 2:00 PM EST Office Visit [facility] [address] [place] [address] Ascencion Joya Health Maintenance Due Date Last [...] caries associated with failed or defective dental episcopal CASE PRESENTATION, DETAILED AND EXTENSIVE TREATMENT PLANNING Routine 09/22/2024 3:00 PM EDT 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 episcopal ORAL HYGIENE INSTRUCTIONS Routine 09/22/2024 3:00 PM EDT 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 episcopal PROPHYLAXIS - ADULT Routine 09/22/2024 3 :00 PM EDT 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 episcopal 6 F(V) COMPOSITE FILLING Routine 09/22/2024 12:00 [...] PM EDT Narrative 11/16/2024 2:22 PM EDT [address] [address] XRay Report Signed Patient: Nemo Amezquita MR#: [id number] : 1955 Acct:[id number] Age/Sex: 69 / M ADM Date: 11/16/24 Loc: [facility] Attending Dr: Maria Dolores SERRA Ordering Physician: Maria Dolores Campbell Date of Service: 11/16/24 Procedure(s): XR Shoulder Kale min 2V Accession Number(s): [id number] cc: Maria Dolores Campbell; Sonya Donis MD [...] 11/16/24 1420 DD/ 1347 TD/TT: 11/16/24 1400 Scagliola Mechanic: Procedure Note Donotuseinterpreter, Image - 11/16/[address] [address] XRay Report Signed Patient: Nemo AmezquitaMR#: [id number] : 1955cct:[id number] Age/Sex: 69 / MADM Date: 11/16/24 Loc: [facility] Attending Dr: Maria Dolores SERRA Ordering Physician: Maria Dolores Campbell Date of Service: 11/16/24 Procedure(s): XR Shoulder Kale min 2V Accession Number(s): [id number] cc: Maria Dolores Campbell; Sonya Donis MD [...] 11/16/24 1420 DD/ 1347 TD/TT: 11/16/24 1400 Scagliola Mechanic: [facility] External Provider IMG XR PROCEDURES Final [...] 3:41 PM EDT Internal Pass Control Lot# [id number] Exp: 01-05-26 Sonya Donis MD POINT OF CARE TEST ENTER/EDIT ORDERABLES Final Result * Syphilis Screen (10/04/2024 11:07 AM EDT) Pathologist [facility] Syphilis Screen Nonreactive Nonreactive [facility] Blood 10/04/2024 11:0 7 AM EDT 10/04/2024 2:25 PM EDT Sonya Donis MD LAB BLOOD ORDERABLES Final Re sult Performing Organization Address [facility] Co de Phone Number [facility] [address] [place] [phone] * TSH W/Reflex to FT4 (10/04/2024 11:07 AM EDT) [facility] TSH reflex Free T4 2.26 0.32 - 4.0 uIU/mL [facility] Blood Venous blood specimen / Unknown 10/04/2024 11:07 AM EDT 10/04/2024 2:25 PM EDT Sonya Donis MD LAB BLOOD ORDERABLES Final Re sult Performing Organization Address [facility] Co de Phone Number [facility] [address] [place] [phone] * Lyme Disease Ab with Reflex to Blot (IgG, IgM) (10/04/2024 11:07 AM EDT) [facility] Lyme Antibody Screen <0.90 index [facility] Comment:Index Interpretation ----- < 0.90 [...] when erythemamigrans is apparent.THIS TEST WAS PERFORMED AT:[employer] [place] [id number] GUERRA MD Lyme Blot TNP [facility] 10/04/2024 11:0 7 AM EDT 10/04/2024 2:25 PM EDT us Sonya Donis MD LAB BLOOD ORDERABLES Final Re sult [facility] [address] [place] [address] [phone] * Lipid Panel with Reflex to Direct LDL (10/04/2024 11:07 AM EDT) Triglycerides 84 <150 mg/dL [facility] Comment:Desirable Triglyceri de: less than 150 mg/dLBorderline High Triglyceride 150-199 mg/dLHigh Triglyceride: 200-499 mg/dLVery High Triglyceride: greater than or equal to 5OO mg/dL Cholesterol 147 <200 mg/dL [facility] Comment:Desirable Cholestero l: less than 200 mg/dLBorderline High Cholesterol: 200-239 mg/dLHigh Cholesterol: greater than 239 mg/dL LDL Cholesterol Calculated 88 <100 mg/dL [facility] Comment:Desirable LDL: less than 100 mg/dLNear Optimal/Above Optimal LDL: 110- 129 mg/dLBorderline High LDL: 130-159 mg/dLHigh LDL: 160-189 mg/dLVery High LDL: greater than or equal to 190 mg/dL HDL Cholesterol 43 >40 mg/dL [facility] Comment:Desirable HDL: great er than 40 mg/dL Note: This HDL assay may give artificially low results in patients with liver disease. Blood 10/04/2024 11:0 7 AM EDT 10/04/2024 2:25 PM EDT Sonya Donis MD LAB BLOOD ORDERABLES Final Re sult Performing Organization Address [facility]/ZIP Co de Phone Number [facility] [address] [place] [phone] * Iron And Total Iron Binding Capacity (10/04/2024 11:07 AM EDT) Iron 73 45 - 160 mcg/dL [facility] Total Iron Binding Capacity 358 228 - 428 mcg/dL [facility] Percent Iron Saturation 20 15 - 50 % [facility] Unsaturated Iron Binding 285 ug/dL [facility] Blood Venous blood specimen / Unknown 10/04/2024 11:07 AM EDT 10/04/2024 2:25 PM EDT Sonya Donis MD LAB BLOOD ORDERABLES Final Re sult Performing Organization Address [facility] Co de Phone Number [facility] [address] [place] [phone] * Herpes Simplex Virus Culture with Reflex Typing (09/29/2024 12:00 AM EDT) HSV Culture/Type SEE NOTE [facility] Comment:HERPES SIMPLEX VIRUS CULTURE W/RFL TO TYPING Micro Number: [id number] Test Status: Final Specimen Source: Not given Specimen Quality: Adequate HSV Culture: Not IsolatedTHIS TEST WAS PERFORMED AT:[employer] [id number] MERATI,MD 09/29/2024 09/29/2024 Sonya Donis MD LAB MICROBIOLOGY - GENERAL OR DERABLES Final Result Performing Organization Address [facility]/ZIP Co de Phone Number [facility] [address] [place] [phone] * Referral to Urology (09/20/2024) us Sonya Donis MD OUTPATIENT REFERRAL ORDERABLE S Final Result * Hepatitis C Ab (01/22/2023 1:05 PM EST) Hepatitis C Antibody Nonreactive Nonreactive [facility] Comment:Antibodies to HCV no t detected; does not exclude early acuteHCV infection. Blood Venous blood specimen / Unknown 01/22/2023 1:05 PM EST 01/22/2023 2:22 PM EST us Sonya Donis MD LAB BLOOD ORDERABLES Final Re sult [facility] [address] [place] [address] [phone] * Colonoscopy (01/13/2018) Colonoscopy Normal Normal Narrative Sonya Donis MD - 01/13/2018 Normal colonoscopy, unknown why recommended repeat 5 yrs us Historical Provider HEALTH MAINTENANCE Final Result from Last 3 Months or Most Recently Relevant to Health Maintenance Insurance [facility] [employer] OPTIONS (O D-SNP) [address] [id number] DENTAL - [facility] Care Teams Statistics Manager Relationship Specialty Start Date End Date Sonya Donis MD [address] [place] [phone] PCP - General Family Medicine 01/18/23 [employer] ACCOUNTANT HELPER Services 10/11/23
--- OUTSIDE RECORDS SUMMARY | 2024-12-08 16:04 | XMS_ITS | Encounter Summary ---
Author Organization [employer] Address [address] [place] [address] 7t [place] [address] Care Team Providers Care Floor Technician Name Role Phone Sonya Donis MD Primary Care Provider [phone] Encounter Details Date Type Department Care Team ([facility] st Contact Info) Description 10/04/2024 Telephone [employer] [facility] [address] [place] [address] Sonya Donis MD [address] [place], [place] [phone] Social History Tobacco Use Types Packs/Day Years [...] t he electric, gas, oil or water [employer] threatened to shut off services in your [...] 12/27/2024 11:15 AM EDT Office Visit [facility] [address] [place] [address] Sonya Donis MD [address] [place] [address] 02/15/2025 3:00 PM EST Clinical Support [facility] [address] [place] [address] Anupama Solomon, ADONAY [address] [place] [address] 03/27/2025 2:00 PM EST Office Visit [facility] ADULT [facility] [address] [place] [address] Ascencion Joya documented as of this encounter Visit Diagnoses Not on filedocumented in this encounter Additional Health Concerns Assessment Noted Time PHQ-9 Depression Total Score: 0 09/30/19 25 11:11 AM EDT documented as of this encounter Care Teams Floor Technician Relationship Specialty Start Date End Date Sonya Donis MD [address] [place] [address] PCP - General Family Medicine 01/18/23 [employer] ROCK WOOL APPLICATOR Services 10/11/23 documented as of this encounter
--- OUTSIDE RECORDS SUMMARY | 2024-12-08 16:04 | XMS_ITS | Encounter Summary ---
Author Organization [employer] Address [address] [place] [address] 7t [place] [address] Care Team Providers Care Electrical Systems Engineer Name Role Phone Sonya Donis MD Primary Care Provider [phone] Reason for Visit * Reason Onset Date Comments Med Refill 09/08/2023 Encounter Details Date Type Department Care Team ([facility] st Contact Info) Description 09/08/2023 Telephone [facility] [address] [place] [address] Sonya Donis MD [address] [place] [address] Med Refill Social History Tobacco Use Types [...] 2:59 PM EDT Medication was sent to [facility] #[id number] on 07/09/23 with 2 refills. * Telephone Encounter - Marcy Mohan - 09/08/2023 1:12 PM EDT TC from pt requesting medication refill. Medications needing refill : cyclobenzaprine (Flexeril) 10 MG tablet To be sent to: [id number] [facility] documented in this encounter Plan of Treatment Upcoming Encounters Date Type Department Care Team ([facility] Contact Info) Description 12/27/2024 11:15 AM EDT Office Visit [facility] [address] [place] [address] Sonya Donis MD [address] [place] [address] 02/15/2025 3:00 PM EST Clinical Support [facility] [address] [facility] [place] [address] Anupama Solomon RN [address] [place] [address] 03/27/2025 2:00 PM EST Office Visit [facility] [address] [place] [address] Ascencion Jyoa documented as of this encounter Visit Diagnoses Not on filedocumented in this encounter Additional Health Concerns Assessment Noted Time PHQ-9 Depression Total Score: 9 03/11/19 11:12 AM EST documented as of this encounter Care Teams Electrical Systems Engineer Relationship Specialty Start Date End Date Sonya Donis MD [address] [place] [phone] PCP - General Family Medicine 01/18/23 [employer] PRESS OFFBEARER Services 10/11/23 documented as of this encounter
--- OUTSIDE RECORDS SUMMARY | 2024-12-08 16:04 | XMS_ITS | Encounter Summary ---
Author Organization [employer] Address [address] [place] [address] 7t [place] [address] Care Team Providers Care Sample Box Maker Name Role Phone Sonya Donis MD Primary Care Provider [phone] Encounter Details Date Type Department Care Team (Late st Contact Info) Description 07/20/2024 Orders Only [facility] [address] [place], [place] [phone] Provider, MD Annabelle Social History Tobacco Use [...] [facility] [address] [place] [address] Sonya Donis MD [address] [place] [address] 02/15/2025 3:00 PM EST Clinical Support [facility] [address] [place] [address] Anupama Solomon RN [address] [place] [address] 03/27/2025 2:00 PM EST Office Visit [facility] [address] [place] [address] Ascencion Joya documented as of this encounter Procedures Procedure Name Priority Date/Time Associated Diagnosis Comments HERPES CULTURE WITH REFLEX TYPING Routine 09/29/2024 12:00 AM EDT T4, FREE Routine 08/11/2024 12:00 AM EDT CYTOLOGY, NON-LOAD PLANNER Routine 07/18/2024 2:2 5 PM EDT documented in this encounter Results * Herpes Simplex Virus Culture with Reflex Typing (09/29/2024 12:00 AM EDT) HSV Culture/Type SEE NOTE [facility] Comment:HERPES SIMPLEX VIRUS CULTURE W/RFL TO TYPING Micro Number: [id number] Test Status: Final Specimen Source: Not given Specimen Quality: Adequate HSV Culture: Not IsolatedTHIS TEST WAS PERFORMED AT:[employer] [place] [id number] MERATI,MD 09/29/2024 09/29/2024 us Sonya Donis MD LAB MICROBIOLOGY - GENERAL OR DERABLES Final Result Performing Organization Address [facility] Co de Phone Number [facility] [address] [place] [phone] * T4, Free (08/11/2024 12:00 AM EDT) Free T4 (Free Thyroxine) 0.93 0.71 - 1.85 ng/dL [facility] 08/11/2024 08/11/2024 us Sonya Donis MD LAB BLOOD ORDERABLES Final Re sult Performing Organization Address [facility] de Phone Number [facility] [address] [place] [phone] * Cytology, Non-LOAD PLANNER (07/18/2024 2:25 PM EDT) Historical Provider LAB CYTOLOGY ORDERABLES F inal Result documented in this encounter Visit Diagnoses Not on filedocumented in this encounter Additional Health Concerns Assessment Noted Time PHQ-9 Depression Total Score: 0 10/11/19 9:09 AM EDT documented as of this encounter Care Teams Sample Box Maker Relationship Specialty Start Date End Date Sonya Donis MD [address] [place] [address] PCP - General Family Medicine 01/18/23 [employer] INVENTORY SPECIALIST Services 10/11/23 documented as of this encounter
--- OUTSIDE RECORDS SUMMARY | 2024-12-08 16:04 | XMS_ITS | Encounter Summary ---
Author Organization [employer] Address [address] [facility] 7t [place] [address] Care Team Providers Care Director Of Intelligence Name Role Phone Sonya Donis MD Primary Care Provider [phone] Reason for Visit * Reason Onset Date Comments Med Refill 02/02/2024 Encounter Details Date Type Department Care Team ([facility] st Contact Info) Description 02/02/2024 Telephone [facility] [address] [place] [address] Sonya Donis MD [address] [place] [address] Med Refill Social History Tobacco Use Types [...] 5-325 MG tablet To be sent to: [facility] #[id number] documented in this encounter Plan of Treatment Upcoming Encounters Date Type Department Care Team (Late st Contact Info) Description 12/27/2024 11:15 AM EDT Office Visit [facility] [address] [place] [address] Sonya Donis MD [address] [place] [address] 02/15/2025 3:00 PM EST Clinical Support [facility] [address] [place] [address] Anupama Solomon RN [address] [place] [address] 03/27/2025 2:00 PM EST Office Visit [facility] [address] [place] [address] Ascencion Joya documented as of this encounter Visit Diagnoses Not on filedocumented in this encounter Additional Health Concerns Assessment Noted Time PHQ-9 Depression Total Score: 0 10/11/19 24 9:09 AM EDT documented as of this encounter Care Teams Director Of Intelligence Relationship Specialty Start Date End Date Sonya Donis MD [address] [place] [address] PCP - General Family Medicine 01/18/23 [employer] CUT ORDER HAND Services 10/11/23 documented as of this encounter
--- OUTSIDE RECORDS SUMMARY | 2024-12-08 16:04 | XMS_ITS | Encounter Summary ---
Author Organization [employer] Address [address] [place] [address] 7t [place] [address] Care Team Providers Care Batch Dumper Name Role Phone Sonya Doins MD Primary Care Provider [phone] Reason for Visit * Reason Onset Date Comments Med Refill 01/07/2024 Encounter Details Date Type Department Care Team ([facility] st Contact Info) Description 01/07/2024 Telephone [facility] [address] [place] [address] Sonya Donis MD [address] [place] [address] Med Refill Social History Tobacco Use Types [...] 5-325 MG tablet To be sent to: [facility][id number] documented in this encounter Plan of Treatment Upcoming Encounters Date Type Department Care Team (Late st Contact Info) Description 12/27/2024 11:15 AM EDT [facility] [address] [place] [address] Sonya Donis MD [address] [place] [address] 02/15/2025 3:00 PM EST Clinical Support [facility] [address] [place] [address] Anupama Solomon RN [address] [place] [address] 03/27/2025 2:00 PM EST Office Visit [facility] [address] [place] [address] Ascencion Joya documented as of this encounter Visit Diagnoses Not on filedocumented in this encounter Additional Health Concerns Assessment Noted Time PHQ-9 Depression Total Score: 0 10/11/19 24 9:09 AM EDT documented as of this encounter Care Teams Batch Dumper Relationship Specialty Start Date End Date Sonya Donis MD [address] [place] [address] PCP - General Family Medicine 01/18/23 [employer] PIGGERY WORKER Services 10/11/23 documented as of this encounter
== END 2024-12-08 16:02 | disposition home or self-care (01) ==
LOC: HO.CT 16:01
PROVIDERS: PCP Family Medicine; Visit Provider Family Medicine
DX: Q66.89 Other specified congenital deformities of feet (principal)
CPT/HCPCS: 73700

== ENCOUNTER → 2024-12-08 16:04 | Outpatient (BNV) | payer OTHER, SELFPAY | PROVIDERS: PCP Family Medicine; Visit Provider Radiology Diagnostic Radiology | DX: M25.571 Pain in right ankle and joints of right foot (principal); M19.072 Primary osteoarthritis, left ankle and foot | CPT/HCPCS: 73700 ==